=== PATIENT | female | born 1940 | race Caucasian/White ===

== ENCOUNTER 2020-12-18 15:40 | Emergency (ER) | payer MEDICARE, SELFPAY ==
[2020-12-18 15:44] VITALS: BP 165/90; PULSE 86; RESP 20; O2SAT 97; BMI 32.5
--- NOTE | 2020-12-18 15:51 | ECG_ITS ---
[facility] Test Date: 2020-12-18 Pat Name: Radha Silverman Department: Room: Gender: Female Axminster Rug Setter: : 1940 Requested By: Shila Garcia Order Number: [id number] Julian MD: Joel Flores M.D. Measurements Intervals [place] Rate: 90 P: 67 MO: 203 QRS: 26 QRSD: 82 T: 32 QT: 334 QTc: 409 Interpretive Statements SINUS RHYTHM Compared to ECG 08/18/2019 22:00:28 T-wave abnormality no longer present Electronically Signed On 12-19-2020 17:09:00 PRINCIPAL HARDWARE ARCHITECT by Joel Flores M.D. [email or web address] davis community hospitalCyvenio Biosystemscleveland clinic akron generalGati Infrastructure/store/OM/[id number]/[id number]
--- NOTE | 2020-12-18 16:01 | ED_ITS ---
HPI - SOB/Dyspnea General: Chief Complaint: Shortness of Breath/Dyspnea Stated Complaint: RESP DISTRESS Time Seen by Provider: 12/18/20 15:50 Source: patient and EMS Mode of arrival: EMS Limitations: physical limitation History of Present Illness: HPI Narrative: 80-year-old female brought in by EMS with shortness of breath. History of COPD. When EMS arrived, she had been symptomatic for about an hour, her O2 sats were in the 70s on room air. Increased to high 90s on 7 L nasal cannula. Denies recent fever, increased phlegm production, chest pain, nausea or vomiting. She is on home oxygen 3 to 4 L with activity, currently was not wearing her oxygen when her symptoms started MD elicited complaint: shortness of breath Pertinent past history: COPD Onset (ago): hour(s) Context: recent illness Timing: progressively worsening Associated symptoms: Deny chest pain, fever(s), hemoptysis, lightheadedness, nausea, syncope or vomiting Review of Systems General: Reports: ROS unobtainable due to medical condition Const: Reports: fatigue; Denies: fever(s) or chills Eyes: Denies: change in vision ENMT: Denies: odynophagia or nasal congestion Card: Reports: dyspnea on exertion; Denies: chest pain, irregular heart rhythm, edema, swelling of feet/ankles, lightheadedness or syncope Resp: Reports: dyspnea, productive cough and wheezing; Denies: stridor, pain on inspiration, change in phlegm color or hemoptysis GI: Denies: nausea, vomiting or melena : Denies: difficulty voiding or dysuria Skin/Breast: Denies: rash Physical Exam Const: EXAM LIMITATIONS: physical limitations (Shortness of breath) GENERAL APPEARANCE: in distress, disheveled, ill appearing and frail appearing ORIENTATION/CONSCIOUSNESS: Yes awake HENMT: COMMON NORMALS: normocephalic and atraumatic HEAD & SCALP: normocephalic and atraumatic FACE & SINUS: face symmetric Eye: COMMON NORMALS: EOMs intact bilaterally and conjunctivae normal ALIGNMENT: Yes alignment normal CONJUNCTIVA: Yes conjunctivae normal Neck/C-Spine: COMMON NORMALS: no lymphadenopathy; negative for no JVD Chest: COMMONS NORMALS: normal inspection of the chest Resp: EFFORT & INSPECTION: Yes respiratory distress, Yes pursed lip breathing, Yes labored, Yes uses accessory muscles and Yes prolonged expiratory phase AUSCULTATION: wheezes expiratory wheezes and diminished lung sounds Cardio: COMMON NORMALS: regular rate, S1 normal heart sound present and S2 normal heart sound present; negative for no JVD RATE: regular rate HEART SOUNDS: S1 normal heart sound present and S2 normal heart sound present GI: COMMON NORMALS: Normal to inspection, nondistended, normoactive bowel sounds present and Soft to palpation INSPECTION: Yes normal to inspection PALPATION: Yes Soft to palpation, Yes Firmness to palpation present (GI), No Tenderness to palpation present (GI), No Guarding due to palpation present (GI) and Yes Rigid due to palpation Extremity: COMMON NORMALS: normal to inspection, capillary refill normal, no clubbing, cyanosis or edema, no calf tenderness and no pedal edema Skin: COMMON NORMALS: no rashes or lesions noted, no wounds, no jaundice and no petechiae GENERAL SKIN EXAM: no rashes or lesions noted Course Vital Signs: Vital signs: Vital Signs Pulse Rate 72 12/18/20 20:43 Respiratory Rate 16 12/18/20 20:43 Blood Pressure 129/86 12/18/20 18:42 Pulse Oximetry 96 12/18/20 20:43 MDM - SOB/Dyspnea MDM Narrative: Medical decision making narrative: 80-year-old female with a history of COPD presenting with acute onset shortness of breath and wheezing an hour prior to calling EMS. When they arrived she was in the 70s on room air. No acute infiltrates on chest x-ray, baseline emphysema. She did have a delta troponin in the 40s, no EKG changes. No chest pain. This is most likely due to her period of hypoxia. She is already established with communications intern, and she is instructed to call tomorrow morning for an appointment as soon as possible. She tolerated oxygen weaning down to her baseline 2 to 3 L, O2 sats were in the high 90s Given steroids and bronchodilator. PaO2 69. Recommended close follow-up with her communications intern, call tomorrow morning for appointment. Also recommended that she wear her nasal cannula oxygen at all times, not just with activity. Strict instructions to return immediately to the ER if she develops worsening shortness of breath, chest pain, palpitations or any other concerning changes. Lab Data: Attestation: I reviewed the patient's lab results. Labs: Lab Results 12/18/20 12/18/20 12/18/20 Range/Units 16:05 16:05 16:05 WBC 5.3 (4.0-10.0) 10^3/ uL RBC 4.46 (4.1-5.3) 10^6/u L Hgb 12.4 (11.5-15.3) g/dL Hct 39.4 (37.0-47.0) % MCV 88.3 (81-99) fL MCH 27.8 L (28.0-34.0) pg MCHC 31.5 (30.0-36.0) g/dL RDW 12.9 (12.1-15.1) % Plt Count 322 (130-400) 10^3/c mm MPV 9.9 (7.4-10.4) fL Neut % (Auto) 62.7 % Lymph % (Auto) 25.5 % [place] % (Auto) 7.0 % Eos % (Auto) 4.0 % Baso % (Auto) 0.4 % Neut # (Auto) 3.29 (1.8-7.7) 10^3/u L Lymph # (Auto) 1.3 (0.8-4.8) 10^3/u L [place] # (Auto) 0.4 (0.2-0.9) 10^3/u L Eos # (Auto) 0.2 (0.0-0.8) 10^3/u L Baso # (Auto) 0.0 (0.0-0.1) 10^3/u L Nucleated RBC % (a uto) 0 % Nucleated RBCs # 0.0 /100WBC Specimen Type Sample Site ABG pH (7.35-7.45) ABG pCO2 (35-45) mmHg ABG pO2 (80.0-100.0) mmH g ABG HCO3 (22-26) mmol/L ABG O2 Saturation ABG Base Excess (-2.0-2.0) mmol/ L Efe Test A-a O2 Gradient (5-10) mmHg Hematocrit (37-47) % Hgb O2 Saturation (95-100) % Carboxyhemoglobin (0.4-20.1) %THgb Methemoglobin (0.4-1.5) % Total Hemoglobin (12-16) g/dL Ionized Calcium (1.1-1.4) mmol/L O2 Delivery Device Hydraulic Lift Operator ID Sodium 138 (136-145) mmol/L Potassium 4.7 (3.5-5.1) mmol/L Chloride 102 (98-107) mmol/L Carbon Dioxide 28 (22-29) mmol/L Anion Gap 12.7 (5-19) BUN 21 (8-23) mg/dL Creatinine 0.7 (0.5-0.9) mg/dL GFR Calculation Not Reportable Glucose 104 (65-115) mg/dL Calculated Osmolal ity 289 (285-295) mOsm/k g Calcium 8.7 (8.5-10.5) mg/dL Magnesium 1.9 (1.7-2.3) mg/dL Total Bilirubin 0.3 (0.15-1.2) mg/dL AST 19 (0-32) U/L ALT 16 (0-33) U/L Alkaline Phosphata se 85 (35-105) IU/L Troponin T Baselin e 34 H (0-10) ng/L Troponin T 120 Min atka (0-10) ng/L Delta Troponin T (0-10) ABS# C-Reactive Protein 2.4 (0.0-4.9) mg/L NT-Pro-B Natriuret Pep 90 (0-450) pg/mL Total Protein 6.8 (6.6-8.7) g/dL Albumin 4.1 (3.5-5.2) g/dL Globulin 2.7 (1.3-4.6) g/dL Urine Color (Yellow) Urine Appearance (CLEAR) Urine pH (5-7) Ur Specific Gravit y (1.005-1.030) Urine Protein (Negative) Urine Glucose (UA) (Normal) Urine Ketones (Negative) Urine Blood (Negative) Urine Nitrate (Negative) Urine Bilirubin (Negative) Urine Urobilinogen (Negative) mg/dL Ur Leukocyte Prema ase (Negative) Urine RBC (0-2) /hpf Urine WBC (0-5) /hpf Ur Squamous Epith Cells (0-5) /hpf Ur Transition Epit h Cell /hpf Amorphous Sediment Urine Bacteria (NONE) /hpf 12/18/20 12/18/20 12/18/20 Range/Units 16:11 17:04 18:05 WBC (4.0-10.0) 10^3/ uL RBC (4.1-5.3) 10^6/u L Hgb (11.5-15.3) g/dL Hct (37.0-47.0) % MCV (81-99) fL MCH (28.0-34.0) pg MCHC (30.0-36.0) g/dL RDW (12.1-15.1) % Plt Count (130-400) 10^3/c mm MPV (7.4-10.4) fL Neut % (Auto) % Lymph % (Auto) % [place] % (Auto) % Eos % (Auto) % Baso % (Auto) % Neut # (Auto) (1.8-7.7) 10^3/u L Lymph # (Auto) (0.8-4.8) 10^3/u L [place] # (Auto) (0.2-0.9) 10^3/u L Eos # (Auto) (0.0-0.8) 10^3/u L Baso # (Auto) (0.0-0.1) 10^3/u L Nucleated RBC % (a uto) % Nucleated RBCs # /100WBC Specimen Type Arterial Sample Site Brachial, left ABG pH 7.37 (7.35-7.45) ABG pCO2 50.7 H (35-45) mmHg ABG pO2 69.6 L (80.0-100.0) mmH g ABG HCO3 29.0 H (22-26) mmol/L ABG O2 Saturation 93.9 ABG Base Excess 2.7 H (-2.0-2.0) mmol/ L Efe Test Pos A-a O2 Gradient 2.3 L (5-10) mmHg Hematocrit 39.1 (37-47) % Hgb O2 Saturation 91.6 L (95-100) % Carboxyhemoglobin 1.8 (0.4-20.1) %THgb Methemoglobin 0.8 (0.4-1.5) % Total Hemoglobin 12.8 (12-16) g/dL Ionized Calcium 1.2 (1.1-1.4) mmol/L O2 Delivery Device Hag Hydraulic Lift Operator ID Cak Sodium 139.0 (136-145) mmol/L Potassium 4.5 (3.5-5.1) mmol/L Chloride (98-107) mmol/L Carbon Dioxide (22-29) mmol/L Anion Gap (5-19) BUN (8-23) mg/dL Creatinine (0.5-0.9) mg/dL GFR Calculation Glucose 112.0 (65-115) mg/dL Calculated Osmolal ity (285-295) mOsm/k g Calcium (8.5-10.5) mg/dL Magnesium (1.7-2.3) mg/dL Total Bilirubin (0.15-1.2) mg/dL AST (0-32) U/L ALT (0-33) U/L Alkaline Phosphata se (35-105) IU/L Troponin T Baselin e (0-10) ng/L Troponin T 120 Min atka 75.18 H (0-10) ng/L Delta Troponin T 41.18 H* (0-10) ABS# C-Reactive Protein (0.0-4.9) mg/L NT-Pro-B Natriuret Pep (0-450) pg/mL Total Protein (6.6-8.7) g/dL Albumin (3.5-5.2) g/dL Globulin (1.3-4.6) g/dL Urine Color Yellow (Yellow) Urine Appearance Clear (CLEAR) Urine pH 5 (5-7) Ur Specific Gravit y 1.020 (1.005-1.030) Urine Protein Trace (Negative) Urine Glucose (UA) Norm (Normal) Urine Ketones Negative (Negative) Urine Blood Neg (Negative) Urine Nitrate Negative (Negative) Urine Bilirubin Neg (Negative) Urine Urobilinogen Norm (Negative) mg/dL Ur Leukocyte Prema ase Negative (Negative) Urine RBC None (0-2) /hpf Urine WBC Rare (0-5) /hpf Ur Squamous Epith Cells 5-10 H (0-5) /hpf Ur Transition Epit h Cell Rare /hpf Amorphous Sediment Not Reportable Urine Bacteria 1+ H (NONE) /hpf Discharge Plan Discharge Patient Disposition: Home Clinical Impression: Acute exacerbation of chronic obstructive airways disease Condition: Stable Prescriptions: No Action celecoxib 200 mg Capsule 200 mg PO DAILY RF: 0 Aspir-81 81 mg Tablet,Delayed Release (Dr/Ec) 81 mg PO DAILY RF: 0 albuterol sulfate 90 mcg/actuation HFA aerosol inhaler 2 puff INHALATION Q4H PRN (Reason: Wheezing) RF: 0 lisinopril 2.5 mg tablet 2.5 mg PO DAILY RF: 0 metoprolol tartrate 25 mg tablet 12.5 mg PO BID RF: 0 Discharge Orders: Discharge ED (Routine); Ordered 12/18/20 Ordered By: Shila Garcia Referrals: Joel Flores M.D [Physician] - 1-3 days (ER followup) Quan Yang, [Primary Care Provider] - Discharge Diet: Advance as tolerated and Usual diet Discharge Activity: Resume usual activity, Increase activity as tolerated and Oxygen as instructed Patient Instructions: COPD Stoplight Activity Restrictions/Additional Instructions: You have been referred to the communications intern and should hear from them about scheduling a follow-up appointment in the next 3 to 5 days. Make sure to wear your oxygen continuously.Return immediately to the ER if you develop chest pain, continued difficulty breathing, fever, or any other worsening symptoms Coding Level of Care Code ED Facilities Maintenance Technician for Madelyn Fwzakia Exam Comprehensive
[2020-12-18 16:08] VITALS: PULSE 100; RESP 22; O2SAT 95
[2020-12-18] MEDS: ipratropium-albuterol 3 mL Neb INHALATION (16:08)
[2020-12-18 16:13] VITALS: PULSE 90
[2020-12-18 16:22] LABS: ABG PCO2 50.7 mmHg (35-45); ABG PH Result 7.37 (7.35-7.45); Alveolar-Arterial Oxygen Gradi 2.3 mmHg (5-10); Arterial Blood Gas Hematocrit 39.1 % (37-47); Base Excess ABG 2.7 mmol/L (-2.0-2.0); Blood Gas Allen Test Pos; Blood Gas Operator Identificat CAK; Blood Gas Sample Site Brachial, left; Blood Gas Sample Type Arterial; Carboxyhemoglobin 1.8 %THgb (0.4-20.1); HGB O2 Sat 91.6 % (95-100); Ionized Calcium Level - ABG 1.2 mmol/L (1.1-1.4); Methemoglobin 0.8 % (0.4-1.5); Oxygen Device HAG; Oxygen Saturation ABG 93.9; PO2 ABG 69.6 mmHg (80.0-100.0); Potassium Level - ABG 4.5 mmol/L (3.5-5.0); Total Hemoglobin 12.8 g/dL (12-16)
[2020-12-18 16:43] LABS: Basophils % 0.4 %; Eosinophils # 0.2 10^3/uL (0.0-0.8); Hematocrit 39.4 % (37.0-47.0); Hemoglobin 12.4 g/dL (11.5-15.3); Lymphocytes # 1.3 10^3/uL (0.8-4.8); Lymphocytes % 25.5 %; Mean Corpuscular HGB Conc 31.5 g/dL (30.0-36.0); Mean Corpuscular Hemoglobin 27.8 pg (28.0-34.0); Mean Corpuscular Volume 88.3 fL (81-99); Mean Platelet Volume 9.9 fL (7.4-10.4); Monocytes # 0.4 10^3/uL (0.2-0.9); Neutrophils # 3.29 10^3/uL (1.8-7.7); Neutrophils % 62.7 %; Nucleated Red Blood Cells % 0 %; Platelet Count 322 10^3/cmm (130-400); Red Blood Count 4.46 10^6/uL (4.1-5.3); Red Cell Distribution Width 12.9 % (12.1-15.1); White Blood Count 5.3 10^3/uL (4.0-10.0)
[2020-12-18 16:59] LABS: Troponin(5th) Baseline 34 ng/L (0-10)
--- NOTE | 2020-12-18 17:01 | XRR_ITS ---
PROCEDURE INFORMATION: Exam: XR Chest Exam date and time: 12/18/2020 5:02 PM Age: 80 years old Clinical indication: Shortness of breath; Additional info: Respiratory distress, hypoxia TECHNIQUE: Imaging protocol: XR of the chest Views: 1 view. COMPARISON: CR Chest 1 [place] [id number] 08/18/2019 4:23 PM FINDINGS: Lungs: Emphysema. No focal airspace consolidation. Pleural spaces: Unremarkable. No pleural effusion. No pneumothorax. Heart/Mediastinum: Unremarkable. No cardiomegaly. Bones/joints: Unremarkable. XR/XR chest 1V portable [id number] IMPRESSION: 1. No focal pneumonia apparent. 2. Significant background emphysema. 3. No significant change from prior on 08/18/2019.
[2020-12-18 17:06] LABS: Alanine Aminotransferase 16 U/L (0-33); Albumin Level 4.1 g/dL (3.5-5.2); Alkaline Phosphatase 85 IU/L (35-105); Anion Gap 12.7 (5-19); Aspartate Amino Transferase 19 U/L (0-32); Blood Urea Nitrogen 21 mg/dL (8-23); C Reactive Protein 2.4 mg/L (0.0-4.9); Calcium 8.7 mg/dL (8.5-10.5); Carbon Dioxide 28 mmol/L (22-29); Chloride 102 mmol/L (98-107); Globulin 2.7 g/dL (1.3-4.6); Glucose 104 mg/dL (65-115); Magnesium 1.9 mg/dL (1.7-2.3); NT Pro B Type Natriuretic Pept 90 pg/mL (0-450); Osmolality Calculated 289 mOsm/kg (285-295); Potassium 4.7 mmol/L (3.5-5.1); Sodium 138 mmol/L (136-145); Total Bilirubin 0.3 mg/dL (0.15-1.2); Total Protein 6.8 g/dL (6.6-8.7)
[2020-12-18 17:44] LABS: Protein Urine Trace (Negative); Urine Appearance Clear (CLEAR); Urine Color Yellow (Yellow); pH Urine 5 (5-7)
[2020-12-18 17:45] LABS: Add Urine Culture? No; Add Urine Microscopic? YES; Bacteria Urine 1+ /hpf; Bilirubin Urine Neg (Negative); Blood Urine Neg (Negative); Glucose Urine UA Norm (Normal); Ketones Urine Negative (Negative); Leukocyte Esterase Urine Negative (Negative); Nitrate Urine Negative (Negative); Transitional Epi Cells Urine RARE /hpf; Urobilinogen Urine Norm (Negative); WBC Urine RARE /hpf (0-5)
--- NOTE | 2020-12-18 17:51 | ECG_ITS ---
[facility] Test Date: 2020-12-18 Pat Name: Radha Silverman Department: Room: Gender: Female Technologist Development: : 1940 Requested By: Shila Garcia Order Number: [id number] Julian MD: Joel Flores M.D. Measurements Intervals [place] Rate: 89 P: 66 NM: 189 QRS: -2 QRSD: 93 T: 31 QT: 355 QTc: 433 Interpretive Statements SINUS RHYTHM Compared to ECG 12/18/2020 16:11:59 ST (T wave) deviation no longer present Electronically Signed On 12-20-2020 19:03:38 PASTER OPERATOR by Joel Flores M.D. [email or web address] surgical hospitalStarShooter/store/[id number]
[2020-12-18 18:41] LABS: Troponin 5 2HR 75.18 ng/L (0-10)
[2020-12-18 18:42] VITALS: BP 129/86; PULSE 69; RESP 18; O2SAT 98
[2020-12-18 18:45] LABS: Troponin 5 2HR Delta 41.18 ABS# (0-10)
[2020-12-18 20:43] VITALS: PULSE 72; RESP 16; O2SAT 96
== END 2020-12-18 20:44 | disposition home or self-care (01) ==
PROVIDERS: Emergency Provider Family Medicine; PCP Family Medicine
DX: J44.1 Chronic obstructive pulmonary disease with (acute) exacerbation (principal); Z79.82 Long term (current) use of aspirin
CPT/HCPCS: 36600; 71045; 80051; 80053; 81001; 82330; 82805; 83735; 83880; 84484; 85025; 86140; 93005; 94640; 96374; 99284; J2930

== ENCOUNTER 2022-04-19 18:11 | Inpatient (IN) | payer MEDICARE, SELFPAY ==
[2022-04-19] VITALS (8 sets, daily range): BP systolic 97–119; BP diastolic 51–79; PULSE 77–163; RESP 18–24; TEMP 36.6; O2SAT 94–98; BMI 33.3
--- NOTE | 2022-04-19 18:17 | XRR_ITS ---
PROCEDURE INFORMATION: Exam: XR Chest Exam date and time: 04/19/2022 6:31 PM Age: 81 years old Clinical indication: Chest wall pain; Additional info: Cp TECHNIQUE: Imaging protocol: Radiologic exam of the chest. Views: 1 view. COMPARISON: CR (CHEST, ) 12/18/2020 5:04 PM FINDINGS: Lungs: Hyperinflated lungs with biapical and bibasilar scarring. No consolidation. Pleural spaces: No pleural effusion. No pneumothorax. Heart/Mediastinum: No cardiomegaly. Bones/joints: Visualized osseous structures are intact. XR/XR chest 1V portable [id number] IMPRESSION: No acute findings.
--- NOTE | 2022-04-19 18:17 | ECG_ITS ---
[facility] Test Date: 2022-04-19 Pat Name: Radha Silverman Department: Room: Gender: Female Sales Performance Manager: : 1940 Requested By: Miles Hair Order Number: [id number] Julian MD: Joel Flores M.D. Measurements Intervals [place] Rate: 163 P: [place]: QRS: 19 QRSD: 102 T: 22 QT: 246 QTc: 405 Interpretive Statements ATRIAL FLUTTER WITH RAPID VENTRICULAR RESPONSE LOW QRS VOLTAGE IN PRECORDIAL LEADS [QRS DEFLECTION < 1.0 mV IN CHEST LEADS] NONSPECIFIC ST ELEVATION [0.05+ mV ST ELEVATION] Compared to ECG 12/18/2020 18:06:00 Low QRS voltage now present ST (T wave) deviation now present Sinus rhythm no longer present Electronically Signed On 04-20-2022 18:57:28 CDT by Joel Flores M.D. [email or web address] [email or web address] Pharmawil[facility].Inspirato/store/NU/[id number] f
--- NOTE | 2022-04-19 18:24 | ED_ITS ---
HPI - Abdominal Pain General: Chief Complaint: Back Pain/Injury Stated Complaint: L FLANK PAIN Time Seen by Provider: 04/19/22 18:12 Source: patient Mode of arrival: ambulatory Limitations: no limitations History of Present Illness: 81-year-old female who states she been having left flank pain and left sided posterior chest pain over the last day. States been very sharp in nature and worse with palpation. She denies any vomiting or diarrhea. She denies any shortness of breath. She denies any chest pain or palpitations but she is in atrial flutter with a heart rate of 160s here. She is Associated Symptoms: Denies chills, dysuria and fever(s) Review of Systems Const: Denies: fever(s), chills, body aches or change in appetite Eyes: Denies: blurry vision or eye discomfort ENMT: Denies: throat pain or dental pain Card: Denies: chest pain Resp: Denies: dyspnea GI: Reports: abdominal pain : Denies: dysuria Musc: Denies: neck pain or back pain Skin/Breast: Denies: rash Neuro: Denies: headache(s) Psych: Denies: depression Sam/Lymph: Denies: easy bruising All/Imm: Denies: urticaria PFSH ED PFSH: Medical History Hypertension Social History Substance/Drug Use: never Physical Exam Const: COMMON NORMALS: patient oriented x3 and healthy appearing HENMT: COMMON NORMALS: normocephalic and atraumatic HEAD & SCALP: normocephalic and atraumatic Eye: COMMON NORMALS: Equal, round and reactive pupils present and EOMs intact bilaterally PUPIL: Yes Equal, round and reactive pupils present Neck/C-Spine: COMMON NORMALS: full ROM and supple Chest: COMMONS NORMALS: normal inspection of the chest and normal palpation of entire chest wall Resp: COMMON NORMALS: normal respiratory effort, No retractions, No use of accessory muscles and clear to auscultation bilaterally AUSCULTATION: clear to auscultation bilaterally Cardio: COMMON NORMALS: regular rhythm and No murmurs present (Cardio) RATE: tachycardic RHYTHM: regular rhythm GI: COMMON NORMALS: Normal to inspection, nondistended, normoactive bowel sounds present, Soft to palpation, non-tender and no masses PALPATION: Yes Soft to palpation Extremity: COMMON NORMALS: normal to inspection and full ROM Neuro: COMMON NORMALS: patient oriented x3, moves all extremities and no focal motor deficits Psych: COMMON NORMALS: mental status grossly normal, Normal thought process present and cooperative THOUGHT PROCESS: Normal thought process present Skin: COMMON NORMALS: no rashes or lesions noted and no wounds GENERAL SKIN EXAM: no rashes or lesions noted Course Vital Signs: Vital signs: Vital Signs Pulse Rate 147 H 04/19/22 20:01 Respiratory Rate 18 04/19/22 20:01 Blood Pressure 111/79 04/19/22 20:01 Pulse Oximetry 97 04/19/22 20:01 MDM - Abdominal Pain Medical Decision Making Patient presents here with atrial flutter with rapid response she was given Cardizem and had to be started on a Cardizem drip her heart rate is now in the 90s does have some flank pain her CT abdomen pelvis is normal her D-dimer is normal for age-adjusted D-dimer at 1.78. Did speak to the hospitalist will admit at this time. Her pain is improved here. Lab Data : 04/19/22 18:50 04/19/22 18:50 Labs/Radiology: Radiology Impressions Chest X-Ray 04/19/22 18:17 IMPRESSION: No acute findings. Abdomen/Pelvis CT 04/19/22 20:18 IMPRESSION: No acute findings. No renal stones. Laboratory Results WBC 10.1 10^3/uL (4.0-10.0) H 04/19/22 18:50 RBC 4.08 10^6/uL (4.1-5.3) L 04/19/22 18:50 Hgb 11.5 g/dL (11.5-15.3) 04/19/22 18:50 Hct 34.9 % (37.0-47.0) L 04/19/22 18:50 MCV 85.5 fl (81-99) 04/19/22 18:50 MCH 28.2 pg (28.0-34.0) 04/19/22 18:50 MCHC 33.0 g/dL (30.0-36.0) 04/19/22 18:50 RDW 12.0 % (12.1-15.1) L 04/19/22 18:50 Plt Count 324 10^3/cmm (130-400) 04/19/22 18:50 MPV 9.6 fL (7.4-10.4) 04/19/22 18:50 Neut % (Auto) 77.3 % 04/19/22 18:50 Lymph % (Auto) 10.9 % 04/19/22 18:50 [place] % (Auto) 9.3 % 04/19/22 18:50 Eos % (Auto) 1.7 % 04/19/22 18:50 Baso % (Auto) 0.3 % 04/19/22 18:50 Neut # (Auto) 7.83 10^3/uL (1.8-7.7) H 04/19/22 18:50 Lymph # (Auto) 1.1 10^3/uL (0.8-4.8) 04/19/22 18:50 [place] # (Auto) 0.9 10^3/uL (0.2-0.9) 04/19/22 18:50 Eos # (Auto) 0.2 10^3/uL (0.0-0.8) 04/19/22 18:50 Baso # (Auto) 0.0 10^3/uL (0.0-0.1) 04/19/22 18:50 Nucleated RBC % (auto) 0 % 04/19/22 18:50 Nucleated RBCs # 0.0 /100WBC 04/19/22 18:50 PT 13.90 SECONDS (12.1-14.9) 04/19/22 18:50 INR 1.04 (0.8-1.2) 04/19/22 18:50 D-Dimer 0.78 ug/mIFEU (0-0.59) H 04/19/22 18:50 Sodium 135 mmol/L (136-145) L 04/19/22 18:50 Potassium 5.1 mmol/L (3.5-5.1) 04/19/22 18:50 Chloride 100 mmol/L (98-107) 04/19/22 18:50 Carbon Dioxide 24 mmol/L (22-29) 04/19/22 18:50 Anion Gap 16.1 (5-19) 04/19/22 18:50 BUN 22 mg/dL (8-23) 04/19/22 18:50 Creatinine 0.8 mg/dL (0.5-0.9) 04/19/22 18:50 GFR Calculation Not Reportable 04/19/22 18:50 Glucose 111 mg/dL (65-115) 04/19/22 18:50 Calculated Osmolality 284 mOsm/kg (285-295) L 04/19/22 18:50 Calcium 8.5 mg/dL (8.5-10.5) 04/19/22 18:50 Total Bilirubin 0.3 mg/dL (0.15-1.2) 04/19/22 18:50 AST 18 U/L (0-32) 04/19/22 18:50 ALT 13 U/L (0-33) 04/19/22 18:50 Alkaline Phosphatase 79 IU/L (35-105) 04/19/22 18:50 Troponin T Baseline 23 ng/L (0-10) H 04/19/22 18:50 NT-Pro-B Natriuret Pep 546 pg/mL (0-450) H 04/19/22 18:50 Total Protein 7.1 g/dL (6.6-8.7) 04/19/22 18:50 Albumin 3.7 g/dL (3.5-5.2) 04/19/22 18:50 Globulin 3.4 g/dL (1.3-4.6) 04/19/22 18:50 Lipase 63 U/L (13-60) H 04/19/22 18:50 EKG Data EKG 1: I personally reviewed and interpreted this EKG as follows: EKG interpretation date: 04/19/22 EKG interpretation time: 18:25 Interpretation: atrial flutter rvr hr [address] or t wave abnormalities qrs 102 qtc 336 EKG 2: I personally reviewed and interpreted this EKG as follows: EKG interpretation date: 04/19/22 EKG interpretation time: 20:45 Interpretation: atrial flutterhr [address] or t wave abnormalities qrs 68 qtc 419 Critical Care Time Critical Care Time: Critical Care Time: Yes Total Critical Care Time: 40 Attestation: The high probability of a clinically significant, sudden or life threatening deterioration of the patient's cv system(s) required my full and direct attention, intervention and personal management. The critical care time is as shown. This time is in addition to time spent performing any reported procedures but includes the following: [x] Data and vital sign review and interpretation [x] Patient assessment, examination and intervention [x] Documentation [x] Medication orders and management Discharge Plan Discharge Patient Disposition: Admitted As Inpatient Clinical Impression: Atrial flutter with rapid ventricular response, Acute left flank pain Coding Level of Care Code ED Heavy Equipment Sales Associate for Madelyn Fwd Exam Comprehensive
[2022-04-19] MEDS: dilTIAZem 5 mg/mL SDV 5 mL 10 MG IVP (18:49)
[2022-04-19] MEDS: ondansetron 2 mg/ML SDV 2 mL 4 MG IVP ×2 (18:52→21:07)
[2022-04-19] MEDS: morphine 4 mg/mL SDV 1 mL IVP ×2 (18:52→21:07)
[2022-04-19] MEDS: sodium chloride 0.9% 1,000 ML 999 ML IV (18:52)
[2022-04-19 19:12] LABS: Basophils % 0.3 %; Eosinophils # 0.2 10^3/uL (0.0-0.8); Eosinophils % 1.7 %; Hematocrit 34.9 % (37.0-47.0); Hemoglobin 11.5 g/dL (11.5-15.3); Lymphocytes # 1.1 10^3/uL (0.8-4.8); Lymphocytes % 10.9 %; Mean Corpuscular Hemoglobin 28.2 pg (28.0-34.0); Mean Corpuscular Volume 85.5 fl (81-99); Mean Platelet Volume 9.6 fL (7.4-10.4); Monocytes # 0.9 10^3/uL (0.2-0.9); Monocytes % 9.3 %; Neutrophils # 7.83 10^3/uL (1.8-7.7); Neutrophils % 77.3 %; Nucleated Red Blood Cells % 0 %; Platelet Count 324 10^3/cmm (130-400); Red Blood Count 4.08 10^6/uL (4.1-5.3); White Blood Count 10.1 10^3/uL (4.0-10.0)
[2022-04-19 19:38] LABS: Troponin(5th) Baseline 23 ng/L (0-10)
[2022-04-19 19:46] LABS: Alanine Aminotransferase 13 U/L (0-33); Albumin Level 3.7 g/dL (3.5-5.2); Alkaline Phosphatase 79 IU/L (35-105); Blood Urea Nitrogen 22 mg/dL (8-23); Calcium 8.5 mg/dL (8.5-10.5); Carbon Dioxide 24 mmol/L (22-29); Chloride 100 mmol/L (98-107); Globulin 3.4 g/dL (1.3-4.6); Glucose 111 mg/dL (65-115); Lipase 63 U/L (13-60); NT Pro B Type Natriuretic Pept 546 pg/mL (0-450); Osmolality Calculated 284 mOsm/kg (285-295); Sodium 135 mmol/L (136-145); Total Bilirubin 0.3 mg/dL (0.15-1.2); Total Protein 7.1 g/dL (6.6-8.7)
[2022-04-19] MEDS: lidocaine 2% viscous 15 ML, aluminum-mag hydrox-simethicon 30 ML, sucralfate oral liq 1 GM PO (19:46)
[2022-04-19 19:51] LABS: Anion Gap 16.1 (5-19); Aspartate Amino Transferase 18 U/L (0-32); Potassium 5.1 mmol/L (3.5-5.1)
[2022-04-19 20:14] LABS: INR 1.04 (0.8-1.2)
[2022-04-19 20:17] LABS: D Dimer 0.78 ug/mIFEU (0-0.59)
--- NOTE | 2022-04-19 20:17 | ECG_ITS ---
[facility] Test Date: 2022-04-19 Pat Name: Radha Silverman Department: Room: Gender: Female Medical Technician: : 1940 Requested By: Miles Hair Order Number: [id number] Julian MD: Joel Flores M.D. Measurements Intervals [place] Rate: 101 P: [place]: QRS: 45 QRSD: 68 T: 67 QT: 361 QTc: 469 Interpretive Statements ATRIAL FLUTTER WITH RAPID VENTRICULAR RESPONSE AND VARIABLE BLOCK LOW QRS VOLTAGE IN PRECORDIAL LEADS [QRS DEFLECTION < 1.0 mV IN CHEST LEADS] SEPTAL MYOCARDIAL INFARCTION , OF INDETERMINATE AGE [40+ ms Q WAVE IN V1/V2] Compared to ECG 04/19/2022 18:25:51 Myocardial infarct finding now present ST (T wave) deviation still present Electronically Signed On 04-20-2022 19:02:21 CDT by Joel Flores M.D. [email or web address].[email or web address]/OM/[id number]
--- NOTE | 2022-04-19 20:18 | CTR_ITS ---
PROCEDURE INFORMATION: Exam: CT Abdomen And Pelvis Without Contrast Exam date and time: 04/19/2022 8:32 PM Age: 81 years old Clinical indication: Pain; Other: Left flank; Additional info: Flank pain TECHNIQUE: Imaging protocol: Computed tomography of the abdomen and pelvis without contrast. Radiation optimization: All CT scans at this facility use at least one of these dose optimization techniques: automated exposure control; mA and/or kV adjustment per patient size (includes targeted exams where dose is matched to clinical indication); or iterative reconstruction. COMPARISON: CR (CHEST, ) 04/19/2022 6:31 PM RADIATION DOSE METRICS: Total DLP (mGy-cm): 1489.06 FINDINGS: Liver: Normal. No mass. Gallbladder and bile ducts: Cholecystectomy. No ductal dilation. Pancreas: Normal. No ductal dilation. Spleen: Normal. No splenomegaly. Adrenal glands: Normal. No mass. Kidneys and ureters: No renal stones. No hydronephrosis. Stomach and bowel: Colonic diverticulosis without findings of acute diverticulitis. No obstruction. No mucosal thickening. Appendix: No evidence of appendicitis. Intraperitoneal space: Unremarkable. No free air. No significant fluid collection. Vasculature: Unremarkable. No abdominal aortic aneurysm. Lymph nodes: Unremarkable. No enlarged lymph nodes. Urinary bladder: Unremarkable as visualized. Reproductive: Hysterectomy. Bones/joints: No acute fracture. Grade 1 retrolisthesis of L2 on L3 and L3 on L4. Advanced multilevel degenerative disc disease throughout the lumbar spine. Soft tissues: Unremarkable. CT/CT kidney stone [id number] IMPRESSION: No acute findings. No renal stones.
[2022-04-19 21:30] LABS: Troponin 5 2HR 19.05 ng/L (0-10)
[2022-04-19 21:32] LABS: Troponin 5 2HR Delta -3.95 ABS# (0-10)
[2022-04-19 21:59] LABS: Add Urine Microscopic? YES; Bilirubin Urine Neg (Negative); Blood Urine 2+ (Negative); Glucose Urine UA Norm (Normal); Ketones Urine Negative (Negative); Leukocyte Esterase Urine Negative (Negative); Nitrate Urine Negative (Negative); Protein Urine Neg (Negative); Specific Gravity, Urine 1.025 (1.005-1.030); Urine Appearance Clear (CLEAR); Urine Color Yellow (Yellow); Urobilinogen Urine Norm (Negative); pH Urine 5 (5-7)
[2022-04-19 22:00] LABS: Add Urine Culture? No; Bacteria Urine 2+ /hpf; Mucus Urine 2+ /hpf; RBC Urine 0-4 /hpf (0-2); Squamous Epithelial Cell Urine 25-40 /hpf (0-5)
[2022-04-20] VITALS (25 sets, daily range): BP systolic 75–149; BP diastolic 40–79; PULSE 67–118; RESP 14–27; TEMP 36.4–37.2; O2SAT 90–99
--- NOTE | 2022-04-20 00:17 | ECG_ITS ---
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 Measurements Intervals [place] Rate: 92 P: [place]: QRS: 29 QRSD: 78 T: 61 QT: 316 QTc: 392 Interpretive Statements ATRIAL FIBRILLATION LOW QRS VOLTAGE IN PRECORDIAL LEADS [QRS DEFLECTION < 1.0 mV IN CHEST LEADS] Compared to ECG 04/19/2022 20:45:11 Atrial flutter no longer present Myocardial infarct finding no longer present ST (T wave) deviation no longer present Electronically Signed On 04-20-2022 19:01:17 CDT by Joel Flores M.D. [id number]
[2022-04-20] MEDS: pneumococcal (23 valent) SDV 0.5 mL IM (00:28)
[2022-04-20 02:56] LABS: Troponin 5 6HR 21.92 ng/L (0-10)
[2022-04-20 02:57] LABS: Troponin 5 6HR Delta -1.08 ng/L (0-12)
--- NOTE | 2022-04-20 04:02 | PM.HP ---
Providers/Chief Complaint Admitting Physician: Candelaria Haas MD Primary Care Provider: Quan Yang DO Chief Complaint: L FLANK PAIN History of Present Illness Radha Silverman is a 81 year old female who with a past medical history of COPD on home O2 of 2.5 L/min presenting today with left-sided chest pain. Patient describes the pain as being located along the left chest wall, started about a week ago, worse with changing position and sides. This is nonradiating. Upon admission she was noted to be in A. fib with RVR for which she received Cardizem pushes and thereafter was started on Cardizem infusion. She denies a past history of atrial fibrillation. Denies any other past cardiac medical history. She states that on one of her previous hospital admissions it was attempted to be put on anticoagulation, however she is uncertain as to why this was recommended. She did have easy bruising and anticoagulation was eventually deferred. She denies any dyspnea. On review of prior records, she had an abnormal stress test in 2019 which showed areas of decreased tracer uptake in the inferior and apical lateral region suggestive of myocardial scarring versus effusion artifact. Conservative management was recommended at the time. She has not followed with cardiology since. She denies any fever chills URI type symptoms. CT of the abdomen was negative for any abnormalities. Chest x-ray shows hyperinflated lungs with by apical scarring without any consolidation. EKG shows A. fib with RVR. Baseline troponin is a 23, 2-hour troponin at 19 with a negative delta. Review of Systems General: Reports: 10 or more systems reviewed and unremarkable except in HPI and below Const: Denies: fever(s), chills or body aches Eyes: Denies: change in vision, blurry vision or photophobia ENMT: Reports: hoarseness; Denies: throat pain, enlarged tonsils, odynophagia or nasal congestion Card: Denies: chest pain, palpitations, irregular heart rhythm, edema, swelling of feet/ankles, lightheadedness, pre-syncope, dyspnea on exertion or orthopnea Resp: Denies: dyspnea, productive cough, non-productive cough, wheezing, stridor, pain on inspiration, change in phlegm color, hemoptysis or chest congestion GI: Denies: abdominal pain, nausea, vomiting, hematemesis, coffee ground emesis, dysphagia, heartburn, diarrhea, constipation, GI cramping, change in stool character, hematochezia or melena : Denies: flank pain, difficulty voiding, dysuria, urinary frequency, urinary urgency, urinary hesitancy or hematuria Musc: Denies: neck pain, back pain, extremity pain, joint swelling, joint warmth or deformity Neuro: Denies: headache(s), numbness in extremities, weakness in extremities, sensory changes, difficulty walking, frequent falls, dizziness, vertigo, behavioral changes, Slurred speech present or seizure-like activity Psych: Denies: anxiety, depression, suicidal ideation or homicidal ideation Endo: Denies: polyuria, polydipsia, tired all the time, cold intolerance or hot flashes Sam/Lymph: Denies: easy bruising or easy bleeding Medications/Allergies Home Medications Medication Instructions Recorded Confirmed Last Taken Type albuterol sulfate 90 mcg/actuation 2 puff INHALATION Q4H PRN 12/18/20 04/20/22 12/18/20 History aerosol inhaler aspirin 81 mg tablet,delayed 81 mg PO DAILY 12/18/20 04/20/22 12/18/20 History release celecoxib 200 mg capsule 200 mg PO DAILY 12/18/20 04/20/22 12/18/20 History lisinopril 2.5 mg tablet 2.5 mg PO DAILY 12/18/20 04/20/22 12/18/20 History metoprolol tartrate 25 mg tablet 12.5 mg PO BID 12/18/20 04/20/22 12/18/20 History Allergies Allergy/AdvReac Type Severity Reaction Status Date / Time No Known Allergies Allergy Verified 04/20/22 00:04 PFSH Acute PFSH: Medical History (Updated 04/20/22 @ 04:13 by Candelaria Haas MD) Hypertension Social History Substance/Drug Use: never Female Reproductive History: Date of last menstrual period: 10/22/79 Vitals/I&O/Wt Last Vital Signs Temp 97.5 F L 04/20/22 00:51 Pulse 73 04/20/22 00:51 Resp 21 H 04/20/22 00:51 BP 129/76 04/20/22 00:51 Pulse Ox 96 04/20/22 00:51 04/19/22 04/19/22 04/20/22 14:59 22:59 06:59 Intake Total 1029.083 / 1029.083 20.917 / 1050.000 Output Total 100 / 100 Balance 1029.083 / 1029.083 -79.083 / 950.000 Weight last 48 hrs Weight 85.411 kg Physical Exam Narrative: GEN: Awake, alert and oriented, chronically ill appearing lady in no acute stress CVS: S1S2 N RS: scattered wheezing on exam Abd: Soft, nt/nd , bs+ 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 Abdomen/Pelvis CT 04/19/22 20:18 IMPRESSION: No acute findings. No renal stones. Laboratory Results WBC 10.1 10^3/uL (4.0-10.0) H 04/19/22 18:50 RBC 4.08 10^6/uL (4.1-5.3) L 04/19/22 18:50 Hgb 11.5 g/dL (11.5-15.3) 04/19/22 18:50 Hct 34.9 % (37.0-47.0) L 04/19/22 18:50 MCV 85.5 fl (81-99) 04/19/22 18:50 MCH 28.2 pg (28.0-34.0) 04/19/22 18:50 MCHC 33.0 g/dL (30.0-36.0) 04/19/22 18:50 RDW 12.0 % (12.1-15.1) L 04/19/22 18:50 Plt Count 324 10^3/cmm (130-400) 04/19/22 18:50 MPV 9.6 fL (7.4-10.4) 04/19/22 18:50 Neut % (Auto) 77.3 % 04/19/22 18:50 Lymph % (Auto) 10.9 % 04/19/22 18:50 [place] % (Auto) 9.3 % 04/19/22 18:50 Eos % (Auto) 1.7 % 04/19/22 18:50 Baso % (Auto) 0.3 % 04/19/22 18:50 Neut # (Auto) 7.83 10^3/uL (1.8-7.7) H 04/19/22 18:50 Lymph # (Auto) 1.1 10^3/uL (0.8-4.8) 04/19/22 18:50 [place] # (Auto) 0.9 10^3/uL (0.2-0.9) 04/19/22 18:50 Eos # (Auto) 0.2 10^3/uL (0.0-0.8) 04/19/22 18:50 Baso # (Auto) 0.0 10^3/uL (0.0-0.1) 04/19/22 18:50 Nucleated RBC % (auto) 0 % 04/19/22 18:50 Nucleated RBCs # 0.0 /100WBC 04/19/22 18:50 PT 13.90 SECONDS (12.1-14.9) 04/19/22 18:50 INR 1.04 (0.8-1.2) 04/19/22 18:50 D-Dimer 0.78 ug/mIFEU (0-0.59) H 04/19/22 18:50 Sodium 135 mmol/L (136-145) L 04/19/22 18:50 Potassium 5.1 mmol/L (3.5-5.1) 04/19/22 18:50 Chloride 100 mmol/L (98-107) 04/19/22 18:50 Carbon Dioxide 24 mmol/L (22-29) 04/19/22 18:50 Anion Gap 16.1 (5-19) 04/19/22 18:50 BUN 22 mg/dL (8-23) 04/19/22 18:50 Creatinine 0.8 mg/dL (0.5-0.9) 04/19/22 18:50 GFR Calculation Not Reportable 04/19/22 18:50 Glucose 111 mg/dL (65-115) 04/19/22 18:50 Calculated Osmolality 284 mOsm/kg (285-295) L 04/19/22 18:50 Calcium 8.5 mg/dL (8.5-10.5) 04/19/22 18:50 Total Bilirubin 0.3 mg/dL (0.15-1.2) 04/19/22 18:50 AST 18 U/L (0-32) 04/19/22 18:50 ALT 13 U/L (0-33) 04/19/22 18:50 Alkaline Phosphatase 79 IU/L (35-105) 04/19/22 18:50 Troponin T Baseline 23 ng/L (0-10) H 04/19/22 18:50 Troponin T 120 Minute 19.05 ng/L (0-10) H 04/19/22 21:00 Delta Troponin T -3.95 ABS# (0-10) L 04/19/22 21:00 Troponin T Hi Sens 6Hr 21.92 ng/L (0-10) H 04/20/22 00:50 Troponin T Hi Sens 6Hr Delta -1.08 ng/L (0-12) L 04/20/22 00:50 NT-Pro-B Natriuret Pep 546 pg/mL (0-450) H 04/19/22 18:50 Total Protein 7.1 g/dL (6.6-8.7) 04/19/22 18:50 Albumin 3.7 g/dL (3.5-5.2) 04/19/22 18:50 Globulin 3.4 g/dL (1.3-4.6) 04/19/22 18:50 Lipase 63 U/L (13-60) H 04/19/22 18:50 Urine Color Yellow (Yellow) 04/19/22 21:18 Urine Appearance Clear (CLEAR) 04/19/22 21:18 Urine pH 5 (5-7) 04/19/22 21:18 Ur Specific [place] 1.025 (1.005-1.030) 04/19/22 21:18 Urine Protein Neg (Negative) 04/19/22 21:18 Urine Glucose (UA) Norm (Normal) 04/19/22 21:18 Urine Ketones Negative (Negative) 04/19/22 21:18 Urine Blood 2+ (Negative) H 04/19/22 21:18 Urine Nitrate Negative (Negative) 04/19/22 21:18 Urine Bilirubin Neg (Negative) 04/19/22 21:18 Urine Urobilinogen Norm mg/dL (Negative) 04/19/22 21:18 Ur Leukocyte Esterase Negative (Negative) 04/19/22 21:18 Urine RBC 0-4 /hpf (0-2) H 04/19/22 21:18 Urine WBC 5-10 /hpf (0-5) H 04/19/22 21:18 Ur Squamous Epith Cells 25-40 /hpf (0-5) H 04/19/22 21:18 Amorphous Sediment Not Reportable 04/19/22 21:18 Urine Bacteria 2+ /hpf (NONE) H 04/19/22 21:18 Urine Mucus 2+ /hpf 04/19/22 21:18 A&P Assessment and plan (1) Atrial flutter with rapid ventricular response: - New onset A flutter with RVR - currently on cardizem infusion, will overlap with po cardizem and attempt to titrate off drip. - [id number] score 6, anticoagulation recommended however patient hesitant at this time, reports bleeding. However I am unable to see a past record of anticoagulation. - Echocardiogram Status: Acute (2) Chronic respiratory failure with hypoxia: related to COPD Currently needing 02 more than baseline elevated D dimer and new onset A fib with pleuritic chest pain- will order CTA to evaluate for PE Status: Acute (3) COPD (chronic obstructive pulmonary disease): Not currently exacerbated Duoneb nebulization q6h bear Status: Acute (4) Chest pain: Atypical chest pain No acute St-t wave chanegs on EKG Trop negative delta at 2 hrs,less likely NSTEMI, will await 6 hr level Echocardiogram as above Pain appears to be more musculoskeletal vs pleuritic in nature given worsening with movement and deep breath Status: Acute Attestations Medical Necessity Statement*: Anticipate >2midnight admission for above defined care Coding Level of Care Code Acute [employer] 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
--- NOTE | 2022-04-20 04:18 | CT_ITS ---
WS: [id number] CT CHEST ANGIOGRAPHY WITH REFORMATS HISTORY: pleuritic chest pain, dyspnea, new A fib-evalute PE TECHNIQUE: Contiguous axial images are obtained through the chest during arterial injection of intrav enous contrast. Images are reconstructed to evaluate the pulmonary arteries. MIP imaging also reviewe d. All CT scans at [facility] use at least one of these dose optimization techniques: automat ed exposure control; mA and/or kV adjustment per patient size (includes targeted exams where dose is matched to clinical indication); or iterative reconstruction. CONTRAST: Omnipaque 350; 75 mL IV. DLP: 576.26 mGy.cm COMPARISON: 09/10/2008 Study is compromised by motion artifact. Very good opacification of the pulmonary arteries. No centra l pulmonary embolism. Nonobstructing filling defects in the RIGHT lower lobe involving the branching of several of the segmental lobes. These are probably not symptomatic due to their size and may be ch ronic. Similar defect in a segmental branch LEFT lower lobe. Normal-sized thoracic aorta. Mild athero sclerotic plaque. Heart size is normal. No filling defect in the atrial appendage. No pericardial or pleural effusion. Marked emphysema. LEFT lower lobe consolidation consistent with pneumonia is identified on this exami nation. Soft tissue nodule central LEFT upper lobe measures 7 x 10 mm. Not significantly changed sinc e 2007. Additional nodule in the periphery RIGHT lower lobe measures 10 mm and stable since 2007. 10 mm inferior RIGHT paratracheal lymph node. Increased lymph node burden at the LEFT hilum with the largest lymph node measuring 20 mm. Smaller lymph nodes on the RIGHT. No adrenal mass. Significant compromise of the abdominal structures. Marked tricuspid regurgitation i nto hepatic veins. Thoracolumbar scoliosis. CT/CT angio chest PE protcl [id number] IMPRESSION: 1. Subsegmental bilateral lower lobe nonobstructive filling defects consistent with pulmonary emboli. Age indeterminate. 2. LEFT lower lobe pneumonia. 3. Enlarged paratracheal and bilateral hilar lymph nodes. Largest lymph nodes at the LEFT hilum. These are reactive. Recommend follow-up chest CT in 3 months with IV contrast. 4. Severe chronic emphysema.
--- NOTE | 2022-04-20 04:22 | USCV_ITS ---
Radha Silverman Age: 81 Gender: F : 1940 Exam Date: 04/20/2022 10:49 Ordering Phys: Candelaria Haas MD Technologist: RAUL [place] [facility] [place]: New onset afib BP: 149 / 79 HR: 97 Rhythm: Sinus Technical Quality: Suboptimal MEASUREMENTS (Male / Female) Normal Values 2D ECHO LV Diastolic Diameter PLAX 3.3 cm 4.2 - 5.9 / 3.9 - 5.3 cm LV Systolic Diameter PLAX 2.2 cm IVS Diastolic Thickness 1.3 cm 0.6 - 1.0 / 0.6 - 0.9 cm IVS Systolic Thickness 1.7 cm LVPW Diastolic Thickness 1.1 cm 0.6 - 1.0 / 0.6 - 0.9 cm LVPW Systolic Thickness 1.2 cm LVOT Diameter 2.0 cm LV Ejection Fraction 2D Teich 63.5 % LV Ejection Fraction MOD 2C 73.1 % LV Ejection Fraction 2C AL 75.9 % LA Diameter 2.6 cm Aorta at Sinotubular Diameter 2.1 cm IVC Diameter 2.0 cm M-MODE Aortic Annulus Diameter 2.8 cm LA Ao Ratio MM 0.7 MV E Point Septal Separation 0.2 cm DOPPLER AV Peak Velocity 134.0 cm/s LVOT Peak Velocity 94.0 cm/s AV Area Cont Eq vti 2.3 cm squared AV Area Cont Eq pk 2.2 cm squared MV Area PHT 5.0 cm squared MV E' Velocity 100.0 cm/s TR Peak Velocity 227.0 cm/s TR Peak Gradient 20.6 mmHg Right Atrial Pressure 3.0 mmHg Pulmonary Artery Systolic Pressu 23.6 mmHg PV Peak Velocity 90.0 cm/s RV Acceleration Time 0.1 s RV Ejection Time 0.2 s RV AcT/ET 0.4 FINDINGS Left Ventricle Normal left ventricular size, systolic function and wall thickness, with no diagnostic regional wall motion abnormalities. Left ventricular ejection fraction is estimated at 60 %. Right Ventricle Normal right ventricular size and systolic function. Right Atrium Normal right atrial size. Left Atrium Normal left atrial size. Mitral Valve Structurally normal mitral valve. Aortic Valve Structurally normal trileaflet aortic valve. No aortic valve stenosis. Tricuspid Valve Tricuspid valve not well visualized. Pulmonic Valve Pulmonic valve not well visualized. No pulmonary valve stenosis. Trace pulmonary valve regurgitation. Pericardium No pericardial effusion. Aorta Normal size aortic root and proximal ascending aorta. IVC Normal IVC dimension with >50% respiratory change of the inferior vena cava. CONCLUSIONS 1. This is a technically difficult study. Patient refused Optison. 2. Normal left ventricular size, systolic function and wall thickness, with no diagnostic regional wall motion abnormalities. Left ventricular ejection fraction is estimated at 60 %. 3. When compared to previous study report dated 08/19/2019, there may not have been any significant change Shanelle Uribe MD (Electronically Signed) Final Date: 20 April 2022 12:55 S
[2022-04-20 05:09] LABS: Thyroid Stimulating Hormone 0.13 uIU/mL (0.27-4.20)
[2022-04-20] MEDS: dilTIAZem 30 mg Tablet PO ×4 (05:26→22:22)
[2022-04-20] MEDS: ketorolac 30 mg/mL INJ 15 MG IVP (05:26)
[2022-04-20] MEDS: FUROsemide 10 mg/mL SDV 2mL 20 MG IVP (05:26)
[2022-04-20] MEDS: enoxaparin 40 mg/0.4 mL Syringe SUBCUT (05:27)
[2022-04-20 08:04] LABS: Free T4 Free Thyroxine 1.35 ng/dL (0.82-1.77)
--- NOTE | 2022-04-20 08:22 | P.PN_ITS ---
Subjective Subjective: Patient was seen in medical room #2 76 Patient is stating she was not able to sleep because of IV pole noises last night Patient is stating that she noticed her left-sided chest discomfort has impro mary, it is not active at this point Currently heart rate fluctuated between 90-1 10, Cardizem drip running at 5 She is also getting p.o. Cardizem overlap I asked nurse to keep an eye on her blood pressure and titrate off Cardizem drip Patient is stating that because of ibuprofen she developed gastric ulcer that bled and she is not willing to take Eliquis or aspirin for her A. fib At home she takes 3 to 4 L of nasal cannula Patient is stating that she lives with her family I did try to call her daughter and sister, I was not able to even leave a voicemail, her daughter's phone number is not correct Vitals/I&O/Wt Last Vital Signs Temp 98.2 F 04/20/22 08:00 Pulse 97 04/20/22 08:00 Resp 19 H 04/20/22 08:00 BP 98/60 04/20/22 08:00 Pulse Ox 91 04/20/22 08:00 04/19/22 04/20/22 04/20/22 22:59 06:59 14:59 Intake Total 1029.083 / 1029.083 370.917 / 1400.000 Output Total 100 / 100 Balance 1029.083 / 1029.083 270.917 / 1300.000 Weight last 48 hrs Weight 85.457 kg Weight 85.411 kg Physical Exam Narrative: Very pleasant cooperative female She is stating that she wants to sleep Variable S1-S2 Does not look fluid overloaded Abdomen soft visceral obesity No signs of edema Drowsy but alert and oriented Able to tell me HPI Currently on 3 to 4 L nasal cannula which is she is keeping in her mouth Nonfocal neuro exam IV in her left arm Data : 04/19/22 18:50 04/19/22 18:50 A&P Assessment and plan (1) Chronic respiratory failure with hypoxia: Status: Acute (2) COPD (chronic obstructive pulmonary disease): Status: Acute (3) Atrial flutter with rapid ventricular response: Status: Acute (4) Chest pain: Status: Acute Plan New onset A. fib RVR Currently on Cardizem drip at 5 Overlap with p.o. Cardizem Check echo Potassium above 4 Magnesium 2.0 which was checked this morning EKG showing atrial flutter/A. 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 Previous echo showed moderate pulmonary hypertension linear scar and left lung EF 65% grade 1 diastolic dysfunction Stress test 2019 showed fixed perfusion deficit patient was managed conservatively Cardiac diet CTA chest to rule out PE is pending Currently she is on DVT prophylaxis, She is full code I tried to contact her family was not able to get in touch with them Attestations Medical Necessity Statement*: Continue medical management Time Spent in Patient Care: 30 Coding Level of Care Code Acute 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
[2022-04-20] MEDS: aspirin 81 mg EC Tablet PO (08:30)
[2022-04-20] MEDS: pantoprazole DR 40 mg Tablet PO (08:30)
[2022-04-20] MEDS: lidocaine 5% Patch 1 PATCH TOPICAL (08:31)
[2022-04-20] MEDS: iodixanol 320 mg/mL 100mL Btl IV (09:19)
[2022-04-20] MEDS: ipratropium-albuterol 3 mL Neb INHALATION ×3 (09:50→21:55)
--- NOTE | 2022-04-20 10:45 | PC.CHAP ---
Pastoral Care Encounter/Spiritual Assessment Type of Contact [] Declined chute loader visit [] Patient/Family/Request visit [] Outpatient visit [] Follow-up visit [] Physician referral [] Code/Alert [x] Routine visit [] Staff referral [] Actively dying [] Patient sleeping [] Family support [] [] Out of room [] Palliative care [] [x] Receiving care in room [] Pre-surgical visit [] Trauma [] Long length of stay [] ICU visit [x] Other: Isolation Relational/Emotional Strength [] Patient feels connected with others/family/visitors/staff [] Distress [] Loneliness/isolation [] Abandonment Spirituality of Patient [] Person of Melinda [] Attends Congregational of their Melinda [] Believes in Prayer [] Reads Bible or Jain materials [] There are Spiritual issues to be addressed Deputy County Clerk Interventions [] Prayer [] Active listening [] Non-anxious presence [] Spiritual/emotional support [] Crisis/trauma care [] Spiritual counseling [] Bereavement support [] Provided bereavement packet [] Provided Bible/devotional materials [] Provided toy/stuffed animal, coloring book to patient or family member [] Provided Communion [] Anointing/[place] [] Salvation [] Completed spiritual assessment [] Other: Impact on Illness or Injury [] Angry [] Fearful [] Anxious [] Often cries [] Exhaustion [] Unable to work [] Unable to attend church [] Unable to walk/stand [] Unable to read [] Unable to drive [] Unable to eat/drink [] Unable to sleep [] Unable to be with family [] Patient intubated [] Other: Summary Isolation Time spent with patient 5 mins
[2022-04-20] MEDS: morphine 4 mg/mL SDV 1 mL 2 MG IVP ×2 (14:09→19:10)
[2022-04-20] MEDS: acetaminophen 325 mg Tablet 650 MG PO ×2 (14:14→19:11)
[2022-04-21] VITALS (18 sets, daily range): BP systolic 87–132; BP diastolic 54–78; PULSE 66–160; RESP 17–27; TEMP 36.3–39.4; O2SAT 85–97
[2022-04-21] MEDS: metoprolol tartrate 1 mg/1 mL SDV 5 mL 2.5 MG IVP (01:36)
--- NOTE | 2022-04-21 01:42 | PC.NURSE ---
Addendum entered by Nicki Bennett RN 04/21/22 01:45: Medication administered as ordered and documented. Patient's heart is decreasing to mid90 low 100s currently. Will continue to monitor. Original Note: Patient's heart rate increased to the 160s with exertion to BSC. Patient also became slightly more SOB. Spoke with Dr Haas and received telephone order for Metoprolol 2.5mg IVP for increased HR. RBVO
[2022-04-21 02:08] LABS: Basophils % 0.3 %; Eosinophils # 0.1 10^3/uL (0.0-0.8); Eosinophils % 1.7 %; Hematocrit 29.4 % (37.0-47.0); Hemoglobin 9.8 g/dL (11.5-15.3); Lymphocytes # 0.8 10^3/uL (0.8-4.8); Lymphocytes % 10.7 %; Mean Corpuscular HGB Conc 33.3 g/dL (30.0-36.0); Mean Corpuscular Hemoglobin 28.6 pg (28.0-34.0); Mean Corpuscular Volume 85.7 fl (81-99); Mean Platelet Volume 9.2 fL (7.4-10.4); Monocytes # 0.7 10^3/uL (0.2-0.9); Neutrophils # 5.82 10^3/uL (1.8-7.7); Nucleated Red Blood Cells % 0 %; Platelet Count 231 10^3/cmm (130-400); Red Blood Count 3.43 10^6/uL (4.1-5.3); Red Cell Distribution Width 12.1 % (12.1-15.1); White Blood Count 7.5 10^3/uL (4.0-10.0)
[2022-04-21 02:28] LABS: Alanine Aminotransferase 49 U/L (0-33); Albumin Level 3.1 g/dL (3.5-5.2); Alkaline Phosphatase 91 IU/L (35-105); Anion Gap 13.6 (5-19); Aspartate Amino Transferase 44 U/L (0-32); Blood Urea Nitrogen 26 mg/dL (8-23); Calcium 7.3 mg/dL (8.5-10.5); Carbon Dioxide 24 mmol/L (22-29); Chloride 100 mmol/L (98-107); Globulin 3.5 g/dL (1.3-4.6); Glucose 123 mg/dL (65-115); Osmolality Calculated 282 mOsm/kg (285-295); Potassium 4.6 mmol/L (3.5-5.1); Sodium 133 mmol/L (136-145); Total Bilirubin 0.6 mg/dL (0.15-1.2); Total Protein 6.6 g/dL (6.6-8.7)
[2022-04-21] MEDS: enoxaparin 40 mg/0.4 mL Syringe SUBCUT (03:27)
[2022-04-21] MEDS: dilTIAZem 30 mg Tablet PO ×2 (03:27→10:41)
--- NOTE | 2022-04-21 04:54 | PC.NURSE ---
Patient's heart rate continues to increase to 150s with exertion. Patient currently has temp of 102.9 (oral). Patient c/o not feeling well at all this morning. Spoke with Dr Haas and received orders to place espinosa catheter, stat blood cultures and to begin Zosyn as ordered. RBVO. Espinosa catheter placed per protocol using aseptic technique. Patient tolerated well. Will continue to monitor.
[2022-04-21] MEDS: piperacillin-tazobactam 3.375 GM in sodium chloride 0.9% (plus) 50 ML IV ×3 (05:30→20:34)
[2022-04-21] MEDS: acetaminophen 325 mg Tablet 650 MG PO (05:35)
--- NOTE | 2022-04-21 05:41 | PC.NURSE ---
Addendum entered by Nicki Bennett RN 04/21/22 05:42: Dr Haas is aware. Original Note: Patient refusing to have cardiac stress test this morning. Patient reports not feeling well and does not think she will be able to do it.
[2022-04-21 06:03] LABS: Lactic Sepsis W/Reflex 0.9 mmol/L (0.5-2.2)
[2022-04-21] MEDS: metoprolol tartrate 25 mg Tablet PO ×2 (08:07→20:34)
[2022-04-21] MEDS: pantoprazole DR 40 mg Tablet PO (08:07)
[2022-04-21] MEDS: predniSONE 20 mg Tablet 40 MG PO (08:07)
[2022-04-21] MEDS: aspirin 81 mg EC Tablet PO (08:07)
[2022-04-21] MEDS: lidocaine 5% Patch 1 PATCH TOPICAL (08:07)
[2022-04-21] MEDS: vancomycin 1,000 MG in sodium chloride 0.9% 250 ML 250 MG IV (09:25)
--- NOTE | 2022-04-21 11:27 | P.PN_ITS ---
Subjective Subjective: This morning patient was seen at the bedside daughter was also present Patient is on 4 L nasal cannula, PE positive She is noncompliant after chest pain She is fatigued and lethargic complaining of back pain She has been diagnosed with left lower lobe pneumonia she has been started on antibiotics overnight I have added vancomycin this morning Her A. fib RVR heart rate was in the 140s with addition of metoprolol heart rate dropped down to 84 hold off on amiodarone drip Patient refused cardiac stress test this morning, I will let her have cardiac diet Vitals/I&O/Wt Last Vital Signs Temp 99.1 F 04/21/22 07:50 Pulse 160 H 04/21/22 08:22 Resp 18 04/21/22 08:22 BP 87/54 04/21/22 07:50 Pulse Ox 92 04/21/22 08:22 04/20/22 04/21/22 04/21/22 22:59 06:59 14:59 Intake Total 480 / 1242.75 0 / 1242.75 50 / 50 Output Total 400 / 650 400 / 1050 Balance 80 / 592.75 -400 / 192.75 50 / 50 Weight last 48 hrs Weight 83.915 kg Weight 85.457 kg Weight 85.411 kg Physical Exam Narrative: Patient is in left lateral position Currently on 4 L nasal cannula which worsened to OxiMask 10 L later today Bilateral breath sounds with mild rhonchi Abdomen is soft She has paraspinal tenderness Extremely fatigued and lethargic Noncompliant Awake and alert Nonfocal neuro exam Daughter is at the bedside Urinary Catheter Management: Ambrosio: Cath Placed During This Visit: yes Reason for Continuing Indwelling Catheter: Acute Urinary Retention or Obstruction Urinary Catheter Date of Insertion: 04/21/22 Urinary Catheter Time of Insertion: 03:25 Data : 04/21/22 01:50 04/21/22 01:50 Micro: Microbiology 04/21/22 05:29 Blood Culture - Preliminary Blood SPECIMEN COLLECTED 04/21/22 05:28 Blood Culture - Preliminary Blood SPECIMEN COLLECTED A&P Assessment and plan (1) Pneumonia: Status: Acute (2) Pulmonary embolism: Status: Acute (3) Chest pain: Status: Acute (4) Acute and chronic respiratory failure with hypoxia: Status: Acute (5) Atrial flutter with rapid ventricular response: Status: Acute (6) MAKAYLA (acute kidney injury): Status: Acute Plan Community-acquired pneumonia Left lower lobe pneumonia Started on broad-spectrum antibiotics last night She is not septic No leukocytosis Acute on chronic hypoxia Uses 3 to 4 L of oxygen at home Hypoxia has worsened currently on oxygen mask 10 L Bilateral PE with underlying pneumoniaand COPD I will put her on BiPAP to ease work of breathing Patient is refusing anticoagulating agent because of a history of GI bleed Chest pain related to tachyarrhythmia and PE: Patient refused stress test this morning A. fib RVR We will start amiodarone drip if heart rate stays above 110, currently heart rate responded well to p.o. regimen of metoprolol and Cardizem Monitor closely, she might need ICU in case of further worsening of her heart rate and hypoxia Transfer to ICU BiPAP today Broad-spectrum antibiotics Patient has adamantly refused anticoagulating agent She is also stating that she does not want cardioversion in case of failure to control her heart rate, this was discussed in front of her daughter She is full code Currently on DVT prophylactic regimen Attestations Medical Necessity Statement*: Transfer to ICU Time Spent in Patient Care: 40 Coding Level of Care Code Acute Carry In Worker for Chg Fwd Diagnoses Pneumonia J18.9 Pulmonary embolism I26.99 Chest pain R07.9 Acute and chronic respiratory failure with hypoxia J96.21 Atrial flutter with rapid ventricular response I48.92 MAKAYLA (acute kidney injury) N17.9
[2022-04-21] MEDS: lactated ringers 500 ML 999 ML IV (12:11)
[2022-04-21 12:52] LABS: ABG PCO2 42.4 mmHg (35-45); ABG PH Result 7.39 (7.35-7.45); Arterial Blood Gas Hematocrit 32.9 % (37-47); Base Excess ABG 0.2 mmol/L (-2.0-2.0); Blood Gas Allen Test Pos; Blood Gas Sample Type Arterial; HCO3 ABG 25.3 mmol/L (22-26); PO2 ABG 68.7 mmHg (80.0-100.0)
[2022-04-21 12:53] LABS: Blood Gas Operator Identificat ED; Blood Gas Sample Site Radial, left; Oxygen Device BIPAP
[2022-04-21] MEDS: ipratropium-albuterol 3 mL Neb INHALATION ×2 (15:45→21:13)
--- NOTE | 2022-04-21 18:06 | PC.NURSE ---
pt's o2 sat dropped to low 80's.dr callaway and rt notified.oxymask applied at 10 l/min..and then bipap at 40% o2 applied.o2 sat increased into mid 90's
[2022-04-21] MEDS: budesonide 0.5 mg/2 mL Neb INHALATION (21:13)
[2022-04-22] VITALS (19 sets, daily range): BP systolic 100–132; BP diastolic 54–69; PULSE 77–93; RESP 16–24; TEMP 36.2–37.2; O2SAT 90–98
--- NOTE | 2022-04-22 00:12 | PC.NURSE ---
Patient reports feeling some better. Requesting small snack which was provided.
[2022-04-22] MEDS: ipratropium-albuterol 3 mL Neb INHALATION ×4 (03:29→20:38)
[2022-04-22] MEDS: piperacillin-tazobactam 3.375 GM in sodium chloride 0.9% (plus) 50 ML IV ×3 (03:49→20:48)
[2022-04-22] MEDS: enoxaparin 40 mg/0.4 mL Syringe SUBCUT (03:50)
[2022-04-22 04:43] LABS: Basophils % 0.1 %; Eosinophils % 0.2 %; Hematocrit 28.7 % (37.0-47.0); Hemoglobin 9.4 g/dL (11.5-15.3); Mean Corpuscular HGB Conc 32.8 g/dL (30.0-36.0); Mean Corpuscular Hemoglobin 28.4 pg (28.0-34.0); Mean Corpuscular Volume 86.7 fl (81-99); Mean Platelet Volume 9.3 fL (7.4-10.4); Monocytes # 0.6 10^3/uL (0.2-0.9); Monocytes % 7.4 %; Neutrophils # 6.47 10^3/uL (1.8-7.7); Neutrophils % 79.9 %; Nucleated Red Blood Cells % 0 %; Platelet Count 263 10^3/cmm (130-400); Red Blood Count 3.31 10^6/uL (4.1-5.3); Red Cell Distribution Width 11.9 % (12.1-15.1); White Blood Count 8.1 10^3/uL (4.0-10.0)
[2022-04-22 05:01] LABS: Alanine Aminotransferase 33 U/L (0-33); Albumin Level 3.1 g/dL (3.5-5.2); Alkaline Phosphatase 74 IU/L (35-105); Anion Gap 11.3 (5-19); Aspartate Amino Transferase 21 U/L (0-32); Blood Urea Nitrogen 22 mg/dL (8-23); Calcium 8.3 mg/dL (8.5-10.5); Carbon Dioxide 26 mmol/L (22-29); Chloride 102 mmol/L (98-107); Globulin 3.1 g/dL (1.3-4.6); Glucose 122 mg/dL (65-115); Magnesium 2.2 mg/dL (1.7-2.3); Osmolality Calculated 285 mOsm/kg (285-295); Potassium 4.3 mmol/L (3.5-5.1); Sodium 135 mmol/L (136-145); Total Bilirubin 0.2 mg/dL (0.15-1.2); Total Protein 6.2 g/dL (6.6-8.7)
--- NOTE | 2022-04-22 05:13 | PC.NURSE ---
Patient converted to NSR from aflutter at ~0419. Strip placed in patient's chart.
[2022-04-22] MEDS: budesonide 0.5 mg/2 mL Neb INHALATION ×2 (08:13→20:38)
[2022-04-22] MEDS: lidocaine 5% Patch 1 PATCH TOPICAL (09:34)
[2022-04-22] MEDS: pantoprazole DR 40 mg Tablet PO (09:34)
[2022-04-22] MEDS: metoprolol tartrate 25 mg Tablet PO ×2 (09:34→20:48)
[2022-04-22] MEDS: predniSONE 20 mg Tablet 40 MG PO (09:35)
[2022-04-22] MEDS: vancomycin 1,000 MG in sodium chloride 0.9% 250 ML 250 MG IV (09:35)
[2022-04-22] MEDS: aspirin 81 mg EC Tablet PO (09:35)
--- NOTE | 2022-04-22 12:20 | PC.SOCIAL ---
Pg 2 IMM Explained to pt Pg 2 IMM. No questions voiced. Provided pt a copy. Initialed, dated, & timed a copy & placed in chart.
--- NOTE | 2022-04-22 13:42 | PM.PN ---
Subjective Subjective: Patient has improved significantly She did use BiPAP yesterday however this morning she is on 4 L nasal cannula which is her home requirement Heart rate is in 80s, she has converted to sinus rhythm with metoprolol, she never required amiodarone Blood pressure stable Breathing is stable She is agreeable for initiation of Eliquis, Vitals/I&O/Wt Last Vital Signs Temp 98.5 F 04/22/22 12:00 Pulse 80 04/22/22 12:32 Resp 18 04/22/22 12:32 BP 122/54 04/22/22 12:00 Pulse Ox 95 04/22/22 12:32 04/21/22 04/22/22 04/22/22 22:59 06:59 14:59 Intake Total 1520 / 1690 850 / 2540 240 / 240 Output Total 800 / 1500 Balance 1520 / 990 50 / 1040 240 / 240 Weight last 48 hrs Weight 84.776 kg Weight 83.915 kg Physical Exam Narrative: Patient is in left lateral position Much more stable as compared to yesterday No acute respiratory distress Currently on 4 L Mild crackles with rhonchi at the base of the lungs otherwise no acute respiratory distress Clinically does look slightly dehydrated Her mood and energy is better today as compared to yesterday Abdomen is soft No signs of edema Daughter is at the bedside Nonfocal neuro exam Urinary Catheter Management: Ambrosio: Cath Placed During This Visit: yes Reason for Continuing Indwelling Catheter: Acute Urinary Retention or Obstruction Urinary Catheter Date of Insertion: 04/21/22 Urinary Catheter Time of Insertion: 03:25 Data : 04/22/22 04:16 04/22/22 04:16 Micro: Microbiology 04/21/22 15:35 Bacterial Antigens - Final Urine Kidney 04/21/22 05:29 Blood Culture - Preliminary Blood NEGATIVE TO DATE 04/21/22 05:28 Blood Culture - Preliminary Blood NEGATIVE TO DATE 04/21/22 15:35 Legionella Urinary Antigen - Final Urine Catheterized A&P Assessment and plan (1) MAKAYLA (acute kidney injury): Status: Acute (2) Acute and chronic respiratory failure with hypoxia: Status: Acute (3) Pulmonary embolism: Status: Acute (4) Pneumonia: Status: Acute (5) Chest pain: Status: Acute (6) Chronic respiratory failure with hypoxia: Status: Acute (7) COPD (chronic obstructive pulmonary disease): Status: Acute (8) Atrial flutter with rapid ventricular response: Status: Acute (9) Hypertension: Status: Acute Plan New onset A. fib RVR Acute PE Patient converted to sinus rhythm last night, currently on metoprolol, willing to try Eliquis today we will start 5 mg twice daily Acute COPD exacerbation secondary to pneumonia and PE Continue antibiotics, Eliquis today Required BiPAP yesterday No acute respiratory distress today Currently she is using 4 L of oxygen which is her baseline requirement Fatigued and lethargic however improvement in energy, I encouraged her to get out of bed and walk around, will request PT evaluation Start Eliquis 10 mg twice daily She most likely will be discharged tomorrow Attestations Medical Necessity Statement*: Discharge tomorrow Time Spent in Patient Care: 20 Coding Level of Care Code Acute Yard General Car Supervisor for g Fwd Diagnoses MAKAYLA (acute kidney injury) N17.9 Acute and chronic respiratory failure with hypoxia J96.21 Pulmonary embolism I26.99 Pneumonia J18.9 Chest pain R07.9 Chronic respiratory failure with hypoxia J96.11 COPD (chronic obstructive pulmonary disease) J44.9 Atrial flutter with rapid ventricular response I48.92 Hypertension I10
--- NOTE | 2022-04-22 13:45 | CTR_ITS ---
PROCEDURE INFORMATION: Exam: CT Lumbar Spine Without Contrast Exam date and time: 04/22/2022 2:55 PM Age: 81 years old Clinical indication: Low back pain TECHNIQUE: Imaging protocol: Computed tomography of the lumbar spine without contrast. Radiation optimization: All CT scans at this facility use at least one of these dose optimization techniques: automated exposure control; mA and/or kV adjustment per patient size (includes targeted exams where dose is matched to clinical indication); or iterative reconstruction. COMPARISON: CT kidney stone [id number] 04/19/2022 8:32 PM RADIATION DOSE METRICS: Total DLP (mGy-cm): 0.5 FINDINGS: Bones/joints: Slight S shaped thoracolumbar spine scoliosis with lumbar curvature to the left. Osteopenia. Multilevel endplate osteophytes and facet arthropathy are noted. Multilevel moderate-severe disc space narrowing with vacuum degeneration at is noted at all levels. There is minimal anterior wedging deformity of L1 with endplate irregularity and sclerosis, likely related to mild compression deformity of indeterminate age and discogenic change//Farhat node. Clinical correlation should be obtained. Comparison prior study may also be helpful if available. Otherwise no acute spine fracture or subluxation. L1-L2: No significant disc protrusion. No severe spinal canal stenosis. No significant neural foraminal narrowing by osseous element however there is asymmetric left sided subarticular and far lateral disc bulge which may encroach on exiting nerve root. L2-L3: No significant disc protrusion. No severe spinal canal stenosis. No significant neural foraminal narrowing. L3-L4: No significant disc protrusion. No severe spinal canal stenosis. No significant neural foraminal narrowing by osseous element however there is asymmetric left sided subarticular and far lateral disc bulge and hypertrophic facet element which may encroach on exiting nerve root. L4-L5: No significant disc protrusion. No severe spinal canal stenosis. No significant neural foraminal narrowing. L5-S1: No significant disc protrusion. No severe spinal canal stenosis. Endplate osteophyte and hypertrophic facet elements resulting in left foraminal narrowing which may encroach on exiting nerve root. Vasculature: Motion artifacts limiting assessment of the partially visualized abdominal visualized vascular structure. Soft tissues: Unremarkable. Other findings: No obvious aortic aneurysm or hydronephrosis. CT/CT lumbar spine wo con* [id number] IMPRESSION: 1. Osteopenia with minimal anterior wedging deformity and superior endplate irregularity at L1, possibly chronic however please refer to discussion above. 2. Otherwise no acute spine fracture-subluxation. Multilevel disc disease and chronic endplate/facet disease with spondylosis as described above. 3. MR correlation may also be considered for the findings above.
[2022-04-22] MEDS: apixaban 5 mg Tablet 10 MG PO (20:47)
[2022-04-23] VITALS (10 sets, daily range): BP systolic 145–148; BP diastolic 80; PULSE 69–84; RESP 12–22; TEMP 36.5–36.8; O2SAT 93–96
[2022-04-23] MEDS: ipratropium-albuterol 3 mL Neb INHALATION ×2 (02:30→08:17)
[2022-04-23] MEDS: piperacillin-tazobactam 3.375 GM in sodium chloride 0.9% (plus) 50 ML IV (04:52)
[2022-04-23] MEDS: budesonide 0.5 mg/2 mL Neb INHALATION (08:17)
[2022-04-23] MEDS: predniSONE 20 mg Tablet 40 MG PO (08:32)
[2022-04-23] MEDS: apixaban 5 mg Tablet 10 MG PO (08:32)
[2022-04-23] MEDS: pantoprazole DR 40 mg Tablet PO (08:33)
[2022-04-23] MEDS: metoprolol tartrate 25 mg Tablet PO (08:33)
[2022-04-23] MEDS: aspirin 81 mg EC Tablet PO (08:33)
[2022-04-23] MEDS: lidocaine 5% Patch 1 PATCH TOPICAL (08:35)
[2022-04-23] MEDS: vancomycin 1,000 MG in sodium chloride 0.9% 250 ML 150 MG IV (08:38)
--- NOTE | 2022-04-23 12:51 | P.DS_ITS ---
Discharge Providers Date of Admission: 04/19/22 20:59 Date of Discharge: April 23, 2022 Attending Provider at Admission: Candelaria Haas MD Attending Provider at Discharge: Jose Antonio Tobar MD Primary Care Provider: Quan Yang DO Diagnoses at Discharge Discharge Diagnosis (1) MAKAYLA (acute kidney injury): Status: Acute (2) Acute and chronic respiratory failure with hypoxia: Status: Acute (3) Pulmonary embolism: Status: Acute (4) Pneumonia: Status: Acute (5) Chest pain: Status: Acute (6) Chronic respiratory failure with hypoxia: Status: Acute (7) COPD (chronic obstructive pulmonary disease): Status: Acute (8) Atrial flutter with rapid ventricular response: Status: Acute (9) Hypertension: Status: Acute Reason for Visit Reason for Visit: L FLANK PAIN Hospital Course Hospital Course 81-year female who carries history of occipital COPD, uses 2 to 3 L of oxygen at home, chronic back pain, presented with chief complaint of chest pain. She was diagnosed with new onset A. fib RVR which improved with use of Cardizem drip she was eventually transitioned to p.o. regimen, her blood pressure was staying soft on Cardizem hence he was switched to metoprolol her heart rate improved, she converted to sinus rhythm with metoprolol 25 mg twice daily, CTA chest was done which revealed pneumonia, bilateral nonocclusive PE, initially she was not willing to try Eliquis because of her previous history of GI bleed however eventually agreed to start using Eliquis with closer monitoring for any signs of GI bleed. She will be discharged on metoprolol, Eliquis and antibiotics for her pneumonia. PT recommended home health/exercise program. She is consistently experiencing back pain however no signs of cauda equina, CT lumbar spine did show degenerative changes including lumbar nerve radiculopathy, she does not want to see orthopedics for surgical intervention however agreeable to see Dr. Kearney outpatient in case she would require trigger point injections. Her daughter was kept updated on daily basis. Physical Exam Narrative: Pleasant cooperative female Saturating well on 3 L cannula Nonfocal neuro exam Paraspinal muscle tenderness Abdomen soft Looks euvolemic No active rhonchi or wheezing Daughter is at the bedside EOMI, PERRLA Urinary Catheter Management: Ambrosio: Cath Placed During This Visit: yes Reason for Continuing Indwelling Catheter: Acute Urinary Retention or Obstruction Urinary Catheter Date of Insertion: 04/21/22 Urinary Catheter Time of Insertion: 03:25 Discharge Data Studies Completed and Pending Completed Studies During Hospitalization Category Date Time Status CT abdomen renal stone [CT kidney stone [id number]] Urgent Cat Scan 04/19/22 20:[address] lumbar spine wo con* [id number] Routine Cat Scan 04/22/22 13:45 Completed CTA PE [CT angio chest PE protcl [id number]] Routine Cat Scan 04/20/22 04:18 Completed XR chest 1V portable [id number] Stat Exams 04/19/22 18:17 Completed CV. echo complete* [id number] Routine Ultrasound 04/20/22 04:22 Completed Pending at discharge Category Date Time Status Sestamibi Stress Test Request Routine Exams 04/20/22 08:33 Ordered Arterial Blood Gas W/O Coox AM LABS Lab 04/22/22 04:00 Ordered Blood Culture Stat Lab 04/21/22 05:29 Results Sputum Culture and Gram Stain Routine Lab 04/21/22 11:42 Uncollected Vancomycin Trough Timed Lab 04/24/22 08:00 Ordered Radiology Impressions Chest X-Ray 04/19/22 18:17 IMPRESSION: No acute findings. Abdomen/Pelvis CT 04/19/22 20:18 IMPRESSION: No acute findings. No renal stones. Chest CTA 04/20/22 04:18 IMPRESSION: 1. Subsegmental bilateral lower lobe nonobstructive filling defects consistent with pulmonary emboli. Age indeterminate. 2. LEFT lower lobe pneumonia. 3. Enlarged paratracheal and bilateral hilar lymph nodes. Largest lymph nodes at the LEFT hilum. These are reactive. Recommend follow-up chest CT in 3 months with IV contrast. 4. Severe chronic emphysema. Lumbar Spine CT 04/22/22 13:45 IMPRESSION: 1. Osteopenia with minimal anterior wedging deformity and superior endplate irregularity at L1, possibly chronic however please refer to discussion above. 2. Otherwise no acute spine fracture-subluxation. Multilevel disc disease and chronic endplate/facet disease with spondylosis as described above. 3. MR correlation may also be considered for the findings above. Laboratory Results WBC 8.1 10^3/uL (4.0-10.0) 04/22/22 04:16 RBC 3.31 10^6/uL (4.1-5.3) L 04/22/22 04:16 Hgb 9.4 g/dL (11.5-15.3) L 04/22/22 04:16 Hct 28.7 % (37.0-47.0) L 04/22/22 04:16 MCV 86.7 fl (81-99) 04/22/22 04:16 MCH 28.4 pg (28.0-34.0) 04/22/22 04:16 MCHC 32.8 g/dL (30.0-36.0) 04/22/22 04:16 RDW 11.9 % (12.1-15.1) L 04/22/22 04:16 Plt Count 263 10^3/cmm (130-400) 04/22/22 04:16 MPV 9.3 fL (7.4-10.4) 04/22/22 04:16 Neut % (Auto) 79.9 % 04/22/22 04:16 Lymph % (Auto) 12.0 % 04/22/22 04:16 Rowan % (Auto) 7.4 % 04/22/22 04:16 Eos % (Auto) 0.2 % 04/22/22 04:16 Baso % (Auto) 0.1 % 04/22/22 04:16 Neut # (Auto) 6.47 10^3/uL (1.8-7.7) 04/22/22 04:16 Lymph # (Auto) 1.0 10^3/uL (0.8-4.8) 04/22/22 04:16 Rowan # (Auto) 0.6 10^3/uL (0.2-0.9) 04/22/22 04:16 Eos # (Auto) 0.0 10^3/uL (0.0-0.8) 04/22/22 04:16 Baso # (Auto) 0.0 10^3/uL (0.0-0.1) 04/22/22 04:16 Nucleated RBC % (auto) 0 % 04/22/22 04:16 Nucleated RBCs # 0.0 /100WBC 04/22/22 04:16 PT 13.90 SECONDS (12.1-14.9) 04/19/22 18:50 INR 1.04 (0.8-1.2) 04/19/22 18:50 D-Dimer 0.78 ug/mIFEU (0-0.59) H 04/19/22 18:50 Specimen Type Arterial 04/21/22 12:42 Sample Site Radial, left 04/21/22 12:42 ABG pH 7.39 (7.35-7.45) 04/21/22 12:42 ABG pCO2 42.4 mmHg (35-45) 04/21/22 12:42 ABG pO2 68.7 mmHg (80.0-100.0) L 04/21/22 12:42 ABG HCO3 25.3 mmol/L (22-26) 04/21/22 12:42 ABG Base Excess 0.2 mmol/L (-2.0-2.0) 04/21/22 12:42 Efe Test Pos 04/21/22 12:42 Hematocrit 32.9 % (37-47) L 04/21/22 12:42 O2 Delivery Device Bipap 04/21/22 12:42 FiO2 40.0 % 04/21/22 12:42 Ticket Scheduler ID Ed 04/21/22 12:42 Sodium 135 mmol/L (136-145) L 04/22/22 04:16 Potassium 4.3 mmol/L (3.5-5.1) 04/22/22 04:16 Chloride 102 mmol/L (98-107) 04/22/22 04:16 Carbon Dioxide 26 mmol/L (22-29) 04/22/22 04:16 Anion Gap 11.3 (5-19) 04/22/22 04:16 BUN 22 mg/dL (8-23) 04/22/22 04:16 Creatinine 1.0 mg/dL (0.5-0.9) H 04/22/22 04:16 GFR Calculation Not Reportable 04/22/22 04:16 Glucose 122 mg/dL (65-115) H 04/22/22 04:16 Calculated Osmolality 285 mOsm/kg (285-295) 04/22/22 04:16 Lactic Acid 0.9 mmol/L (0.5-2.2) 04/21/22 05:29 Calcium 8.3 mg/dL (8.5-10.5) L 04/22/22 04:16 Magnesium 2.2 mg/dL (1.7-2.3) 04/22/22 04:16 Total Bilirubin 0.2 mg/dL (0.15-1.2) 04/22/22 04:16 AST 21 U/L (0-32) 04/22/22 04:16 ALT 33 U/L (0-33) 04/22/22 04:16 Alkaline Phosphatase 74 IU/L (35-105) 04/22/22 04:16 Troponin T Baseline 23 ng/L (0-10) H 04/19/22 18:50 Troponin T 120 Minute 19.05 ng/L (0-10) H 04/19/22 21:00 Delta Troponin T -3.95 ABS# (0-10) L 04/19/22 21:00 Troponin T Hi Sens 6Hr 21.92 ng/L (0-10) H 04/20/22 00:50 Troponin T Hi Sens 6Hr Delta -1.08 ng/L (0-12) L 04/20/22 00:50 NT-Pro-B Natriuret Pep 546 pg/mL (0-450) H 04/19/22 18:50 Total Protein 6.2 g/dL (6.6-8.7) L 04/22/22 04:16 Albumin 3.1 g/dL (3.5-5.2) L 04/22/22 04:16 Globulin 3.1 g/dL (1.3-4.6) 04/22/22 04:16 Lipase 63 U/L (13-60) H 04/19/22 18:50 TSH 0.13 uIU/mL (0.27-4.20) L 04/20/22 00:50 Free T4 1.35 ng/dL (0.82-1.77) 04/20/22 00:50 Urine Color Yellow (Yellow) 04/19/22 21:18 Urine Appearance Clear (CLEAR) 04/19/22 21:18 Urine pH 5 (5-7) 04/19/22 21:18 Ur Specific P[place] 1.025 (1.005-1.030) 04/19/22 21:18 Urine Protein Neg (Negative) 04/19/22 21:18 Urine Glucose (UA) Norm (Normal) 04/19/22 21:18 Urine Ketones Negative (Negative) 04/19/22 21:18 Urine Blood 2+ (Negative) H 04/19/22 21:18 Urine Nitrate Negative (Negative) 04/19/22 21:18 Urine Bilirubin Neg (Negative) 04/19/22 21:18 Urine Urobilinogen Norm mg/dL (Negative) 04/19/22 21:18 Ur Leukocyte Esterase Negative (Negative) 04/19/22 21:18 Urine RBC 0-4 /hpf (0-2) H 04/19/22 21:18 Urine WBC 5-10 /hpf (0-5) H 04/19/22 21:18 Ur Squamous Epith Cells 25-40 /hpf (0-5) H 04/19/22 21:18 Amorphous Sediment Not Reportable 04/19/22 21:18 Urine Bacteria 2+ /hpf (NONE) H 04/19/22 21:18 Urine Mucus 2+ /hpf 04/19/22 21:18 Vitals Last Vital Signs Temp 98.0 F 04/23/22 07:57 Pulse 77 04/23/22 11:22 Resp 22 H 04/23/22 11:22 BP 145/80 04/23/22 11:22 Pulse Ox 93 04/23/22 11:22 Discharge Plan Discharge Patient Disposition: Home Condition: Stable Prescriptions: New oxycodone 5 mg Tablet 5 mg PO Q4H PRN (Reason: Moderate Pain) Qty: 10 0RF metoprolol tartrate 25 mg Tablet 25 mg PO BID@0900,2100 Qty: 60 0RF Eliquis DVT-PE Treat 30D Start 5 mg (74 tabs) tablets,dose pack 5 mg PO BID Qty: 74 0RF Rx Instructions: 10mg bid for 7 days then 5mg bid albuterol sulfate 90 mcg/actuation HFA aerosol inhaler 1 inh inhalation Q6H PRN (Reason: shortness of breath or wheezing) Qty: 8.5 0RF Senna-S 8.6-50 mg tablet 1 tab-cap PO DAILY PRN (Reason: constipation) Qty: 10 0RF Continued albuterol sulfate 90 mcg/actuation HFA aerosol inhaler 2 puff INHALATION Q4H PRN (Reason: Wheezing) 0RF lisinopril 2.5 mg tablet 2.5 mg PO DAILY 0RF Discontinued celecoxib 200 mg Capsule 200 mg PO DAILY 0RF aspirin [Aspir-81] 81 mg Tablet,Delayed Release (Dr/Ec) 81 mg PO DAILY 0RF metoprolol tartrate 25 mg tablet 12.5 mg PO BID 0RF Discharge Orders: Discharge Order (Routine); Ordered 04/23/22 Ordered By: Jose Antonio Tobar Other Ambulatory Orders: Complete Blood Count w/Auto (Routine) Timeframe: 3 Days Location: Determined by Patient Ordered By: oJse Antonio Tobar Referrals: Chris Kearney DO [Physician] - 7-10 days (Please call Sunday to schedule follow up appointment.) Quan Yang DO [Primary Care Provider] - 1 week (Please call Sunday to schedule a follow up appointment) Discharge Diet: Cardiac Discharge Activity: Increase activity as tolerated Patient Instructions: COPD, Metoprolol (By mouth), Albuterol (By breathing), Oxycodone, Rapid Release (By mouth), Apixaban (By mouth), Senna (By mouth), Pulmonary Embolism (ED), Acute Kidney Injury (DC), Pneumonia (DC), COPD Stoplight, Opioid Safety, Pneumonia Stoplight Discharge Attestations Time Spent in Discharge Care*: less than 30 min Quality Metrics Clinical Quality Measures [ No reported AMI, CVA or VTE this stay] Coding Level of Care Code Acute Chg FW DC note Diagnoses MAKAYLA (acute kidney injury) N17.9 Acute and chronic respiratory failure with hypoxia J96.21 Pulmonary embolism I26.99 Pneumonia J18.9 Chest pain R07.9 Chronic respiratory failure with hypoxia J96.11 COPD (chronic obstructive pulmonary disease) J44.9 Atrial flutter with rapid ventricular response I48.92 Hypertension I10
== END 2022-04-23 14:30 | disposition home or self-care (01) | DRG 308 ==
LOC: ER 21:07 → MEDSURG 21:18
PROVIDERS: Admitting Provider Student in an Organized Health Care Education/Training Program; Emergency Provider Emergency Medicine; PCP Family Medicine; Visit Provider Internal Medicine
DX: I48.92 Unspecified atrial flutter (principal); J18.9 Pneumonia, unspecified organism; I26.99 Other pulmonary embolism without acute cor pulmonale; J96.21 Acute and chronic respiratory failure with hypoxia; J96.11 Chronic respiratory failure with hypoxia; J44.0 Chronic obstructive pulmonary disease with (acute) lower respiratory infection; N17.9 Acute kidney failure, unspecified; J44.1 Chronic obstructive pulmonary disease with (acute) exacerbation; G89.29 Other chronic pain; Z99.81 Dependence on supplemental oxygen; Z87.19 Personal history of other diseases of the digestive system; M54.16 Radiculopathy, lumbar region; I10 Essential (primary) hypertension; Z79.82 Long term (current) use of aspirin; M54.9 Dorsalgia, unspecified
CPT/HCPCS: 36415; 36600; 51702; 71045; 71275; 72131; 74176; 80053; 81001; 82803; 83605; 83690; 83735; 83880; 84439; 84443; 84484; 85025; 85378; 85610; 86403; 87040; 87449; 90471; 90732; 93005; 93306; 94640; 94660; 96365; 96366; 96372; 96375; 96376; 97161; 97530; 99285; J1650; J1885; J1940; J2270; J2405; J2543; J3370; J3490; J7030; J7050; J7512; J7626; Q9967

== ENCOUNTER 2024-01-10 08:37 | Inpatient (IN) | payer MEDICARE, SELFPAY ==
[2024-01-10] VITALS (82 sets, daily range): BP systolic 78–141; BP diastolic 45–76; PULSE 53–160; RESP 16–31; TEMP 36.8; O2SAT 72–100; BMI 28.0
--- NOTE | 2024-01-10 08:41 | ECG_ITS ---
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 Measurements Intervals [place] Rate: 168 P: 0 AK: 0 QRS: 43 QRSD: 78 T: 69 QT: 273 QTc: 456 Interpretive Statements SUPRAVENTRICULAR TACHYCARDIA LOW QRS VOLTAGE IN PRECORDIAL LEADS [QRS DEFLECTION < 1.0 mV IN CHEST LEADS] ST ELEVATION, CONSIDER INFERIOR INJURY [MARKED ST ELEVATION W/O NORMALLY INFLECTED T-WAVE IN II/aVF] ACUTE IN Compared to ECG 04/20/2022 02:02:53 ST (T wave) deviation now present Myocardial infarct finding now present Atrial fibrillation no longer present Electronically Signed On 01-10-2024 22:08:59 CDT by Luis Carlos Garcia M.D. [email or web address] f
[2024-01-10] MEDS: adenosine 3 mg/mL SDV 2mL 6 MG IVP (08:50)
--- NOTE | 2024-01-10 08:53 | XR_ITS ---
WS: [id number] Portable AP semiupright chest, 01/10/2024 Clinical Data: SOB Comparison: Portable chest, 04/19/2022 Findings: The left cardiac border shows linear strands which may represent atelectasis. There is opac ification in the left base which may be from scarring and/or atelectasis and is probably not changed. There is also opacification at the right lung base which again may represent atelectasis and/or scar ring. No definite pneumonia or effusions are seen. The heart is enlarged. No pneumothorax is seen. Th e pulmonary vascularity is not remarkable. The aortic arch is tortuous. Monitor leads are on the ches t wall. Impression: 1. Probable bibasilar scarring and/or fibrosis, less likely pneumonia. 2. Atherosclerosis and cardiomegaly.
[2024-01-10 08:58] LABS: Basophils % 0.1 %; Eosinophils # 0.1 10^3/uL (0.0-0.8); Hematocrit 37.3 % (36-47); Lymphocytes # 1.7 10^3/uL (0.8-4.8); Lymphocytes % 24.3 %; Mean Corpuscular HGB Conc 31.6 g/dL (30-55); Mean Corpuscular Hemoglobin 28.3 pg (27-33); Mean Corpuscular Volume 89.4 fl (85-98); Mean Platelet Volume 8.9 fL (7.4-10.4); Monocytes # 0.6 10^3/uL (0.2-0.9); Monocytes % 8.5 %; Neutrophils # 4.46 10^3/uL (1.8-7.7); Neutrophils % 65.7 %; Nucleated Red Blood Cells % 0 %; Platelet Count 253 10^3/cmm (157-399); Red Blood Count 4.17 10^6/uL (3.85-5.65); Red Cell Distribution Width 12.2 % (12.1-15.1)
[2024-01-10] MEDS: sodium chloride 0.9% 500 ML 999 ML IV (09:18)
[2024-01-10] MEDS: dilTIAZem 5 mg/mL SDV 5 mL 20 MG IVP (09:18)
[2024-01-10] MEDS: dilTIAZem 100 MG in sodium chloride 0.9% (add-van) 100 ML IV (09:19)
[2024-01-10 09:26] LABS: Alanine Aminotransferase 16 U/L (0-33); Albumin Level 3.6 g/dL (3.5-5.2); Alkaline Phosphatase 84 U/L (35-105); Anion Gap 13.3 (5-19); Aspartate Amino Transferase 19 U/L (0-32); Blood Urea Nitrogen 13 mg/dL (8-23); Calcium 7.9 mg/dL (8.5-10.5); Carbon Dioxide 26 mmol/L (22-29); Chloride 103 mmol/L (98-107); Globulin 3.2 g/dL (1.3-4.6); Glucose 102 mg/dL (65-115); NT Pro B Type Natriuretic Pept 647 pg/mL (0-450); Osmolality Calculated 286 mOsm/kg (285-295); Potassium 4.3 mmol/L (3.5-5.1); Sodium 138 mmol/L (136-145); Thyroid Stimulating Hormone 0.15 uIU/mL (0.27-4.20); Total Bilirubin 0.3 mg/dL (0.15-1.2); Total Protein 6.8 g/dL (6.6-8.7)
--- NOTE | 2024-01-10 09:33 | ED_ITS ---
HPI - Arrhythmia/Palpitations 2 General: Chief Complaint: Back Pain/Injury Stated Complaint: resp distress Time Seen by Provider: 01/10/24 08:59 Source: patient Mode of arrival: EMS History of Present Illness: 83-year-old presents emergency room with complaint of kidney pain EMS noted rapid heart rate in the field on arrival here she is hypotensive and mildly hypoxic complaining of shortness of breath. She denies chest discomfort states she has uncomfortable feeling in her chest denies recent fever sweats chills or productive cough. No orthopnea. On rhythm monitor she is tachycardic initially appears SVT see notes below. MD complaint: rapid heart beat Review of Systems 2 Const: Denies: fever(s) or chills Card: Denies: chest pain Resp: Denies: dyspnea GI: Denies: abdominal pain : Denies: dysuria, urinary frequency or urinary urgency Musc: Denies: neck pain or back pain Skin/Breast: Denies: rash PFSH ED 2 PFSH: Medical History (Updated 01/10/24 @ 17:01 by Joo Noriega DO) History of pulmonary embolism Acute and chronic respiratory failure with hypoxia Pulmonary embolism Pneumonia Chest pain Chronic respiratory failure with hypoxia COPD (chronic obstructive pulmonary disease) Acute left flank pain Atrial flutter with rapid ventricular response Hypertension Family History (Updated 01/10/24 @ 13:44 by Mustapha Ho MD) Other Cancer Social History (Updated 01/10/24 @ 13:44 by Mustapha Ho MD) Smoking and tobacco/nicotine status: current every day tobacco/nicotine user Alcohol intake: never Substance/Drug Use: never Physical Exam 2 Const: GENERAL APPEARANCE: cooperative ORIENTATION/CONSCIOUSNESS: Yes awake, Yes oriented to person, Yes oriented to place and Yes oriented to time HENMT: COMMON NORMALS: normocephalic, atraumatic and hearing grossly normal bilaterally HEAD & SCALP: normocephalic and atraumatic Resp: COMMON NORMALS: normal respiratory effort, No retractions, No use of accessory muscles and clear to auscultation bilaterally AUSCULTATION: clear to auscultation bilaterally Cardio: COMMON NORMALS: No murmurs present (Cardio) RATE: tachycardic R HYTHM: abnormal rhythm irregularly irregular GI: COMMON NORMALS: Soft to palpation and No hepatosplenomegaly present A USCULTATION: Yes normoactive bowel sounds PALPATION: Yes Soft to palpation, No Tenderness to palpation present (GI), No Guarding due to palpation present (GI) and Yes No hepatosplenomegaly present Extremity: COMMON NORMALS: normal to inspection, capillary refill normal, no clubbing, cyanosis or edema, no calf tenderness and no pedal edema Neuro: SENSORIUM/ORIENTATION: Yes oriented to person, Yes oriented to place and Yes oriented to time Skin: COMMON NORMALS: no rashes or lesions noted GENERAL SKIN EXAM: no rashes or lesions noted Course 2 Vital Signs: Vital signs: Vital Signs Pulse Rate 81 01/10/24 15:05 Respiratory Rate 16 01/10/24 15:05 Blood Pressure 121/56 01/10/24 14:45 Pulse Oximetry 93 01/10/24 15:05 Oxygen Delivery Me thod Nasal Cannula 01/10/24 15:05 Oxygen Flow Rate 4 01/10/24 15:05 MDM - Arrhythmia/Palpitations Medical Decision Making On auscultation patient has tachycardia it does not sound like atrial fibrillation. Rate is at 168 sustained however looking at the baseline EKG on the monitor strip in the twelve-lead EKG suspect there is underlying A-fib flutter. She was initially given 6 mg adenosine which did slow her rate briefly and did show underlying A-fib flutter. She is then given 20 mg IV push Cardizem and started on a Cardizem drip which began to control her rate well. We also noted however during this time she fluctuated with rates dropping to the 40s at times and then going back up to over 100. She continued in atrial fibrillation. Her symptoms of shortness of breath and chest discomfort had resolved once her rate was controlled. Medication list is verified she is on metoprolol but is not on any anticoagulants she denies any known history of atrial fibrillation in the past. Review of records show she did have a previous PE she was on anticoagulation for a while but is now off of it at that time she had brief episode of A-fib as well. Medical Records I reviewed the patient's medical records. Lab Data I reviewed the patient's lab results. 01/10/24 08:46 01/10/24 08:46 Radiology Impressions Chest CTA 01/10/24 10:03 IMPRESSION: 1. No acute findings. 2. Extensive chronic lung changes noted 3. Stable lung nodules Laboratory Results WBC 6.80 10^3/uL (3.29-11.43) 01/10/24 08:46 RBC 4.17 10^6/uL (3.85-5.65) 01/10/24 08:46 Hgb 11.80 g/dL (11.27-16.99) 01/10/24 08:46 Hct 37.3 % (36-47) 01/10/24 08:46 MCV 89.4 fl (85-98) 01/10/24 08:46 MCH 28.3 pg (27-33) 01/10/24 08:46 MCHC 31.6 g/dL (30-55) 01/10/24 08:46 RDW 12.2 % (12.1-15.1) 01/10/24 08:46 Plt Count 253 10^3/cmm (157-399) 01/10/24 08:46 MPV 8.9 fL (7.4-10.4) 01/10/24 08:46 Neut % (Auto) 65.7 % 01/10/24 08:46 Lymph % (Auto) 24.3 % 01/10/24 08:46 [place] % (Auto) 8.5 % 01/10/24 08:46 Eos % (Auto) 1.0 % 01/10/24 08:46 Baso % (Auto) 0.1 % 01/10/24 08:46 Neut # (Auto) 4.46 10^3/uL (1.8-7.7) 01/10/24 08:46 Lymph # (Auto) 1.7 10^3/uL (0.8-4.8) 01/10/24 08:46 [place] # (Auto) 0.6 10^3/uL (0.2-0.9) 01/10/24 08:46 Eos # (Auto) 0.1 10^3/uL (0.0-0.8) 01/10/24 08:46 Baso # (Auto) 0.0 10^3/uL (0.0-0.1) 01/10/24 08:46 Nucleated RBC % (auto) 0 % 01/10/24 08:46 Nucleated RBCs # 0.0 /100WBC 01/10/24 08:46 Sodium 138 mmol/L (136-145) 01/10/24 08:46 Potassium 4.3 mmol/L (3.5-5.1) 01/10/24 08:46 Chloride 103 mmol/L (98-107) 01/10/24 08:46 Carbon Dioxide 26 mmol/L (22-29) 01/10/24 08:46 Anion Gap 13.3 (5-19) 01/10/24 08:46 BUN 13 mg/dL (8-23) 01/10/24 08:46 Creatinine 0.8 mg/dL (0.5-0.9) 01/10/24 08:46 GFR Calculation Not Reportable 01/10/24 08:46 Glucose 102 mg/dL (65-115) 01/10/24 08:46 Calculated Osmolality 286 mOsm/kg (285-295) 01/10/24 08:46 Calcium 7.9 mg/dL (8.5-10.5) L 01/10/24 08:46 Total Bilirubin 0.3 mg/dL (0.15-1.2) 01/10/24 08:46 AST 19 U/L (0-32) 01/10/24 08:46 ALT 16 U/L (0-33) 01/10/24 08:46 Alkaline Phosphatase 84 U/L (35-105) 01/10/24 08:46 NT-Pro-B Natriuret Pep 647 pg/mL (0-450) H 01/10/24 08:46 Total Protein 6.8 g/dL (6.6-8.7) 01/10/24 08:46 Albumin 3.6 g/dL (3.5-5.2) 01/10/24 08:46 Globulin 3.2 g/dL (1.3-4.6) 01/10/24 08:46 TSH 0.15 uIU/mL (0.27-4.20) L 01/10/24 08:46 Urine Color Yellow (Yellow) 01/10/24 09:21 Urine Appearance Clear (CLEAR) 01/10/24 09:21 Urine pH 8 (5-7) H 01/10/24 09:21 Ur Specific [place] 1.010 (1.005-1.030) 01/10/24 09:21 Urine Protein Neg (Negative) 01/10/24 09:21 Urine Glucose (UA) Norm (Normal) 01/10/24 09:21 Urine Ketones 1+ (Negative) H 01/10/24 09:21 Urine Blood Neg (Negative) 01/10/24 09:21 Urine Nitrate Negative (Negative) 01/10/24 09:21 Urine Bilirubin Neg (Negative) 01/10/24 09:21 Urine Urobilinogen Norm mg/dL (Negative) 01/10/24 09:21 Ur Leukocyte Esterase Negative (Negative) 01/10/24 09:21 All radiology interpretation(s) finalized by discharge Discharge Plan Discharge Patient Disposition: Admitted As Inpatient Admit Provider: Mustapha Ho Clinical Impression: Atrial flutter with rapid ventricular response, History of pulmonary embolism, Anemia, COPD (chronic obstructive pulmonary disease) Condition: Stable Coding Level of Care Code ED [employer] Machine Tender for Madelyn Martinez
--- NOTE | 2024-01-10 10:03 | CTR_ITS ---
PROCEDURE INFORMATION: Exam: CTA Chest With Contrast Exam date and time: 01/10/2024 11:28 AM Age: 83 years old Clinical indication: Shortness of breath; Additional info: Dyspena, tachycardia TECHNIQUE: Imaging protocol: Computed tomographic angiography of the chest with contrast. Exam focused on the arteries. 3D rendering (Not supervised by radiologist): MIP and/or 3D reconstructed images were created by the technologist. Radiation optimization: All CT scans at this facility use at least one of these dose optimization techniques: automated exposure control; mA and/or kV adjustment per patient size (includes targeted exams where dose is matched to clinical indication); or iterative reconstruction. Contrast material: OMNI 350; Contrast volume: 100 ml; Contrast route: INTRAVENOUS (IV); COMPARISON: CT angio chest PE protcl [id number] 04/20/2022 9:02 AM RADIATION DOSE METRICS: Total DLP (mGy-cm): 458.96 FINDINGS: Pulmonary arteries: Normal. No pulmonary emboli. Aorta: Unremarkable. No aortic aneurysm. No aortic dissection. Lungs: Both lungs demonstrate diffuse centrilobular emphysematous changes along with chronic interstitial coarsening. There is a 1.5 cm area of nodularity in the right apical lung field. Linear scarring and atelectasis involve the right middle lobe and lingula. There is a stable 5 mm granuloma in the right lower lobe. I see no acute lung infiltrate. Pleural spaces: Unremarkable. No pneumothorax. No pleural effusion. Heart: Unremarkable. No cardiomegaly. No pericardial effusion. Lymph nodes: Unremarkable. No enlarged lymph nodes. Bones/joints: Unremarkable. No acute fracture. Soft tissues: Unremarkable. CT/CT angio chest PE protcl [id number] IMPRESSION: 1. No acute findings. 2. Extensive chronic lung changes noted 3. Stable lung nodules
[2024-01-10] MEDS: iohexol 350 mg/mL 500 mL Btl (per mL) IV (11:34)
[2024-01-10 12:09] LABS: Add Urine Microscopic? NO; Charge for UA Resulting for Rev
[2024-01-10 12:27] LABS: Urine Appearance Clear (CLEAR); Urine Color Yellow (Yellow); pH Urine 8 (5-7)
[2024-01-10 12:28] LABS: Bilirubin Urine Neg (Negative); Blood Urine Neg (Negative); Glucose Urine UA Norm (Normal); Ketones Urine 1+ (Negative); Leukocyte Esterase Urine Negative (Negative); Nitrate Urine Negative (Negative); Protein Urine Neg (Negative); Urobilinogen Urine Norm (Negative)
--- NOTE | 2024-01-10 13:37 | P.HP_ITS ---
Providers/Chief Complaint 2 Admitting Physician: Mustapha Ho MD Primary Care Provider: Quan Yang DO Chief Complaint: resp distress History of Present Illness Radha Silverman is a 83 year old female with underlying COPD typically on at least 3 L of oxygen who reports she started feeling bad earlier this morning/late last night. She believes her heart was fluttering, she was short of breath. She reports she coughs a little at times secondary to her COPD. She felt very tired and weak. She denies any chest discomfort. She reports no ill contacts. She had no vomiting, diarrhea, blood in stool. While in the emergency department she was found to be in atrial flutter. She has had similar presentation in the past when she also had a pulmonary embolism. Cardizem was initiated, I believe after she got some of the Adenocard for her heart rate around 160 on presentation. She is currently in sinus rhythm. Review of Systems 2 General: Reports: 10 or more systems reviewed and unremarkable except in HPI and below Card: Reports: palpitations; Denies: chest pain Resp: Reports: dyspnea and productive cough GI: Denies: abdominal pain, nausea, vomiting, hematochezia or melena Medications/Allergies Home Medications Medication Instructions Recorded Confirmed Last Taken Type albuterol sulfate 90 mcg/actuation 1 inh inhalation Q6H PRN shortness 04/23/22 01/10/24 Unknown Rx aerosol inhaler of breath or wheezing #8.5 grams sennosides 8.6 mg-docusate sodium 1 tab-cap PO DAILY PRN 04/23/22 01/10/24 Unknown Rx 50 mg tablet (Senna-S) constipation #10 tabs albuterol sulfate 90 mcg/actuation 2 puff inhalation Q4H PRN Wheezing 07/30/23 01/10/24 Unknown Rx aerosol inhaler #8.5 grams lisinopril 2.5 mg tablet 2.5 mg PO DAILY #30 tabs 08/24/23 01/10/24 01/09/24 Rx metoprolol tartrate 25 mg tablet 25 mg PO BID@0900,2100 #60 tabs 08/24/23 01/10/24 01/09/24 Rx aspirin 81 mg tablet,delayed 81 mg PO DAILY 01/10/24 01/10/24 01/09/24 History release levothyroxine 112 mcg tablet 112 mcg PO DAILY 01/10/24 01/10/24 01/09/24 History Allergies Allergy/AdvReac Type Severity Reaction Status Date / Time codeine Allergy Unknown Verified 01/10/24 09:09 PFSH Acute 2 PFSH: Medical History (Updated 01/10/24 @ 13:48 by Mustapha Ho MD) History of pulmonary embolism Acute and chronic respiratory failure with hypoxia Pulmonary embolism Pneumonia Chest pain Chronic respiratory failure with hypoxia COPD (chronic obstructive pulmonary disease) Acute left flank pain Atrial flutter with rapid ventricular response Hypertension Family History (Updated 01/10/24 @ 13:44 by Mustapha Ho MD) Other Cancer Social History (Updated 01/10/24 @ 13:44 by Mustapha Ho MD) Smoking and tobacco/nicotine status: current every day tobacco/nicotine user Alcohol intake: never Substance/Drug Use: never Vitals/I&O/Wt Last Vital Signs Pulse 76 01/10/24 12:55 Resp 22 H 01/10/24 12:55 BP 128/57 01/10/24 12:55 Pulse Ox 95 01/10/24 12:55 O2 Del Method Room Air 01/10/24 09:01 O2 Flow Rate 4 01/10/24 09:01 01/09/24 01/10/24 01/10/24 22:59 06:59 14:59 Intake Total 500.083 / 500.083 Balance 500.083 / 500.083 Physical Exam 2 Narrative: General exam is a white female, no distress. HEENT: Atraumatic normocephalic. Oropharynx clear. Neck is supple no lymphadenopathy thyromegaly Cardiovascular currently regular, occasional premature beat, no murmur Lungs a few faint expiratory wheezes. Diminished breath sounds bilaterally Abdomen is soft nontender with positive bowel sounds. exams deferred Extremities no sinus clubbing edema, cap refill brisk Skin no rash Neuro no obvious focal deficits Urinary Catheter Management: Ambrosio: Cath Placed During This Visit: yes Urinary Catheter Date of Insertion: 01/10/24 Urinary Catheter Time of Insertion: 09:25 Data 01/10/24 08:46 01/10/24 08:46 Other Labs: LFTs are normal Calcium 7.9, albumin 3.6 BNP 647 Troponin not checked TSH 0.15 Urinalysis negative Chest x-ray per my read COPD, bibasilar scarring CTA no pulmonary embolism, chronic emphysematous changes EKG demonstrates heart rate of approximately 160, regular, without identifiable P waves probable atrial flutter. Nonspecific ST-T wave changes. Previous echocardiogram, 2021 demonstrated preserved EF at 60% A&P Assessment and plan (1) Atrial flutter with rapid ventricular response: Patient presents with atrial flutter with rapid ventricular rate She has had a previous presentation such as this when she had a pulmonary embolism. She reports she only took anticoagulation about a week following her last hospital stay 2 years ago. Otherwise she just takes aspirin daily She refuses any long-term anticoagulation other than aspirin Continue aspirin Metoprolol 25 mg p.o. now and then increase her home dose to 50 mg twice daily Discontinue lisinopril to prevent hypotension CBC, CMP, magnesium level in the morning (2) COPD (chronic obstructive pulmonary disease): No evidence of acute exacerbation DuoNeb every 6 hours, budesonide twice daily (3) History of pulmonary embolism: Patient with past history of pulmonary embolism but no evidence of PE on CTA currently Plan Abnormal TSH. Reduce levothyroxine Other medical problems as outlined medical history Allow natural Lovenox for DVT prophylaxis, SCDs Attestations 2 Medical Necessity Statement*: Will require less than 2 midnight stay for evaluation and treatment of atrial flutter with rapid ventricular response, now converted Diagnoses Atrial flutter with rapid ventricular response I48.92 COPD (chronic obstructive pulmonary disease) J44.9 History of pulmonary embolism Z86.711 Time Spent (min) 44
--- NOTE | 2024-01-10 14:12 | ECG_ITS ---
[facility] Test Date: 2024-01-10 Pat Name: Radha Silverman Department: Room: 111 Gender: Female Pit Supervisor: : 1940 Requested By: Mustapha Lovett Order Number: [id number] Julian MD: Luis Carlos Garcia M.D. Measurements Intervals [place] Rate: 93 P: 0 [place]: 0 QRS: 52 QRSD: 81 T: 34 QT: 367 QTc: 457 Interpretive Statements ATRIAL FIBRILLATION LOW QRS VOLTAGE IN PRECORDIAL LEADS [QRS DEFLECTION < 1.0 mV IN CHEST LEADS] ABNORMAL RHYTHM ECG Compared to ECG 01/10/2024 08:41:49 Supraventricular tachycardia no longer present ST (T wave) deviation no longer present Myocardial infarct finding no longer present Electronically Signed On 01-10-2024 22:16:16 CDT by Luis Carlos Garcia M.D. [id number]
--- NOTE | 2024-01-10 14:58 | USCV_ITS ---
Radha Silverman Age: 83 Gender: F : 1940 Exam Date: 01/10/2024 19:02 Ordering Phys: Mustapha Ho MD Technologist: Exam Location: [facility] [place] Indication: altered mental status, hypoxia. Patient is disoriented, confused in ICU-3. BP: 94 / 59 HR: 75 Rhythm: Sinus Technical Quality: Adequate MEASUREMENTS (Male / Female) Normal Values 2D ECHO LV Diastolic Diameter PLAX 3.7 cm 4.2 - 5.9 / 3.9 - 5.3 cm IVS Diastolic Thickness 1.6 cm 0.6 - 1.0 / 0.6 - 0.9 cm IVS Systolic Thickness 2.1 cm LVPW Diastolic Thickness 1.3 cm 0.6 - 1.0 / 0.6 - 0.9 cm LVPW Systolic Thickness 1.9 cm LVOT Diameter 2.3 cm LV Ejection Fraction 2D Teich 66.4 % LV Ejection Fraction MOD 2C 57.1 % LV Ejection Fraction 2C AL 55.8 % LA Diameter 3.0 cm Aorta at Sinotubular Diameter 3.0 cm IVC Diameter 1.5 cm M-MODE LA Ao Ratio MM 1.3 AV Cusp Separation MM 1.8 cm DOPPLER AV Peak Velocity 106.0 cm/s LVOT Peak Velocity 70.0 cm/s AV Area Cont Eq vti 2.8 cm squared AV Area Cont Eq pk 2.7 cm squared MV Peak Velocity 92.0 cm/s MV Area PHT 4.3 cm squared Mitral E to A Ratio 1.1 PV Peak Velocity 84.0 cm/s FINDINGS Left Ventricle Normal left ventricular size and systolic function, EF 56%.no regional wall motion abnormalities. Mild left ventricular hypertrophy. Right Ventricle The right ventricle is normal in size and function. Right Atrium The right atrium is normal in size. Left Atrium The left atrium is normal in size. Mitral Valve No gross abnormalities noted Aortic Valve Trace to mild aortic valve regurgitation. Thickened aortic valve. Tricuspid Valve No gross abnormalities noted Pulmonic Valve Mild pulmonary valve regurgitation. Pericardium Normal pericardium without effusion. Aorta Normal ascending aorta dimension. IVC The inferior vena cava appears normal. CONCLUSIONS Normal left ventricular size and systolic function, EF 56%.no regional wall motion abnormalities. Mild left ventricular hypertrophy. Trace to mild aortic valve regurgitation. Thickened aortic valve. Mild pulmonary valve regurgitation. There is no pericardial effusion. No similar previous studies are available for comparison Dr Luis Carlos Garcia MD FACC (Electronically Signed) Final Date: 10 January 2024 20:54 S
--- NOTE | 2024-01-10 14:59 | PC.NURSE ---
received in to room 111-2 via stretcher from er at 1420.pt is alert and awake and oriented x 4.denies pain at present.initially on admission,pt was in nsr...then noted to be in atrial flutter at controlled rate...then nsr.oriented to room environment.instructed to notify staff for any sob,chest pain,generalized pain,or for any concerns at all.pt verb understanding of instructions
[2024-01-10] MEDS: ipratropium-albuterol 3 mL Neb INHALATION ×2 (15:00→20:43)
[2024-01-10] MEDS: enoxaparin 40 mg/0.4 mL Syringe SUBCUT (15:06)
[2024-01-10] MEDS: metoprolol tartrate 25 mg Tablet PO (15:06)
--- NOTE | 2024-01-10 16:35 | PC.NURSE ---
dr pacheco notified of pt status....in and out of atrial flutter and sr...with several pauses..1 as long as 5 sec.bp stable.he ordered pt to be transferred to icu.
--- NOTE | 2024-01-10 16:48 | ECG_ITS ---
[facility] Test Date: 2024-01-10 Pat Name: Radha Silverman Department: Room: ICU03 Gender: Female Hogshead Stripper: : 1940 Requested By: Mustapha Lovett Order Number: [id number] Julian MD: Luis Carlos Garcia M.D. Measurements Intervals [place] Rate: 46 P: 0 [place]: 0 QRS: 54 QRSD: 82 T: 59 QT: 419 QTc: 368 Interpretive Statements SUPRAVENTRICULAR BRADYCARDIA-junctional rhythm with retrograde P LOW QRS VOLTAGE IN PRECORDIAL LEADS [QRS DEFLECTION < 1.0 mV IN CHEST LEADS] ABNORMAL RHYTHM ECG Compared to ECG 01/10/2024 14:12:53 Atrial fibrillation no longer present Electronically Signed On 01-10-2024 22:13:37 CDT by Luis Carlos Garcia M.D. [id number]
--- NOTE | 2024-01-10 16:49 | PC.NURSE ---
patient having pauses an when converting to normal sinus from a Flutter recived call from dr pacheco to stop cardizem drip and metoprolol PO and obtain trop series transfer to ICU
[2024-01-10] MEDS: sodium chloride 0.9% 1,000 ML 75 ML IV (16:57)
[2024-01-10] MEDS: atropine 0.1 mg/mL Syr 10 mL 0.5 MG IVP (16:58)
[2024-01-10 17:03] LABS: Magnesium 1.9 mg/dL (1.7-2.3)
--- NOTE | 2024-01-10 17:17 | PC.NURSE ---
transferred to icu 3 via bed at this time.report given to laura caruso
--- NOTE | 2024-01-10 17:23 | PC.NURSE ---
arrived from CSU, AO c/o dizzines and sob with movement
--- NOTE | 2024-01-10 17:45 | PC.NURSE ---
HR sustains 50 to 60 dipping down to 40s. Dr. Bryan gave t.o per MAR
[2024-01-10] MEDS: sodium chloride 0.9% 250 ML 999 ML IV ×2 (17:49→18:14)
[2024-01-10 17:55] LABS: Troponin(5th) Baseline 16 ng/L (0-10)
--- NOTE | 2024-01-10 18:06 | PM.CCNAC ---
Critical Care Event Note Covering for my colleague. Patient was found to have episodes of bradycardia with significant 5 to 8-second pause on telemetry. Patient was admitted earlier in the day today for A-fib with RVR. She was started on Cardizem drip. She was running at Cardizem drip at 2.5 which was stopped around 30 minutes ago. She was given her home dose of metoprolol around 3:30 PM. She started having pauses around 4:15 PM. On examination patient is laying comfortably in bed, slightly sick appearing, complaining of difficulty with dizziness. Denies any chest pressure, nausea, vomiting, difficulty in breathing. Systolic blood pressure of 102/60 mmHg Heart rate running in high 30s to low 40s with occasional pause, sinus rhythm with episodes of variable block on telemetry. On review she had an echocardiogram in 2021 which showed EF of 60% without regional wall motion abnormality. Plan: Moved to ICU. Cardiology consulted. IV fluid normal saline at 50 cc/h after 250 cc fluid bolus. Atropine 0.5 mg one-time. Will repeat if patient remains bradycardic. If needed will start dopamine. Avoiding now as concerned that patient will end up back in A-fib with RVR. Currently most likely transient bradycardia while the effect of Cardizem weans off. Electrolytes stable. Will add magnesium to the labs from before. TSH 0.15. In the past also TSH has been low. Check free T4. Patient already on home dose of levothyroxine. CODE STATUS: Discussed in detail with the patient. She is agreeable with chest compressions, ACS protocol medications or transvenous pacemaker but does not want intubation. CODE STATUS changed to limited resuscitation. Care plan discussed in detail with RN at bedside both in CSU in ICU. The high probability of a clinically significant, sudden or life threatening deterioration of the patient's [cardiac] system(s) required my full and direct attention, intervention and personal management. The critical care time is as shown. This time is in addition to time spent performing any reported procedures but includes the following: [x] Data and vital sign review and interpretation [x] Patient assessment, examination and intervention [x] Documentation [x] Medication orders and management Critical Care Time Code activated: No Critical Care Time (min): 45 Coding Level of Care Code Critical Care Time Spent (min) 45
--- NOTE | 2024-01-10 18:49 | PC.NURSE ---
Dr. Garcia came to bedside, advised to keep atropine and pads at bedside. no n.o. at this time HR and bp WNL
--- NOTE | 2024-01-10 19:03 | P.CONIM_ITS ---
Providers/Reason For Consult 2 Consulting Physician/Specialty*: SP Garcia MD/cardiology Reason for Consult*: Patient with the bradycardia/atrial flutter with rapid ventricular rate Attending Physician: Mustapha Ho MD Primary Care Provider: Quan Yang DO History of Present Illness History of Present Illness Radha Silverman is a 83 year old female, is admitted to hospital with complaints of progressive shortness of breath, weakness and some palpitation. Patient was found to be in atrial flutter/fibrillation with rapid ventricular rate. She was initially treated with IV adenosine, Cardizem. This afternoon, she was given a dose of metoprolol 25 mg p.o. This evening, she had episodes of bradycardia and pauses of up to 4 seconds. Cardiology consult is requested for further cardiac evaluation recommendations. This patient has a history of COPD and is on home oxygen. She also is known to have atrial flutter/fibrillation, pulmonary embolism and a history of atypical chest pain. She had a Myocardial perfusion imaging in 2018 when she was admitted to hospital with complaints of chest pain. She had a Myocardial perfusion imaging at that time which revealed a small area of fixed defect in the inferior and apical lateral region with an elevated transient ischemic dilatation ratio. Since the patient's symptoms are very atypical with no recurrence, it was opted to continue the medical treatment. According the patient, she has not had any significant chest pains since then. She was admitted to the hospital in 2021 with features of COPD exacerbation, pneumonia and some atypical chest pain. She had a CTA which revealed pulmonary embolism. She was treated with Eliquis for a year? According the patient, she been having upper respiratory infection like symptoms for couple of weeks prior to the hospital admission. She also was having increasing shortness of breath. She felt extremely weak in her legs yesterday. She also was having generalized weakness and some shortness of breath. For these reasons, she came to the emergency room. Today she started having some process of 3 to 4 seconds on the monitor while being in the cardiac stepdown unit. She was given half milligram of atropine IV. Subsequently she was transferred to the ICU. In the ICU, her heart rate is currently in the 70s. Has no fever or chills. No cough. Review of Systems 2 Narrative: CONSTITUTIONAL: No fever or chills. EYES: No blurring of vision or other visual disturbances lately. ENT: No hoarseness of voice, auditory disturbances or sore throat. CARDIOVASCULAR: As mentioned above. RESPIRATORY: Recurrent COPD exacerbation as mentioned above GASTROINTESTINAL: No hematemesis or melena. GENITOURINARY: No dysuria or hematuria. INTEGUMENTARY: No skin rashes or history of skin cancer. NEURO: No transient ischemic attacks or amaurosis. Patient has a questionable history of CVA. PSYCHIATRIC: No history of psychosis or major depression. HEMATOLOGIC: No bleeding disorders or significant anemia. ENDOCRINE: History of diet-controlled diabetes MUSCULOSKELETAL: No recent joint pain or swelling. ALLERGY/IMMUNOLOGY: As mentioned above. Medications/Allergies Home Medications Medication Instructions Recorded Confirmed Last Taken Type albuterol sulfate 90 mcg/actuation 1 inh inhalation Q6H PRN shortness 04/23/22 01/10/24 Unknown Rx aerosol inhaler of breath or wheezing #8.5 grams sennosides 8.6 mg-docusate sodium 1 tab-cap PO DAILY PRN 04/23/22 01/10/24 Unknown Rx 50 mg tablet (Senna-S) constipation #10 tabs albuterol sulfate 90 mcg/actuation 2 puff inhalation Q4H PRN Wheezing 07/30/23 01/10/24 Unknown Rx aerosol inhaler #8.5 grams lisinopril 2.5 mg tablet 2.5 mg PO DAILY #30 tabs 08/24/23 01/10/24 01/09/24 Rx metoprolol tartrate 25 mg tablet 25 mg PO BID@0900,2100 #60 tabs 08/24/23 01/10/24 01/09/24 Rx aspirin 81 mg tablet,delayed 81 mg PO DAILY 01/10/24 01/10/24 01/09/24 History release levothyroxine 112 mcg tablet 112 mcg PO DAILY 01/10/24 01/10/24 01/09/24 History Allergies Allergy/AdvReac Type Severity Reaction Status Date / Time codeine Allergy Unknown Verified 01/10/24 09:09 Current Medications Generic Name Dose Route Start Last Admin Trade Name Freq PRN Reason Stop Dose Admin Enoxaparin Sodium 40 mg 01/10/24 14:36 01/10/24 15:06 Enoxaparin 40 Mg/0.4 Ml Syringe SUBCUT 40 mg Q24H PAMELA Administration Sodium Chloride 1,000 mls @ 75 mls/hr 01/10/24 17:00 01/10/24 16:57 Sodium Chloride 0.9% IV 75 mls/hr .[id number] PAMELA Administration PFSH Acute 2 PFSH: Medical History History of pulmonary embolism Acute and chronic respiratory failure with hypoxia Pulmonary embolism Pneumonia Chest pain Chronic respiratory failure with hypoxia COPD (chronic obstructive pulmonary disease) Acute left flank pain Atrial flutter with rapid ventricular response Hypertension Family History Other Cancer Social History Smoking and tobacco/nicotine status: current every day tobacco/nicotine user Alcohol intake: never Substance/Drug Use: never Vitals/I&O/Wt Last Vital Signs Pulse 58 L 01/10/24 17:30 Resp 21 H 01/10/24 17:30 BP 94/59 01/10/24 17:30 Pulse Ox 94 01/10/24 17:30 O2 Del Method Nasal Cannula 01/10/24 15:05 O2 Flow Rate 4 01/10/24 15:05 01/10/24 01/10/24 01/10/24 06:59 14:59 22:59 Intake Total 500.083 / 500.083 516.667 / 1016.750 Balance 500.083 / 500.083 516.667 / 1016.750 Weight last 48 hrs Weight 173 lb 6 oz Physical Exam 2 Narrative: GENERAL: The patient is alert and oriented times three. Not in any acute distress. HEENT: No significant pallor, icterus or lymphadenopathy.Oral cavity: There are no mucous membrane lesions. NECK: Trachea appears to be central. No masses noted. No JVD or thyromegaly appreciated. RESPIRATORY: Chest is symmetrical. No intercostals muscle retraction or any accessory muscle activation. There is no chest wall tenderness. Breath sounds are heard bilaterally. Scattered coarse crackles bilaterally more so on the right side. BREASTS: Deferred. HEART: The heart sounds are normal. No S3 or S4. Short systolic murmur in the lower sternal border. No diastolic murmurs. No pericardial rub ABDOMEN: No vessel pulsations or distention. No tenderness. No organomegaly appreciated. Bowel sounds are normally heard. : Deferred. RECTAL: Deferred. LYMPHATIC: No lymphadenopathy noted in the neck. EXTREMITIES: No edema or cyanosis. No clubbing. MUSCULOSKELETAL: No acute joint deformities or swelling SKIN: There are no significant rashes or ecchymosis NEUROPSYCHIATRIC: The patient is alert and oriented x3. Appears to be in a good mood. No tremors or rigidity noted. Urinary Catheter Management: Ambrosio: Cath Placed During This Visit: yes Reason for Continuing Indwelling Catheter: Accurate Measurement of Urinary Output in Critically Ill Patients Urinary Catheter Date of Insertion: 01/10/24 Urinary Catheter Time of Insertion: 09:25 Data 01/11/24 04:15 01/11/24 04:15 Other Labs: Laboratory Last Values WBC 6.80 10^3/uL (3.29-11.43) 01/10/24 08:46 RBC 4.17 10^6/uL (3.85-5.65) 01/10/24 08:46 Hgb 11.80 g/dL (11.27-16.99) 01/10/24 08:46 Hct 37.3 % (36-47) 01/10/24 08:46 MCV 89.4 fl (85-98) 01/10/24 08:46 MCH 28.3 pg (27-33) 01/10/24 08:46 MCHC 31.6 g/dL (30-55) 01/10/24 08:46 RDW 12.2 % (12.1-15.1) 01/10/24 08:46 Plt Count 253 10^3/cmm (157-399) 01/10/24 08:46 MPV 8.9 fL (7.4-10.4) 01/10/24 08:46 Neut % (Auto) 65.7 % 01/10/24 08:46 Lymph % (Auto) 24.3 % 01/10/24 08:46 Barren % (Auto) 8.5 % 01/10/24 08:46 Eos % (Auto) 1.0 % 01/10/24 08:46 Baso % (Auto) 0.1 % 01/10/24 08:46 Neut # (Auto) 4.46 10^3/uL (1.8-7.7) 01/10/24 08:46 Lymph # (Auto) 1.7 10^3/uL (0.8-4.8) 01/10/24 08:46 Barren # (Auto) 0.6 10^3/uL (0.2-0.9) 01/10/24 08:46 Eos # (Auto) 0.1 10^3/uL (0.0-0.8) 01/10/24 08:46 Baso # (Auto) 0.0 10^3/uL (0.0-0.1) 01/10/24 08:46 Nucleated RBC % (auto) 0 % 01/10/24 08:46 Nucleated RBCs # 0.0 /100WBC 01/10/24 08:46 Sodium 138 mmol/L (136-145) 01/10/24 08:46 Potassium 4.3 mmol/L (3.5-5.1) 01/10/24 08:46 Chloride 103 mmol/L (98-107) 01/10/24 08:46 Carbon Dioxide 26 mmol/L (22-29) 01/10/24 08:46 Anion Gap 13.3 (5-19) 01/10/24 08:46 BUN 13 mg/dL (8-23) 01/10/24 08:46 Creatinine 0.8 mg/dL (0.5-0.9) 01/10/24 08:46 GFR Calculation Not Reportable 01/10/24 08:46 Glucose 102 mg/dL (65-115) 01/10/24 08:46 Calculated Osmolality 286 mOsm/kg (285-295) 01/10/24 08:46 Calcium 7.9 mg/dL (8.5-10.5) L 01/10/24 08:46 Magnesium 1.9 mg/dL (1.7-2.3) 01/10/24 08:46 Total Bilirubin 0.3 mg/dL (0.15-1.2) 01/10/24 08:46 AST 19 U/L (0-32) 01/10/24 08:46 ALT 16 U/L (0-33) 01/10/24 08:46 Alkaline Phosphatase 84 U/L (35-105) 01/10/24 08:46 Troponin T Baseline 16 ng/L (0-10) H 01/10/24 17:19 NT-Pro-B Natriuret Pep 647 pg/mL (0-450) H 01/10/24 08:46 Total Protein 6.8 g/dL (6.6-8.7) 01/10/24 08:46 Albumin 3.6 g/dL (3.5-5.2) 01/10/24 08:46 Globulin 3.2 g/dL (1.3-4.6) 01/10/24 08:46 TSH 0.15 uIU/mL (0.27-4.20) L 01/10/24 08:46 Urine Color Yellow (Yellow) 01/10/24 09:21 Urine Appearance Clear (CLEAR) 01/10/24 09:21 Urine pH 8 (5-7) H 01/10/24 09:21 Ur Specific [place] 1.010 (1.005-1.030) 01/10/24 09:21 Urine Protein Neg (Negative) 01/10/24 09:21 Urine Glucose (UA) Norm (Normal) 01/10/24 09:21 Urine Ketones 1+ (Negative) H 01/10/24 09:21 Urine Blood Neg (Negative) 01/10/24 09:21 Urine Nitrate Negative (Negative) 01/10/24 09:21 Urine Bilirubin Neg (Negative) 01/10/24 09:21 Urine Urobilinogen Norm mg/dL (Negative) 01/10/24 09:21 Ur Leukocyte Esterase Negative (Negative) 01/10/24 09:21 Other data: Myocardial perfusion imaging on 08/19/2019 1. Myocardial perfusion imaging revealing small areas of present decreased tracer uptake in the inferior and apical lateral regions, suggestive of myocardial scarring versus effusion artifact. Elevated transient ischemic dilatation ratio, may suggest endocardial ischemia. However the positive predictive value this finding is limited. Clinical correlation is recommended #2. Normal LV ejection fraction of 85%. #3. LV wall motion analysis revealing no gross wall motion abnormalities. #4. Normal LV volume. No similar previous studies available for comparison A&P Assessment and plan (1) Bradycardia: This patient may have underlying sinus cassie disease. Currently he is in the normal sinus rhythm with a heart rate of 72 bpm. May continue on the current management for the time being. Continue holding the metoprolol/Cardizem (2) Atrial flutter with rapid ventricular response: Patient has a history of intermittent atrial flutter/fibrillation. I will hold off on any AV cassie blocking agents or antiarrhythmic at this time. (3) History of pulmonary embolism: Patient apparently finished the course of oral anticoagulation. (4) Dyslipidemia: May continue on the current medications. (5) Pneumonia: Patient is undergoing treatment. She is on antibiotics. Seems to be responding. Qualifiers: Laterality: right Lung location: middle lobe of lung Pneumonia type: d ue to unspecified organism Qualified Code(s): J18.9 - Pneumonia, unspecified organism (6) Hypertension: Since the blood pressure is in the normal range, patient may not require any medication changes at this time. Advised to continue on the current measures. Qualifiers: Hypertension type: primary hypertension Qualified Code(s): I10 - Essential (primary) hypertension Plan Based on the results of the above tests and the patient's clinical progress, further recommendations will be made. In the event of the patient developing any unusual chest pain, palpitations, SOB or any other new symptoms, advised to contact our office. I may see the patient back in the office in 6 months Coding Level of Care Code 45119 Diagnoses Bradycardia R00.1 Atrial flutter with rapid ventricular response I48.92 History of pulmonary embolism Z86.711 Dyslipidemia E78.5 Pneumonia of right middle lobe due to infectious organism J18.9 Laterality: right Lung location: middle lobe of lung Pneumonia type: due to unspecified organism Primary hypertension I10 Hypertension type: primary hypertension
[2024-01-10] MEDS: ondansetron 2 mg/ML SDV 2 mL 4 MG IVP (19:30)
[2024-01-10 19:43] LABS: Troponin 5 2HR 21.34 ng/L (0-10); Troponin 5 2HR Delta 5.34 ABS# (0-10)
[2024-01-10 20:31] LABS: Free T4 Free Thyroxine 1.58 ng/dL (0.82-1.77)
[2024-01-10] MEDS: budesonide 0.5 mg/2 mL Neb INHALATION (20:43)
[2024-01-10 23:30] LABS: Troponin 5 6HR 14.28 ng/L (0-10)
[2024-01-10 23:32] LABS: Troponin 5 6HR Delta -1.72 ng/L (0-12)
[2024-01-11] VITALS (100 sets, daily range): BP systolic 96–158; BP diastolic 52–112; PULSE 61–163; RESP 16–31; TEMP 36.5–37.5; O2SAT 83–99
[2024-01-11] MEDS: ipratropium-albuterol 3 mL Neb INHALATION ×4 (02:49→19:43)
[2024-01-11 04:36] LABS: Basophils % 0.2 %; Eosinophils % 0.6 %; Hematocrit 32.3 % (36-47); Lymphocytes # 1.6 10^3/uL (0.8-4.8); Lymphocytes % 31.4 %; Mean Corpuscular Hemoglobin 28.5 pg (27-33); Monocytes # 0.5 10^3/uL (0.2-0.9); Monocytes % 9.8 %; Neutrophils # 3.01 10^3/uL (1.8-7.7); Neutrophils % 57.6 %; Nucleated Red Blood Cells % 0 %; Platelet Count 217 10^3/cmm (157-399); Red Blood Count 3.51 10^6/uL (3.85-5.65); Red Cell Distribution Width 12.3 % (12.1-15.1); White Blood Count 5.22 10^3/uL (3.29-11.43)
[2024-01-11 04:53] LABS: Alanine Aminotransferase 12 U/L (0-33); Albumin Level 3.1 g/dL (3.5-5.2); Alkaline Phosphatase 68 U/L (35-105); Aspartate Amino Transferase 13 U/L (0-32); Blood Urea Nitrogen 16 mg/dL (8-23); Calcium 7.6 mg/dL (8.5-10.5); Carbon Dioxide 24 mmol/L (22-29); Chloride 105 mmol/L (98-107); Creatinine Clr Calc Pharmacy 58.3662; Glucose 95 mg/dL (65-115); Osmolality Calculated 285 mOsm/kg (285-295); Sodium 137 mmol/L (136-145); Total Bilirubin 0.3 mg/dL (0.15-1.2); Total Protein 6.1 g/dL (6.6-8.7)
[2024-01-11] MEDS: sodium chloride 0.9% 1,000 ML 75 ML IV (05:00)
[2024-01-11] MEDS: levothyroxine 100 mcg Tablet PO (05:43)
[2024-01-11] MEDS: acetaminophen 325 mg Tablet 650 MG PO (05:43)
[2024-01-11] MEDS: budesonide 0.5 mg/2 mL Neb INHALATION ×2 (08:22→19:43)
--- NOTE | 2024-01-11 09:16 | P.PN_ITS ---
Subjective 2 Subjective: Radha feels short of breath this morning but thinks it may be near her baseline. She is on 6 L of oxygen, which is above her usual baseline. She typically uses 3-1/2 L. Events of yesterday were noted. While on 2.5 mg of Cardizem, her home metoprolol dose was initiated at 25 mg and she had significant pauses, alternating in and out of a flutter and sinus rhythm. She was given a small dose of atropine and moved to the ICU. Of course, Cardizem was discontinued. Cardiology was consulted. Throughout the night she continued to have some bradycardia and pauses, and heart rate is steady around 60-70 while I am seeing her, sinus rhythm. Medications: Reviewed: Yes Vitals/I&O/Wt Last Vital Signs Temp 99.5 F 01/11/24 04:00 Pulse 66 01/11/24 08:40 Resp 20 H 01/11/24 08:22 BP 158/62 01/11/24 06:00 Pulse Ox 96 01/11/24 08:22 O2 Del Method Nasal Cannula 01/11/24 08:22 O2 Flow Rate 6 01/11/24 08:22 01/10/24 01/11/24 01/11/24 22:59 06:59 14:59 Intake Total 822.917 / 1323.000 597.5 / 1920.500 Output Total 700 / 700 250 / 950 Balance 122.917 / 623.000 347.5 / 970.500 Weight last 48 hrs Weight 79.968 kg Weight 78.642 kg Physical Exam 2 Narrative: General exam on 6 L of oxygen with mild respiratory distress. HEENT: Atraumatic normocephalic. Oropharynx clear. Neck is supple no lymphadenopathy thyromegaly Cardiovascular currently regular, occasional premature beat, no murmur Lungs a few faint expiratory wheezes. Diminished breath sounds bilaterally Abdomen is soft nontender with positive bowel sounds. Extremities no sinus clubbing edema, cap refill brisk Urinary Catheter Management: Ambrosio: Cath Placed During This Visit: yes Reason for Continuing Indwelling Catheter: Accurate Measurement of Urinary Output in Critically Ill Patients Urinary Catheter Date of Insertion: 01/10/24 Urinary Catheter Time of Insertion: 09:25 Data 01/11/24 04:15 01/11/24 04:15 A&P Assessment and plan (1) Atrial flutter with rapid ventricular response: Patient presents with atrial flutter with rapid ventricular rate She has had a previous presentation such as this when she had a pulmonary embolism. She reports she only took anticoagulation about a week following her last hospital stay 2 years ago. Otherwise she just takes aspirin daily She refuses any long-term anticoagulation other than aspirin Continue aspirin With addition of metoprolol, trying to convert off Cardizem IV she became significantly bradycardic with pauses when alternating between a flutter and A- fib. All rate limiting medication has been stopped. Heart rate is currently in the 60s, sinus rhythm and regular. However, she came in with a heart rate of 160 and a flutter and had been compliant with her metoprolol. CTA was performed which demonstrated no evidence of pulmonary embolism Troponin was elevated, but consistent with a type II elevation. Lisinopril currently discontinued Magnesium level was checked and normal TSH low and thyroid hormone adjusted. CBC, CMP, magnesium level in the morning Await further cardiology recommendations Echocardiogram demonstrated normal EF, no wall motion abnormalities, mild LVH, mild aortic and pulmonary regurgitation Secondary to increased oxygen need, will discontinue IV fluids and give 1 dose of Lasix 20 mg IV. (2) COPD (chronic obstructive pulmonary disease): Some current wheezing. With low-grade temperature, increased oxygen need will treat for acute COPD exacerbation Prednisone 40 mg a day Continue budesonide Continue DuoNeb every 6 hours Add doxycycline 100 mg twice daily (3) History of pulmonary embolism: Patient with past history of pulmonary embolism but no evidence of PE on CTA currently Lovenox for DVT prophylaxis Plan Abnormal TSH. Reduced levothyroxine Other medical problems as outlined medical history Limited code, not okay with intubation/mechanical ventilation Lovenox for DVT prophylaxis, SCDs Attestations 2 Medical Necessity Statement*: Needs continued hospitalization for close monitoring of heart rhythm, further definitive plans regarding tachycardia/bradycardia and treatment of COPD exacerbation. Diagnoses Atrial flutter with rapid ventricular response I48.92 COPD (chronic obstructive pulmonary disease) J44.9 History of pulmonary embolism Z86.711 Time Spent (min) 24
[2024-01-11] MEDS: aspirin 81 mg EC Tablet PO (09:50)
[2024-01-11] MEDS: FUROsemide 10 mg/mL SDV 4mL 20 MG IVP (09:51)
[2024-01-11] MEDS: pantoprazole DR 40 mg Tablet PO (09:51)
[2024-01-11] MEDS: predniSONE 20 mg Tablet 40 MG PO (09:51)
--- NOTE | 2024-01-11 12:06 | PM.PN ---
Subjective Subjective: Patient is feeling better. Heart rate has improved. But she seems to have intermittent tacky bradycardia arrhythmia. No chest pain or shortness of breath. Had echocardiogram yesterday. LV ejection fraction 56%. Medications: Medication Review Details: Current Medications Acetaminophen (Acetaminophen 325 Mg Tablet) 650 mg PO Q6H PRN PRN Reason: Mild/Mod Pain Or Temp >/= 101 Last Admin: 01/11/24 05:43 Dose: 650 mg Albuterol/Ipratropium (Ipratropium-Albuterol 3 Ml Neb) 3 ml INHALATION Q6H.RESP PAMELA Last Admin: 01/11/24 08:22 Dose: 3 ml Aspirin (Aspirin 81 Mg Ec Tablet) 81 mg PO DAILY PAMELA Last Admin: 01/11/24 09:50 Dose: 81 mg Atropine Sulfate (Atropine 0.1 Mg/Ml Syr 10 Ml) 0.5 mg IVP ONCE PRN PRN Reason: Bradycardia 40s or lower Budesonide (Budesonide 0.5 Mg/2 Ml Neb) 0.5 mg INHALATION BID.RESPIRATORY PAMELA Last Admin: 01/11/24 08:22 Dose: 0.5 mg Doxycycline Monohydrate (Doxycycline 100 Mg Tablet) 100 mg PO BID [facility]; Protocol Enoxaparin Sodium (Enoxaparin 40 Mg/0.4 Ml Syringe) 40 mg SUBCUT Q24H [facility] Last Admin: 01/10/24 15:06 Dose: 40 mg Levothyroxine Sodium (Levothyroxine 100 Mcg Tablet) 100 mcg PO QAM [facility] Last Admin: 01/11/24 05:43 Dose: 100 mcg Ondansetron HCl (Ondansetron 2 Mg/Ml Sdv 2 Ml) 4 mg IVP Q6H PRN PRN Reason: vomiting, or N/V if npo Last Admin: 01/10/24 19:30 Dose: 4 mg Pantoprazole Sodium (Pantoprazole Dr 40 Mg Tablet) 40 mg PO DAILY [facility] Last Admin: 01/11/24 09:51 Dose: 40 mg Prednisone (Prednisone 20 Mg Tablet) 40 mg PO DAILY [facility] Last Admin: 01/11/24 09:51 Dose: 40 mg Vitals/I&O/Wt Last Vital Signs Temp 99.5 F 01/11/24 04:00 Pulse 93 01/11/24 10:00 Resp 25 H 01/11/24 10:00 BP 131/90 01/11/24 10:00 Pulse Ox 95 01/11/24 09:45 O2 Del Method Nasal Cannula 01/11/24 08:22 O2 Flow Rate 6 01/11/24 08:22 01/10/24 01/11/24 01/11/24 22:59 06:59 14:59 Intake Total 822.917 / 1323.000 597.5 / 1920.500 150 / 150 Output Total 700 / 700 250 / 950 Balance 122.917 / 623.000 347.5 / 970.500 150 / 150 Weight last 48 hrs Weight 176 lb 4.8 oz Weight 173 lb 6 oz Physical Exam Narrative: GENERAL: The patient is alert and oriented times three. Not in any acute distress. HEENT: No significant pallor, icterus or lymphadenopathy.Oral cavity: There are no mucous membrane lesions. NECK: Trachea appears to be central. No masses noted. No JVD or thyromegaly appreciated. RESPIRATORY: Chest is symmetrical. No intercostals muscle retraction or any accessory muscle activation. There is no chest wall tenderness. Breath sounds are heard bilaterally. Scattered coarse crackles bilaterally more so on the right side. BREASTS: Deferred. HEART: The heart sounds are normal. No S3 or S4. Short systolic murmur in the lower sternal border. No diastolic murmurs. No pericardial rub ABDOMEN: No vessel pulsations or distention. No tenderness. No organomegaly appreciated. Bowel sounds are normally heard. : Deferred. RECTAL: Deferred. LYMPHATIC: No lymphadenopathy noted in the neck. EXTREMITIES: No edema or cyanosis. No clubbing. MUSCULOSKELETAL: No acute joint deformities or swelling SKIN: There are no significant rashes or ecchymosis NEUROPSYCHIATRIC: The patient is alert and oriented x3. Appears to be in a good mood. No tremors or rigidity noted. Urinary Catheter Management: Ambrosio: Cath Placed During This Visit: yes Reason for Continuing Indwelling Catheter: Accurate Measurement of Urinary Output in Critically Ill Patients Urinary Catheter Date of Insertion: 01/10/24 Urinary Catheter Time of Insertion: 09:25 Data 01/11/24 04:15 01/11/24 04:15 Other Labs: Laboratory Last Values WBC 5.22 10^3/uL (3.29-11.43) 01/11/24 04:15 RBC 3.51 10^6/uL (3.85-5.65) L 01/11/24 04:15 Hgb 10.00 g/dL (11.27-16.99) L 01/11/24 04:15 Hct 32.3 % (36-47) L 01/11/24 04:15 MCV 92.0 fl (85-98) 01/11/24 04:15 MCH 28.5 pg (27-33) 01/11/24 04:15 MCHC 31.0 g/dL (30-55) 01/11/24 04:15 RDW 12.3 % (12.1-15.1) 01/11/24 04:15 Plt Count 217 10^3/cmm (157-399) 01/11/24 04:15 MPV 9.0 fL (7.4-10.4) 01/11/24 04:15 Neut % (Auto) 57.6 % 01/11/24 04:15 Lymph % (Auto) 31.4 % 01/11/24 04:15 [place] % (Auto) 9.8 % 01/11/24 04:15 Eos % (Auto) 0.6 % 01/11/24 04:15 Baso % (Auto) 0.2 % 01/11/24 04:15 Neut # (Auto) 3.01 10^3/uL (1.8-7.7) 01/11/24 04:15 Lymph # (Auto) 1.6 10^3/uL (0.8-4.8) 01/11/24 04:15 [place] # (Auto) 0.5 10^3/uL (0.2-0.9) 01/11/24 04:15 Eos # (Auto) 0.0 10^3/uL (0.0-0.8) 01/11/24 04:15 Baso # (Auto) 0.0 10^3/uL (0.0-0.1) 01/11/24 04:15 Nucleated RBC % (auto) 0 % 01/11/24 04:15 Nucleated RBCs # 0.0 /100WBC 01/11/24 04:15 Sodium 137 mmol/L (136-145) 01/11/24 04:15 Potassium 4.0 mmol/L (3.5-5.1) 01/11/24 04:15 Chloride 105 mmol/L (98-107) 01/11/24 04:15 Carbon Dioxide 24 mmol/L (22-29) 01/11/24 04:15 Anion Gap 12.0 (5-19) 01/11/24 04:15 BUN 16 mg/dL (8-23) 01/11/24 04:15 Creatinine 0.8 mg/dL (0.5-0.9) 01/11/24 04:15 GFR Calculation Not Reportable 01/11/24 04:15 Glucose 95 mg/dL (65-115) 01/11/24 04:15 Calculated Osmolality 285 mOsm/kg (285-295) 01/11/24 04:15 Calcium 7.6 mg/dL (8.5-10.5) L 01/11/24 04:15 Magnesium 2.0 mg/dL (1.7-2.3) 01/11/24 04:15 Total Bilirubin 0.3 mg/dL (0.15-1.2) 01/11/24 04:15 AST 13 U/L (0-32) 01/11/24 04:15 ALT 12 U/L (0-33) 01/11/24 04:15 Alkaline Phosphatase 68 U/L (35-105) 01/11/24 04:15 Troponin T Baseline 16 ng/L (0-10) H 01/10/24 17:19 Troponin T 120 Minute 21.34 ng/L (0-10) H 01/10/24 19:09 Delta Troponin T 5.34 ABS# (0-10) 01/10/24 19:09 Troponin T Hi Sens 6Hr 14.28 ng/L (0-10) H 01/10/24 23:08 Troponin T Hi Sens 6Hr Delta -1.72 ng/L (0-12) L 01/10/24 23:08 NT-Pro-B Natriuret Pep 647 pg/mL (0-450) H 01/10/24 08:46 Total Protein 6.1 g/dL (6.6-8.7) L 01/11/24 04:15 Albumin 3.1 g/dL (3.5-5.2) L 01/11/24 04:15 Globulin 3.0 g/dL (1.3-4.6) 01/11/24 04:15 TSH 0.15 uIU/mL (0.27-4.20) L 01/10/24 08:46 Free T4 1.58 ng/dL (0.82-1.77) 01/10/24 08:46 Urine Color Yellow (Yellow) 01/10/24 09:21 Urine Appearance Clear (CLEAR) 01/10/24 09:21 Urine pH 8 (5-7) H 01/10/24 09:21 Ur Specific [place] 1.010 (1.005-1.030) 01/10/24 09:21 Urine Protein Neg (Negative) 01/10/24 09:21 Urine Glucose (UA) Norm (Normal) 01/10/24 09:21 Urine Ketones 1+ (Negative) H 01/10/24 09:21 Urine Blood Neg (Negative) 01/10/24 09:21 Urine Nitrate Negative (Negative) 01/10/24 09:21 Urine Bilirubin Neg (Negative) 01/10/24 09:21 Urine Urobilinogen Norm mg/dL (Negative) 01/10/24 09:21 Ur Leukocyte Esterase Negative (Negative) 01/10/24 09:21 A&P Assessment and plan (1) Bradycardia: Patient seems to be in intermittent atrial fibrillation with rapid ventricular rate and bradycardia. (2) Atrial flutter with rapid ventricular response: Patient has a history of intermittent atrial flutter/fibrillation. I will hold off on any AV cassie blocking agents or antiarrhythmic at this time. If the heart rate stays up, I may try a small dose of metoprolol. (3) History of pulmonary embolism: Has not had any recurrence of pulmonary embolism by CTA. (4) Dyslipidemia: May continue on the current medications. (5) Hypertension: Since the blood pressure is in the normal range, patient may not require any medication changes at this time. Advised to continue on the current measures. Qualifiers: Hypertension type: primary hypertension Qualified Code(s): I10 - Essential (primary) hypertension Plan If she continues to have the bradycardic episodes intermittently, may consider permanent pacer implantation. If she remains stable, may be transferred to the medical floor Discussed with Dr. Ho Attjermoyations Medical Necessity Statement*: Deferred to the primary Coding Level of Care Code Acute Code for [employer] Diagnoses Bradycardia R00.1 Atrial flutter with rapid ventricular response I48.92 History of pulmonary embolism Z86.711 Dyslipidemia E78.5 Primary hypertension I10 Hypertension type: primary hypertension
--- NOTE | 2024-01-11 12:37 | PC.NURSE ---
Pt up to BSC. Pt able to bear weight well. Slight weakness noted. soft smal BM. Pt back to bed.
--- NOTE | 2024-01-11 15:01 | ECG_ITS ---
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 Measurements Intervals [place] Rate: 161 P: 261 FL: 97 QRS: 62 QRSD: 91 T: 40 QT: 301 QTc: 494 Interpretive Statements ATRIAL FLUTTER WITH RAPID VENTRICULAR RATE LOW QRS VOLTAGE IN PRECORDIAL LEADS [QRS DEFLECTION < 1.0 mV IN CHEST LEADS] PATTERN CONSISTENT WITH PULMONARY DISEASE MINIMAL ST DEPRESSION [0.025+ mV ST DEPRESSION] CRITICAL TEST RESULT Compared to ECG 01/10/2024 17:22:26 ST (T wave) deviation now present Junctional rhythm no longer present Electronically Signed On 01-12-2024 15:55:28 CDT by Joel Flores M.D. [id number]
[2024-01-11] MEDS: esmolol drip 2,500 MG/250 ML PREMIX 12 MG IV (15:25)
--- NOTE | 2024-01-11 16:28 | PC.NURSE ---
HR 160s, vagal not effective. Dr. Ho gave order for Esmolol drip, as drip was being started HR settled to 70s, Dr. Ho gave order to hold drip. Dr. Flores came to bedside gave order for Amio drip to stay at 0.5
[2024-01-11] MEDS: enoxaparin 40 mg/0.4 mL Syringe SUBCUT (16:37)
[2024-01-11] MEDS: doxycycline 100 mg Tablet PO (17:55)
[2024-01-12] VITALS (91 sets, daily range): BP systolic 117–148; BP diastolic 56–107; PULSE 58–153; RESP 6–30; TEMP 36.4–36.9; O2SAT 83–99
[2024-01-12] MEDS: ipratropium-albuterol 3 mL Neb INHALATION ×3 (01:33→14:05)
[2024-01-12 05:17] LABS: Hematocrit 29.9 % (36-47); Lymphocytes # 0.9 10^3/uL (0.8-4.8); Lymphocytes % 14.5 %; Mean Corpuscular HGB Conc 31.4 g/dL (30-55); Mean Corpuscular Hemoglobin 28.3 pg (27-33); Mean Corpuscular Volume 90.1 fl (85-98); Mean Platelet Volume 9.2 fL (7.4-10.4); Monocytes # 0.5 10^3/uL (0.2-0.9); Monocytes % 8.1 %; Neutrophils # 4.65 10^3/uL (1.8-7.7); Neutrophils % 76.9 %; Nucleated Red Blood Cells % 0 %; Platelet Count 215 10^3/cmm (157-399); Red Blood Count 3.32 10^6/uL (3.85-5.65); Red Cell Distribution Width 11.9 % (12.1-15.1); White Blood Count 6.05 10^3/uL (3.29-11.43)
[2024-01-12 05:30] LABS: Anion Gap 11.1 (5-19); Blood Urea Nitrogen 18 mg/dL (8-23); Calcium 7.7 mg/dL (8.5-10.5); Carbon Dioxide 27 mmol/L (22-29); Chloride 105 mmol/L (98-107); Creatinine Clr Calc Pharmacy 60.5805; Glucose 125 mg/dL (65-115); Magnesium 1.9 mg/dL (1.7-2.3); Osmolality Calculated 291 mOsm/kg (285-295); Potassium 4.1 mmol/L (3.5-5.1); Sodium 139 mmol/L (136-145)
[2024-01-12] MEDS: levothyroxine 100 mcg Tablet PO (06:27)
--- NOTE | 2024-01-12 07:51 | P.PN_ITS ---
Subjective 2 Subjective: Patient is doing well. No chest pain. Was started on amiodarone yesterday. Last night briefly went in Afib with RVR. Now in NSR Vitals/I&O/Wt Last Vital Signs Temp 97.5 F L 01/12/24 00:53 Pulse 94 01/12/24 06:15 Resp 20 H 01/12/24 06:15 BP 136/87 01/12/24 06:15 Pulse Ox 91 01/12/24 06:15 O2 Del Method High Flow Nasal Cannula 01/12/24 01:33 O2 Flow Rate 5 01/12/24 01:33 01/11/24 01/12/24 01/12/24 22:59 06:59 14:59 Intake Total 1400 / 1800 200 / 2000 Output Total 350 / 1725 575 / 2300 Balance 1050 / 75 -375 / -300 Weight last 48 hrs Weight 187 lb 6.287 oz Weight 176 lb 4.8 oz Weight 173 lb 6 oz Physical Exam 2 Narrative: GENERAL: Patient is alert, awake and oriented x3. [] NECK: No jugular vein distension. [] HEENT: No cyanosis. No icterus. No pallor. [] HEART: Regular S1 and S2. No murmur, rub or gallop. [] LUNGS: Diminished air entry CENTRAL NERVOUS SYSTEM: Grossly nonfocal. [] EXTREMITIES: Lower extremities with 1+ edema bilaterally. Urinary Catheter Management: Ambrosio: Cath Placed During This Visit: yes Reason for Continuing Indwelling Catheter: Accurate Measurement of Urinary Output in Critically Ill Patients Urinary Catheter Date of Insertion: 01/10/24 Urinary Catheter Time of Insertion: 09:25 Data 01/13/24 05:12 01/13/24 05:12 A&P Assessment and plan (1) Bradycardia: (2) Atrial flutter with rapid ventricular response: (3) History of pulmonary embolism: (4) Dyslipidemia: (5) Hypertension: Qualifiers: Hypertension type: primary hypertension Qualified Code(s): I10 - Essential (primary) hypertension Plan Patient is staying in normal sinus rhythm. She is intermittently going into afib with RVR. Her presentation is consistent with sick sinus syndrome. We will tentatively plan for pacemaker placement on Sunday/sunday Continue amiodarone for now Thank you for involving us with care of this patient. We will continue to follow. Please call with questions. Attestations 2 Medical Necessity Statement*: Care expected to cross 2 midnights. Coding Level of Care Code Acute Code for g Fwd Diagnoses Bradycardia R00.1 Atrial flutter with rapid ventricular response I48.92 History of pulmonary embolism Z86.711 Dyslipidemia E78.5 Primary hypertension I10 Hypertension type: primary hypertension
[2024-01-12] MEDS: budesonide 0.5 mg/2 mL Neb INHALATION ×2 (07:58→20:14)
[2024-01-12] MEDS: doxycycline 100 mg Tablet PO ×2 (08:45→18:24)
[2024-01-12] MEDS: pantoprazole DR 40 mg Tablet PO (08:45)
[2024-01-12] MEDS: aspirin 81 mg EC Tablet PO (08:45)
[2024-01-12] MEDS: predniSONE 20 mg Tablet 40 MG PO (08:45)
[2024-01-12] MEDS: calcium gluconate 0.9% NaCL 1 GM/50 ML PREMIX IV (12:58)
[2024-01-12] MEDS: FUROsemide 10 mg/mL SDV 2mL 20 MG IVP (12:59)
[2024-01-12 14:33] LABS: Iron 27 ug/dL (37-145); Total Iron Binding Capacity 297 mcg/dl; Unsaturated Iron Binding 270 ug/dL (112-347)
[2024-01-12 14:50] LABS: Vitamin B12 160 pg/mL (232-1245)
[2024-01-12] MEDS: enoxaparin 40 mg/0.4 mL Syringe SUBCUT (15:58)
--- NOTE | 2024-01-12 16:49 | P.PN_ITS ---
Subjective 2 Subjective: Overnight patient has remained on amiodarone on 0.5. She has been going back and forth between normal sinus rhythm and atrial fibrillation. Has been having mild rapid ventricular response with heart rate running more than 100s. Patient herself denies any nausea vomiting, dizziness, difficulty in breathing. On examination laying comfortably in bed. Vitals/I&O/Wt Last Vital Signs Temp 98.4 F 01/12/24 08:15 Pulse 102 H 01/12/24 16:30 Resp 22 H 01/12/24 16:30 BP 143/99 01/12/24 16:30 Pulse Ox 93 01/12/24 16:30 O2 Del Method Nasal Cannula 01/12/24 14:09 O2 Flow Rate 4 01/12/24 14:09 01/12/24 01/12/24 01/12/24 06:59 14:59 22:59 Intake Total 200 / 2000 529 / 529 200 / 729 Output Total 575 / 2300 1300 / 1300 1030 / 2330 Balance -375 / -300 -771 / -771 -830 / -1601 Weight last 48 hrs Weight 85 kg Weight 79.968 kg Physical Exam 2 Narrative: General exam on 4 L of oxygen with mild respiratory distress. HEENT: Atraumatic normocephalic. Oropharynx clear. Neck is supple no lymphadenopathy thyromegaly Cardiovascular currently regular, occasional premature beat, no murmur Lungs a few faint expiratory wheezes. Diminished breath sounds bilaterally Abdomen is soft nontender with positive bowel sounds. Extremities no sinus clubbing edema, cap refill brisk Urinary Catheter Management: Ambrosio: Cath Placed During This Visit: yes Reason for Continuing Indwelling Catheter: Accurate Measurement of Urinary Output in Critically Ill Patients Urinary Catheter Date of Insertion: 01/10/24 Urinary Catheter Time of Insertion: 09:25 Data 01/12/24 04:32 01/12/24 04:32 Micro: Microbiology 01/12/24 13:50 Blood Culture - Preliminary Blood SPECIMEN COLLECTED 01/12/24 13:46 Blood Culture - Preliminary Blood SPECIMEN COLLECTED A&P Assessment and plan (1) Atrial flutter with rapid ventricular response: Presented with RVR. After being started on Cardizem drip and restarting home dose of metoprolol patient developed bradycardia with sinus pauses. Both Cardizem and metoprolol has been withheld since then. Patient alternating between sinus bradycardia and A-fib with RVR. Appreciate cardiology recommendations. High concerns for tachybradycardia syndrome. Plan for pacemaker implantation. Continue with amiodarone drip of 0.5. Will plan to transition to oral within next 24 hours. Continue with oral doxycycline. No concerns for infection for now. Check blood culture. Patient not on anticoagulation as she has refused in the past. Continue with Lovenox for DVT prophylaxis. Echocardiogram showed normal EF without regional wall motion abnormality with mild LVH, mild AI and [place]. Monitor electrolytes. Keep potassium around 4, magnesium around 2. Calcium slightly low. Replete 1 g IV calcium gluconate. (2) Bradycardia: (3) Sinus pause: (4) Hypoxic respiratory failure: Most likely in the setting of COPD exacerbation with mild congestive heart failure. Treatment of COPD as #3. Strict input charting, daily weights. Fluid restriction up to 1500 cc. IV Lasix 20 mg one-time. Aggressive pulmonary toilet. Incentive spirometry. Out of bed to chair. Physical therapy. (5) COPD (chronic obstructive pulmonary disease): Oxygen supplementation keeping saturation over 90%. Prednisone 40 mg a day Continue budesonide Switch to ipratropium, Xopenex every 6 hours. Add doxycycline 100 mg twice daily (6) History of pulmonary embolism: Patient with past history of pulmonary embolism but no evidence of PE on CTA currently Lovenox for DVT prophylaxis Plan Abnormal TSH. Reduced levothyroxine Other medical problems as outlined medical history CODE STATUS: Limited code, not okay with intubation/mechanical ventilation Lovenox for DVT prophylaxis, SCDs Transfer to CSU. Attestations 2 Medical Necessity Statement*: Requires further hospitalization for management of A-fib with RVR alternating with significant bradycardia with sinus pauses as patient is evaluated for pacemaker implantation secondary to possible tachybradycardia syndrome, hypoxia Diagnoses Atrial flutter with rapid ventricular response I48.92 Bradycardia R00.1 Sinus pause I45.5 Hypoxic respiratory failure J96.91 COPD (chronic obstructive pulmonary disease) J44.9 History of pulmonary embolism Z86.711
[2024-01-12] MEDS: iron sucrose 200 MG in sodium chloride 0.9% (100 ml) 100 ML 220 MG IV (18:19)
[2024-01-12] MEDS: cyanocobalamin 1,000 mcg/mL SDV 1000 MCG IM (18:20)
[2024-01-12] MEDS: ipratropium 0.5 mg/2.5 mL Neb INHALATION (20:14)
[2024-01-12] MEDS: levalbuterol 0.63 mg/3 mL Neb 0.630000000000000004 MG INHALATION (20:14)
[2024-01-13] VITALS (12 sets, daily range): BP systolic 135–163; BP diastolic 62–102; PULSE 57–121; RESP 19–26; TEMP 36.3–36.8; O2SAT 89–96
[2024-01-13] MEDS: acetaminophen 500 mg Tablet PO ×2 (00:01→22:07)
[2024-01-13] MEDS: diphenhydrAMINE 25 mg Capsule PO ×2 (00:01→22:07)
[2024-01-13 05:28] LABS: Hematocrit 33.1 % (36-47); Lymphocytes # 1.1 10^3/uL (0.8-4.8); Lymphocytes % 18.3 %; Mean Corpuscular HGB Conc 31.1 g/dL (30-55); Mean Corpuscular Hemoglobin 28.2 pg (27-33); Mean Corpuscular Volume 90.7 fl (85-98); Monocytes # 0.6 10^3/uL (0.2-0.9); Monocytes % 9.1 %; Neutrophils # 4.33 10^3/uL (1.8-7.7); Neutrophils % 71.9 %; Nucleated Red Blood Cells % 0 %; Platelet Count 259 10^3/cmm (157-399); Red Blood Count 3.65 10^6/uL (3.85-5.65); Red Cell Distribution Width 12.1 % (12.1-15.1); White Blood Count 6.02 10^3/uL (3.29-11.43)
[2024-01-13 05:49] LABS: Alanine Aminotransferase 11 U/L (0-33); Albumin Level 3.2 g/dL (3.5-5.2); Alkaline Phosphatase 62 U/L (35-105); Anion Gap 11.1 (5-19); Aspartate Amino Transferase 14 U/L (0-32); Blood Urea Nitrogen 15 mg/dL (8-23); Calcium 7.9 mg/dL (8.5-10.5); Carbon Dioxide 30 mmol/L (22-29); Chloride 102 mmol/L (98-107); Creatinine Clr Calc Pharmacy 44.4564; Globulin 2.8 g/dL (1.3-4.6); Glucose 100 mg/dL (65-115); Osmolality Calculated 289 mOsm/kg (285-295); Potassium 4.1 mmol/L (3.5-5.1); Sodium 139 mmol/L (136-145); Total Bilirubin 0.2 mg/dL (0.15-1.2)
[2024-01-13 05:56] LABS: Estmated Average Glucose 108; Hemoglobin A1C 5.4 % (4.0-6.0)
[2024-01-13 05:58] LABS: Chol HDL Ratio 2.19 mg/dL (0.0-4.40); Cholesterol 125 mg/dL (0-200); HDL Cholesterol 57 mg/dL (60-100); LDL Cholesterol Calculated 50 mg/dL (50-129); Magnesium 1.9 mg/dL (1.7-2.3); Triglycerides 91 mg/dL (0-150); VLDL Cholestrol Calculation 18 mg/dL (0-30)
[2024-01-13 06:10] LABS: Folate Level 5.1 ng/mL (4.8-37.3)
[2024-01-13] MEDS: levothyroxine 100 mcg Tablet PO (07:15)
[2024-01-13] MEDS: aspirin 81 mg EC Tablet PO (08:24)
[2024-01-13] MEDS: predniSONE 20 mg Tablet 40 MG PO (08:24)
[2024-01-13] MEDS: pantoprazole DR 40 mg Tablet PO (08:24)
[2024-01-13] MEDS: doxycycline 100 mg Tablet PO ×2 (08:24→17:32)
[2024-01-13] MEDS: cyanocobalamin 1,000 mcg/mL SDV 1000 MCG IM (08:24)
--- NOTE | 2024-01-13 08:50 | PM.PN ---
Subjective Subjective: Patient is doing better. However intermittently going into afib with RVR. Vitals/I&O/Wt Last Vital Signs Temp 97.6 F 01/13/24 07:31 Pulse 63 01/13/24 07:31 Resp 19 H 01/13/24 07:31 BP 156/71 01/13/24 07:31 Pulse Ox 94 01/13/24 07:31 O2 Del Method Nasal Cannula 01/13/24 07:31 O2 Flow Rate 3.5 01/12/24 20:19 01/12/24 01/13/24 01/13/24 22:59 06:59 14:59 Intake Total 310 / 839 700 / 1539 Output Total 1030 / 2330 600 / 2930 Balance -720 / -1491 100 / -1391 Weight last 48 hrs Weight 120 lb 8 oz Weight 187 lb 6.287 oz Physical Exam Narrative: GENERAL: Patient is alert, awake and oriented x3. [] NECK: No jugular vein distension. [] HEENT: No cyanosis. No icterus. No pallor. [] HEART: Regular S1 and S2. No murmur, rub or gallop. [] LUNGS: Diminished air entry CENTRAL NERVOUS SYSTEM: Grossly nonfocal. [] EXTREMITIES: Lower extremities with 1+ edema bilaterally. Urinary Catheter Management: Ambrosio: Cath Placed During This Visit: yes Reason for Continuing Indwelling Catheter: Accurate Measurement of Urinary Output in Critically Ill Patients Urinary Catheter Date of Insertion: 01/10/24 Urinary Catheter Time of Insertion: 09:25 Data 01/13/24 05:12 01/13/24 05:12 Micro: Microbiology 01/12/24 13:50 Blood Culture - Preliminary Blood SPECIMEN COLLECTED 01/12/24 13:46 Blood Culture - Preliminary Blood SPECIMEN COLLECTED A&P Assessment and plan (1) Bradycardia: (2) Atrial flutter with rapid ventricular response: (3) History of pulmonary embolism: (4) Dyslipidemia: (5) Hypertension: Qualifiers: Hypertension type: primary hypertension Qualified Code(s): I10 - Essential (primary) hypertension Plan Patient has sick sinus syndorme. 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 NPO past midnight. Thank you for involving us with care of this patient. We will continue to follow. Please call with questions. Attestations Medical Necessity Statement*: Care expected to cross 2 midnights Coding Level of Care Code Acute Code for Chg Fwd Diagnoses Bradycardia R00.1 Atrial flutter with rapid ventricular response I48.92 History of pulmonary embolism Z86.711 Dyslipidemia E78.5 Primary hypertension I10 Hypertension type: primary hypertension
[2024-01-13] MEDS: levalbuterol 0.63 mg/3 mL Neb 0.630000000000000004 MG INHALATION ×2 (09:11→14:57)
[2024-01-13] MEDS: budesonide 0.5 mg/2 mL Neb INHALATION (09:11)
[2024-01-13] MEDS: ipratropium 0.5 mg/2.5 mL Neb INHALATION ×2 (09:11→14:57)
[2024-01-13] MEDS: FUROsemide 10 mg/mL SDV 2mL 20 MG IVP (11:00)
--- NOTE | 2024-01-13 13:41 | PM.PN ---
Subjective Subjective: Acute events overnight. Seen with family at bedside. Patient sitting at the edge of the bed. Currently on 3 L of oxygen supplementation. Denies any nausea, vomiting, headache. Has remained hemodynamically stable and afebrile. Currently on alarm security or surveillance monitor she is in normal sinus rhythm not in tachycardia. Continued on amiodarone drip Vitals/I&O/Wt Last Vital Signs Temp 97.5 F L 01/13/24 11:00 Pulse 93 01/13/24 11:00 Resp 22 H 01/13/24 11:00 BP 146/81 01/13/24 11:00 Pulse Ox 95 01/13/24 11:00 O2 Del Method Nasal Cannula 01/13/24 11:00 O2 Flow Rate 4 01/13/24 11:00 01/12/24 01/13/24 01/13/24 22:59 06:59 14:59 Intake Total 310 / 839 700 / 1539 120 / 120 Output Total 1030 / 2330 600 / 2930 1300 / 1300 Balance -720 / -1491 100 / -1391 -1180 / -1180 Weight last 48 hrs Weight 54.658 kg Weight 85 kg Physical Exam Narrative: General exam on 4 L of oxygen with mild respiratory distress. HEENT: Atraumatic normocephalic. Oropharynx clear. Neck is supple no lymphadenopathy thyromegaly Cardiovascular currently regular, occasional premature beat, no murmur Lungs a few faint expiratory wheezes. Diminished breath sounds bilaterally Abdomen is soft nontender with positive bowel sounds. Extremities no sinus clubbing edema, cap refill brisk Urinary Catheter Management: Ambrosio: Cath Placed During This Visit: yes Reason for Continuing Indwelling Catheter: Accurate Measurement of Urinary Output in Critically Ill Patients Urinary Catheter Date of Insertion: 01/10/24 Urinary Catheter Time of Insertion: 09:25 Data 01/13/24 05:12 01/13/24 05:12 Micro: Microbiology 01/12/24 13:50 Blood Culture - Preliminary Blood SPECIMEN COLLECTED 01/12/24 13:46 Blood Culture - Preliminary Blood SPECIMEN COLLECTED A&P Assessment and plan (1) Atrial flutter with rapid ventricular response: Presented with RVR. After being started on Cardizem drip and restarting home dose of metoprolol patient developed bradycardia with sinus pauses. Both Cardizem and metoprolol has been withheld since then. Patient alternating between sinus bradycardia and A-fib with RVR. Appreciate cardiology recommendations. High concerns for tachybradycardia syndrome. Plan for pacemaker implantation. Continue with amiodarone drip of 0.5. Will plan to transition to oral within next 24 hours. Continue with oral doxycycline. No concerns for infection for now. Check blood culture. Patient not on anticoagulation as she has refused in the past. Continue with Lovenox for DVT prophylaxis. Echocardiogram showed normal EF without regional wall motion abnormality with mild LVH, mild AI and [place]. Monitor electrolytes. Keep potassium around 4, magnesium around 2. Calcium slightly low. Replete 1 g IV calcium gluconate. (2) Bradycardia: (3) Sinus pause: (4) Hypoxic respiratory failure: Most likely in the setting of COPD exacerbation with mild congestive heart failure. Treatment of COPD as #3. Strict input charting, daily weights. Fluid restriction up to 1500 cc. IV Lasix 20 mg one-time. Aggressive pulmonary toilet. Incentive spirometry. Out of bed to chair. Physical therapy. (5) COPD (chronic obstructive pulmonary disease): Oxygen supplementation keeping saturation over 90%. Prednisone 40 mg a day Continue budesonide Switch to ipratropium, Xopenex every 6 hours. Add doxycycline 100 mg twice daily (6) History of pulmonary embolism: Patient with past history of pulmonary embolism but no evidence of PE on CTA currently Lovenox for DVT prophylaxis Plan Abnormal TSH. Reduced levothyroxine Other medical problems as outlined medical history CODE STATUS: Limited code, not okay with intubation/mechanical ventilation Lovenox for DVT prophylaxis, SCDs Plan for today: Continue with amiodarone drip. Heart rate well-controlled. Wean oxygen supplementation keeping saturation over 88%. Continue with nebulization treatment on oral steroids. Possible pacemaker implantation in AM. Plan to keep n.p.o. after midnight. Repeat 20 minutes of IV Lasix today. Monitor electrolytes with target potassium around 4, magnesium around 2. Found to have iron deficiency anemia. Continue with IV iron treatment. Attestations Medical Necessity Statement*: Requires further hospitalization for management of tachybradycardia syndrome as patient would require pacemaker implantation, hypoxia in setting of COPD exacerbation with mild CHF Diagnoses Atrial flutter with rapid ventricular response I48.92 Bradycardia R00.1 Sinus pause I45.5 Hypoxic respiratory failure J96.91 COPD (chronic obstructive pulmonary disease) J44.9 History of pulmonary embolism Z86.711
[2024-01-13] MEDS: enoxaparin 40 mg/0.4 mL Syringe SUBCUT (15:26)
[2024-01-13] MEDS: iron sucrose 200 MG in sodium chloride 0.9% (100 ml) 100 ML 220 MG IV (17:32)
[2024-01-14] VITALS (15 sets, daily range): BP systolic 134–159; BP diastolic 79–91; PULSE 69–128; RESP 16–25; TEMP 36.6–36.7; O2SAT 90–96
[2024-01-14 05:09] LABS: Basophils % 0.1 %; Eosinophils % 0.1 %; Hematocrit 33.5 % (36-47); Lymphocytes # 1.3 10^3/uL (0.8-4.8); Lymphocytes % 18.9 %; Mean Corpuscular HGB Conc 31.6 g/dL (30-55); Mean Corpuscular Hemoglobin 28.2 pg (27-33); Mean Corpuscular Volume 89.1 fl (85-98); Monocytes # 0.7 10^3/uL (0.2-0.9); Monocytes % 10.5 %; Neutrophils # 4.61 10^3/uL (1.8-7.7); Neutrophils % 69.2 %; Nucleated Red Blood Cells % 0 %; Platelet Count 301 10^3/cmm (157-399); Red Blood Count 3.76 10^6/uL (3.85-5.65); Red Cell Distribution Width 12.1 % (12.1-15.1); White Blood Count 6.67 10^3/uL (3.29-11.43)
[2024-01-14] MEDS: levothyroxine 100 mcg Tablet PO (05:09)
--- NOTE | 2024-01-14 05:12 | PC.NURSE ---
pt on continuous amiodarone drip during the night. when the pump notified nurse of complete infusion at around 0500 it was noticed that the previous bag had not been scanned by previous nurse. pt continues to have a fib/flutter and pauses. physican aware of rhythms. new bag scanned at 0500 at 0.5mg/mins per protocol.
[2024-01-14 05:31] LABS: Alanine Aminotransferase 13 U/L (0-33); Albumin Level 3.4 g/dL (3.5-5.2); Alkaline Phosphatase 73 U/L (35-105); Anion Gap 11.4 (5-19); Aspartate Amino Transferase 21 U/L (0-32); Blood Urea Nitrogen 22 mg/dL (8-23); Calcium 8.2 mg/dL (8.5-10.5); Carbon Dioxide 30 mmol/L (22-29); Chloride 104 mmol/L (98-107); Creatinine Clr Calc Pharmacy 44.4564; Globulin 2.8 g/dL (1.3-4.6); Glucose 107 mg/dL (65-115); Osmolality Calculated 296 mOsm/kg (285-295); Potassium 4.4 mmol/L (3.5-5.1); Sodium 141 mmol/L (136-145); Total Bilirubin 0.2 mg/dL (0.15-1.2); Total Protein 6.2 g/dL (6.6-8.7)
[2024-01-14] MEDS: levalbuterol 0.63 mg/3 mL Neb 0.630000000000000004 MG INHALATION ×2 (07:31→20:03)
[2024-01-14] MEDS: budesonide 0.5 mg/2 mL Neb INHALATION ×2 (07:31→20:03)
[2024-01-14] MEDS: ipratropium 0.5 mg/2.5 mL Neb INHALATION ×2 (07:31→20:03)
--- NOTE | 2024-01-14 08:22 | P.PN_ITS ---
Subjective 2 Subjective: This patient was found to have episodes of prolonged pauses on the telemetry. She is still on amiodarone. No syncopal episode. She still has significant shortness of breath with activities. Seems to be improving. Medications: Medication Review Details: Current Medications Acetaminophen (Acetaminophen 325 Mg Tablet) 650 mg PO Q6H PRN PRN Reason: Mild/Mod Pain Or Temp >/= 101 Last Admin: 01/11/24 05:43 Dose: 650 mg Aspirin (Aspirin 81 Mg Ec Tablet) 81 mg PO DAILY PAMELA Last Admin: 01/13/24 08:24 Dose: 81 mg Atropine Sulfate (Atropine 0.1 Mg/Ml Syr 10 Ml) 0.5 mg IVP ONCE PRN PRN Reason: Bradycardia 40s or lower Budesonide (Budesonide 0.5 Mg/2 Ml Neb) 0.5 mg INHALATION BID.RESPIRATORY PAMELA Last Admin: 01/14/24 07:31 Dose: 0.5 mg Cyanocobalamin (Cyanocobalamin 1,000 Mcg/Ml Sdv) 1,000 mcg IM DAILY PAMELA Last Admin: 01/13/24 08:24 Dose: 1,000 mcg Doxycycline Monohydrate (Doxycycline 100 Mg Tablet) 100 mg PO BID PAMELA; Protocol Last Admin: 01/13/24 17:32 Dose: 100 mg Enoxaparin Sodium (Enoxaparin 40 Mg/0.4 Ml Syringe) 40 mg SUBCUT Q24H PAMELA Last Admin: 01/13/24 15:26 Dose: 40 mg Amiodarone HCl/Dextrose (Nexterone) 360 mg in 200 mls @ 0 mls/hr IV .Q0M PAMELA; Protocol Last Admin: 01/14/24 05:09 Dose: 0.5 mg/min, 16.67 mls/hr Iron Sucrose 200 mg/ Sodium (Chloride) 110 mls @ 220 mls/hr IV Q24H PAMELA Stop: 01/16/24 17:44 Last Infusion: 01/13/24 18:10 Dose: Infused Ipratropium [place] (Ipratropium 0.5 Mg/2.5 Ml Neb) 0.5 mg INHALATION BID.RESPIRATORY PAMELA Last Admin: 01/14/24 07:31 Dose: 0.5 mg Levalbuterol HCl (Levalbuterol 0.63 Mg/3 Ml Neb) 0.63 mg INHALATION BID.RESPIRATORY PAMELA Last Admin: 01/14/24 07:31 Dose: 0.63 mg Levothyroxine Sodium (Levothyroxine 100 Mcg Tablet) 100 mcg PO QAM [facility] Last Admin: 01/14/24 05:09 Dose: 100 mcg Ondansetron HCl (Ondansetron 2 Mg/Ml Sdv 2 Ml) 4 mg IVP Q6H PRN PRN Reason: vomiting, or N/V if npo Last Admin: 01/10/24 19:30 Dose: 4 mg Pantoprazole Sodium (Pantoprazole Dr 40 Mg Tablet) 40 mg PO DAILY [facility] Last Admin: 01/13/24 08:24 Dose: 40 mg Prednisone (Prednisone 20 Mg Tablet) 40 mg PO DAILY [facility] Last Admin: 01/13/24 08:24 Dose: 40 mg Vitals/I&O/Wt Last Vital Signs Temp 97.8 F 01/14/24 03:00 Pulse 87 01/14/24 07:52 Resp 16 01/14/24 07:33 BP 155/88 01/14/24 03:00 Pulse Ox 94 01/14/24 07:33 O2 Del Method Nasal Cannula 01/14/24 07:33 O2 Flow Rate 4 01/14/24 07:33 01/13/24 01/14/24 01/14/24 22:59 06:59 14:59 Intake Total 550 / 670 Output Total 1450 / 2750 650 / 3400 Balance -900 / -2080 -650 / -2730 Weight last 48 hrs Weight 115 lb Weight 120 lb 8 oz Physical Exam 2 Narrative: GENERAL: The patient is alert and oriented times three. Not in any acute distress. HEENT: No significant pallor, icterus or lymphadenopathy.Oral cavity: There are no mucous membrane lesions. NECK: Trachea appears to be central. No masses noted. No JVD or thyromegaly appreciated. RESPIRATORY: Chest is symmetrical. No intercostals muscle retraction or any accessory muscle activation. There is no chest wall tenderness. Breath sounds are heard bilaterally. Scattered expiratory wheezing and occasional coarse crackles BREASTS: Deferred. HEART: The heart sounds are normal. No S3 or S4. No significant murmurs. No pericardial rub ABDOMEN: No vessel pulsations or distention. No tenderness. No organomegaly appreciated. Bowel sounds are normally heard. : Deferred. RECTAL: Deferred. LYMPHATIC: No lymphadenopathy noted in the neck. EXTREMITIES: No edema or cyanosis. No clubbing. MUSCULOSKELETAL: No acute joint deformities or swelling SKIN: There are no significant rashes or ecchymosis NEUROPSYCHIATRIC: The patient is alert and oriented x3. Appears to be in a good mood. No tremors or rigidity noted. Urinary Catheter Management: Ambrosio: Cath Placed During This Visit: yes Reason for Continuing Indwelling Catheter: Accurate Measurement of Urinary Output in Critically Ill Patients Urinary Catheter Date of Insertion: 01/10/24 Urinary Catheter Time of Insertion: 09:25 Data 01/14/24 04:37 01/14/24 04:37 Other Labs: Laboratory Last Values WBC 6.67 10^3/uL (3.29-11.43) 01/14/24 04:37 RBC 3.76 10^6/uL (3.85-5.65) L 01/14/24 04:37 Hgb 10.60 g/dL (11.27-16.99) L 01/14/24 04:37 Hct 33.5 % (36-47) L 01/14/24 04:37 MCV 89.1 fl (85-98) 01/14/24 04:37 MCH 28.2 pg (27-33) 01/14/24 04:37 MCHC 31.6 g/dL (30-55) 01/14/24 04:37 RDW 12.1 % (12.1-15.1) 01/14/24 04:37 Plt Count 301 10^3/cmm (157-399) 01/14/24 04:37 MPV 9.0 fL (7.4-10.4) 01/14/24 04:37 Neut % (Auto) 69.2 % 01/14/24 04:37 Lymph % (Auto) 18.9 % 01/14/24 04:37 [place] % (Auto) 10.5 % 01/14/24 04:37 Eos % (Auto) 0.1 % 01/14/24 04:37 Baso % (Auto) 0.1 % 01/14/24 04:37 Neut # (Auto) 4.61 10^3/uL (1.8-7.7) 01/14/24 04:37 Lymph # (Auto) 1.3 10^3/uL (0.8-4.8) 01/14/24 04:37 [place] # (Auto) 0.7 10^3/uL (0.2-0.9) 01/14/24 04:37 Eos # (Auto) 0.0 10^3/uL (0.0-0.8) 01/14/24 04:37 Baso # (Auto) 0.0 10^3/uL (0.0-0.1) 01/14/24 04:37 Nucleated RBC % (auto) 0 % 01/14/24 04:37 Nucleated RBCs # 0.0 /100WBC 01/14/24 04:37 Sodium 141 mmol/L (136-145) 01/14/24 04:37 Potassium 4.4 mmol/L (3.5-5.1) 01/14/24 04:37 Chloride 104 mmol/L (98-107) 01/14/24 04:37 Carbon Dioxide 30 mmol/L (22-29) H 01/14/24 04:37 Anion Gap 11.4 (5-19) 01/14/24 04:37 BUN 22 mg/dL (8-23) 01/14/24 04:37 Creatinine 0.9 mg/dL (0.5-0.9) 01/14/24 04:37 GFR Calculation Not Reportable 01/14/24 04:37 Glucose 107 mg/dL (65-115) 01/14/24 04:37 Estimat Average Glucose 108 01/13/24 05:12 Hemoglobin A1c 5.4 % (4.0-6.0) 01/13/24 05:12 Calculated Osmolality 296 mOsm/kg (285-295) H 01/14/24 04:37 Calcium 8.2 mg/dL (8.5-10.5) L 01/14/24 04:37 Magnesium 2.0 mg/dL (1.7-2.3) 01/14/24 04:37 Iron 27 ug/dL (37-145) L 01/12/24 13:46 TIBC 297 mcg/dl 01/12/24 13:46 % Saturation 9.0 % (20-50) L 01/12/24 13:46 Unsat Iron Binding 270 ug/dL (112-347) 01/12/24 13:46 Total Bilirubin 0.2 mg/dL (0.15-1.2) 01/14/24 04:37 AST 21 U/L (0-32) 01/14/24 04:37 ALT 13 U/L (0-33) 01/14/24 04:37 Alkaline Phosphatase 73 U/L (35-105) 01/14/24 04:37 Troponin T Baseline 16 ng/L (0-10) H 01/10/24 17:19 Troponin T 120 Minute 21.34 ng/L (0-10) H 01/10/24 19:09 Delta Troponin T 5.34 ABS# (0-10) 01/10/24 19:09 Troponin T Hi Sens 6Hr 14.28 ng/L (0-10) H 01/10/24 23:08 Troponin T Hi Sens 6Hr Delta -1.72 ng/L (0-12) L 01/10/24 23:08 NT-Pro-B Natriuret Pep 647 pg/mL (0-450) H 01/10/24 08:46 Total Protein 6.2 g/dL (6.6-8.7) L 01/14/24 04:37 Albumin 3.4 g/dL (3.5-5.2) L 01/14/24 04:37 Globulin 2.8 g/dL (1.3-4.6) 01/14/24 04:37 Triglycerides 91 mg/dL (0-150) 01/13/24 05:12 Cholesterol 125 mg/dL (0-200) 01/13/24 05:12 LDL Cholesterol, Calc 50 mg/dL (50-129) 01/13/24 05:12 Total VLDL Cholesterol 18 mg/dL (0-30) 01/13/24 05:12 HDL Cholesterol 57 mg/dL (60-100) L 01/13/24 05:12 Cholesterol/HDL Ratio 2.19 mg/dL (0.0-4.40) 01/13/24 05:12 Vitamin B12 160 pg/mL (232-1245) L 01/12/24 13:46 Folate 5.1 ng/mL (4.8-37.3) 01/13/24 05:12 TSH 0.15 uIU/mL (0.27-4.20) L 01/10/24 08:46 Free T4 1.58 ng/dL (0.82-1.77) 01/10/24 08:46 Urine Color Yellow (Yellow) 01/10/24 09:21 Urine Appearance Clear (CLEAR) 01/10/24 09:21 Urine pH 8 (5-7) H 01/10/24 09:21 Ur Specific [place] 1.010 (1.005-1.030) 01/10/24 09:21 Urine Protein Neg (Negative) 01/10/24 09:21 Urine Glucose (UA) Norm (Normal) 01/10/24 09:21 Urine Ketones 1+ (Negative) H 01/10/24 09:21 Urine Blood Neg (Negative) 01/10/24 09:21 Urine Nitrate Negative (Negative) 01/10/24 09:21 Urine Bilirubin Neg (Negative) 01/10/24 09:21 Urine Urobilinogen Norm mg/dL (Negative) 01/10/24 09:21 Ur Leukocyte Esterase Negative (Negative) 01/10/24 09:21 Micro: Microbiology 01/12/24 13:50 Blood Culture - Preliminary Blood NEGATIVE TO DATE 01/12/24 13:46 Blood Culture - Preliminary Blood NEGATIVE TO DATE A&P Assessment and plan (1) Bradycardia: In view of the ongoing remittent pauses, tacky bradycardia arrhythmia, for further management of her condition, she requires a permanent pacemaker insertion. This was discussed the patient. The risk of bleeding, hematoma, vascular injury, myocardial perforation, pericardial tamponade pneumothorax, infection, renal failure and other concomitant complications were explained in detail. Patient understood this well and consented to proceed (2) Atrial flutter with rapid ventricular response: Patient is on IV amiodarone. This may be continued. (3) History of pulmonary embolism: Has not had any recurrence of pulmonary embolism by CTA. (4) Dyslipidemia: May continue on the current medications. (5) Hypertension: Since the blood pressure is in the normal range, patient may not require any medication changes at this time. Advised to continue on the current measures. Qualifiers: Hypertension type: primary hypertension Qualified Code(s): I10 - Essential (primary) hypertension Plan Because of the patient's severe COPD, it may be appropriate to do the pacemaker insertion in the OR. I will request Dr. Long to perform this procedure. If this is not possible then we might do this in the Physician Liaison tomorrow Attestations 2 Medical Necessity Statement*: Patient requires continued hospital stay for close monitoring and further management Coding Level of Care Code 66039 Diagnoses Bradycardia R00.1 Atrial flutter with rapid ventricular response I48.92 History of pulmonary embolism Z86.711 Dyslipidemia E78.5 Primary hypertension I10 Hypertension type: primary hypertension
[2024-01-14] MEDS: pantoprazole DR 40 mg Tablet PO (10:07)
[2024-01-14] MEDS: aspirin 81 mg EC Tablet PO (10:07)
[2024-01-14] MEDS: predniSONE 20 mg Tablet 40 MG PO (10:07)
[2024-01-14] MEDS: doxycycline 100 mg Tablet PO ×2 (10:07→19:12)
--- NOTE | 2024-01-14 13:47 | PC.SOCIAL ---
Pg 2 IMM Explained to pt Pg 2 IMM. No questions voiced. Provided pt a copy. Initialed, dated, & timed a copy & placed in chart.
[2024-01-14] MEDS: enoxaparin 40 mg/0.4 mL Syringe SUBCUT (16:03)
[2024-01-14] MEDS: cyanocobalamin 1,000 mcg Tablet 1000 MCG PO (16:03)
[2024-01-14] MEDS: iron sucrose 200 MG in sodium chloride 0.9% (100 ml) 100 ML 220 MG IV (19:12)
--- NOTE | 2024-01-14 19:16 | PC.NURSE ---
1000AM-physican's rounding Asked hospitalist and rehabilitator about pt's continuous IV amio drip if needs to keep running.received verbal orders read back to continue it. HR- aflutter /afib- 120s to 130s HR w/ 3.8 sec pauses.
--- NOTE | 2024-01-14 19:26 | XRR_ITS ---
PROCEDURE INFORMATION: Exam: XR Chest Exam date and time: 01/14/2024 7:07 PM Age: 83 years old Clinical indication: Screening exam; Other screening; Additional info: Prepacemaker, as upright as possible TECHNIQUE: Imaging protocol: Radiologic exam of the chest. Views: 1 view. COMPARISON: CT angio chest PE prot [id number] 01/10/2024 11:28 AM FINDINGS: Lungs: Curvilinear biapical scarring. Hyperinflated lungs. No consolidation. Pleural spaces: Unremarkable. No pleural effusion. No pneumothorax. Heart/Mediastinum: Cardiomegaly. Bones/joints: Unremarkable. XR/XR chest 1V portable [id number] IMPRESSION: Sequela of COPD. Cardiomegaly.
--- NOTE | 2024-01-14 20:26 | P.PN_ITS ---
Subjective 2 Subjective: She reports she is doing okay. Denies chest pain or pressure. Intermittently gets lightheaded. Occasionally pauses over 3 seconds on telemetry. She has discussed regarding pacemaker implantation with cardiology. Vitals/I&O/Wt Last Vital Signs Temp 98.1 F 01/14/24 18:00 Pulse 128 H 01/14/24 20:04 Resp 24 H 01/14/24 20:04 BP 134/87 01/14/24 18:00 Pulse Ox 94 01/14/24 20:04 O2 Del Method Nasal Cannula 01/14/24 20:04 O2 Flow Rate 4 01/14/24 20:04 01/14/24 01/14/24 01/14/24 06:59 14:59 22:59 Intake Total 400 / 400 626 / 1026 Output Total 650 / 3400 800 / 800 Balance -650 / -2730 400 / 400 -174 / 226 Weight last 48 hrs Weight 52.163 kg Weight 54.658 kg Physical Exam 2 Const: COMMON NORMALS: patient oriented x3 and alert GENERAL APPEARANCE: c ooperative ORIENTATION/CONSCIOUSNESS: Yes awake HENMT: COMMON NORMALS: oropharynx normal Neck/C-Spine: COMMON NORMALS: no JVD Resp: COMMON NORMALS: normal respiratory effort and clear to auscultation bilaterally AUSCULTATION: clear to auscultation bilaterally Cardio: COMMON NORMALS: no JVD, regular rhythm, S1 normal heart sound present, S2 normal heart sound present and No murmurs present (Cardio) RHYTHM: regular rhythm HEART SOUNDS: S1 normal heart sound present and S2 normal heart sound present GI: COMMON NORMALS: Normal to inspection, nondistended, normoactive bowel sounds present, Soft to palpation and non-tender PALPATION: Yes Soft to palpation Extremity: COMMON NORMALS: no joint enlargement and no pedal edema Neuro: COMMON NORMALS: patient oriented x3 and moves all extremities S ENSORIUM/ORIENTATION: Yes alert Skin: COMMON NORMALS: no rashes or lesions noted GENERAL SKIN EXAM: no rashes or lesions noted Urinary Catheter Management: Ambrosio: Cath Placed During This Visit: yes Reason for Continuing Indwelling Catheter: Other Urinary Catheter Date of Insertion: 01/10/24 Urinary Catheter Time of Insertion: 09:25 Data 01/14/24 04:37 01/14/24 04:37 A&P Assessment and plan (1) Bradycardia: Intermittent pauses of over 3 seconds on telemetry. Symptomatic with lightheadedness. She has been discussed with cardiology regarding pacemaker implantation. Arrangements underway. Discussed with cardiology. Plans for tomorrow pacemaker implantation with anesthesia support. Monitor on telemetry. Pacer pads are in place. So far has been tolerating amiodarone. Cardiology requested IV fluid infusion, monitor for risk of fluid overload. (2) Atrial flutter with rapid ventricular response: Continues on amiodarone drip. Continues on amiodarone drip. Reviewed vitals, CBC, CMP, potassium, magnesium. Reviewed cardiology note, discussed with cardiology. Discussed with human services case manager. Follow-up chemistry, magnesium. After being started on Cardizem drip and restarting home dose of metoprolol patient developed bradycardia with sinus pauses. Both Cardizem and metoprolol has been withheld since then. Patient alternating between sinus bradycardia and A-fib with RVR. Appreciate cardiology recommendations. High concerns for tachybradycardia syndrome. Plan for pacemaker implantation. Continue with amiodarone drip of 0.5. Continue with oral doxycycline. No concerns for infection for now. Check blood culture. Patient not on anticoagulation as she has refused in the past. Continue with Lovenox for DVT prophylaxis. Echocardiogram showed normal EF without regional wall motion abnormality with mild LVH, mild AI and NV. Monitor electrolytes. Keep potassium around 4, magnesium around 2. Calcium slightly low. Replete 1 g IV calcium gluconate. (3) Sinus pause: As above (4) Hypoxic respiratory failure: Most likely in the setting of COPD exacerbation with mild congestive heart failure. Treatment of COPD Reassess volume status. Holding off additional diuretic for now. Strict input charting, daily weights. Fluid restriction up to 1500 cc. Aggressive pulmonary toilet. Incentive spirometry. Out of bed to chair. Physical therapy. (5) COPD (chronic obstructive pulmonary disease): With improvement. Wheezing has resolved. Decrease prednisone dose. Oxygen supplementation keeping saturation over 90%. Prednisone 40 mg a day Continue budesonide Switch to ipratropium, Xopenex every 6 hours. Add doxycycline 100 mg twice daily (6) History of pulmonary embolism: Patient with past history of pulmonary embolism but no evidence of PE on CTA currently Lovenox for DVT prophylaxis Plan Abnormal TSH. Levothyroxine at reduced dose Other medical problems as outlined medical history B12 deficiency: Switch B12 to p.o. CODE STATUS: Limited code, not okay with intubation/mechanical ventilation Lovenox for DVT prophylaxis, SCDs Attestations 2 Medical Necessity Statement*: Continue admission for assessment management of bradycardia/sinus pauses requiring pacemaker, A-fib with RVR, COPD with exacerbation. Diagnoses Bradycardia R00.1 Atrial flutter with rapid ventricular response I48.92 Sinus pause I45.5 Hypoxic respiratory failure J96.91 COPD (chronic obstructive pulmonary disease) J44.9 History of pulmonary embolism Z86.711
[2024-01-14] MEDS: zolpidem 5 mg Tablet PO (22:06)
[2024-01-15] VITALS (12 sets, daily range): BP systolic 118–164; BP diastolic 70–105; PULSE 55–103; RESP 17–25; TEMP 36.5–36.8; O2SAT 96–99
[2024-01-15 03:51] LABS: Basophils % 0.3 %; Eosinophils % 0.1 %; Hematocrit 33.6 % (36-47); Lymphocytes # 1.4 10^3/uL (0.8-4.8); Lymphocytes % 20.3 %; Mean Corpuscular HGB Conc 31.8 g/dL (30-55); Mean Corpuscular Volume 91.1 fl (85-98); Mean Platelet Volume 8.8 fL (7.4-10.4); Monocytes # 0.6 10^3/uL (0.2-0.9); Monocytes % 9.1 %; Neutrophils # 4.73 10^3/uL (1.8-7.7); Nucleated Red Blood Cells % 0 %; Platelet Count 293 10^3/cmm (157-399); Red Blood Count 3.69 10^6/uL (3.85-5.65); Red Cell Distribution Width 12.1 % (12.1-15.1); White Blood Count 6.95 10^3/uL (3.29-11.43)
[2024-01-15 04:12] LABS: Bacillus cereus group Not Detected (NOT DETECT); Bacillus subtillis group Not Detected (NOT DETECT); Corynebacterium Not Detected (NOT DETECT); Cutibacterium acnes (P.acnes) Not Detected (NOT DETECT); Enterococcus Not Detected (NOT DETECT); Enterococcus faecalis Not Detected (NOT DETECT); Enterococcus faecium Not Detected (NOT DETECT); Lactobacillus species Not Detected (NOT DETECT); Listeria Not Detected (NOT DETECT); Listeria monocytogenes Not Detected (NOT DETECT); Micrococcus Not Detected (NOT DETECT); Pan Candida Not Detected (NOT DETECT); Pan Gram-Negative Not Detected (NOT DETECT); Staphylococcus epidermidis Detected (NOT DETECT); Staphylococcus lugdunensis Detected (NOT DETECT); Staphylococcus species Detected (NOT DETECT); Streptococcus agalactiae Not Detected (NOT DETECT); Streptococcus anginosus group Not Detected (NOT DETECT); Streptococcus pneumoniae Not Detected (NOT DETECT); Streptococcus pyogenes Not Detected (NOT DETECT); Streptococcus species Not Detected (NOT DETECT); mecA Not Detected (NOT DETECT); mecC Not Detected (NOT DETECT)
[2024-01-15 04:13] LABS: INR 0.97 (0.8-1.2)
[2024-01-15 04:14] LABS: Partial Thromboplastin Time 33.7 SECONDS (23.9-36.7)
[2024-01-15 04:20] LABS: Alanine Aminotransferase 18 U/L (0-33); Albumin Level 3.3 g/dL (3.5-5.2); Alkaline Phosphatase 67 U/L (35-105); Anion Gap 12.3 (5-19); Aspartate Amino Transferase 21 U/L (0-32); Blood Urea Nitrogen 25 mg/dL (8-23); Carbon Dioxide 30 mmol/L (22-29); Chloride 101 mmol/L (98-107); Creatinine Clr Calc Pharmacy 49.1446; Globulin 2.8 g/dL (1.3-4.6); Glucose 104 mg/dL (65-115); Osmolality Calculated 293 mOsm/kg (285-295); Potassium 4.3 mmol/L (3.5-5.1); Sodium 139 mmol/L (136-145); Total Bilirubin 0.2 mg/dL (0.15-1.2); Total Protein 6.1 g/dL (6.6-8.7)
--- NOTE | 2024-01-15 06:05 | PC.NURSE ---
Overnight nursing were called by lab with positive blood cultures. Nurse called to make aware as patient is scheduled for pacemaker insertion today. said to keep patient NPO for now and he will discuss with this morning. Nurse messaged to make him aware as well.
[2024-01-15] MEDS: levothyroxine 100 mcg Tablet PO (06:24)
[2024-01-15] MEDS: budesonide 0.5 mg/2 mL Neb INHALATION ×2 (08:37→20:15)
[2024-01-15] MEDS: ipratropium 0.5 mg/2.5 mL Neb INHALATION ×2 (08:37→20:15)
[2024-01-15] MEDS: levalbuterol 0.63 mg/3 mL Neb 0.630000000000000004 MG INHALATION ×2 (08:37→20:15)
[2024-01-15] MEDS: aspirin 81 mg EC Tablet PO (10:41)
[2024-01-15] MEDS: pantoprazole DR 40 mg Tablet PO (10:41)
[2024-01-15] MEDS: predniSONE 20 mg Tablet PO (10:41)
[2024-01-15] MEDS: doxycycline 100 mg Tablet PO ×2 (10:41→18:03)
[2024-01-15] MEDS: cyanocobalamin 1,000 mcg Tablet 1000 MCG PO (10:42)
[2024-01-15] MEDS: acetaminophen 325 mg Tablet 650 MG PO (10:43)
[2024-01-15] MEDS: enoxaparin 40 mg/0.4 mL Syringe SUBCUT (14:38)
--- NOTE | 2024-01-15 18:06 | PM.PN ---
Subjective Subjective: Patient's blood culture grew gram-positive cocci. It is not clear whether this is a contaminant or not. Repeat blood culture was drawn today. Patient is doing okay. She is still on an amiodarone drip. No chest pain. Has a baseline shortness of breath with activities. No syncopal episodes Medications: Medication Review Details: Current Medications Acetaminophen (Acetaminophen 325 Mg Tablet) 650 mg PO Q6H PRN PRN Reason: Mild/Mod Pain Or Temp >/= 101 Last Admin: 01/15/24 10:43 Dose: 650 mg Aspirin (Aspirin 81 Mg Ec Tablet) 81 mg PO DAILY PAMELA Last Admin: 01/15/24 10:41 Dose: 81 mg Atropine Sulfate (Atropine 0.1 Mg/Ml Syr 10 Ml) 0.5 mg IVP ONCE PRN PRN Reason: Bradycardia 40s or lower Budesonide (Budesonide 0.5 Mg/2 Ml Neb) 0.5 mg INHALATION BID.[facility] Last Admin: 01/15/24 08:37 Dose: 0.5 mg Cyanocobalamin (Cyanocobalamin 1,000 Mcg Tablet) 1,000 mcg PO DAILY PAMELA Last Admin: 01/15/24 10:42 Dose: 1,000 mcg Doxycycline Monohydrate (Doxycycline 100 Mg Tablet) 100 mg PO BID [facility]; Protocol Last Admin: 01/15/24 10:41 Dose: 100 mg Enoxaparin Sodium (Enoxaparin 40 Mg/0.4 Ml Syringe) 40 mg SUBCUT Q24H [facility] Last Admin: 01/15/24 14:38 Dose: 40 mg Amiodarone HCl/Dextrose (Nexterone) 360 mg in 200 mls @ 0 mls/hr IV .Q0M [facility]; Protocol Last Admin: 01/15/24 07:24 Dose: 0.5 mg/min, 16.67 mls/hr Iron Sucrose 200 mg/ Sodium (Chloride) 110 mls @ 220 mls/hr IV Q24H PAMELA Stop: 01/16/24 17:44 Last Infusion: 01/14/24 21:41 Dose: Infused Sodium Chloride (Sodium Chloride 0.9%) 1,000 mls @ 75 mls/hr IV .[id number] [facility] Last Admin: 01/14/24 20:26 Dose: Not Given Ipratropium [place] (Ipratropium 0.5 Mg/2.5 Ml Neb) 0.5 mg INHALATION BID.RESPIRATORY PAMELA Last Admin: 01/15/24 08:37 Dose: 0.5 mg Levalbuterol HCl (Levalbuterol 0.63 Mg/3 Ml Neb) 0.63 mg INHALATION BID.RESPIRATORY PAMELA Last Admin: 01/15/24 08:37 Dose: 0.63 mg Levothyroxine Sodium (Levothyroxine 100 Mcg Tablet) 100 mcg PO QAM PAMELA Last Admin: 01/15/24 06:24 Dose: 100 mcg Ondansetron HCl (Ondansetron 2 Mg/Ml Sdv 2 Ml) 4 mg IVP Q6H PRN PRN Reason: vomiting, or N/V if npo Last Admin: 01/10/24 19:30 Dose: 4 mg Pantoprazole Sodium (Pantoprazole Dr 40 Mg Tablet) 40 mg PO DAILY [facility] Last Admin: 01/15/24 10:41 Dose: 40 mg Prednisone (Prednisone 20 Mg Tablet) 20 mg PO DAILY [facility] Last Admin: 01/15/24 10:41 Dose: 20 mg Vitals/I&O/Wt Last Vital Signs Temp 98.2 F 01/15/24 09:41 Pulse 103 H 01/15/24 12:13 Resp 17 01/15/24 12:13 BP 118/92 01/15/24 12:13 Pulse Ox 96 01/15/24 12:13 O2 Del Method Nasal Cannula 01/15/24 08:39 O2 Flow Rate 4 01/15/24 08:39 01/15/24 01/15/24 01/15/24 06:59 14:59 22:59 Intake Total 0 / 1270 200 / 200 Output Total 380 / 1180 Balance -380 / 90 200 / 200 Weight last 48 hrs Weight 130 lb 14.4 oz Weight 115 lb Physical Exam Narrative: GENERAL: The patient is alert and oriented times three. Not in any acute distress. HEENT: No significant pallor, icterus or lymphadenopathy.Oral cavity: There are no mucous membrane lesions. NECK: Trachea appears to be central. No masses noted. No JVD or thyromegaly appreciated. RESPIRATORY: Chest is symmetrical. No intercostals muscle retraction or any accessory muscle activation. There is no chest wall tenderness. Breath sounds are heard bilaterally. Scattered expiratory wheezing and occasional coarse crackles BREASTS: Deferred. HEART: The heart sounds are normal. No S3 or S4. No significant murmurs. No pericardial rub ABDOMEN: No vessel pulsations or distention. No tenderness. No organomegaly appreciated. Bowel sounds are normally heard. : Deferred. RECTAL: Deferred. LYMPHATIC: No lymphadenopathy noted in the neck. EXTREMITIES: No edema or cyanosis. No clubbing. MUSCULOSKELETAL: No acute joint deformities or swelling SKIN: There are no significant rashes or ecchymosis NEUROPSYCHIATRIC: The patient is alert and oriented x3. Appears to be in a good mood. No tremors or rigidity noted. Urinary Catheter Management: Ambrosio: Cath Placed During This Visit: yes Reason for Continuing Indwelling Catheter: Accurate Measurement of Urinary Output in Critically Ill Patients Urinary Catheter Date of Insertion: 01/10/24 Urinary Catheter Time of Insertion: 09:25 Data 01/15/24 03:40 01/15/24 03:40 Other Labs: Laboratory Last Values WBC 6.95 10^3/uL (3.29-11.43) 01/15/24 03:40 RBC 3.69 10^6/uL (3.85-5.65) L 01/15/24 03:40 Hgb 10.70 g/dL (11.27-16.99) L 01/15/24 03:40 Hct 33.6 % (36-47) L 01/15/24 03:40 MCV 91.1 fl (85-98) 01/15/24 03:40 MCH 29.0 pg (27-33) 01/15/24 03:40 MCHC 31.8 g/dL (30-55) 01/15/24 03:40 RDW 12.1 % (12.1-15.1) 01/15/24 03:40 Plt Count 293 10^3/cmm (157-399) 01/15/24 03:40 MPV 8.8 fL (7.4-10.4) 01/15/24 03:40 Neut % (Auto) 68.0 % 01/15/24 03:40 Lymph % (Auto) 20.3 % 01/15/24 03:40 [place] % (Auto) 9.1 % 01/15/24 03:40 Eos % (Auto) 0.1 % 01/15/24 03:40 Baso % (Auto) 0.3 % 01/15/24 03:40 Neut # (Auto) 4.73 10^3/uL (1.8-7.7) 01/15/24 03:40 Lymph # (Auto) 1.4 10^3/uL (0.8-4.8) 01/15/24 03:40 [place] # (Auto) 0.6 10^3/uL (0.2-0.9) 01/15/24 03:40 Eos # (Auto) 0.0 10^3/uL (0.0-0.8) 01/15/24 03:40 Baso # (Auto) 0.0 10^3/uL (0.0-0.1) 01/15/24 03:40 Nucleated RBC % (auto) 0 % 01/15/24 03:40 Nucleated RBCs # 0.0 /100WBC 01/15/24 03:40 PT 13.20 SECONDS (12.1-14.9) 01/15/24 03:40 INR 0.97 (0.8-1.2) 01/15/24 03:40 APTT 33.7 SECONDS (23.9-36.7) 01/15/24 03:40 Sodium 139 mmol/L (136-145) 01/15/24 03:40 Potassium 4.3 mmol/L (3.5-5.1) 01/15/24 03:40 Chloride 101 mmol/L (98-107) 01/15/24 03:40 Carbon Dioxide 30 mmol/L (22-29) H 01/15/24 03:40 Anion Gap 12.3 (5-19) 01/15/24 03:40 BUN 25 mg/dL (8-23) H 01/15/24 03:40 Creatinine 0.8 mg/dL (0.5-0.9) 01/15/24 03:40 GFR Calculation Not Reportable 01/15/24 03:40 Glucose 104 mg/dL (65-115) 01/15/24 03:40 Estimat Average Glucose 108 01/13/24 05:12 Hemoglobin A1c 5.4 % (4.0-6.0) 01/13/24 05:12 Calculated Osmolality 293 mOsm/kg (285-295) 01/15/24 03:40 Calcium 8.0 mg/dL (8.5-10.5) L 01/15/24 03:40 Magnesium 2.0 mg/dL (1.7-2.3) 01/15/24 03:40 Iron 27 ug/dL (37-145) L 01/12/24 13:46 TIBC 297 mcg/dl 01/12/24 13:46 % Saturation 9.0 % (20-50) L 01/12/24 13:46 Unsat Iron Binding 270 ug/dL (112-347) 01/12/24 13:46 Total Bilirubin 0.2 mg/dL (0.15-1.2) 01/15/24 03:40 AST 21 U/L (0-32) 01/15/24 03:40 ALT 18 U/L (0-33) 01/15/24 03:40 Alkaline Phosphatase 67 U/L (35-105) 01/15/24 03:40 Troponin T Baseline 16 ng/L (0-10) H 01/10/24 17:19 Troponin T 120 Minute 21.34 ng/L (0-10) H 01/10/24 19:09 Delta Troponin T 5.34 ABS# (0-10) 01/10/24 19:09 Troponin T Hi Sens 6Hr 14.28 ng/L (0-10) H 01/10/24 23:08 Troponin T Hi Sens 6Hr Delta -1.72 ng/L (0-12) L 01/10/24 23:08 NT-Pro-B Natriuret Pep 647 pg/mL (0-450) H 01/10/24 08:46 Total Protein 6.1 g/dL (6.6-8.7) L 01/15/24 03:40 Albumin 3.3 g/dL (3.5-5.2) L 01/15/24 03:40 Globulin 2.8 g/dL (1.3-4.6) 01/15/24 03:40 Triglycerides 91 mg/dL (0-150) 01/13/24 05:12 Cholesterol 125 mg/dL (0-200) 01/13/24 05:12 LDL Cholesterol, Calc 50 mg/dL (50-129) 01/13/24 05:12 Total VLDL Cholesterol 18 mg/dL (0-30) 01/13/24 05:12 HDL Cholesterol 57 mg/dL (60-100) L 01/13/24 05:12 Cholesterol/HDL Ratio 2.19 mg/dL (0.0-4.40) 01/13/24 05:12 Vitamin B12 160 pg/mL (232-1245) L 01/12/24 13:46 Folate 5.1 ng/mL (4.8-37.3) 01/13/24 05:12 TSH 0.15 uIU/mL (0.27-4.20) L 01/10/24 08:46 Free T4 1.58 ng/dL (0.82-1.77) 01/10/24 08:46 Urine Color Yellow (Yellow) 01/10/24 09:21 Urine Appearance Clear (CLEAR) 01/10/24 09:21 Urine pH 8 (5-7) H 01/10/24 09:21 Ur Specific [place] 1.010 (1.005-1.030) 01/10/24 09:21 Urine Protein Neg (Negative) 01/10/24 09:21 Urine Glucose (UA) Norm (Normal) 01/10/24 09:21 Urine Ketones 1+ (Negative) H 01/10/24 09:21 Urine Blood Neg (Negative) 01/10/24 09:21 Urine Nitrate Negative (Negative) 01/10/24 09:21 Urine Bilirubin Neg (Negative) 01/10/24 09:21 Urine Urobilinogen Norm mg/dL (Negative) 01/10/24 09:21 Ur Leukocyte Esterase Negative (Negative) 01/10/24 09:21 Micro: Microbiology 01/12/24 13:46 Blood Culture - Preliminary Blood Staphylococcus epidermidis Staphylococcus lugdunensis 01/15/24 09:43 Blood Culture - Preliminary Blood SPECIMEN COLLECTED 01/15/24 09:40 Blood Culture - Preliminary Blood SPECIMEN COLLECTED A&P Assessment and plan (1) Bradycardia: Because of the abnormal blood culture, it was thought to be appropriate to hold off on the pacemaker insertion at this point. May need to wait for the repeat blood culture. (2) Atrial flutter with rapid ventricular response: Patient is on IV amiodarone. Once the IV infusion is finished, the amiodarone may be switched to p.o. I also may start her on IV heparin (3) History of pulmonary embolism: Has not had any recurrence of pulmonary embolism by CTA. May continue on the current measures. (4) Dyslipidemia: The current medications may be continued. (5) Hypertension: Currently normotensive. Qualifiers: Hypertension type: primary hypertension Qualified Code(s): I10 - Essential (primary) hypertension Plan In view of the positive blood culture, we will wait for the repeat culture report before proceeding with the pacemaker. This was discussed in detail and is understood well Attestations Medical Necessity Statement*: Patient requires continued hospital stay for close monitoring and further management Coding Level of Care Code Acute Code for [facility] Diagnoses Bradycardia R00.1 Atrial flutter with rapid ventricular response I48.92 History of pulmonary embolism Z86.711 Dyslipidemia E78.5 Primary hypertension I10 Hypertension type: primary hypertension
--- NOTE | 2024-01-15 19:24 | P.PN_ITS ---
Subjective 2 Subjective: Gets intermittently lightheaded with palpitations with bradycardia. No chest pain. Now getting more orthopnea, and set up with several pillows. Vitals/I&O/Wt Last Vital Signs Temp 98.2 F 01/15/24 09:41 Pulse 101 H 01/15/24 18:52 Resp 23 H 01/15/24 18:52 BP 158/105 01/15/24 18:52 Pulse Ox 97 01/15/24 18:52 O2 Del Method High Flow Nasal Cannula 01/15/24 18:52 O2 Flow Rate 4 01/15/24 18:52 01/15/24 01/15/24 01/15/24 06:59 14:59 22:59 Intake Total 0 / 1270 200 / 200 218 / 418 Output Total 380 / 1180 650 / 650 Balance -380 / 90 200 / 200 -432 / -232 Weight last 48 hrs Weight 59.375 kg Weight 52.163 kg Physical Exam 2 Const: COMMON NORMALS: patient oriented x3 and alert GENERAL APPEARANCE: c ooperative ORIENTATION/CONSCIOUSNESS: Yes awake HENMT: COMMON NORMALS: oropharynx normal Neck/C-Spine: COMMON NORMALS: no JVD Resp: AUSCULTATION: diminished lung sounds Cardio: COMMON NORMALS: no JVD, S1 normal heart sound present, S2 normal heart sound present and No murmurs present (Cardio) RHYTHM: abnormal rhythm irregularly irregular HEART SOUNDS: S1 normal heart sound present and S2 normal heart sound present GI: COMMON NORMALS: Normal to inspection, nondistended, normoactive bowel sounds present, Soft to palpation and non-tender PALPATION: Yes Soft to palpation Extremity: COMMON NORMALS: no joint enlargement and no pedal edema Neuro: COMMON NORMALS: patient oriented x3 and moves all extremities S ENSORIUM/ORIENTATION: Yes alert Skin: COMMON NORMALS: no rashes or lesions noted GENERAL SKIN EXAM: no rashes or lesions noted Urinary Catheter Management: Ambrosio: Cath Placed During This Visit: yes Reason for Continuing Indwelling Catheter: Accurate Measurement of Urinary Output in Critically Ill Patients Urinary Catheter Date of Insertion: 01/10/24 Urinary Catheter Time of Insertion: 09:25 Data 01/15/24 03:40 01/15/24 03:40 Micro: Microbiology 01/12/24 13:46 Blood Culture - Preliminary Blood Staphylococcus epidermidis Staphylococcus lugdunensis 01/15/24 09:43 Blood Culture - Preliminary Blood SPECIMEN COLLECTED 01/15/24 09:40 Blood Culture - Preliminary Blood SPECIMEN COLLECTED A&P Assessment and plan (1) Bradycardia: Received notification at this morning of positive blood culture with gram- positive cocci. Discussed with forensic artist. Discussed with microbiology lab. Following up on it appears there are 2 organisms, both staph, staph epi and 2 incidences, likely contamination, however, cannot guarantee. Did request for repeat blood culture. Follow-up blood cultures for any additional growth. Pacemaker placement has been delayed for now due to possibility of positive blood culture/bacteremia. Reviewed vitals, CBC, INR, CMP, magnesium. Reviewed cardiology note. Discussed with field nurse case manager. Starting to get more dyspnea, orthopnea, stop IV fluid. Will give 20 mg IV Lasix. Intermittent pauses of over 3 seconds on telemetry. Symptomatic with lightheadedness. She has been discussed with cardiology regarding pacemaker implantation. Arrangements underway. Discussed with cardiology. Plans for tomorrow pacemaker implantation with anesthesia support. Monitor on telemetry. Pacer pads are in place. So far has been tolerating amiodarone. Cardiology requested IV fluid infusion, monitor for risk of fluid overload. (2) Atrial flutter with rapid ventricular response: Switch from IV amiodarone to p.o. Amio. Continue to monitor on telemetry. Continues on amiodarone drip. Continues on amiodarone drip. Reviewed vitals, CBC, CMP, potassium, magnesium. Reviewed cardiology note, discussed with cardiology. Discussed with field nurse case manager. Follow-up chemistry, magnesium. After being started on Cardizem drip and restarting home dose of metoprolol patient developed bradycardia with sinus pauses. Both Cardizem and metoprolol has been withheld since then. Patient alternating between sinus bradycardia and A-fib with RVR. Appreciate cardiology recommendations. High concerns for tachybradycardia syndrome. Plan for pacemaker implantation. Continue with amiodarone drip of 0.5. Continue with oral doxycycline. No concerns for infection for now. Check blood culture. Patient not on anticoagulation as she has refused in the past. Continue with Lovenox for DVT prophylaxis. Echocardiogram showed normal EF without regional wall motion abnormality with mild LVH, mild AI and [place]. Monitor electrolytes. Keep potassium around 4, magnesium around 2. Calcium slightly low. Replete 1 g IV calcium gluconate. (3) Sinus pause: As above (4) Hypoxic respiratory failure: Additionally decompensation of diastolic CHF currently with worsening orthopnea, stop IV fluid, give 20 mg IV Lasix. At risk of electrolyte O'Wil[place], renal dysfunction, recheck chemistry. Reviewed chemistry, magnesium. Monitor MONICA. Most likely in the setting of COPD exacerbation with mild congestive heart failure. Treatment of COPD Reassess volume status. Holding off additional diuretic for now. Strict input charting, daily weights. Fluid restriction up to 1500 cc. Aggressive pulmonary toilet. Incentive spirometry. Out of bed to chair. Physical therapy. (5) COPD (chronic obstructive pulmonary disease): With improvement. Wheezing has resolved. Decrease prednisone dose. Oxygen supplementation keeping saturation over 90%. Prednisone 40 mg a day Continue budesonide Switch to ipratropium, Xopenex every 6 hours. Add doxycycline 100 mg twice daily (6) History of pulmonary embolism: Patient with past history of pulmonary embolism but no evidence of PE on CTA currently Lovenox for DVT prophylaxis Plan Abnormal TSH. Levothyroxine at reduced dose Other medical problems as outlined medical history B12 deficiency: B12 p.o. Iron deficiency anemia: Continue iron supplementation. CODE STATUS: Limited code, not okay with intubation/mechanical ventilation Lovenox for DVT prophylaxis, SCDs Attestations 2 Medical Necessity Statement*: Continue admission for assessment management of possible bacteremia, positive blood culture, with requirement for pacemaker implantation, optimization of control of A-fib with RVR, decompensated CHF. Diagnoses Bradycardia R00.1 Atrial flutter with rapid ventricular response I48.92 Sinus pause I45.5 Hypoxic respiratory failure J96.91 COPD (chronic obstructive pulmonary disease) J44.9 History of pulmonary embolism Z86.711
[2024-01-15] MEDS: iron sucrose 200 MG in sodium chloride 0.9% (100 ml) 100 ML 220 MG IV (21:37)
[2024-01-15] MEDS: amiodarone 200 mg Tablet PO (21:37)
[2024-01-15] MEDS: FUROsemide 10 mg/mL SDV 2mL 20 MG IVP (21:37)
[2024-01-16] VITALS (10 sets, daily range): BP systolic 132–164; BP diastolic 67–93; PULSE 56–87; RESP 16–22; TEMP 36.6–36.8; O2SAT 91–100; BMI 19.8
[2024-01-16] MEDS: acetaminophen 325 mg Tablet 650 MG PO ×2 (01:04→06:34)
[2024-01-16 04:02] LABS: Basophils % 0.1 %; Eosinophils % 0.4 %; Hematocrit 36.9 % (36-47); Lymphocytes # 1.6 10^3/uL (0.8-4.8); Lymphocytes % 21.6 %; Mean Corpuscular Hemoglobin 28.6 pg (27-33); Mean Corpuscular Volume 89.3 fl (85-98); Mean Platelet Volume 8.8 fL (7.4-10.4); Monocytes # 0.7 10^3/uL (0.2-0.9); Monocytes % 8.8 %; Neutrophils # 5.04 10^3/uL (1.8-7.7); Neutrophils % 67.5 %; Nucleated Red Blood Cells % 0 %; Platelet Count 328 10^3/cmm (157-399); Red Blood Count 4.13 10^6/uL (3.85-5.65); Red Cell Distribution Width 12.1 % (12.1-15.1); White Blood Count 7.47 10^3/uL (3.29-11.43)
[2024-01-16 04:25] LABS: Alanine Aminotransferase 26 U/L (0-33); Albumin Level 3.5 g/dL (3.5-5.2); Alkaline Phosphatase 69 U/L (35-105); Anion Gap 12.1 (5-19); Aspartate Amino Transferase 26 U/L (0-32); Blood Urea Nitrogen 24 mg/dL (8-23); Calcium 8.1 mg/dL (8.5-10.5); Carbon Dioxide 31 mmol/L (22-29); Chloride 100 mmol/L (98-107); Creatinine Clr Calc Pharmacy 45.9167; Globulin 2.9 g/dL (1.3-4.6); Glucose 102 mg/dL (65-115); Osmolality Calculated 292 mOsm/kg (285-295); Potassium 4.1 mmol/L (3.5-5.1); Sodium 139 mmol/L (136-145); Total Bilirubin 0.2 mg/dL (0.15-1.2); Total Protein 6.4 g/dL (6.6-8.7)
[2024-01-16] MEDS: levothyroxine 100 mcg Tablet PO (06:35)
[2024-01-16] MEDS: ipratropium 0.5 mg/2.5 mL Neb INHALATION (07:14)
[2024-01-16] MEDS: budesonide 0.5 mg/2 mL Neb INHALATION (07:14)
[2024-01-16] MEDS: levalbuterol 0.63 mg/3 mL Neb 0.630000000000000004 MG INHALATION (07:15)
[2024-01-16] MEDS: predniSONE 20 mg Tablet PO (08:20)
[2024-01-16] MEDS: doxycycline 100 mg Tablet PO ×2 (08:20→18:02)
[2024-01-16] MEDS: pantoprazole DR 40 mg Tablet PO (08:20)
[2024-01-16] MEDS: cyanocobalamin 1,000 mcg Tablet 1000 MCG PO (08:20)
[2024-01-16] MEDS: aspirin 81 mg EC Tablet PO (08:21)
[2024-01-16] MEDS: amiodarone 200 mg Tablet PO ×2 (08:21→18:02)
--- NOTE | 2024-01-16 09:28 | PC.SOCIAL ---
IMM Update Pg. 2 of IMM updated and reviewed with patient. Copy provided. Copy in chart updated.
[2024-01-16] MEDS: enoxaparin 40 mg/0.4 mL Syringe SUBCUT (12:58)
--- NOTE | 2024-01-16 13:18 | P.PN_ITS ---
Subjective 2 Subjective: Patient is feeling tired. Has a baseline shortness of breath. Telemetry still shows atrial fibrillation/flutter with a mostly controlled rate. Intermittent pauses. Medications: Medication Review Details: Current Medications Acetaminophen (Acetaminophen 325 Mg Tablet) 650 mg PO Q6H PRN PRN Reason: Mild/Mod Pain Or Temp >/= 101 Last Admin: 01/16/24 06:34 Dose: 650 mg Amiodarone HCl (Amiodarone 200 Mg Tablet) 200 mg PO BID PAMELA Last Admin: 01/16/24 08:21 Dose: 200 mg Aspirin (Aspirin 81 Mg Ec Tablet) 81 mg PO DAILY PAMELA Last Admin: 01/16/24 08:21 Dose: 81 mg Atropine Sulfate (Atropine 0.1 Mg/Ml Syr 10 Ml) 0.5 mg IVP ONCE PRN PRN Reason: Bradycardia 40s or lower Budesonide (Budesonide 0.5 Mg/2 Ml Neb) 0.5 mg INHALATION BID.RESPIRATORY PAMELA Last Admin: 01/16/24 07:14 Dose: 0.5 mg Cyanocobalamin (Cyanocobalamin 1,000 Mcg Tablet) 1,000 mcg PO DAILY PAMELA Last Admin: 01/16/24 08:20 Dose: 1,000 mcg Doxycycline Monohydrate (Doxycycline 100 Mg Tablet) 100 mg PO BID [facility]; Protocol Last Admin: 01/16/24 08:20 Dose: 100 mg Enoxaparin Sodium (Enoxaparin 40 Mg/0.4 Ml Syringe) 40 mg SUBCUT Q24H PAMELA Last Admin: 01/16/24 12:58 Dose: 40 mg Iron Sucrose 200 mg/ Sodium (Chloride) 110 mls @ 220 mls/hr IV Q24H PAMELA Stop: 01/16/24 20:29 Last Infusion: 01/15/24 23:43 Dose: Infused Ipratropium [place] (Ipratropium 0.5 Mg/2.5 Ml Neb) 0.5 mg INHALATION BID.RESPIRATORY PAMELA Last Admin: 01/16/24 07:14 Dose: 0.5 mg Levalbuterol HCl (Levalbuterol 0.63 Mg/3 Ml Neb) 0.63 mg INHALATION BID.RESPIRATORY PAMELA Last Admin: 01/16/24 07:15 Dose: 0.63 mg Levothyroxine Sodium (Levothyroxine 100 Mcg Tablet) 100 mcg PO QAM PAMELA Last Admin: 01/16/24 06:35 Dose: 100 mcg Ondansetron HCl (Ondansetron 2 Mg/Ml Sdv 2 Ml) 4 mg IVP Q6H PRN PRN Reason: vomiting, or N/V if npo Last Admin: 01/10/24 19:30 Dose: 4 mg Pantoprazole Sodium (Pantoprazole Dr 40 Mg Tablet) 40 mg PO DAILY [facility] Last Admin: 01/16/24 08:20 Dose: 40 mg Prednisone (Prednisone 20 Mg Tablet) 20 mg PO DAILY [facility] Last Admin: 01/16/24 08:20 Dose: 20 mg Vitals/I&O/Wt Last Vital Signs Temp 98.2 F 01/16/24 05:43 Pulse 74 01/16/24 11:23 Resp 17 01/16/24 07:15 BP 141/93 01/16/24 11:23 Pulse Ox 99 01/16/24 11:23 O2 Del Method Nasal Cannula 01/16/24 07:15 O2 Flow Rate 4 01/16/24 07:15 01/15/24 01/16/24 01/16/24 22:59 06:59 14:59 Intake Total 218 / 418 310 / 728 120 / 120 Output Total 1000 / 1000 1550 / 2550 Balance -782 / -582 -1240 / -1822 120 / 120 Weight last 48 hrs Weight 122 lb 11.2 oz Weight 130 lb 14.4 oz Physical Exam 2 Narrative: GENERAL: The patient is alert and oriented times three. Not in any acute distress. HEENT: No significant pallor, icterus or lymphadenopathy.Oral cavity: There are no mucous membrane lesions. NECK: Trachea appears to be central. No masses noted. No JVD or thyromegaly appreciated. RESPIRATORY: Chest is symmetrical. No intercostals muscle retraction or any accessory muscle activation. There is no chest wall tenderness. Breath sounds are heard bilaterally. Scattered expiratory wheezing and occasional coarse crackles BREASTS: Deferred. HEART: The heart sounds are normal. No S3 or S4. No significant murmurs. No pericardial rub ABDOMEN: No vessel pulsations or distention. No tenderness. No organomegaly appreciated. Bowel sounds are normally heard. : Deferred. RECTAL: Deferred. LYMPHATIC: No lymphadenopathy noted in the neck. EXTREMITIES: No edema or cyanosis. No clubbing. MUSCULOSKELETAL: No acute joint deformities or swelling SKIN: There are no significant rashes or ecchymosis NEUROPSYCHIATRIC: The patient is alert and oriented x3. Appears to be in a good mood. No tremors or rigidity noted. Urinary Catheter Management: Ambrosio: Cath Placed During This Visit: yes Reason for Continuing Indwelling Catheter: Other Urinary Catheter Date of Insertion: 01/10/24 Urinary Catheter Time of Insertion: 09:25 Data 01/16/24 03:36 01/16/24 03:36 Other Labs: Laboratory Last Values WBC 7.47 10^3/uL (3.29-11.43) 01/16/24 03:36 RBC 4.13 10^6/uL (3.85-5.65) 01/16/24 03:36 Hgb 11.80 g/dL (11.27-16.99) 01/16/24 03:36 Hct 36.9 % (36-47) 01/16/24 03:36 MCV 89.3 fl (85-98) 01/16/24 03:36 MCH 28.6 pg (27-33) 01/16/24 03:36 MCHC 32.0 g/dL (30-55) 01/16/24 03:36 RDW 12.1 % (12.1-15.1) 01/16/24 03:36 Plt Count 328 10^3/cmm (157-399) 01/16/24 03:36 MPV 8.8 fL (7.4-10.4) 01/16/24 03:36 Neut % (Auto) 67.5 % 01/16/24 03:36 Lymph % (Auto) 21.6 % 01/16/24 03:36 [place] % (Auto) 8.8 % 01/16/24 03:36 Eos % (Auto) 0.4 % 01/16/24 03:36 Baso % (Auto) 0.1 % 01/16/24 03:36 Neut # (Auto) 5.04 10^3/uL (1.8-7.7) 01/16/24 03:36 Lymph # (Auto) 1.6 10^3/uL (0.8-4.8) 01/16/24 03:36 [place] # (Auto) 0.7 10^3/uL (0.2-0.9) 01/16/24 03:36 Eos # (Auto) 0.0 10^3/uL (0.0-0.8) 01/16/24 03:36 Baso # (Auto) 0.0 10^3/uL (0.0-0.1) 01/16/24 03:36 Nucleated RBC % (auto) 0 % 01/16/24 03:36 Nucleated RBCs # 0.0 /100WBC 01/16/24 03:36 PT 13.20 SECONDS (12.1-14.9) 01/15/24 03:40 INR 0.97 (0.8-1.2) 01/15/24 03:40 APTT 33.7 SECONDS (23.9-36.7) 01/15/24 03:40 Sodium 139 mmol/L (136-145) 01/16/24 03:36 Potassium 4.1 mmol/L (3.5-5.1) 01/16/24 03:36 Chloride 100 mmol/L (98-107) 01/16/24 03:36 Carbon Dioxide 31 mmol/L (22-29) H 01/16/24 03:36 Anion Gap 12.1 (5-19) 01/16/24 03:36 BUN 24 mg/dL (8-23) H 01/16/24 03:36 Creatinine 0.9 mg/dL (0.5-0.9) 01/16/24 03:36 GFR Calculation Not Reportable 01/16/24 03:36 Glucose 102 mg/dL (65-115) 01/16/24 03:36 Estimat Average Glucose 108 01/13/24 05:12 Hemoglobin A1c 5.4 % (4.0-6.0) 01/13/24 05:12 Calculated Osmolality 292 mOsm/kg (285-295) 01/16/24 03:36 Calcium 8.1 mg/dL (8.5-10.5) L 01/16/24 03:36 Magnesium 2.0 mg/dL (1.7-2.3) 01/15/24 03:40 Iron 27 ug/dL (37-145) L 01/12/24 13:46 TIBC 297 mcg/dl 01/12/24 13:46 % Saturation 9.0 % (20-50) L 01/12/24 13:46 Unsat Iron Binding 270 ug/dL (112-347) 01/12/24 13:46 Total Bilirubin 0.2 mg/dL (0.15-1.2) 01/16/24 03:36 AST 26 U/L (0-32) 01/16/24 03:36 ALT 26 U/L (0-33) 01/16/24 03:36 Alkaline Phosphatase 69 U/L (35-105) 01/16/24 03:36 Troponin T Baseline 16 ng/L (0-10) H 01/10/24 17:19 Troponin T 120 Minute 21.34 ng/L (0-10) H 01/10/24 19:09 Delta Troponin T 5.34 ABS# (0-10) 01/10/24 19:09 Troponin T Hi Sens 6Hr 14.28 ng/L (0-10) H 01/10/24 23:08 Troponin T Hi Sens 6Hr Delta -1.72 ng/L (0-12) L 01/10/24 23:08 NT-Pro-B Natriuret Pep 647 pg/mL (0-450) H 01/10/24 08:46 Total Protein 6.4 g/dL (6.6-8.7) L 01/16/24 03:36 Albumin 3.5 g/dL (3.5-5.2) 01/16/24 03:36 Globulin 2.9 g/dL (1.3-4.6) 01/16/24 03:36 Triglycerides 91 mg/dL (0-150) 01/13/24 05:12 Cholesterol 125 mg/dL (0-200) 01/13/24 05:12 LDL Cholesterol, Calc 50 mg/dL (50-129) 01/13/24 05:12 Total VLDL Cholesterol 18 mg/dL (0-30) 01/13/24 05:12 HDL Cholesterol 57 mg/dL (60-100) L 01/13/24 05:12 Cholesterol/HDL Ratio 2.19 mg/dL (0.0-4.40) 01/13/24 05:12 Vitamin B12 160 pg/mL (232-1245) L 01/12/24 13:46 Folate 5.1 ng/mL (4.8-37.3) 01/13/24 05:12 TSH 0.15 uIU/mL (0.27-4.20) L 01/10/24 08:46 Free T4 1.58 ng/dL (0.82-1.77) 01/10/24 08:46 Urine Color Yellow (Yellow) 01/10/24 09:21 Urine Appearance Clear (CLEAR) 01/10/24 09:21 Urine pH 8 (5-7) H 01/10/24 09:21 Ur Specific [place] 1.010 (1.005-1.030) 01/10/24 09:21 Urine Protein Neg (Negative) 01/10/24 09:21 Urine Glucose (UA) Norm (Normal) 01/10/24 09:21 Urine Ketones 1+ (Negative) H 01/10/24 09:21 Urine Blood Neg (Negative) 01/10/24 09:21 Urine Nitrate Negative (Negative) 01/10/24 09:21 Urine Bilirubin Neg (Negative) 01/10/24 09:21 Urine Urobilinogen Norm mg/dL (Negative) 01/10/24 09:21 Ur Leukocyte Esterase Negative (Negative) 01/10/24 09:21 Micro: Microbiology 01/15/24 09:43 Blood Culture - Preliminary Blood NEGATIVE TO DATE 01/15/24 09:40 Blood Culture - Preliminary Blood NEGATIVE TO DATE 01/12/24 13:46 Blood Culture - Preliminary Blood Staphylococcus epidermidis Staphylococcus lugdunensis A&P Assessment and plan (1) Bradycardia: Hoping to get the preliminary blood culture report by tomorrow. If the culture is negative, we may go ahead with the permanent pacer implantation. (2) Atrial flutter with rapid ventricular response: May continue on the current medications (3) History of pulmonary embolism: Has not had any recurrence of pulmonary embolism by CTA. May continue on the current measures. (4) Dyslipidemia: The current medications may be continued. (5) Hypertension: Currently normotensive. Qualifiers: Hypertension type: primary hypertension Qualified Code(s): I10 - Essential (primary) hypertension Plan Will keep n.p.o. after midnight. Awaiting blood culture report from tomorrow. Possible pacemaker implantation, ithe blood culture is negativef Attestations 2 Medical Necessity Statement*: Patient requires continued hospital stay for close monitoring and further management Coding Level of Care Code 69502 Diagnoses Bradycardia R00.1 Atrial flutter with rapid ventricular response I48.92 History of pulmonary embolism Z86.711 Dyslipidemia E78.5 Primary hypertension I10 Hypertension type: primary hypertension
[2024-01-16] MEDS: iron sucrose 200 MG in sodium chloride 0.9% (100 ml) 100 ML 220 MG IV (19:38)
--- NOTE | 2024-01-16 21:50 | PM.PN ---
Subjective Subjective: She has been feeling bloated/gassy. Some abdominal discomfort. No vomiting. No chest pain or pressure. No shortness of breath. Vitals/I&O/Wt Last Vital Signs Temp 97.9 F 01/16/24 20:00 Pulse 71 01/16/24 20:00 Resp 16 01/16/24 20:00 BP 164/72 01/16/24 20:00 Pulse Ox 91 01/16/24 20:00 O2 Del Method Nasal Cannula 01/16/24 20:00 O2 Flow Rate 4 01/16/24 07:15 01/16/24 01/16/24 01/16/24 06:59 14:59 22:59 Intake Total 310 / 728 120 / 120 230 / 350 Output Total 1550 / 2550 Balance -1240 / -1822 120 / 120 230 / 350 Weight last 48 hrs Weight 55.656 kg Weight 59.375 kg Physical Exam Const: COMMON NORMALS: patient oriented x3 and alert GENERAL APPEARANCE: cooperative ORIENTATION/CONSCIOUSNESS: Yes awake HENMT: COMMON NORMALS: oropharynx normal Neck/C-Spine: COMMON NORMALS: no JVD Resp: COMMON NORMALS: normal respiratory effort and clear to auscultation bilaterally AUSCULTATION: clear to auscultation bilaterally and diminished lung sounds Cardio: COMMON NORMALS: no JVD, regular rhythm, S1 normal heart sound present, S2 normal heart sound present and No murmurs present (Cardio) RHYTHM: regular rhythm and abnormal rhythm irregularly irregular HEART SOUNDS: S1 normal heart sound present and S2 normal heart sound present GI: COMMON NORMALS: Normal to inspection, nondistended, normoactive bowel sounds present, Soft to palpation and non-tender INSPECTION: Yes abdominal distension PALPATION: Yes Soft to palpation Extremity: COMMON NORMALS: no joint enlargement and no pedal edema Neuro: COMMON NORMALS: patient oriented x3 and moves all extremities SENSORIUM/ORIENTATION: Yes alert Skin: COMMON NORMALS: no rashes or lesions noted GENERAL SKIN EXAM: no rashes or lesions noted Urinary Catheter Management: Ambrosio: Cath Placed During This Visit: yes Reason for Continuing Indwelling Catheter: Other Urinary Catheter Date of Insertion: 01/10/24 Urinary Catheter Time of Insertion: 09:25 Data 01/16/24 03:36 01/16/24 03:36 Micro: Microbiology 01/15/24 09:43 Blood Culture - Preliminary Blood NEGATIVE TO DATE 01/15/24 09:40 Blood Culture - Preliminary Blood NEGATIVE TO DATE A&P Assessment and plan (1) Bradycardia: Reviewed blood culture from 01/11 and repeat blood cultures 01/14, Vitals, CBC, CMP. So far without growth. Discussed with woodworking shop laborer. Just with her, follow-up blood culture to assess that there is no additional organism identified, no growth. Reassess again tomorrow, if no additional growth consideration of arrangement for the pacemaker. Discussed with manager book. Received notification at this morning of positive blood culture with gram-positive cocci. Discussed with woodworking shop laborer. Discussed with microbiology lab. Following up on it appears there are 2 organisms, both staph, staph epi and 2 incidences, likely contamination, however, cannot guarantee. Did request for repeat blood culture. Follow-up blood cultures for any additional growth. Pacemaker placement has been delayed for now due to possibility of positive blood culture/bacteremia. Reviewed vitals, CBC, INR, CMP, magnesium. Reviewed cardiology note. Discussed with patient case coordinator. Intermittent pauses of over 3 seconds on telemetry. Symptomatic with lightheadedness. She has been discussed with cardiology regarding pacemaker implantation. Arrangements underway. Discussed with cardiology. Plans for tomorrow pacemaker implantation with anesthesia support. Monitor on telemetry. Pacer pads are in place. So far has been tolerating amiodarone. Cardiology requested IV fluid infusion, monitor for risk of fluid overload. (2) Atrial flutter with rapid ventricular response: p.o. Amio. Continue to monitor on telemetry.Reviewed CMP. Continues on amiodarone drip. Continues on amiodarone drip. Reviewed vitals, CBC, CMP, potassium, magnesium. Reviewed cardiology note, discussed with cardiology. Discussed with patient case coordinator. Follow-up chemistry, magnesium. After being started on Cardizem drip and restarting home dose of metoprolol patient developed bradycardia with sinus pauses. Both Cardizem and metoprolol has been withheld since then. Patient alternating between sinus bradycardia and A-fib with RVR. Appreciate cardiology recommendations. High concerns for tachybradycardia syndrome. Plan for pacemaker implantation. Continue with amiodarone drip of 0.5. Continue with oral doxycycline. No concerns for infection for now. Check blood culture. Patient not on anticoagulation as she has refused in the past. Continue with Lovenox for DVT prophylaxis. Echocardiogram showed normal EF without regional wall motion abnormality with mild LVH, mild AI and CT. Monitor electrolytes. Keep potassium around 4, magnesium around 2. Calcium slightly low. Replete 1 g IV calcium gluconate. (3) Sinus pause: As above (4) Hypoxic respiratory failure: Reviewed volume status. Negative balance. Held off additional diuretic today. She is off IV fluid. Reassess volume status, kidney function. Consider additional Lasix. Additionally decompensation of diastolic CHF currently with worsening orthopnea, stop IV fluid, give 20 mg IV Lasix. At risk of electrolyte O'Wilmer, renal dysfunction, recheck chemistry. Reviewed chemistry, magnesium. Monitor MONICA. Most likely in the setting of COPD exacerbation with mild congestive heart failure. Treatment of COPD Reassess volume status. Holding off additional diuretic for now. Strict input charting, daily weights. Fluid restriction up to 1500 cc. Aggressive pulmonary toilet. Incentive spirometry. Out of bed to chair. Physical therapy. (5) COPD (chronic obstructive pulmonary disease): With improvement. Wheezing has resolved. Decrease prednisone dose. Oxygen supplementation keeping saturation over 90%. Prednisone 40 mg a day Continue budesonide Switch to ipratropium, Xopenex every 6 hours. Add doxycycline 100 mg twice daily (6) History of pulmonary embolism: Patient with past history of pulmonary embolism but no evidence of PE on CTA currently Lovenox for DVT prophylaxis Plan Bloating: Some abdominal discomfort, gas, no signs of obstruction. Passing some flatus. No vomiting. Discussed with her consideration of Gas-X, but she declines at the current time.Reviewed CBC, vitals, afebrile. No leukocytosis. Abnormal TSH. Levothyroxine at reduced dose Other medical problems as outlined medical history B12 deficiency: B12 p.o. Iron deficiency anemia: Continue iron supplementation. CODE STATUS: Limited code, not okay with intubation/mechanical ventilation Lovenox for DVT prophylaxis, SCDs Attestations Medical Necessity Statement*: Continue admission for assessment management of possible bacteremia, positive blood culture, with requirement for pacemaker implantation. Diagnoses Bradycardia R00.1 Atrial flutter with rapid ventricular response I48.92 Sinus pause I45.5 Hypoxic respiratory failure J96.91 COPD (chronic obstructive pulmonary disease) J44.9 History of pulmonary embolism Z86.711
[2024-01-16] MEDS: zolpidem 5 mg Tablet PO (21:53)
[2024-01-17] VITALS (10 sets, daily range): BP systolic 121–193; BP diastolic 70–86; PULSE 68–102; RESP 16–28; TEMP 36.3–37; O2SAT 94–99
--- NOTE | 2024-01-17 01:15 | PC.NURSE ---
patient asked for something to help her sleep, Dr Tobar was notified. Order for ambien 5mg once was given per dr soto.
--- NOTE | 2024-01-17 01:16 | PC.NURSE ---
Patient BP was 193/85 per monitor, manual BP was 155/80. Will continue to monitor.
[2024-01-17 04:13] LABS: Basophils % 0.2 %; Eosinophils # 0.1 10^3/uL (0.0-0.8); Eosinophils % 0.9 %; Hematocrit 35.8 % (36-47); Lymphocytes # 1.9 10^3/uL (0.8-4.8); Mean Corpuscular Hemoglobin 28.2 pg (27-33); Mean Corpuscular Volume 90.9 fl (85-98); Mean Platelet Volume 8.8 fL (7.4-10.4); Monocytes # 0.8 10^3/uL (0.2-0.9); Monocytes % 9.3 %; Neutrophils % 64.9 %; Nucleated Red Blood Cells % 0 %; Platelet Count 326 10^3/cmm (157-399); Red Blood Count 3.94 10^6/uL (3.85-5.65); Red Cell Distribution Width 12.1 % (12.1-15.1); White Blood Count 8.17 10^3/uL (3.29-11.43)
[2024-01-17 04:34] LABS: Anion Gap 8.4 (5-19); Blood Urea Nitrogen 27 mg/dL (8-23); Calcium 8.7 mg/dL (8.5-10.5); Carbon Dioxide 34 mmol/L (22-29); Chloride 101 mmol/L (98-107); Creatinine Clr Calc Pharmacy 40.2888; Glucose 90 mg/dL (65-115); Osmolality Calculated 293 mOsm/kg (285-295); Potassium 4.4 mmol/L (3.5-5.1); Sodium 139 mmol/L (136-145)
[2024-01-17] MEDS: levothyroxine 100 mcg Tablet PO (05:28)
[2024-01-17] MEDS: ipratropium 0.5 mg/2.5 mL Neb INHALATION ×2 (07:23→21:46)
[2024-01-17] MEDS: levalbuterol 0.63 mg/3 mL Neb 0.630000000000000004 MG INHALATION ×2 (07:23→21:46)
[2024-01-17] MEDS: budesonide 0.5 mg/2 mL Neb INHALATION ×2 (07:23→21:46)
[2024-01-17] MEDS: cyanocobalamin 1,000 mcg Tablet 1000 MCG PO (08:41)
[2024-01-17] MEDS: doxycycline 100 mg Tablet PO ×2 (08:41→17:44)
[2024-01-17] MEDS: aspirin 81 mg EC Tablet PO (08:41)
[2024-01-17] MEDS: amiodarone 200 mg Tablet PO ×2 (08:41→17:44)
[2024-01-17] MEDS: pantoprazole DR 40 mg Tablet PO (08:41)
[2024-01-17] MEDS: predniSONE 20 mg Tablet PO (08:41)
[2024-01-17] MEDS: enoxaparin 40 mg/0.4 mL Syringe SUBCUT (15:47)
--- NOTE | 2024-01-17 17:03 | PM.PN ---
Subjective Subjective: Patient has been having episodes of3 to 3.5 sec pauses on the telemetry. Still in atrial flutter/fibrillation. The final blood culture report is pending. Medications: Medication Review Details: Current Medications Acetaminophen (Acetaminophen 325 Mg Tablet) 650 mg PO Q6H PRN PRN Reason: Mild/Mod Pain Or Temp >/= 101 Last Admin: 01/16/24 06:34 Dose: 650 mg Amiodarone HCl (Amiodarone 200 Mg Tablet) 200 mg PO BID PAMELA Last Admin: 01/17/24 08:41 Dose: 200 mg Aspirin (Aspirin 81 Mg Ec Tablet) 81 mg PO DAILY PAMELA Last Admin: 01/17/24 08:41 Dose: 81 mg Atropine Sulfate (Atropine 0.1 Mg/Ml Syr 10 Ml) 0.5 mg IVP ONCE PRN PRN Reason: Bradycardia 40s or lower Budesonide (Budesonide 0.5 Mg/2 Ml Neb) 0.5 mg INHALATION BID.RESPIRATORY PAMELA Last Admin: 01/17/24 07:23 Dose: 0.5 mg Cyanocobalamin (Cyanocobalamin 1,000 Mcg Tablet) 1,000 mcg PO DAILY PAMELA Last Admin: 01/17/24 08:41 Dose: 1,000 mcg Doxycycline Monohydrate (Doxycycline 100 Mg Tablet) 100 mg PO BID [facility]; Protocol Last Admin: 01/17/24 08:41 Dose: 100 mg Enoxaparin Sodium (Enoxaparin 40 Mg/0.4 Ml Syringe) 40 mg SUBCUT Q24H PAMELA Last Admin: 01/17/24 15:47 Dose: 40 mg Ipratropium [place] (Ipratropium 0.5 Mg/2.5 Ml Neb) 0.5 mg INHALATION BID.RESPIRATORY PAMELA Last Admin: 01/17/24 07:23 Dose: 0.5 mg Levalbuterol HCl (Levalbuterol 0.63 Mg/3 Ml Neb) 0.63 mg INHALATION BID.RESPIRATORY PAMELA Last Admin: 01/17/24 07:23 Dose: 0.63 mg Levothyroxine Sodium (Levothyroxine 100 Mcg Tablet) 100 mcg PO QAM PAMELA Last Admin: 01/17/24 05:28 Dose: 100 mcg Ondansetron HCl (Ondansetron 2 Mg/Ml Sdv 2 Ml) 4 mg IVP Q6H PRN PRN Reason: vomiting, or N/V if npo Last Admin: 01/10/24 19:30 Dose: 4 mg Pantoprazole Sodium (Pantoprazole Dr 40 Mg Tablet) 40 mg PO DAILY [facility] Last Admin: 01/17/24 08:41 Dose: 40 mg Prednisone (Prednisone 20 Mg Tablet) 20 mg PO DAILY [facility] Last Admin: 01/17/24 08:41 Dose: 20 mg Vitals/I&O/Wt Last Vital Signs Temp 97.4 F L 01/17/24 11:56 Pulse 79 01/17/24 11:56 Resp 16 01/17/24 11:56 BP 121/74 01/17/24 11:56 Pulse Ox 98 01/17/24 11:56 O2 Del Method Nasal Cannula 01/17/24 07:26 O2 Flow Rate 3 01/17/24 07:26 01/17/24 01/17/24 01/17/24 06:59 14:59 22:59 Intake Total 0 / 350 120 / 120 Output Total 600 / 1550 1550 / 1550 Balance -600 / -1200 -1430 / -1430 Weight last 48 hrs Weight 178 lb 3.2 oz Weight 122 lb 11.2 oz Physical Exam Narrative: GENERAL: The patient is alert and oriented times three. Not in any acute distress. HEENT: No significant pallor, icterus or lymphadenopathy.Oral cavity: There are no mucous membrane lesions. NECK: Trachea appears to be central. No masses noted. No JVD or thyromegaly appreciated. RESPIRATORY: Chest is symmetrical. No intercostals muscle retraction or any accessory muscle activation. There is no chest wall tenderness. Breath sounds are heard bilaterally. Scattered expiratory wheezing and occasional coarse crackles BREASTS: Deferred. HEART: The heart sounds are normal. No S3 or S4. No significant murmurs. No pericardial rub ABDOMEN: No vessel pulsations or distention. No tenderness. No organomegaly appreciated. Bowel sounds are normally heard. : Deferred. RECTAL: Deferred. LYMPHATIC: No lymphadenopathy noted in the neck. EXTREMITIES: No edema or cyanosis. No clubbing. MUSCULOSKELETAL: No acute joint deformities or swelling SKIN: There are no significant rashes or ecchymosis NEUROPSYCHIATRIC: The patient is alert and oriented x3. Appears to be in a good mood. No tremors or rigidity noted. Urinary Catheter Management: Ambrosio: Cath Placed During This Visit: yes Reason for Continuing Indwelling Catheter: Accurate Measurement of Urinary Output in Critically Ill Patients Urinary Catheter Date of Insertion: 01/10/24 Urinary Catheter Time of Insertion: 09:25 Data 01/17/24 03:42 01/17/24 03:42 Other Labs: Laboratory Last Values WBC 8.17 10^3/uL (3.29-11.43) 01/17/24 03:42 RBC 3.94 10^6/uL (3.85-5.65) 01/17/24 03:42 Hgb 11.10 g/dL (11.27-16.99) L 01/17/24 03:42 Hct 35.8 % (36-47) L 01/17/24 03:42 MCV 90.9 fl (85-98) 01/17/24 03:42 MCH 28.2 pg (27-33) 01/17/24 03:42 MCHC 31.0 g/dL (30-55) 01/17/24 03:42 RDW 12.1 % (12.1-15.1) 01/17/24 03:42 Plt Count 326 10^3/cmm (157-399) 01/17/24 03:42 MPV 8.8 fL (7.4-10.4) 01/17/24 03:42 Neut % (Auto) 64.9 % 01/17/24 03:42 Lymph % (Auto) 23.0 % 01/17/24 03:42 [place] % (Auto) 9.3 % 01/17/24 03:42 Eos % (Auto) 0.9 % 01/17/24 03:42 Baso % (Auto) 0.2 % 01/17/24 03:42 Neut # (Auto) 5.30 10^3/uL (1.8-7.7) 01/17/24 03:42 Lymph # (Auto) 1.9 10^3/uL (0.8-4.8) 01/17/24 03:42 [place] # (Auto) 0.8 10^3/uL (0.2-0.9) 01/17/24 03:42 Eos # (Auto) 0.1 10^3/uL (0.0-0.8) 01/17/24 03:42 Baso # (Auto) 0.0 10^3/uL (0.0-0.1) 01/17/24 03:42 Nucleated RBC % (auto) 0 % 01/17/24 03:42 Nucleated RBCs # 0.0 /100WBC 01/17/24 03:42 PT 13.20 SECONDS (12.1-14.9) 01/15/24 03:40 INR 0.97 (0.8-1.2) 01/15/24 03:40 APTT 33.7 SECONDS (23.9-36.7) 01/15/24 03:40 Sodium 139 mmol/L (136-145) 01/17/24 03:42 Potassium 4.4 mmol/L (3.5-5.1) 01/17/24 03:42 Chloride 101 mmol/L (98-107) 01/17/24 03:42 Carbon Dioxide 34 mmol/L (22-29) H 01/17/24 03:42 Anion Gap 8.4 (5-19) 01/17/24 03:42 BUN 27 mg/dL (8-23) H 01/17/24 03:42 Creatinine 1.0 mg/dL (0.5-0.9) H 01/17/24 03:42 GFR Calculation Not Reportable 01/17/24 03:42 Glucose 90 mg/dL (65-115) 01/17/24 03:42 Estimat Average Glucose 108 01/13/24 05:12 Hemoglobin A1c 5.4 % (4.0-6.0) 01/13/24 05:12 Calculated Osmolality 293 mOsm/kg (285-295) 01/17/24 03:42 Calcium 8.7 mg/dL (8.5-10.5) 01/17/24 03:42 Magnesium 2.0 mg/dL (1.7-2.3) 01/15/24 03:40 Iron 27 ug/dL (37-145) L 01/12/24 13:46 TIBC 297 mcg/dl 01/12/24 13:46 % Saturation 9.0 % (20-50) L 01/12/24 13:46 Unsat Iron Binding 270 ug/dL (112-347) 01/12/24 13:46 Total Bilirubin 0.2 mg/dL (0.15-1.2) 01/16/24 03:36 AST 26 U/L (0-32) 01/16/24 03:36 ALT 26 U/L (0-33) 01/16/24 03:36 Alkaline Phosphatase 69 U/L (35-105) 01/16/24 03:36 Troponin T Baseline 16 ng/L (0-10) H 01/10/24 17:19 Troponin T 120 Minute 21.34 ng/L (0-10) H 01/10/24 19:09 Delta Troponin T 5.34 ABS# (0-10) 01/10/24 19:09 Troponin T Hi Sens 6Hr 14.28 ng/L (0-10) H 01/10/24 23:08 Troponin T Hi Sens 6Hr Delta -1.72 ng/L (0-12) L 01/10/24 23:08 NT-Pro-B Natriuret Pep 647 pg/mL (0-450) H 01/10/24 08:46 Total Protein 6.4 g/dL (6.6-8.7) L 01/16/24 03:36 Albumin 3.5 g/dL (3.5-5.2) 01/16/24 03:36 Globulin 2.9 g/dL (1.3-4.6) 01/16/24 03:36 Triglycerides 91 mg/dL (0-150) 01/13/24 05:12 Cholesterol 125 mg/dL (0-200) 01/13/24 05:12 LDL Cholesterol, Calc 50 mg/dL (50-129) 01/13/24 05:12 Total VLDL Cholesterol 18 mg/dL (0-30) 01/13/24 05:12 HDL Cholesterol 57 mg/dL (60-100) L 01/13/24 05:12 Cholesterol/HDL Ratio 2.19 mg/dL (0.0-4.40) 01/13/24 05:12 Vitamin B12 160 pg/mL (232-1245) L 01/12/24 13:46 Folate 5.1 ng/mL (4.8-37.3) 01/13/24 05:12 TSH 0.15 uIU/mL (0.27-4.20) L 01/10/24 08:46 Free T4 1.58 ng/dL (0.82-1.77) 01/10/24 08:46 Urine Color Yellow (Yellow) 01/10/24 09:21 Urine Appearance Clear (CLEAR) 01/10/24 09:21 Urine pH 8 (5-7) H 01/10/24 09:21 Ur Specific [place] 1.010 (1.005-1.030) 01/10/24 09:21 Urine Protein Neg (Negative) 01/10/24 09:21 Urine Glucose (UA) Norm (Normal) 01/10/24 09:21 Urine Ketones 1+ (Negative) H 01/10/24 09:21 Urine Blood Neg (Negative) 01/10/24 09:21 Urine Nitrate Negative (Negative) 01/10/24 09:21 Urine Bilirubin Neg (Negative) 01/10/24 09:21 Urine Urobilinogen Norm mg/dL (Negative) 01/10/24 09:21 Ur Leukocyte Esterase Negative (Negative) 01/10/24 09:21 Micro: Microbiology 01/12/24 13:50 Blood Culture - Final Blood NO GROWTH AFTER 5 DAYS A&P Assessment and plan (1) Bradycardia: Hemodynamically stable. (2) Positive blood culture: Gram-positive cocci-2 species of staph grew in one of the blood culture bottles, cannot say whether it is contaminant or not. (3) Atrial flutter with rapid ventricular response: Patient refused anticoagulation. She is on subcu Lovenox, for DVT prophylaxis (4) Hypoxic respiratory failure: The oxygenation seems to be appropriate. May continue on the current treatment. Qualifiers: Chronicity: chronic Qualified Code(s): J96.11 - Chronic respiratory failure with hypoxia (5) COPD (chronic obstructive pulmonary disease): Patient has intermittent COPD exacerbation. Seems to be responding to the bronchodilators. Qualifiers: COPD type: unspecified COPD Qualified Code(s): J44.9 - Chronic obstructive pulmonary disease, unspecified (6) History of pulmonary embolism: Has not had any recurrence of pulmonary embolism by CTA. May continue on the current measures. (7) Dyslipidemia: The current medications may be continued. (8) Hypertension: Currently normotensive. Qualifiers: Hypertension type: primary hypertension Qualified Code(s): I10 - Essential (primary) hypertension Plan Possible pacemaker implantation next Sunday Attestations Medical Necessity Statement*: Deferred to the primary Coding Level of Care Code Acute Code for [facility] Diagnoses Bradycardia R00.1 Positive blood culture R78.81 Atrial flutter with rapid ventricular response I48.92 Chronic respiratory failure with hypoxia J96.11 Chronicity: chronic Chronic obstructive pulmonary disease, unspecified COPD type J44.9 COPD type: unspecified COPD History of pulmonary embolism Z86.711 Dyslipidemia E78.5 Primary hypertension I10 Hypertension type: primary hypertension
--- NOTE | 2024-01-17 23:40 | PM.PN ---
Subjective Subjective: She reports she is doing okay. Denies chest pain or pressure. No worsening in breathing. Vitals/I&O/Wt Last Vital Signs Temp 98.6 F 01/17/24 20:00 Pulse 99 01/17/24 22:00 Resp 18 01/17/24 21:45 BP 135/86 01/17/24 20:00 Pulse Ox 97 01/17/24 21:45 O2 Del Method Nasal Cannula 01/17/24 21:45 O2 Flow Rate 3 01/17/24 21:45 01/17/24 01/17/24 01/18/24 14:59 22:59 06:59 Intake Total 120 / 120 920 / 1040 Output Total 1550 / 1550 1000 / 2550 Balance -1430 / -1430 -80 / -1510 Weight last 48 hrs Weight 80.83 kg Weight 55.656 kg Physical Exam Const: OTHER: Sleeping, wakes up easily. HENMT: COMMON NORMALS: oropharynx normal Neck/C-Spine: COMMON NORMALS: no JVD Resp: COMMON NORMALS: normal respiratory effort and clear to auscultation bilaterally AUSCULTATION: clear to auscultation bilaterally and diminished lung sounds Cardio: COMMON NORMALS: no JVD, regular rhythm, S1 normal heart sound present, S2 normal heart sound present and No murmurs present (Cardio) RHYTHM: regular rhythm and abnormal rhythm irregularly irregular HEART SOUNDS: S1 normal heart sound present and S2 normal heart sound present GI: COMMON NORMALS: Normal to inspection, nondistended, normoactive bowel sounds present, Soft to palpation and non-tender INSPECTION: Yes abdominal distension PALPATION: Yes Soft to palpation Extremity: COMMON NORMALS: no joint enlargement and no pedal edema Neuro: COMMON NORMALS: moves all extremities Skin: COMMON NORMALS: no rashes or lesions noted GENERAL SKIN EXAM: no rashes or lesions noted Urinary Catheter Management: Ambrosio: Cath Placed During This Visit: yes Reason for Continuing Indwelling Catheter: Accurate Measurement of Urinary Output in Critically Ill Patients Urinary Catheter Date of Insertion: 01/10/24 Urinary Catheter Time of Insertion: 09:25 Data 01/17/24 03:42 01/17/24 03:42 Micro: Microbiology 01/12/24 13:50 Blood Culture - Final Blood NO GROWTH AFTER 5 DAYS A&P Assessment and plan (1) Bradycardia: Reviewed vitals, CBC, BMP, discussed with outreach representative, discussed with microbiology, original culture reviewed from 01/11, noted Staph epidermidis and staph lugdunensis, epidermidis likely contaminant, staph lugdunensis possible contaminant but no guarantee as per discussion with micro. Reviewed blood culture from 01/14 is negative. Will repeat additional culture. Pacemaker deferred for now as there is no guarantee that 1 of these organisms was not due to true bacteremia though this does seem less likely. Discussed with gearcase assembler. Received notification at this morning of positive blood culture with gram-positive cocci. Discussed with outreach representative. Discussed with microbiology lab. Following up on it appears there are 2 organisms, both staph, staph epi and 2 incidences, likely contamination, however, cannot guarantee. Did request for repeat blood culture. Follow-up blood cultures for any additional growth. Pacemaker placement has been delayed for now due to possibility of positive blood culture/bacteremia. Reviewed vitals, CBC, INR, CMP, magnesium. Reviewed cardiology note. Discussed with gearcase assembler. Intermittent pauses of over 3 seconds on telemetry. Symptomatic with lightheadedness. She has been discussed with cardiology regarding pacemaker implantation. Arrangements underway. Discussed with cardiology. Plans for tomorrow pacemaker implantation with anesthesia support. Monitor on telemetry. Pacer pads are in place. So far has been tolerating amiodarone. Cardiology requested IV fluid infusion, monitor for risk of fluid overload. (2) Atrial flutter with rapid ventricular response: p.o. Amio. Continue to monitor on telemetry.Reviewed CMP. Continues on amiodarone drip. Continues on amiodarone drip. Reviewed vitals, CBC, CMP, potassium, magnesium. Reviewed cardiology note, discussed with cardiology. Discussed with gearcase assembler. Follow-up chemistry, magnesium. After being started on Cardizem drip and restarting home dose of metoprolol patient developed bradycardia with sinus pauses. Both Cardizem and metoprolol has been withheld since then. Patient alternating between sinus bradycardia and A-fib with RVR. Appreciate cardiology recommendations. High concerns for tachybradycardia syndrome. Plan for pacemaker implantation. Continue with amiodarone drip of 0.5. Continue with oral doxycycline. No concerns for infection for now. Check blood culture. Patient not on anticoagulation as she has refused in the past. Continue with Lovenox for DVT prophylaxis. Echocardiogram showed normal EF without regional wall motion abnormality with mild LVH, mild AI and SC. Monitor electrolytes. Keep potassium around 4, magnesium around 2. Calcium slightly low. Replete 1 g IV calcium gluconate. (3) Sinus pause: As above (4) Hypoxic respiratory failure: Cut down prednisone to 10 mg. Reassess respiratory status. Reviewed volume status. Negative balance. Held off additional diuretic today. She is off IV fluid. Reassess volume status, kidney function. Consider additional Lasix. Additionally decompensation of diastolic CHF currently with worsening orthopnea, stop IV fluid, give 20 mg IV Lasix. At risk of electrolyte O'Wilmer, renal dysfunction, recheck chemistry. Reviewed chemistry, magnesium. Monitor MONICA. Most likely in the setting of COPD exacerbation with mild congestive heart failure. Treatment of COPD Reassess volume status. Holding off additional diuretic for now. Strict input charting, daily weights. Fluid restriction up to 1500 cc. Aggressive pulmonary toilet. Incentive spirometry. Out of bed to chair. Physical therapy. Qualifiers: Chronicity: chronic Qualified Code(s): J96.11 - Chronic respiratory failure with hypoxia (5) COPD (chronic obstructive pulmonary disease): With improvement. Wheezing has resolved. Decrease prednisone dose. Oxygen supplementation keeping saturation over 90%. Prednisone 40 mg a day Continue budesonide Switch to ipratropium, Xopenex every 6 hours. Add doxycycline 100 mg twice daily Qualifiers: COPD type: unspecified COPD Qualified Code(s): J44.9 - Chronic obstructive pulmonary disease, unspecified (6) History of pulmonary embolism: Patient with past history of pulmonary embolism but no evidence of PE on CTA currently Lovenox for DVT prophylaxis Plan Bloating: Some abdominal discomfortOn 01/15, gas, no signs of obstruction. Passing some flatus. No vomiting. Discussed with her consideration of Gas-X, but she declines at the current time.Reviewed CBC, vitals, afebrile. No leukocytosis. Abnormal TSH. Levothyroxine at reduced dose Other medical problems as outlined medical history B12 deficiency: B12 p.o. Iron deficiency anemia: Continue iron supplementation. CODE STATUS: Limited code, not okay with intubation/mechanical ventilation Lovenox for DVT prophylaxis, SCDs Attestations Medical Necessity Statement*: Continue admission for assessment management of positive blood culture with staph organisms, need for pacemaker. De-escalation of treatment for COPD exacerbation. and High MDM includes amount and/or complexity of data reviewed/ordered [ resulted lab(s)/test(s), ordered lab(s)/test(s) and other healthcare professional discussion] as documented Diagnoses Bradycardia R00.1 Atrial flutter with rapid ventricular response I48.92 Sinus pause I45.5 Chronic respiratory failure with hypoxia J96.11 Chronicity: chronic Chronic obstructive pulmonary disease, unspecified COPD type J44.9 COPD type: unspecified COPD History of pulmonary embolism Z86.711
[2024-01-18] VITALS (8 sets, daily range): BP systolic 115–153; BP diastolic 53–71; PULSE 52–68; RESP 14–18; TEMP 36.3–36.5; O2SAT 88–100
[2024-01-18] MEDS: acetaminophen 325 mg Tablet 650 MG PO (03:29)
[2024-01-18 04:09] LABS: Basophils % 0.2 %; Eosinophils # 0.1 10^3/uL (0.0-0.8); Eosinophils % 0.5 %; Hematocrit 37.2 % (36-47); Lymphocytes % 21.4 %; Mean Corpuscular HGB Conc 30.9 g/dL (30-55); Mean Corpuscular Hemoglobin 28.6 pg (27-33); Mean Corpuscular Volume 92.5 fl (85-98); Mean Platelet Volume 8.9 fL (7.4-10.4); Monocytes # 0.7 10^3/uL (0.2-0.9); Monocytes % 7.9 %; Neutrophils # 6.36 10^3/uL (1.8-7.7); Neutrophils % 68.1 %; Nucleated Red Blood Cells % 0 %; Platelet Count 352 10^3/cmm (157-399); Red Blood Count 4.02 10^6/uL (3.85-5.65); Red Cell Distribution Width 12.2 % (12.1-15.1); White Blood Count 9.35 10^3/uL (3.29-11.43)
[2024-01-18 04:32] LABS: Blood Urea Nitrogen 27 mg/dL (8-23); Calcium 8.4 mg/dL (8.5-10.5); Carbon Dioxide 30 mmol/L (22-29); Chloride 100 mmol/L (98-107); Creatinine Clr Calc Pharmacy 59.1282; Glucose 94 mg/dL (65-115); Osmolality Calculated 291 mOsm/kg (285-295); Sodium 138 mmol/L (136-145)
[2024-01-18 04:33] LABS: Anion Gap 12.4 (5-19); Potassium 4.4 mmol/L (3.5-5.1)
[2024-01-18] MEDS: levothyroxine 100 mcg Tablet PO (06:00)
[2024-01-18] MEDS: budesonide 0.5 mg/2 mL Neb INHALATION (07:40)
[2024-01-18] MEDS: levalbuterol 0.63 mg/3 mL Neb 0.630000000000000004 MG INHALATION (07:40)
[2024-01-18] MEDS: ipratropium 0.5 mg/2.5 mL Neb INHALATION (07:41)
[2024-01-18] MEDS: amiodarone 200 mg Tablet PO (08:31)
[2024-01-18] MEDS: doxycycline 100 mg Tablet PO (08:32)
[2024-01-18] MEDS: predniSONE 20 mg Tablet 10 MG PO (08:32)
[2024-01-18] MEDS: pantoprazole DR 40 mg Tablet PO (08:32)
[2024-01-18] MEDS: aspirin 81 mg EC Tablet PO (08:32)
[2024-01-18] MEDS: cyanocobalamin 1,000 mcg Tablet 1000 MCG PO (08:32)
--- NOTE | 2024-01-18 10:12 | P.DS_ITS ---
Discharge Providers Date of Admission: 01/10/24 10:13 Date of Discharge: January 18, 2024 Attending Provider at Admission: Mustapha Ho MD Attending Provider at Discharge: James Stokes Primary Care Provider: Quan Yang DO Diagnoses at Discharge Discharge Diagnosis (1) Bradycardia: Status: Acute (2) Atrial flutter with rapid ventricular response: Status: Acute (3) Sinus pause: Status: Acute (4) Hypoxic respiratory failure: Status: Acute Qualifiers: Chronicity: chronic Qualified Code(s): J96.11 - Chronic respiratory failure with hypoxia (5) COPD (chronic obstructive pulmonary disease): Status: Acute Qualifiers: COPD type: unspecified COPD Qualified Code(s): J44.9 - Chronic obstructive pulmonary disease, unspecified (6) History of pulmonary embolism: Status: Acute Reason for Visit Reason for Visit: resp distress Hospital Course Hospital Course Pleasant 83-year-old lady admitted initially with A-fib with RVR, however, while on low-dose Cardizem and metoprolol ended up having sinus pauses up to 8 to 10 seconds. With concern for tachybradycardia syndrome with atrial fibrillation. Was started on amiodarone instead, heart rate came under better control. On presentation also found to be in COPD exacerbation, was treated with steroid, doxycycline, breathing treatments. Continues on oxygen support, gradually weaning down, wheezing and air entry improved. At home usually on 3 and half liters of oxygen. She was being assessed for placement of pacemaker, her, initial blood culture from 01/11 came back positive for gram-positive cocci, 2 organisms, eventually identified as Staphylococcus epidermidis and Staphylococcus lugdunensis, high growth, certainly possibility of contamination, but follow-up cultures were obtained to confirm no regrowth, including on 01/14 and repeat again 01/17. As she has been awaiting cultures she has tolerated amiodarone well, although sometimes becomes bradycardic down to the 50s. On presentation also with decompensated congestive heart failure, possibly secondary to symptomatic bradycardia and pauses, responded well to diuresis with compensation. Has been less symptomatic with improvement in bradycardia, without additional prolonged pauses or asystole, resolved episodes of lightheadedness. Further options were discussed by cardiology with consideration of continued hospitalization versus discharge home and she would l tianna to discharge and follow-up for pacemaker placement after reassessment of the pending repeat cultures. She will continue on doxycycline for now, complete brief prednisone taper. Please reassess respiratory function, atrial fibrillation control for which she will continue on amiodarone, she had previously declined anticoagulation. Please reassess for any amiodarone associated potential adverse effects, once able to consider switch to a different medication. Please follow-up blood culture. He is in the meantime set up as per cardiology with 2-week Holter monitor and is asked to follow-up on Sunday after Cardiology clinic with Dr. Garcia to make arrangements for pacemaker placement. Physical Exam Urinary Catheter Management: Ambrosio: Cath Placed During This Visit: yes Reason for Continuing Indwelling Catheter: Accurate Measurement of Urinary Output in Critically Ill Patients Urinary Catheter Date of Insertion: 01/10/24 Urinary Catheter Time of Insertion: 09:25 Discharge Data Studies Completed and Pending Completed Studies During Hospitalization Category Date Time Status CT angio chest PE protcl [id number] Stat Cat Scan 01/10/24 10:03 Completed CXRP [XR chest 1V portable [id number]] Routine Exams 01/14/24 19:26 Completed XR chest 1V portable [id number] Stat Exams 01/10/24 08:53 Completed CV. echo complete* [id number] Routine Ultrasound 01/10/24 14:58 Completed Pending at discharge Category Date Time Status Basic Metabolic Panel AM LABS Lab 01/19/24 04:00 Ordered Blood Culture Stat Lab 01/12/24 13:50 Results Blood Culture Stat Lab 01/15/24 09:43 Results Blood Culture Stat Lab 01/17/24 23:51 Results Complete Blood Count w/Auto AM LABS Lab 01/19/24 04:00 Ordered Radiology Impressions Chest CTA 01/10/24 10:03 IMPRESSION: 1. No acute findings. 2. Extensive chronic lung changes noted 3. Stable lung nodules Chest X-Ray 01/14/24 19:26 IMPRESSION: Sequela of COPD. Cardiomegaly. Laboratory Results WBC 9.35 10^3/uL (3.29-11.43) 01/18/24 03:18 RBC 4.02 10^6/uL (3.85-5.65) 01/18/24 03:18 Hgb 11.50 g/dL (11.27-16.99) 01/18/24 03:18 Hct 37.2 % (36-47) 01/18/24 03:18 MCV 92.5 fl (85-98) 01/18/24 03:18 MCH 28.6 pg (27-33) 01/18/24 03:18 MCHC 30.9 g/dL (30-55) 01/18/24 03:18 RDW 12.2 % (12.1-15.1) 01/18/24 03:18 Plt Count 352 10^3/cmm (157-399) 01/18/24 03:18 MPV 8.9 fL (7.4-10.4) 01/18/24 03:18 Neut % (Auto) 68.1 % 01/18/24 03:18 Lymph % (Auto) 21.4 % 01/18/24 03:18 [place] % (Auto) 7.9 % 01/18/24 03:18 Eos % (Auto) 0.5 % 01/18/24 03:18 Baso % (Auto) 0.2 % 01/18/24 03:18 Neut # (Auto) 6.36 10^3/uL (1.8-7.7) 01/18/24 03:18 Lymph # (Auto) 2.0 10^3/uL (0.8-4.8) 01/18/24 03:18 [place] # (Auto) 0.7 10^3/uL (0.2-0.9) 01/18/24 03:18 Eos # (Auto) 0.1 10^3/uL (0.0-0.8) 01/18/24 03:18 Baso # (Auto) 0.0 10^3/uL (0.0-0.1) 01/18/24 03:18 Nucleated RBC % (auto) 0 % 01/18/24 03:18 Nucleated RBCs # 0.0 /100WBC 01/18/24 03:18 PT 13.20 SECONDS (12.1-14.9) 01/15/24 03:40 INR 0.97 (0.8-1.2) 01/15/24 03:40 APTT 33.7 SECONDS (23.9-36.7) 01/15/24 03:40 Sodium 138 mmol/L (136-145) 01/18/24 03:18 Potassium 4.4 mmol/L (3.5-5.1) 01/18/24 03:18 Chloride 100 mmol/L (98-107) 01/18/24 03:18 Carbon Dioxide 30 mmol/L (22-29) H 01/18/24 03:18 Anion Gap 12.4 (5-19) 01/18/24 03:18 BUN 27 mg/dL (8-23) H 01/18/24 03:18 Creatinine 0.8 mg/dL (0.5-0.9) 01/18/24 03:18 GFR Calculation Not Reportable 01/18/24 03:18 Glucose 94 mg/dL (65-115) 01/18/24 03:18 Estimat Average Glucose 108 01/13/24 05:12 Hemoglobin A1c 5.4 % (4.0-6.0) 01/13/24 05:12 Calculated Osmolality 291 mOsm/kg (285-295) 01/18/24 03:18 Calcium 8.4 mg/dL (8.5-10.5) L 01/18/24 03:18 Magnesium 2.0 mg/dL (1.7-2.3) 01/15/24 03:40 Iron 27 ug/dL (37-145) L 01/12/24 13:46 TIBC 297 mcg/dl 01/12/24 13:46 % Saturation 9.0 % (20-50) L 01/12/24 13:46 Unsat Iron Binding 270 ug/dL (112-347) 01/12/24 13:46 Total Bilirubin 0.2 mg/dL (0.15-1.2) 01/16/24 03:36 AST 26 U/L (0-32) 01/16/24 03:36 ALT 26 U/L (0-33) 01/16/24 03:36 Alkaline Phosphatase 69 U/L (35-105) 01/16/24 03:36 Troponin T Baseline 16 ng/L (0-10) H 01/10/24 17:19 Troponin T 120 Minute 21.34 ng/L (0-10) H 01/10/24 19:09 Delta Troponin T 5.34 ABS# (0-10) 01/10/24 19:09 Troponin T Hi Sens 6Hr 14.28 ng/L (0-10) H 01/10/24 23:08 Troponin T Hi Sens 6Hr Delta -1.72 ng/L (0-12) L 01/10/24 23:08 NT-Pro-B Natriuret Pep 647 pg/mL (0-450) H 01/10/24 08:46 Total Protein 6.4 g/dL (6.6-8.7) L 01/16/24 03:36 Albumin 3.5 g/dL (3.5-5.2) 01/16/24 03:36 Globulin 2.9 g/dL (1.3-4.6) 01/16/24 03:36 Triglycerides 91 mg/dL (0-150) 01/13/24 05:12 Cholesterol 125 mg/dL (0-200) 01/13/24 05:12 LDL Cholesterol, Calc 50 mg/dL (50-129) 01/13/24 05:12 Total VLDL Cholesterol 18 mg/dL (0-30) 01/13/24 05:12 HDL Cholesterol 57 mg/dL (60-100) L 01/13/24 05:12 Cholesterol/HDL Ratio 2.19 mg/dL (0.0-4.40) 01/13/24 05:12 Vitamin B12 160 pg/mL (232-1245) L 01/12/24 13:46 Folate 5.1 ng/mL (4.8-37.3) 01/13/24 05:12 TSH 0.15 uIU/mL (0.27-4.20) L 01/10/24 08:46 Free T4 1.58 ng/dL (0.82-1.77) 01/10/24 08:46 Urine Color Yellow (Yellow) 01/10/24 09:21 Urine Appearance Clear (CLEAR) 01/10/24 09:21 Urine pH 8 (5-7) H 01/10/24 09:21 Ur Specific [place] 1.010 (1.005-1.030) 01/10/24 09:21 Urine Protein Neg (Negative) 01/10/24 09:21 Urine Glucose (UA) Norm (Normal) 01/10/24 09:21 Urine Ketones 1+ (Negative) H 01/10/24 09:21 Urine Blood Neg (Negative) 01/10/24 09:21 Urine Nitrate Negative (Negative) 01/10/24 09:21 Urine Bilirubin Neg (Negative) 01/10/24 09:21 Urine Urobilinogen Norm mg/dL (Negative) 01/10/24 09:21 Ur Leukocyte Esterase Negative (Negative) 01/10/24 09:21 Vitals Last Vital Signs Temp 97.3 F L 01/18/24 08:00 Pulse 61 01/18/24 08:03 Resp 18 01/18/24 07:53 BP 115/53 01/18/24 08:00 Pulse Ox 100 01/18/24 08:00 O2 Del Method Nasal Cannula 01/18/24 08:00 O2 Flow Rate 3 01/18/24 07:53 Discharge Plan Discharge Patient Disposition: Home Health Service Condition: Stable Prescriptions: New doxycycline monohydrate 100 mg Tablet 100 mg PO BID 7 Days Qty: 14 0RF prednisone 10 mg tablet 10 mg PO DAILY Qty: 2 0RF amiodarone 200 mg tablet 200 mg PO DAILY Qty: 90 0RF Continued albuterol sulfate 90 mcg/actuation HFA aerosol inhaler 2 puff INHALATION Q4H PRN (Reason: Wheezing) Qty: 8.5 11RF albuterol sulfate 90 mcg/actuation HFA aerosol inhaler 1 inh inhalation Q6H PRN (Reason: shortness of breath or wheezing) Qty: 8.5 0RF sennosides-docusate sodium [Senna-S] 8.6-50 mg tablet 1 tab-cap PO DAILY PRN (Reason: constipation) Qty: 10 0RF aspirin 81 mg Tablet,Delayed Release (Dr/Ec) 81 mg PO DAILY Discontinued lisinopril 2.5 mg tablet 2.5 mg PO DAILY Qty: 30 0RF metoprolol tartrate 25 mg tablet 25 mg PO BID@0900,2100 Qty: 60 0RF levothyroxine 112 mcg tablet 112 mcg PO DAILY Discharge Orders: Discharge Order (Routine); Ordered 01/18/24 Ordered By: James Stokes Other Ambulatory Orders: DME: [employer] (Order) Location: None Selected Ordered By: James Stokes ECG holter monitor 14 Days (Routine) Timeframe: 1 Day Facility: [facility] - Location: Radiology Ordered By: James Stokes Referrals: [facility] [Outside] [facility] [place] [Outside] Candida Botello FNP [Nurse Practitioner] - 02/04/24 3:30 pm (Your appointment for the Holter Monitor is on 01-22-24 @ 11:30 a.m. at [facility]. Please arrive a few minutes early for paperwork. Thank you.) Quan Yang DO [Primary Care Provider] - 01/31/24 12:40 pm Discharge Diet: Cardiac Discharge Activity: Limit activity as instructed Patient Instructions: Doxycycline (By mouth) (Acticlate, Adoxa, Avidoxy, Monodox, Doryx), Prednisone (By mouth) (predniSONE Intensol, Prednicot, Deltasone, Neida), Amiodarone (By mouth) (Cordarone, Pacerone), Bradycardia (GEN), Holter Monitor (GEN) Activity Restrictions/Additional Instructions: Follow-up with your primary doctor for reassessment of bradycardia pending placement of pacemaker, awaiting return of repeat blood cultures with 2 organisms growing on original blood culture from 01/11, staph epidermidis and staph lugdunensis. These are considered probably contaminants, but this cannot be guaranteed to an lower chance of true bacteremia has not been excluded so far. Pending repeat blood cultures from 01/14 and today. Please have your primary doctor follow-up the original and repeat blood cultures. Complete antibiotic course with doxycycline. Complete brief steroid taper for COPD. Continue amiodarone for atrial flutter, stop metoprolol and lisinopril at current time. Follow-up with your primary doctor to monitor for any amiodarone associated abnormalities that may affect her eyes, lungs, thyroid, liver. Discussed with your primary doctor and phlebotomy support tech whether at some point amiodarone can be switched to a different medication to help reduce chance of adverse effects. Monitor your heart rates 3 times daily, write down values. You are referred to be set up for a Holter heart monitor in the meantime. Avoid overexertion, sit down or lie down, call for help in case you are feeling lightheaded or faint. Seek medical attention in case of any worsening or new concerning symptoms. Consider obtaining medic alert button to help you call for help without delay if needed. Discharge Attestations Time Spent in Discharge Care*: greater than 30 min Quality Metrics Clinical Quality Measures [ No reported AMI, CVA or VTE this stay] Coding Level of Care Code 53265 Total time (in minutes) for Discharge: 45 Diagnoses Bradycardia R00.1 Atrial flutter with rapid ventricular response I48.92 Sinus pause I45.5 Chronic respiratory failure with hypoxia J96.11 Chronicity: chronic Chronic obstructive pulmonary disease, unspecified COPD type J44.9 COPD type: unspecified COPD History of pulmonary embolism Z86.711
--- NOTE | 2024-01-18 10:14 | PC.SOCIAL ---
IMM Updated Updated pt on IMM. No questions voiced. Provided pt a copy. Initialed, dated, & timed copy in chart.
--- NOTE | 2024-01-18 10:59 | P.PN_ITS ---
Subjective 2 Subjective: The patient is feeling okay with no chest pain or shortness of breath. No symptomatic bradycardia. Medications: Medication Review Details: PT 13.20 SECONDS (12 .1-14.9) 01/15/24 03:40 APTT 33.7 SECONDS (23. 9-36.7) 01/15/24 Curren t Medications Carlos taminophen (Acetam inophen 325 Mg Tab let) 650 mg PO Q6 H PRN PRN Re ason: Mild/Mod Nolvia n Or Temp >/= 101 Last Admin: 03:29 Dose: 65 0 mg Amioda coretta HCl (Amiodaro ne 200 Mg Tablet) 200 mg PO BID [facility] Last Admin: 01/18/24 08:31 Do se: 200 mg Aspirin (Aspirin 81 Mg Ec Tablet) 81 mg PO DAILY [facility] Last Admin: 01/18/24 08:32 Do se: 81 mg Atropine Sulfate ( Atropine 0.1 Mg/Ml Syr 10 Ml) 0.5 m g IVP ONCE PRN PRN Reason: Bradyc ardia 40s or lower Budesonide (Cook sonide 0.5 Mg/2 Ml Neb) 0.5 mg INHA LATION BID.RESPIRA TORY [facility] Las t Admin: 01/18/24 07:40 Dose: 0.5 m g Cyanocoba shirlene (Cyanocobala min 1,000 Mcg Tabl et) 1,000 mcg PO DAILY [facility] La st Admin: 01/18/24 08:32 Dose: 1,00 0 mcg Doxyc ycline Monohydrate (Doxycycline 100 Mg Tablet) 100 mg PO BID [facility]; Dameon col Last Adm in: 01/18/24 08:32 Dose: 100 mg Enoxaparin Sodium (Enoxaparin 40 Mg /0.4 Ml Syringe) 40 mg SUBCUT Q24H [facility] Last Adm in: 01/17/24 15:47 Dose: 40 mg Ipratropium Bromi de (Ipratropium 0. 5 Mg/2.5 Ml Neb) 0.5 mg INHALATION BID.RESPIRATORY SC H Last Admin : 01/18/24 07:41 D ose: 0.5 mg Levalbuterol HCl (Levalbuterol 0.63 Mg/3 Ml Neb) 0.6 3 mg INHALATION BI D.RESPIRATORY [facility] Last Admin: 07:40 Dose: 0. 63 mg Levot hyroxine Sodium (L evothyroxine 100 M cg Tablet) 100 mc g PO QAM [facility] Last Admin: 06:00 Dose: 10 0 mcg Ondan setron HCl (Ondans etron 2 Mg/Ml Sdv 2 Ml) 4 mg IVP Q6 H PRN PRN Re ason: vomiting, or N/V if npo Last Admin: 19:30 Dose: 4 mg Pantopra zole Sodium (Panto prazole Dr 40 Mg T ablet) 40 mg PO D AILY PAMELA Las t Admin: 01/18/24 08:32 Dose: 40 mg Prednisone (Prednisone 20 Mg Tablet) 10 mg PO DAILY PAMELA L ast Admin: 4 08:32 Dose: 10 mg 03:40 Vitals/I&O/Wt Last Vital Signs Temp 97.3 F L 01/18/24 08:00 Pulse 61 01/18/24 08:03 Resp 18 01/18/24 07:53 BP 115/53 01/18/24 08:00 Pulse Ox 100 01/18/24 08:00 O2 Del Method Nasal Cannula 01/18/24 08:00 O2 Flow Rate 3 01/18/24 07:53 01/17/24 01/18/24 01/18/24 22:59 06:59 14:59 Intake Total 920 / 1040 350 / 1390 0 / 0 Output Total 1000 / 2550 550 / 3100 Balance -80 / -1510 -200 / -1710 0 / 0 Weight last 48 hrs Weight 178 lb 9.6 oz Weight 178 lb 3.2 oz Physical Exam 2 Narrative: GENERAL: The patient is alert and oriented times three. Not in any acute distress. HEENT: No significant pallor, icterus or lymphadenopathy.Oral cavity: There are no mucous membrane lesions. NECK: Trachea appears to be central. No masses noted. No JVD or thyromegaly appreciated. RESPIRATORY: Chest is symmetrical. No intercostals muscle retraction or any accessory muscle activation. There is no chest wall tenderness. Breath sounds are heard bilaterally. Scattered expiratory wheezing and occasional coarse crackles BREASTS: Deferred. HEART: The heart sounds are normal. No S3 or S4. No significant murmurs. No pericardial rub ABDOMEN: No vessel pulsations or distention. No tenderness. No organomegaly appreciated. Bowel sounds are normally heard. : Deferred. RECTAL: Deferred. LYMPHATIC: No lymphadenopathy noted in the neck. EXTREMITIES: No edema or cyanosis. No clubbing. MUSCULOSKELETAL: No acute joint deformities or swelling SKIN: There are no significant rashes or ecchymosis NEUROPSYCHIATRIC: The patient is alert and oriented x3. Appears to be in a good mood. No tremors or rigidity noted. Urinary Catheter Management: Ambrosio: Cath Placed During This Visit: yes Reason for Continuing Indwelling Catheter: Accurate Measurement of Urinary Output in Critically Ill Patients Urinary Catheter Date of Insertion: 01/10/24 Urinary Catheter Time of Insertion: 09:25 Data 01/18/24 03:18 01/18/24 03:18 Other Labs: Laboratory Last Values WBC 9.35 10^3/uL (3.29-11.43) 01/18/24 03:18 RBC 4.02 10^6/uL (3.85-5.65) 01/18/24 03:18 Hgb 11.50 g/dL (11.27-16.99) 01/18/24 03:18 Hct 37.2 % (36-47) 01/18/24 03:18 MCV 92.5 fl (85-98) 01/18/24 03:18 MCH 28.6 pg (27-33) 01/18/24 03:18 MCHC 30.9 g/dL (30-55) 01/18/24 03:18 RDW 12.2 % (12.1-15.1) 01/18/24 03:18 Plt Count 352 10^3/cmm (157-399) 01/18/24 03:18 MPV 8.9 fL (7.4-10.4) 01/18/24 03:18 Neut % (Auto) 68.1 % 01/18/24 03:18 Lymph % (Auto) 21.4 % 01/18/24 03:18 [place] % (Auto) 7.9 % 01/18/24 03:18 Eos % (Auto) 0.5 % 01/18/24 03:18 Baso % (Auto) 0.2 % 01/18/24 03:18 Neut # (Auto) 6.36 10^3/uL (1.8-7.7) 01/18/24 03:18 Lymph # (Auto) 2.0 10^3/uL (0.8-4.8) 01/18/24 03:18 [place] # (Auto) 0.7 10^3/uL (0.2-0.9) 01/18/24 03:18 Eos # (Auto) 0.1 10^3/uL (0.0-0.8) 01/18/24 03:18 Baso # (Auto) 0.0 10^3/uL (0.0-0.1) 01/18/24 03:18 Nucleated RBC % (auto) 0 % 01/18/24 03:18 Nucleated RBCs # 0.0 /100WBC 01/18/24 03:18 PT 13.20 SECONDS (12.1-14.9) 01/15/24 03:40 INR 0.97 (0.8-1.2) 01/15/24 03:40 APTT 33.7 SECONDS (23.9-36.7) 01/15/24 03:40 Sodium 138 mmol/L (136-145) 01/18/24 03:18 Potassium 4.4 mmol/L (3.5-5.1) 01/18/24 03:18 Chloride 100 mmol/L (98-107) 01/18/24 03:18 Carbon Dioxide 30 mmol/L (22-29) H 01/18/24 03:18 Anion Gap 12.4 (5-19) 01/18/24 03:18 BUN 27 mg/dL (8-23) H 01/18/24 03:18 Creatinine 0.8 mg/dL (0.5-0.9) 01/18/24 03:18 GFR Calculation Not Reportable 01/18/24 03:18 Glucose 94 mg/dL (65-115) 01/18/24 03:18 Estimat Average Glucose 108 01/13/24 05:12 Hemoglobin A1c 5.4 % (4.0-6.0) 01/13/24 05:12 Calculated Osmolality 291 mOsm/kg (285-295) 01/18/24 03:18 Calcium 8.4 mg/dL (8.5-10.5) L 01/18/24 03:18 Magnesium 2.0 mg/dL (1.7-2.3) 01/15/24 03:40 Iron 27 ug/dL (37-145) L 01/12/24 13:46 TIBC 297 mcg/dl 01/12/24 13:46 % Saturation 9.0 % (20-50) L 01/12/24 13:46 Unsat Iron Binding 270 ug/dL (112-347) 01/12/24 13:46 Total Bilirubin 0.2 mg/dL (0.15-1.2) 01/16/24 03:36 AST 26 U/L (0-32) 01/16/24 03:36 ALT 26 U/L (0-33) 01/16/24 03:36 Alkaline Phosphatase 69 U/L (35-105) 01/16/24 03:36 Troponin T Baseline 16 ng/L (0-10) H 01/10/24 17:19 Troponin T 120 Minute 21.34 ng/L (0-10) H 01/10/24 19:09 Delta Troponin T 5.34 ABS# (0-10) 01/10/24 19:09 Troponin T Hi Sens 6Hr 14.28 ng/L (0-10) H 01/10/24 23:08 Troponin T Hi Sens 6Hr Delta -1.72 ng/L (0-12) L 01/10/24 23:08 NT-Pro-B Natriuret Pep 647 pg/mL (0-450) H 01/10/24 08:46 Total Protein 6.4 g/dL (6.6-8.7) L 01/16/24 03:36 Albumin 3.5 g/dL (3.5-5.2) 01/16/24 03:36 Globulin 2.9 g/dL (1.3-4.6) 01/16/24 03:36 Triglycerides 91 mg/dL (0-150) 01/13/24 05:12 Cholesterol 125 mg/dL (0-200) 01/13/24 05:12 LDL Cholesterol, Calc 50 mg/dL (50-129) 01/13/24 05:12 Total VLDL Cholesterol 18 mg/dL (0-30) 01/13/24 05:12 HDL Cholesterol 57 mg/dL (60-100) L 01/13/24 05:12 Cholesterol/HDL Ratio 2.19 mg/dL (0.0-4.40) 01/13/24 05:12 Vitamin B12 160 pg/mL (232-1245) L 01/12/24 13:46 Folate 5.1 ng/mL (4.8-37.3) 01/13/24 05:12 TSH 0.15 uIU/mL (0.27-4.20) L 01/10/24 08:46 Free T4 1.58 ng/dL (0.82-1.77) 01/10/24 08:46 Urine Color Yellow (Yellow) 01/10/24 09:21 Urine Appearance Clear (CLEAR) 01/10/24 09:21 Urine pH 8 (5-7) H 01/10/24 09:21 Ur Specific [place] 1.010 (1.005-1.030) 01/10/24 09:21 Urine Protein Neg (Negative) 01/10/24 09:21 Urine Glucose (UA) Norm (Normal) 01/10/24 09:21 Urine Ketones 1+ (Negative) H 01/10/24 09:21 Urine Blood Neg (Negative) 01/10/24 09:21 Urine Nitrate Negative (Negative) 01/10/24 09:21 Urine Bilirubin Neg (Negative) 01/10/24 09:21 Urine Urobilinogen Norm mg/dL (Negative) 01/10/24 09:21 Ur Leukocyte Esterase Negative (Negative) 01/10/24 09:21 Micro: Microbiology 01/12/24 13:46 Blood Culture - Preliminary Blood Staphylococcus epidermidis Staphylococcus lugdunensis 01/18/24 03:18 Blood Culture - Preliminary Blood SPECIMEN COLLECTED 01/18/24 03:18 Blood Culture - Preliminary Blood SPECIMEN COLLECTED 01/12/24 13:50 Blood Culture - Final Blood NO GROWTH AFTER 5 DAYS A&P Assessment and plan (1) Bradycardia: Hemodynamically stable. Has not had any recurrence of symptomatic bradycardia (2) Positive blood culture: Gram-positive cocci-2 species of staph grew in one of the blood culture bottles, cannot say whether it is contaminant or not. Just thought to be appropriate to finish the antibiotic course and wait for couple of weeks before proceeding with the pacemaker since there is no urgency at this point. Just discussed with the patient and Dr. Stokes. All are in agreement with this plan (3) Atrial flutter with rapid ventricular response: She appears to be converted to sinus rhythm at this time. Continue with the current treatment. Patient apparently refused oral anticoagulation. The dose of the amiodarone may be cut back to 200 mg p.o. daily (4) Hypoxic respiratory failure: The oxygenation seems to be appropriate. May continue on the current treatment. Qualifiers: Chronicity: chronic Qualified Code(s): J96.11 - Chronic respiratory failure with hypoxia (5) COPD (chronic obstructive pulmonary disease): Patient has intermittent COPD exacerbation. Seems to be responding to the bronchodilators. Qualifiers: COPD type: unspecified COPD Qualified Code(s): J44.9 - Chronic obstructive pulmonary disease, unspecified (6) History of pulmonary embolism: Has not had any recurrence of pulmonary embolism by CTA. May continue on the current measures. (7) Dyslipidemia: The current medications may be continued. (8) Hypertension: Currently normotensive. Qualifiers: Hypertension type: primary hypertension Qualified Code(s): I10 - Essential (primary) hypertension Plan Patient may be discharged home on an event monitor. She will be seen in the office in a week The time of the pacemaker implant will be decided at that point. Attestations 2 Medical Necessity Statement*: Deferred to the primary Coding Level of Care Code 12470 Diagnoses Bradycardia R00.1 Positive blood culture R78.81 Atrial flutter with rapid ventricular response I48.92 Chronic respiratory failure with hypoxia J96.11 Chronicity: chronic Chronic obstructive pulmonary disease, unspecified COPD type J44.9 COPD type: unspecified COPD History of pulmonary embolism Z86.711 Dyslipidemia E78.5 Primary hypertension I10 Hypertension type: primary hypertension
--- NOTE | 2024-01-18 13:58 | PC.NURSE ---
HCS will fit the holter monitor not until SundayJanuary 21. pt and lorin informed on this. educated pt to monitor her spo2 and HR with her pulse oximeter at home. pt verbalizes understanding.
--- NOTE | 2024-01-18 15:44 | PC.NURSE ---
discharge to home with family instructed pt regarding follow-up appointments. went over pt's home meds extensively with dgtr at bedside. discharge papers provided to pt.
== END 2024-01-18 15:24 | disposition home health service (06) | DRG 308 ==
LOC: ER 09:36 → CSU 14:10 → ICU 01-12 07:53 → CSU 01-12 18:53
PROVIDERS: Internal Medicine Cardiovascular Disease; Student in an Organized Health Care Education/Training Program; Admitting Provider Internal Medicine; Emergency Provider Family Medicine; PCP Family Medicine; Visit Provider Internal Medicine
DX: I48.92 Unspecified atrial flutter (principal); J18.9 Pneumonia, unspecified organism; J96.91 Respiratory failure, unspecified with hypoxia; J44.1 Chronic obstructive pulmonary disease with (acute) exacerbation; J44.0 Chronic obstructive pulmonary disease with (acute) lower respiratory infection; I45.5 Other specified heart block; R00.1 Bradycardia, unspecified; Z86.711 Personal history of pulmonary embolism; I11.0 Hypertensive heart disease with heart failure; I50.9 Heart failure, unspecified; Z72.0 Tobacco use; E78.5 Hyperlipidemia, unspecified; D50.9 Iron deficiency anemia, unspecified; E53.8 Deficiency of other specified B group vitamins; R14.0 Abdominal distension (gaseous); Z99.81 Dependence on supplemental oxygen; B95.7 Other staphylococcus as the cause of diseases classified elsewhere
CPT/HCPCS: 36415; 51702; 71045; 71275; 80048; 80053; 80061; 81003; 82607; 82746; 83036; 83540; 83550; 83735; 83880; 84439; 84443; 84484; 85025; 85610; 85730; 87040; 87077; 87150; 87186; 87205; 93005; 93306; 94640; 94760; 96372; 96376; 97110; 97161; 97530; J0153; J0283; J0461; J0610; J1650; J1756; J1940; J2405; J3420; J3490; J7030; J7040; J7050; J7512; J7614; J7626; J7644; Q9967

== ENCOUNTER → 2024-02-28 13:29 | Outpatient (BNVA) | payer MEDICARE, SELFPAY | PROVIDERS: PCP Family Medicine; Visit Provider Nurse Practitioner Family | DX: I48.91 Unspecified atrial fibrillation (principal); Z09 Encounter for follow-up examination after completed treatment for conditions other than malignant neoplasm; I48.92 Unspecified atrial flutter; R94.31 Abnormal electrocardiogram [ECG] [EKG]; F17.200 Nicotine dependence, unspecified, uncomplicated | CPT/HCPCS: 93005; 99214 ==

== ENCOUNTER 2024-03-03 17:16 | Outpatient (CLI) | payer MEDICARE, SELFPAY ==
[2024-03-03 18:07] LABS: Alanine Aminotransferase 16 U/L (0-33); Albumin Level 4.1 g/dL (3.5-5.2); Alkaline Phosphatase 91 U/L (35-105); Blood Urea Nitrogen 20 mg/dL (8-23); Calcium 8.2 mg/dL (8.5-10.5); Carbon Dioxide 32 mmol/L (22-29); Chloride 96 mmol/L (98-107); Globulin 2.9 g/dL (1.3-4.6); Glucose 100 mg/dL (65-115); Osmolality Calculated 287 mOsm/kg (285-295); Sodium 137 mmol/L (136-145); Total Bilirubin 0.2 mg/dL (0.15-1.2)
[2024-03-03 19:38] LABS: Anion Gap 14.5 (5-19); Potassium 5.5 mmol/L (3.5-5.1)
[2024-03-03 19:39] LABS: Aspartate Amino Transferase 22 U/L (0-32)
== END 2024-03-03 17:17 | disposition home or self-care (01) ==
LOC: LAB 17:18
PROVIDERS: PCP Family Medicine; Visit Provider Nurse Practitioner
DX: I10 Essential (primary) hypertension (principal)
CPT/HCPCS: 80053

== ENCOUNTER 2024-03-13 17:36 | Outpatient (CLI) | payer MEDICARE, SELFPAY ==
[2024-03-13 18:49] LABS: Thyroid Stimulating Hormone 12.71 uIU/mL (0.27-4.20)
== END 2024-03-13 17:37 | disposition home or self-care (01) ==
PROVIDERS: PCP Family Medicine; Visit Provider Nurse Practitioner
DX: E03.9 Hypothyroidism, unspecified (principal)
CPT/HCPCS: 84443

== ENCOUNTER 2024-09-20 02:55 | Inpatient (IN) | payer MEDICARE, SELFPAY ==
[2024-09-20] VITALS (21 sets, daily range): BP systolic 100–138; BP diastolic 45–98; PULSE 57–124; RESP 12–24; TEMP 36.7–36.9; O2SAT 90–100; BMI 30.7
--- NOTE | 2024-09-20 03:07 | XRR_ITS ---
PROCEDURE INFORMATION: Exam: XR Left Hip Exam date and time: 09/20/2024 3:10 AM Age: 83 years old Clinical indication: Injury or trauma; Blunt trauma (contusions or hematomas); Patient HX: C/O worsening left hip pain after a fall at home at 2100 hours yesterday. TECHNIQUE: Imaging protocol: Radiologic exam of the left hip. Views: 2 or 3 views hip with pelvis when performed. COMPARISON: CT kidney stone [id number] 04/19/2022 8:32 PM FINDINGS: Bones/joints: Unremarkable. No acute fracture. Soft tissues: Unremarkable. XR/XR hip LT 2-3V wo/w pel* [id number] IMPRESSION: No acute findings.
--- NOTE | 2024-09-20 03:09 | ECG_ITS ---
[facility] Date: 2024-09-20 Pat Name: Radha Silverman Department: Room: Gender: Female Leadership Program Intern: : 1940 Requested By: Eliot Negrete Order Number: [id number] Julian MD: Joel Flores M.D. Measurements Intervals [place] Rate: 125 P: 0 [place]: 0 QRS: 35 QRSD: 88 T: 69 QT: 300 QTc: 434 Interpretive Statements ATRIAL FLUTTER WITH RAPID VENTRICULAR RESPONSE INDETERMINATE AXIS LOW QRS VOLTAGE IN PRECORDIAL LEADS [QRS DEFLECTION < 1.0 mV IN CHEST LEADS] MODERATE ST DEPRESSION [0.05+ mV ST DEPRESSION] Compared to ECG 02/28/2024 13:40:52 Indeterminate axis now present ST (T wave) deviation still present Electronically Signed On 09-20-2024 10:23:32 DRAW PRESS OPERATOR by Joel Flores M.D. [id number]
--- NOTE | 2024-09-20 03:10 | XRR_ITS ---
PROCEDURE INFORMATION: Exam: XR Chest Exam date and time: 09/20/2024 3:17 AM Age: 83 years old Clinical indication: Shortness of breath; Patient HX: Patient SOB with afib on monitor. Sustained a fall at home at 2100 hours yesterday. History of copd. ; Additional info: Fall. SOB. TECHNIQUE: Imaging protocol: Radiologic exam of the chest. Views: 1 view. COMPARISON: CR XR chest 1V portable [id number] 01/14/2024 7:07 PM FINDINGS: Lungs: Prominent interstitial markings. Bilateral upper and left lower lobe linear infiltrates may represent scarring. No consolidation. Pleural spaces: Unremarkable. No pleural effusion. No pneumothorax. Heart/Mediastinum: Unremarkable. No cardiomegaly. Bones/joints: Chronic right-sided rib fractures. XR/XR chest 1V portable [id number] IMPRESSION: No acute findings.
--- NOTE | 2024-09-20 03:13 | XRR_ITS ---
PROCEDURE INFORMATION: Exam: XR Left Knee Exam date and time: 09/20/2024 3:18 AM Age: 83 years old Clinical indication: Injury or trauma; Blunt trauma; Patient HX: C/O worsening left knee pain after a fall at home at 2100 hours yesterday TECHNIQUE: Imaging protocol: Radiologic exam of the left knee. Views: 3 views. COMPARISON: No relevant prior studies available. FINDINGS: Bones/joints: No acute fracture or dislocation. Soft tissues: Normal. XR/XR knee LT 3V* [id number] IMPRESSION: No acute fracture or dislocation.
--- NOTE | 2024-09-20 04:07 | CTR_ITS ---
PROCEDURE INFORMATION: Exam: CT Pelvis Without Contrast, Skeleton Exam date and time: 09/20/2024 4:17 AM Age: 83 years old Clinical indication: Injury or trauma; Blunt trauma (contusions or hematomas); Patient HX: C/O worsening left hip pain since a fall at home at 2100 hours yesterday. ; Additional info: Fall L hip pain TECHNIQUE: Imaging protocol: Computed tomography of the pelvis without contrast. Exam focused on the skeleton. Radiation optimization: All CT scans at this facility use at least one of these dose optimization techniques: automated exposure control; mA and/or kV adjustment per patient size (includes targeted exams where dose is matched to clinical indication); or iterative reconstruction. COMPARISON: CT kidney stone [id number] 04/19/2022 8:32 PM RADIATION DOSE METRICS: Total DLP (mGy-cm): 604.96 FINDINGS: Reproductive: Hysterectomy. Bones/joints: No acute fracture. Mild spondylosis. Mild degenerative changes of the bilateral hips. Soft tissues: Unremarkable. CT/CT bony pelvis [id number] IMPRESSION: No acute findings.
--- NOTE | 2024-09-20 06:30 | PC.NURSE ---
I tried to get patient up to sit on bedside commode to void and the patient was unable to even sit up in the bed due to intolerable pain.
--- NOTE | 2024-09-20 06:50 | W.ED.FALL ---
HPI - Fall General: Chief Complaint: Fall Stated Complaint: Fall Time Seen by Provider: 09/20/24 03:52 History of Present Illness: 83-year-old female who fell at home, injuring her left hip and knee. She states she has significant pain when trying to bear weight now, and cannot bear weight. She noticed that she did not pass out, but simply on standing, her legs gave out. She has a history of atrial fibrillation, and her heartbeat has been rapid since EMS arrival. She does complain of some shortness of breath and generalized weakness. She denies any fever. She denies chest discomfort. She did not hit her head. Related Data Home Medications Medication Instructions Recorded Confirmed aspirin 81 mg tablet,delayed 81 mg PO DAILY 01/10/24 09/20/24 release furosemide 20 mg tablet (Lasix) 20 mg PO DAILY 02/28/24 09/20/24 levothyroxine 112 mcg tablet See Rx Instructions .Route .COMPLEX 09/20/24 09/20/24 Previous Rx's Medication Instructions Recorded albuterol sulfate 90 mcg/actuation 1 inh inhalation Q6H PRN shortness 04/23/22 aerosol inhaler of breath or wheezing #8.5 grams amiodarone 200 mg tablet 200 mg PO DAILY #90 tabs 01/18/24 Allergies Allergy/AdvReac Type Severity Reaction Status Date / Time codeine Allergy Unknown Verified 02/28/24 12:57 [facility] ED PFSH: Medical History History of pulmonary embolism Acute and chronic respiratory failure with hypoxia Pulmonary embolism Pneumonia Chest pain Chronic respiratory failure with hypoxia COPD (chronic obstructive pulmonary disease) Acute left flank pain Atrial flutter with rapid ventricular response Hypertension Family History Other Cancer Social History Smoking and tobacco/nicotine status: current every day tobacco/nicotine user Alcohol intake: never Substance/Drug Use: never Physical Exam Const: GENERAL APPEARANCE: cooperative, ill appearing (mildly) and frail appearing HENMT: COMMON NORMALS: normocephalic, atraumatic and Normal external nose present HEAD & SCALP: normocephalic and atraumatic FACE & SINUS: normal facial exam and face symmetric NOSE: Normal external nose present Eye: COMMON NORMALS: Equal, round and reactive pupils present and EOMs intact bilaterally PUPIL: Yes Equal, round and reactive pupils present Neck/C-Spine: GENERAL: Yes trachea midline Chest: CHEST: Yes Symmetrical chest wall rise Resp: COMMON NORMALS: No retractions, No use of accessory muscles and clear to auscultation bilaterally EFFORT & INSPECTION: Yes tachypneic AUSCULTATION: clear to auscultation bilaterally Cardio: RATE: tachycardic RHYTHM: abnormal rhythm irregularly irregular GI: COMMON NORMALS: Normal to inspection, nondistended, normoactive bowel sounds present Back/Pelvis: LUMBAR SPINE/LOWER BACK: Yes normal to inspection PELVIS: Yes no pain with anterior-posterior compression and Yes no pain with lateral compression Extremity: NARRATIVE EXTREMITY EXAM: Examination of the left lower extremity reveals a small knee joint effusion. There is no deformity. There is some tenderness on palpation of the anterior proximal thigh and hip. No lateral tenderness. There is significant pain on log roll testing. The leg is not shortened or externally rotated. Pulses are intact and normal period sensation is normal. Neuro: CIARA COMA SCALE: document GCS findings [place] coma scale eye opening: Spontaneous Ciara coma scale verbal response: Orientated Ciara coma scale motor response: Obey commands Ciara coma scale total score: 15 SENSORY EXAM: Yes extremities (intact) Psych: COMMON NORMALS: speech normal SPEECH: Yes normal speech Skin: COMMON NORMALS: no rashes or lesions noted GENERAL SKIN EXAM: no rashes or lesions noted Course Vital Signs: Vital signs: Vital Signs Temperature 98.3 F 09/20/24 12:00 Pulse Rate 105 H 09/20/24 15:08 Respiratory Rate 16 09/20/24 14:27 Blood Pressure 109/73 09/20/24 12:00 Pulse Oximetry 96 09/20/24 14:31 Oxygen Delivery Me thod Nasal Cannula 09/20/24 14:31 Oxygen Flow Rate 3 09/20/24 14:31 MDM - Fall Medical Decision Making X-rays do not reveal acute fracture. Pelvis CT is performed, and does not reveal any fracture. However, the patient has excruciating pain when trying to move the lower extremity, and cannot bear weight. She also has continued heart rates in the 120s and 130s with atrial fibrillation. She does have atrial fibrillation chronically. She is given her morning amiodarone dose. She started on diltiazem at 5 mg, as her rate is not controlled at this point. Troponins are pending. She will require admission. Lab Data 09/20/24 07:04 09/20/24 07:04 Radiology Impressions Hip/Pelvis X-Ray 09/20/24 03:07 IMPRESSION: No acute findings. Chest X-Ray 09/20/24 03:10 IMPRESSION: No acute findings. Knee X-Ray 09/20/24 03:13 IMPRESSION: No acute fracture or dislocation. Pelvis CT 09/20/24 04:07 IMPRESSION: No acute findings. Laboratory Results WBC 6.17 10^3/uL (3.29-11.43) 09/20/24 07:04 RBC 4.22 10^6/uL (3.85-5.65) 09/20/24 07:04 Hgb 12.00 g/dL (11.27-16.99) 09/20/24 07:04 Hct 39.6 % (36-47) 09/20/24 07:04 MCV 93.8 fl (85-98) 09/20/24 07:04 MCH 28.4 pg (27-33) 09/20/24 07:04 MCHC 30.3 g/dL (30-55) 09/20/24 07:04 RDW 12.0 % (12.1-15.1) L 09/20/24 07:04 Plt Count 231 10^3/cmm (157-399) 09/20/24 07:04 MPV 8.6 fL (7.4-10.4) 09/20/24 07:04 Neut % (Auto) 68.9 % 09/20/24 07:04 Lymph % (Auto) 18.8 % 09/20/24 07:04 [place] % (Auto) 7.8 % 09/20/24 07:04 Eos % (Auto) 3.7 % 09/20/24 07:04 Baso % (Auto) 0.3 % 09/20/24 07:04 Neut # (Auto) 4.25 10^3/uL (1.8-7.7) 09/20/24 07:04 Lymph # (Auto) 1.2 10^3/uL (0.8-4.8) 09/20/24 07:04 [place] # (Auto) 0.5 10^3/uL (0.2-0.9) 09/20/24 07:04 Eos # (Auto) 0.2 10^3/uL (0.0-0.8) 09/20/24 07:04 Baso # (Auto) 0.0 10^3/uL (0.0-0.1) 09/20/24 07:04 Nucleated RBC % (auto) 0 % 09/20/24 07:04 Nucleated RBCs # 0.0 /100WBC 09/20/24 07:04 PT 13.20 SECONDS (12.1-14.9) 09/20/24 07:04 INR 0.97 (0.8-1.2) 09/20/24 07:04 APTT 25.7 SECONDS (23.9-36.7) 09/20/24 07:04 Sodium 136 mmol/L (136-145) 09/20/24 07:04 Potassium 4.5 mmol/L (3.5-5.1) 09/20/24 07:04 Chloride 98 mmol/L (98-107) 09/20/24 07:04 Carbon Dioxide 31 mmol/L (22-29) H 09/20/24 07:04 Anion Gap 11.5 (5-19) 09/20/24 07:04 BUN 19 mg/dL (8-23) 09/20/24 07:04 Creatinine 1.0 mg/dL (0.5-0.9) H 09/20/24 07:04 GFR Calculation Not Reportable 09/20/24 07:04 Glucose 106 mg/dL (65-115) 09/20/24 07:04 Calculated Osmolality 285 mOsm/kg (285-295) 09/20/24 07:04 Lactic Acid 1.2 mmol/L (0.5-2.2) 09/20/24 07:04 Calcium 8.2 mg/dL (8.5-10.5) L 09/20/24 07:04 Total Bilirubin 0.3 mg/dL (0.15-1.2) 09/20/24 07:04 AST 33 U/L (0-32) H 09/20/24 07:04 ALT 36 U/L (0-33) H 09/20/24 07:04 Alkaline Phosphatase 82 U/L (35-105) 09/20/24 07:04 Creatine Kinase 98 U/L (26-192) 09/20/24 07:04 Troponin T Baseline 12 ng/L (0-10) H 09/20/24 07:04 C-Reactive Protein 5.9 mg/L (0.0-4.9) H 09/20/24 07:04 Total Protein 6.6 g/dL (6.6-8.7) 09/20/24 07:04 Albumin 3.7 g/dL (3.5-5.2) 09/20/24 07:04 Globulin 2.9 g/dL (1.3-4.6) 09/20/24 07:04 All radiology interpretation(s) finalized by discharge Discharge Plan Discharge Patient Disposition: Admitted As Inpatient Admit Provider: Neal Bryan Clinical Impression: Atrial flutter with rapid ventricular response, Fall, Contusion of hip, left Condition: Fair Coding Level of Care Code ED Supervisor [facility]
[2024-09-20 07:11] LABS: Basophils % 0.3 %; Eosinophils # 0.2 10^3/uL (0.0-0.8); Eosinophils % 3.7 %; Hematocrit 39.6 % (36-47); Lymphocytes # 1.2 10^3/uL (0.8-4.8); Lymphocytes % 18.8 %; Mean Corpuscular HGB Conc 30.3 g/dL (30-55); Mean Corpuscular Hemoglobin 28.4 pg (27-33); Mean Corpuscular Volume 93.8 fl (85-98); Mean Platelet Volume 8.6 fL (7.4-10.4); Monocytes # 0.5 10^3/uL (0.2-0.9); Monocytes % 7.8 %; Neutrophils # 4.25 10^3/uL (1.8-7.7); Neutrophils % 68.9 %; Nucleated Red Blood Cells % 0 %; Platelet Count 231 10^3/cmm (157-399); Red Blood Count 4.22 10^6/uL (3.85-5.65); White Blood Count 6.17 10^3/uL (3.29-11.43)
[2024-09-20 07:30] LABS: INR 0.97 (0.8-1.2)
[2024-09-20 07:31] LABS: Partial Thromboplastin Time 25.7 SECONDS (23.9-36.7)
[2024-09-20 07:37] LABS: Lactic Sepsis W/Reflex 1.2 mmol/L (0.5-2.2)
[2024-09-20 07:38] LABS: Alanine Aminotransferase 36 U/L (0-33); Albumin Level 3.7 g/dL (3.5-5.2); Alkaline Phosphatase 82 U/L (35-105); Anion Gap 11.5 (5-19); Aspartate Amino Transferase 33 U/L (0-32); Blood Urea Nitrogen 19 mg/dL (8-23); C Reactive Protein 5.9 mg/L (0.0-4.9); Calcium 8.2 mg/dL (8.5-10.5); Carbon Dioxide 31 mmol/L (22-29); Chloride 98 mmol/L (98-107); Creatine Phosphokinase 98 U/L (26-192); Globulin 2.9 g/dL (1.3-4.6); Glucose 106 mg/dL (65-115); Osmolality Calculated 285 mOsm/kg (285-295); Potassium 4.5 mmol/L (3.5-5.1); Sodium 136 mmol/L (136-145); Total Bilirubin 0.3 mg/dL (0.15-1.2); Total Protein 6.6 g/dL (6.6-8.7)
--- NOTE | 2024-09-20 07:44 | ECG_ITS ---
[facility] Date: 2024-09[facility]20 Pat Name: Radha Silverman Department: Room: Gender: Female Manager Relationship: : 1940 Requested By: Eliot Negrete Order Number: [id number] Julian MD: Joel Flores M.D. Measurements Intervals [place] Rate: 120 P: 0 [place]: 0 QRS: 85 QRSD: 87 T: 71 QT: 312 QTc: 442 Interpretive Statements ATRIAL FLUTTER WITH RAPID VENTRICULAR RESPONSE LOW QRS VOLTAGE IN PRECORDIAL LEADS [QRS DEFLECTION < 1.0 mV IN CHEST LEADS] MODERATE ST DEPRESSION [0.05+ mV ST DEPRESSION] Compared to ECG 09/20/2024 03:10:50 Indeterminate axis no longer present ST (T wave) deviation still present Electronically Signed On 09-20-2024 10:22:58 [facility] by Joel Flores M.D. [id number]
[2024-09-20 07:51] LABS: Troponin(5th) Baseline 12 ng/L (0-10)
[2024-09-20] MEDS: dilTIAZem 100 MG in sodium chloride 0.9% (add-van) 100 ML IV (07:52)
[2024-09-20] MEDS: amiodarone 200 mg Tablet PO ×2 (07:52→12:28)
--- NOTE | 2024-09-20 09:34 | ECG_ITS ---
[employer] Test Date: 2024-09-20 Pat Name: Radha Silverman Department: Room: Gender: Female Alternative Dispute Resolution Mediator: : 1940 Requested By: Eliot Negrete Order Number: [id number] Julian MD: Joel Flores M.D. Measurements Intervals [place] Rate: 121 P: 0 [place]: 0 QRS: 61 QRSD: 93 T: 86 QT: 161 QTc: 229 Interpretive Statements ATRIAL FLUTTER WITH RAPID VENTRICULAR RESPONSE LOW QRS VOLTAGE IN PRECORDIAL LEADS [QRS DEFLECTION < 1.0 mV IN CHEST LEADS] NONSPECIFIC ST & T-WAVE ABNORMALITY Compared to ECG 09/20/2024 07:44:03 T-wave abnormality now present ST (T wave) deviation no longer present Electronically Signed On 09-21-2024 19:07:36 ANALYTICS LEADER by Joel Flores M.D. [id number]
[2024-09-20 09:39] LABS: Troponin 5 2HR 13.53 ng/L (0-10); Troponin 5 2HR Delta 1.53 ABS# (0-10)
[2024-09-20] MEDS: acetaminophen 500 mg Tablet 1000 MG PO (09:42)
[2024-09-20 10:34] LABS: Bilirubin Urine Negative (Negative); Blood Urine Negative (Negative); Glucose Urine UA Negative (Normal); Ketones Urine Negative (Negative); Leukocyte Esterase Urine Trace (Negative); Nitrate Urine Negative (Negative); Protein Urine 1+ (Negative); Specific Gravity, Urine 1.023 (1.005-1.030); Urine Appearance Cloudy (CLEAR); Urine Color Yellow (Yellow); pH Urine 8.5 (5-7)
[2024-09-20 10:39] LABS: Add Urine Microscopic? YES; Bacteria Urine 2+ /hpf; WBC Urine 0-5 /hpf (0-5)
[2024-09-20 10:43] LABS: Add Urine Culture? Yes
--- OUTSIDE RECORDS SUMMARY | 2024-09-20 11:01 | XMS_ITS ---
Author Name Unknown Organization Unknown ALLERGIES AND ADVERSE REACTIONS No information ASSESSMENT No information CHIEF COMPLAINT No information Problems Date Problem Icd10 Snomedcode 08/30/2023 00:00:00 Chronic obstructive pulmonary disease, unspecified COPD type J44.9 [id number] 08/30/2023 00:00:00 Primary hypertension I10 [id number] 08/30/2023 00:00:00 Hypothyroidism, unspecified type E 03.9 [id number] 08/30/2023 00:00:00 Muscle wasting and a trophy, not elsewhere classified, right lower leg M62.561 [id number] 08/30/2023 00:00:00 Muscle wasting and a trophy, not elsewhere classified, left lower leg M62.562 [id number] 08/30/2023 00:00:00 Oxygen dependent Z99.81 9310 [id number] 09/26/2023 00:00:00 Chronic respiratory failure with h ypoxia J96.11 [id number] 01/31/2024 00:00:00 Other chronic pain G89.29 82 010547 01/31/2024 00:00:00 Difficulty in walking R26.2 01/31/2024 00:00:00 Pain in thoracic spine M54.6 [id number] 01/31/2024 00:00:00 Atrial flutter with rapid ventricular response I48.92 [id number] 01/31/2024 00:00:00 Sinus pause I45.5 66177556 01/31/2024 00:00:00 On potassium wasting diuretic ther apy Z79.899 [id number] 01/31/2024 00:00:00 History of falling Z91.81 01/31/2024 00:00:00 BMI 30.0-30.9,adult Z68.30 1 [id number] OBJECTIVE DATA No information PHYSICAL EXAMINATION No information TREATMENT PLAN No information RESULTS No information REVIEW OF SYSTEMS No information SUBJECTIVE DATA No information VITAL SIGNS No information MEDICATIONS No information
--- OUTSIDE RECORDS SUMMARY | 2024-09-20 11:01 | XMS_ITS ---
Author Name Unknown Organization [facility] Allergies, Adverse Reactions and Alerts Date Isallergic Allergen Reaction 05/01/2024 1 Codeine chest pressure ASSESSMENT No information CHIEF COMPLAINT No information MEDICATIONS No information OBJECTIVE DATA No information PHYSICAL EXAMINATION No information TREATMENT PLAN No information PROBLEMS No information RESULTS No information REVIEW OF SYSTEMS No information SUBJECTIVE DATA No information VITAL SIGNS No information
--- OUTSIDE RECORDS SUMMARY | 2024-09-20 11:02 | XMS_ITS ---
Author Name Unknown Organization [facility] Address [address] [place] [id number] Care Team Providers Care Code Clerk Name Role Phone Alycia Garcia [phone] REASON FOR VISIT Refills SOCIAL HISTORY Sex Assigned At : Social History Observation Description Sex Assigned At Female Encounters Encounter Location Date Provider Diagnosis [address] [address] 06/24/2024 Alycia Garcia PLAN OF TREATMENT No Information Progress Notes * Jeremy SILVERMANOB:1940 (83 yo F)Acc No.[id number]:06/24/2024 Patient:??Radha SILVERMAN :1940?Age:83 Y?Sex:Fe male Address:[address] [place] [id number] * true * Date:??
--- OUTSIDE RECORDS SUMMARY | 2024-09-20 11:02 | XMS_ITS ---
Author Name Unknown Organization [facility] Address [address] [place] [phone] Care Team Providers Care Arts Manager Name Role Phone Alycia Garcia Unavailable [phone] REASON FOR VISIT Refills MEDICATIONS Medication SIG (Take, Route, Frequency, Duration) Notes Start Date End Date Status Albuterol Sulfate HFA 108 (90 Base) MCG/ACT 2 puff as needed Inhalation every 4 hrs 09/24/2023 Active SOCIAL HISTORY Sex Assigned At : Social History Observation Description Sex Assigned At Female Encounters Encounter Location Date Provider Diagnosis [facility] [address] [address] 07/28/2024 Alycia Chronic obstructive pulmonary disease, unspecified COPD type J44.9 ASSESSMENTS Encounter Date Diagnosis Assessment Notes Treatment Notes Treatment Clinical Notes Section Notes 07/28/2024 Chronic obstructive pulmonary disease, unspecified COPD type (ICD-10 - J44.9) PLAN OF TREATMENT Medication Medication Name Sig Start Date Stop Date Notes Albuterol Sulfate HFA 108 (9 0 Base) MCG/ACT 2 puff as needed Inhalation every 4 hrs 09/24/2023 Progress Notes * Jeremy SILVERMANOB:1940 (83 yo F)Acc No.[id number]:07/28/2024 Patient:??Radha SILVERMAN :1940?Age:83 Y?Sex:Fe male Address:[address] [place] [phone] * Refills?? Refill Albuterol Sulfate HFA Aerosol Solution, 108 (90 Base) MCG/ACT, Inhalation, 1, 2 puff as needed, every 4 hrs, Refills=1 * true * Date:??
--- OUTSIDE RECORDS SUMMARY | 2024-09-20 11:02 | XMS_ITS ---
Author Name Unknown Organization [facility] Address [address] [place] [phone] Care Team Providers Care Customer Service Correspondence Clerk Name Role Phone Alycia Garcia [phone] REASON FOR VISIT Other SOCIAL HISTORY Sex Assigned At : Social History Observation Description Sex Assigned At Female Encounters Encounter Location Date Provider Diagnosis [address] [address] 07/23/2024 Alycia Garcia PLAN OF TREATMENT No Information Progress Notes * Jeremy SILVERMANOB:1940 (83 yo F)Acc No.[id number]:07/23/2024 Patient:??Radha SILVERMAN :1940?Age:83 Y?Sex:Fe male Address:[address] [place] [phone] * true * Date:??
--- OUTSIDE RECORDS SUMMARY | 2024-09-20 11:02 | XMS_ITS | Patient Health Record ---
Author Name Unknown Organization [email or web address] Address [address] [address] Care Team Providers Care Termite Treater Helper Name Role Phone Alycia Garcia Unavailable [phone] ALLERGIES Allergen (clinical drug ingredient) Drug/Non Drug Allergy documented on EMR Reaction Allergy Type Onset Date Status codeine Codeine chest pressure Drug Allergy Ac tive RESULTS Component Value Reference Range Notes COMPREHENSIVE METABOLIC PANE L ([id number]) Reviewed date:09/26/2023 09:07:57 PM Interpretation:Normal Performing Lab:[place], [facility]-[id number] Devan [facility], [id number] Ashley Soler MD Notes/Report: 0 0 0 GLUCOSE 98 65-99 mg/dL Fasting reference interval UREA NITROGEN (BUN) 17 7-25 mg/dL CREATININE 0.82 0.60-0.95 mg/dL EGFR 72 > OR = 60 mL/min/1.73m2 BUN/CREATININE RATIO SEE NOTE: 6-22 (calc) Not Reported: BUN and Creatinine are within reference range. SODIUM 137 135-146 mmol/L POTASSIUM 4.7 3.5-5.3 mmol/L CHLORIDE 100 98-110 mmol/L CARBON DIOXIDE 29 20-32 mmol/L CALCIUM 9.0 8.6-10.4 mg/dL PROTEIN, TOTAL 6.5 6.1-8.1 g/dL ALBUMIN 4.0 3.6-5.1 g/dL GLOBULIN 2.5 1.9-3.7 g/dL (calc) ALBUMIN/GLOBULIN RATIO 1.6 1.0-2.5 (calc) BILIRUBIN, TOTAL 0.3 0.2-1.2 mg/dL ALKALINE PHOSPHATASE 70 37-153 U/L AST 19 10-35 U/L ALT 11 6-29 U/L CBC (INCLUDES DIFF/PLT) (639 9) Reviewed date:09/26/2023 09:08:17 PM Interpretation:Normal Performing Lab:[facility]-[id number] Devan [facility], [id number] Ashley Soler MD Notes/Report: 0 0 0 WHITE BLOOD CELL COUNT 5.5 3.8-10.8 Thousand/ uL RED BLOOD CELL COUNT 4.18 3.80-5.10 Million/uL HEMOGLOBIN 12.1 11.7-15.5 g/dL HEMATOCRIT 37.6 35.0-45.0 % MCV 90.0 80.0-100.0 fL MCH 28.9 27.0-33.0 pg MCHC 32.2 32.0-36.0 g/dL RDW 12.5 11.0-15.0 % PLATELET COUNT 310 140-400 Thousand/uL MPV 10.3 7.5-12.5 fL ABSOLUTE NEUTROPHILS 3784 1607-0356 cells/uL ABSOLUTE LYMPHOCYTES 5102 599-7930 cells/uL ABSOLUTE MONOCYTES 380 200-950 cells/uL ABSOLUTE EOSINOPHILS 132 15-500 cells/uL ABSOLUTE BASOPHILS 22 0-200 cells/uL NEUTROPHILS 68.8 LYMPHOCYTES 21.5 MONOCYTES 6.9 EOSINOPHILS 2.4 BASOPHILS 0.4 TSH W/REFLEX TO FT4 ([id number]) Reviewed date:09/26/2023 09:08:03 PM Interpretation:Low Performing Lab:[facility]-[id number] Dev[facility], [id number] Ashley Soler MD Notes/Report: 0 0 0 0 0 0 TSH W/REFLEX TO FT4 0.07 0.40-4.50 mIU/L T4, FREE 1.5 0.8-1.8 ng/dL COMPREHENSIVE METABOLIC PANE L ([id number]) Reviewed date:02/14/2024 01:35:39 PM Interpretation: Performing Lab:[facility]-[id number] [facility], [id number] Ashley Soler MD Notes/Report: 0 0 GLUCOSE 98 65-99 mg/dL Fasting reference interval UREA NITROGEN (BUN) 16 7-25 mg/dL CREATININE 1.18 0.60-0.95 mg/dL EGFR 46 > OR = 60 mL/min/1.73m2 BUN/CREATININE RATIO 14 6-22 (calc) SODIUM 138 135-146 mmol/L POTASSIUM 4.4 3.5-5.3 mmol/L CHLORIDE 97 98-110 mmol/L CARBON DIOXIDE 34 20-32 mmol/L CALCIUM 8.5 8.6-10.4 mg/dL PROTEIN, TOTAL 6.5 6.1-8.1 g/dL ALBUMIN 3.9 3.6-5.1 g/dL GLOBULIN 2.6 1.9-3.7 g/dL (calc) ALBUMIN/GLOBULIN RATIO 1.5 1.0-2.5 (calc) BILIRUBIN, TOTAL 0.3 0.2-1.2 mg/dL ALKALINE PHOSPHATASE 75 37-153 U/L AST 17 10-35 U/L ALT 15 6-29 U/L TSH W/REFLEX TO FT4 ([id number]) Reviewed date:02/14/2024 01:35:39 PM Interpretation: Performing Lab:[place], [facility]-[id number] Devan [facility], [id number] MadelineLyly Soler MD Notes/Report: 0 0 0 0 TSH W/REFLEX TO FT4 25.48 0.40-4.50 mIU/L T4, FREE 0.7 0.8-1.8 ng/dL REASON FOR REFERRAL Reason hospital follow up. was seen by dr stewart in the hospital this month Diagnosis 1 Atrial flutter with rapid ventricular response (I48.92) Diagnosis 2 Sinus pause (I45.5) [facility] Referring Provider First Name Alycia Referring Provider Last Name Ref[facility]erred Provider [facility] General Notes Alycia Garcia 01/20 11:02:29 AM >send notes from [facility] trav as well, Caitie Soler 02/06/2024 05:00:22 PM >Received fax from [facility] Heart [facility] Lung verifying appt 02/25/24 at 1 pm. Referral Priority Routine Referral Appointment Date 02/25/2024 MEDICATIONS Medication SIG (Take, Route, Frequency, Duration) Notes Start Date End Date Status Oxygen-Helium 3.5L [place] Unk nown Albuterol Sulfate (2.5 MG/3ML) 0.083% 3 ml as needed Inhalation every 6 hrs for 30 days 09/26/2023 Unknown Furosemide 20 MG 1 tablet Orally Once a day for 90 days Active Aspirin 81 81 MG 1 tablet Orally Once a day Unknown Wheelchair - as directed 01/31/2024 Unkn own Amiodarone HCl 200 MG 1 tablet Orally On ce a day for 90 days Active Commode Bedside - as directed 01/31/2024 Unknown Senna S 8.6-50 MG 1 tablet as needed Orally Twice a day [facility] 01/26/2024 Unknown oxyCODONE HCl 5 MG 1 tablet as needed Orally every 6 hrs Unknown Levothyroxine Sodium 75 MCG 1 tablet in the morning on an empty stomach Orally Once a day for 90 days 02/14/2024 Active Albuterol Sulfate HFA 108 (90 Base) MCG/ACT INHALE TWO PUFFS EVERY 4 HOURS NEEDED for 17 Active SOCIAL HISTORY Sex Assigned At : Social History Observation Description Sex Assigned At Female Section Notes: adopted children live with h er (yound adults) adopted children live with h er (yound adults) PROBLEMS Problem Type ICD Code Onset Dates Problem Status W/U Status Risk SNOMED Code Notes Problem Other chronic pain (G89.29) Active confirmed 10111132 Problem Chronic respiratory failure with hypoxia (J96.11) Active confirmed 571146769 Problem Pain in thoracic spine (M54.6) Active confirmed 974477315268149 Problem Muscle wasting and atrophy, not elsewhere classified, right lower leg (M62.561) Active confirmed 207626466179312 Problem Muscle wasting and atrophy, not elsewhere classified, left lower leg (M62.562) Active confirmed 375908535943098 Problem History of falling (Z91.81) Active confirmed History of fall (229639311) Problem Primary hypertension (I10) Active confirmed 28201415 Problem Chronic obstructive pulmonary disease, unspecified COPD type (J44.9) Active confirmed 81647771 Problem Hypothyroidism, unspecified type (E03.9) Active confirmed 07260774 Problem Oxygen dependent (Z99.81) Active confirmed 772120804643 Problem BMI 30.0-30.9,adult (Z68.30) Active confirmed 170062451 Problem On potassium wasting diuretic therapy (Z79.899) Active confirmed 924898215 Problem Difficulty in walking (R26.2) Active confirmed Walking disa bility (762646110) Problem Atrial flutter with rapid ventricular response (I48.92) Active confirmed 7296009 Problem Sinus pause (I45.5) Active confirmed 38866073 VITAL SIGNS Heart Rate 63 /min 01/31/2024 Temperature 98.6 degrees Fahrenheit 01/31/2024 Height-cm 160.02 cm 01/31/2024 Oximetry 96 % 01/31/2024 Blood pressure diastolic 64 mm Hg 01/31/2024 Weight-kg 77.56 kg 01/31/2024 Height 63 in 01/31/2024 Blood pressure systolic 128 mm Hg 01/31/2024 Weight 171.0 lbs 01/31/2024 BMI 30.29 kg/m2 01/31/2024 Encounters Encounter Location Date Provider Diagnosis [address] [phone] 10/11/2023 [facility] [address] [place] [phone] 03/25/2024 [facility] [address] [place] [phone] 09/24/2023 Alycia Garcia Primary hypertension I10 ; COPD, severe J44.9 ; Hypothyroidism, unspecified type E03.9 ; Oxygen dependent Z99.81 ; Atrial flutter, unspecified type I48.92 and Chronic respiratory failure with hypoxia J96.11 [facility] [address] [place] [address] 01/31/2024 Alycia Garcia Hypothyroidism, unspecified type E03.9 ; Atrial flutter with rapid ventricular response I48.92 ; On potassium wasting diuretic therapy Z79.899 ; Chronic obstructive pulmonary disease, unspecified COPD type J44.9 ; Oxygen dependent Z99.81 ; Difficulty in walking R26.2 ; Pain in thoracic spine M54.6 ; Other chronic pain G89.29 ; Chronic constipation K59.09 ; Chronic respiratory failure with hypoxia J96.11 ; History of falling Z91.81 and BMI 30.0-30.9,adult Z68.30 [facility] [address] [place] [phone] 09/24/2023 [facility], [facility] [address] [place] [phone] 09/26/2023 [facility], [facility] [address] [place] [phone] 09/27/2023 [facility], [facility] [address] [place] [phone] 10/08/2023 [facility], [facility] [address] [place] [address] 10/09/2023 [facility], [facility] [address] [place] [phone] 11/02/2023 [facility], [facility] [address] [place] [phone] 12/01/2023 [facility], [facility] [address] [place] [address] 12/20/2023 [facility], [facility] [address] [place] [phone] 01/17/2024 [facility], [facility] [address] [place] [phone] 01/30/2024 [facility], [facility] [address] [place] [phone] 01/31/2024 [facility], [facility] [address] [place] [phone] 02/08/2024 Alycia [place] Hypothyroidism, unspecified type E03.9 [facility], [facility] [address] [place] [phone] 02/14/2024 Alycia [place] Hypothyroidism, unspecified type E03.9 and On potassium wasting diuretic therapy Z79.899 [facility], [facility] [address] [place] [address] 02/25/2024 [facility], [facility] [address] [place] [phone] 03/20/2024 [facility] [address] [place] [phone] 03/22/2024 [facility] [address] [place] [address] 05/01/[address] [address] 06/18/2024 [facility] [address] [place] [phone] 06/18/[address] [address] 06/19/[address] [address] 06/24/[address] [address] 07/23/2024 [facility] [address] [place] [phone] 07/28/2024 [facility] Chronic obstructive pulmonary disease, unspecified COPD type J44.9 ASSESSMENTS Encounter Date Diagnosis Assessment Notes Treatment Notes Treatment Clinical Notes Section Notes 09/24/2023 COPD, severe (ICD-10 - J44.9) cont oxygen and ventolin will add breztri...see if that helps. she is using about 2 ventolin inhalers per month. will also add some albuterol for the nebulizer 09/24/2023 Primary hypertension (ICD-10 - I10) good control cont meds 01/31/2024 Hypothyroidism, unspecified type (ICD-10 - E03.9) 01/31/2024 Atrial flutter with rapid ventricular response (ICD-10 - I48.92) She is wearing holter monitor. will refer to cardiology..spf d or wp, per her choice. amiodarone 02/08/2024 Hypothyroidism, unspecified type (ICD-10 - E03.9) 02/14/2024 Hypothyroidism, unspecified type (ICD-10 - E03.9) 07/28/2024 Chronic obstructive pulmonary disease, unspecified COPD type (ICD-10 - J44.9) 01/31/2024 On potassium wasting diuretic therapy (ICD-10 - Z79.899) 02/14/2024 On potassium wasting diuretic therapy (ICD-10 - Z79.899) 09/24/2023 Hypothyroidism, unspecified type (ICD-10 - E03.9) will check labs today 09/24/2023 Oxygen dependent (ICD-10 - Z99.81) 01/31/2024 Chronic obstructive pulmonary disease, unspecified COPD type (ICD-10 - J44.9) 01/31/2024 Oxygen dependent (ICD-10 - Z99.81) 3.5-4L PNC 09/24/2023 Atrial flutter, unspecified type (ICD-10 - I48.92) cont metoprolol 09/24/2023 Chronic respiratory failure with hypoxia (ICD-10 - J96.11) continue home oxygen 3.5L will add breztri inhaler 01/31/2024 Difficulty in walking (ICD-10 - R26.2) 01/31/2024 Pain in thoracic spine (ICD-10 - M54.6) 01/31/2024 Other chronic pain (ICD-10 - G89.29) 01/31/2024 Chronic constipation (ICD-10 - K59.09) 01/31/2024 Chronic respiratory failure with hypoxia (ICD-10 - J96.11) oxygen 3.5-4L 01/31/2024 History of falling (ICD-10 - Z91.81) rx for bedside commode 01/31/2024 BMI 30.0-30.9,adult (ICD-10 - Z68.30) f/u pending labs 09/24/2023 Other arrangements made at [employer] [facility] for pt to begin monthly pick. grandsons can help her since they live with her and help her 01/31/2024 Other continue HH we discussed Hospice consult. She will consider. PLAN OF TREATMENT Future Test Test Name Order Date TSH W/REFLEX TO FT4 ([id number]) 03/13/2024 Insurance Providers Payer Name Payer Address Payer Phone Subscriber Number Group Number Insured Name Patient Relationship to Insured Coverage Start Date Coverage End Date [place] [employer]-[place] 5 [id number] [facility] [address] [place], [place] [phone] [id number] Radha Silverman Self - patient is the insured MEDICAL (GENERAL) HISTORY Medical History History ICD Code copd htn hypothyroidism DEXA left eye blindness irreg heart beat Surgical History Surgery Date(Month/Year) partial thyroidectomy cholecystecomy hernia repair hysterectomy. ovaries remain Hospitalization History Reason Date(Month/Year) [facility]. HTN and SOB 09/2022
--- NOTE | 2024-09-20 11:44 | PC.NURSE ---
pt Cardizem paused d/t heart rate decreasing to 57 on cardiac cath lab manager. repeat EKG obtained, Dr. Noriega aware. Zeinabzem gtt paused during transport, sent with JUSTA Mariee to [facility]. pt sent on cardiac mon
[2024-09-20 12:04] LABS: Magnesium 1.8 mg/dL (1.7-2.3)
--- NOTE | 2024-09-20 12:11 | PC.NURSE ---
Patient received from ED via stretcher. Observed patient's skin to be intact however very flaky and dry. Patient c/o severe pain to back and legs. Informed Dr Acevedo and received telephone order for Torodal 10mg IVP once now.
[2024-09-20] MEDS: FUROsemide 20 mg Tablet PO (12:27)
[2024-09-20] MEDS: levothyroxine 112 mcg Tablet PO (12:27)
[2024-09-20] MEDS: ketorolac 30 mg/mL INJ 10 MG IVP (12:28)
[2024-09-20] MEDS: heparin 5,000 unit/mL INJ 1 mL 5000 UNIT SUBCUT ×2 (12:28→22:27)
[2024-09-20] MEDS: famotidine 20 mg/2 mL INJ IVP ×2 (12:28→22:26)
[2024-09-20] MEDS: calcium gluconate 0.9% NaCL 1 GM/50 ML PREMIX IV (12:28)
--- NOTE | 2024-09-20 13:34 | ECG_ITS ---
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 Measurements Intervals [place] Rate: 96 P: 0 ME: 0 QRS: 53 QRSD: 86 T: 73 QT: 276 QTc: 349 Interpretive Statements ATRIAL FLUTTER LOW QRS VOLTAGE IN PRECORDIAL LEADS [QRS DEFLECTION < 1.0 mV IN CHEST LEADS] MODERATE ST DEPRESSION [0.05+ mV ST DEPRESSION] Compared to ECG 09/20/2024 10:41:42 ST (T wave) deviation now present T-wave abnormality no longer present Electronically Signed On 09-21-2024 19:07:26 DIGITAL FORENSIC ANALYST by Joel Flores M.D. [email or web address]
[2024-09-20 13:41] LABS: Troponin 5 6HR 14.54 ng/L (0-10); Troponin 5 6HR Delta 2.54 ng/L (0-12)
--- NOTE | 2024-09-20 14:16 | P.HP_ITS ---
Providers/Chief Complaint 2 Admitting Physician: Neal Bryan MD Chief Complaint: Fall History of Present Illness Radha Silverman is a 83 year old female with past medical history of atrial fibrillation, not on rate control medications calcium channel mynor or beta- mynor due to prolonged sinus pauses, COPD on supplemental oxygen at home, history of PE treated with Eliquis for a year, currently not on Eliquis, presented s/p fall at home. As per the patient she went to the bathroom was coming back to her bed she turned, her left leg gave away and she fell on the left side. She started complaining of left hip and leg numbness and pain and was unable to walk and bear weight. Hence came to ER for further evaluation. In ER she was found to be in A-fib with RVR in 120s and 130s. She was started on Cardizem drip at 5 mg/h and was also given her morning dose of amiodarone. She denied any complaint of chest pain, palpitations, dizziness, loss of consciousness, did not hit her head, fever, cough, urinary or bowel complaints. She has been all well until this morning. Review of Systems 2 General: Reports: 10 or more systems reviewed and unremarkable except in HPI and below Medications/Allergies Home Medications Medication Instructions Recorded Confirmed Last Taken Type albuterol sulfate 90 mcg/actuation 1 inh inhalation Q6H PRN shortness 04/23/22 09/20/24 Unknown Rx aerosol inhaler of breath or wheezing #8.5 grams aspirin 81 mg tablet,delayed 81 mg PO DAILY 01/10/24 09/20/24 09/19/24 11:00 History release amiodarone 200 mg tablet 200 mg PO DAILY #90 tabs 01/18/24 09/20/24 09/19/24 11:00 Rx furosemide 20 mg tablet (Lasix) 20 mg PO DAILY 02/28/24 09/20/24 09/19/24 History levothyroxine 112 mcg tablet See Rx Instructions .Route .COMPLEX 09/20/24 09/20/24 09/19/24 History Allergies Allergy/AdvReac Type Severity Reaction Status Date / Time codeine Allergy Unknown Verified 02/28/24 12:57 PFSH Acute 2 PFSH: Medical History History of pulmonary embolism Acute and chronic respiratory failure with hypoxia Pulmonary embolism Pneumonia Chest pain Chronic respiratory failure with hypoxia COPD (chronic obstructive pulmonary disease) Acute left flank pain Atrial flutter with rapid ventricular response Hypertension Family History Other Cancer Social History Smoking and tobacco/nicotine status: current every day tobacco/nicotine user Alcohol intake: never Substance/Drug Use: never Vitals/I&O/Wt Last Vital Signs Temp 98.3 F 09/20/24 12:00 Pulse 120 H 09/20/24 12:00 Resp 24 H 09/20/24 12:00 BP 109/73 09/20/24 12:00 Pulse Ox 92 09/20/24 12:00 O2 Del Method Nasal Cannula 09/20/24 12:41 O2 Flow Rate 2 09/20/24 12:00 09/19/24 09/20/24 09/20/24 22:59 06:59 14:59 Intake Total 0 / 0 68.167 / 68.167 Balance 0 / 0 68.167 / 68.167 Weight last 48 hrs Weight 86.183 kg Physical Exam 2 Narrative: She is alert awake oriented x 3, on supplemental oxygen via nasal cannula, not in acute distress Chest clear to auscultation bilaterally Cardiovascular normal heart sounds, irregular and tachycardic Abdomen soft nontender nondistended normal bowel sounds Extremities minimal pedal edema noted bilateral lower extremity Data 09/20/24 07:04 09/20/24 07:04 A&P Assessment and plan (1) Contusion of hip, left: (2) Fall: (3) Atrial flutter with rapid ventricular response: (4) Hypertension: Qualifiers: Hypertension type: primary hypertension Qualified Code(s): I10 - Essential (primary) hypertension (5) Dyslipidemia: (6) COPD (chronic obstructive pulmonary disease): Qualifiers: COPD type: unspecified COPD Qualified Code(s): J44.9 - Chronic obstructive pulmonary disease, unspecified (7) History of pulmonary embolism: (8) Sinus pause: (9) Hypoxic respiratory failure: Qualifiers: Chronicity: chronic Qualified Code(s): J96.11 - Chronic respiratory failure with hypoxia (10) Atrial flutter with rapid ventricular response: Plan Radha Silverman is a 83 year old female with past medical history of atrial fibrillation/atrial flutter, not on rate control medications calcium channel mynor or beta-mynor due to prolonged sinus pauses, COPD, acute hypoxic and hypercarbic respiratory failure on supplemental oxygen at home, history of PE treated with Eliquis for a year, currently not on Eliquis, presented s/p fall at home with complaint of left leg pain and numbness and unable to walk and bear weight. Was found to be in A-fib with RVR in 120s to 130s in ER. #Fall-likely mechanical X-ray left hip, knee and pelvis done which did not show any acute findings Will do pain control #A-fib/a flutter with RVR- Started on Cardizem drip in ER Continue cardiac monitoring Will continue ASSISTANT HEALTH EDUCATOR amiodarone and aspirin Chest x-ray showed no acute findings Continue ASSISTANT HEALTH EDUCATOR Lasix #COPD-stable Continue supplemental oxygen to keep saturation more than 90% #Hypothyroidism-continue ASSISTANT HEALTH EDUCATOR levothyroxine DVT prophylaxis with subcutaneous heparin GI prophylaxis with IV Pepcid 20 mg twice daily CODE STATUS discussed with the patient, she is full code Attestations 2 Medical Necessity Statement*: She needs continued hospitalization not crossing 2 midnights for cardiac monitoring of A-fib with RVR and PT eval for left lower extremity pain and weightbearing Time Spent in Patient Care: 40-minute Coding Level of Care Code Acute Code for Chg Fwd Diagnoses Contusion of hip, left S70.02XA Fall W19.XXXA Atrial flutter with rapid ventricular response I48.92 Primary hypertension I10 Hypertension type: primary hypertension Dyslipidemia E78.5 Chronic obstructive pulmonary disease, unspecified COPD type J44.9 COPD type: unspecified COPD History of pulmonary embolism Z86.711 Sinus pause I45.5 Chronic respiratory failure with hypoxia J96.11 Chronicity: chronic Time Spent (min) 40
[2024-09-20] MEDS: ipratropium-albuterol 3 mL Neb INHALATION ×2 (14:26→20:58)
[2024-09-20] MEDS: ondansetron 2 mg/ML SDV 2 mL 4 MG IVP (15:02)
[2024-09-20] MEDS: acetaminophen 325 mg Tablet 650 MG PO (17:25)
[2024-09-20] MEDS: magnesium oxide 400 mg tablet PO (17:25)
[2024-09-21] VITALS (59 sets, daily range): BP systolic 104–146; BP diastolic 66–100; PULSE 82–120; RESP 15–36; TEMP 36.5–36.7; O2SAT 84–99
[2024-09-21] MEDS: acetaminophen 325 mg Tablet 650 MG PO (03:55)
[2024-09-21 05:34] LABS: Basophils % 0.6 %; Eosinophils # 0.3 10^3/uL (0.0-0.8); Eosinophils % 5.9 %; Hematocrit 36.9 % (36-47); Lymphocytes # 1.2 10^3/uL (0.8-4.8); Lymphocytes % 24.9 %; Mean Corpuscular HGB Conc 30.4 g/dL (30-55); Mean Corpuscular Hemoglobin 29.3 pg (27-33); Mean Corpuscular Volume 96.6 fl (85-98); Mean Platelet Volume 9.1 fL (7.4-10.4); Monocytes # 0.4 10^3/uL (0.2-0.9); Neutrophils # 2.83 10^3/uL (1.8-7.7); Neutrophils % 59.4 %; Nucleated Red Blood Cells % 0 %; Platelet Count 198 10^3/cmm (157-399); Red Blood Count 3.82 10^6/uL (3.85-5.65); White Blood Count 4.77 10^3/uL (3.29-11.43)
[2024-09-21 05:58] LABS: Anion Gap 7.9 (5-19); Blood Urea Nitrogen 24 mg/dL (8-23); Calcium 8.6 mg/dL (8.5-10.5); Carbon Dioxide 33 mmol/L (22-29); Chloride 99 mmol/L (98-107); Creatinine Clr Calc Pharmacy 37.5531; Glucose 111 mg/dL (65-115); Magnesium 2.1 mg/dL (1.7-2.3); Osmolality Calculated 285 mOsm/kg (285-295); Potassium 4.9 mmol/L (3.5-5.1); Sodium 135 mmol/L (136-145)
[2024-09-21 06:08] LABS: NT Pro B Type Natriuretic Pept 977 pg/mL (0-450)
[2024-09-21] MEDS: levothyroxine 112 mcg Tablet PO (06:15)
[2024-09-21] MEDS: ipratropium-albuterol 3 mL Neb INHALATION ×3 (07:50→21:18)
[2024-09-21] MEDS: nitrofurantoin SR (BID) 100 mg Capsule PO ×2 (08:57→18:08)
[2024-09-21] MEDS: FUROsemide 20 mg Tablet PO (08:57)
[2024-09-21] MEDS: amiodarone 200 mg Tablet PO (08:57)
[2024-09-21] MEDS: aspirin 81 mg EC Tablet PO (08:57)
[2024-09-21] MEDS: nystatin powder 15 gm Btl 1 APPLIC TOPICAL ×2 (09:00→18:08)
[2024-09-21] MEDS: ibuprofen 200 mg Tablet 400 MG PO (11:16)
[2024-09-21] MEDS: fentaNYL 25 mcg Patch 1 PATCH TRANSDERMA (11:17)
[2024-09-21] MEDS: heparin 5,000 unit/mL INJ 1 mL 5000 UNIT SUBCUT ×2 (11:18→23:11)
[2024-09-21] MEDS: famotidine 20 mg/2 mL INJ IVP ×2 (11:18→23:11)
[2024-09-21 14:09] LABS: Bilirubin Urine Negative (Negative); Blood Urine Negative (Negative); Glucose Urine UA Negative (Normal); Ketones Urine Negative (Negative); Leukocyte Esterase Urine Negative (Negative); Nitrate Urine Negative (Negative); Protein Urine Negative (Negative); Urine Appearance Clear (CLEAR); Urine Color Yellow (Yellow); Urobilinogen Urine 0.2 mg/dL (Negative)
[2024-09-21 14:14] LABS: Add Urine Microscopic? YES; Bacteria Urine None Seen /hpf; RBC Urine 0-2 /hpf (0-2); WBC Urine 0-5 /hpf (0-5)
[2024-09-21 14:25] LABS: Hyaline Casts Urine 15-25 /lpf; UA Slide Review UA Slide Review Perf
--- NOTE | 2024-09-21 16:12 | P.PN_ITS ---
Subjective 2 Subjective: Seen her at bedside this morning. She has dyspnea at rest at baseline. She is on 4 L nasal cannula. Denies any complaint of chest pain or palpitations, dizziness at this time. States she is not able to ambulate due to severe left leg pain and numbness. Requesting for Ambrosio catheter due to inability to go to the bathroom for urination. Medications: Reviewed: Yes Vitals/I&O/Wt Last Vital Signs Temp 98.1 F 09/21/24 12:00 Pulse 110 H 09/21/24 13:06 Resp 16 09/21/24 12:58 BP 125/100 09/21/24 12:00 Pulse Ox 98 09/21/24 12:58 O2 Del Method Nasal Cannula 09/21/24 12:58 O2 Flow Rate 4 09/21/24 12:58 09/21/24 09/21/24 09/21/24 06:59 14:59 22:59 Intake Total 600 / 600 Output Total 900 / 900 Balance -300 / -300 Weight last 48 hrs Weight 86.273 kg Weight 86.273 kg Weight 86.183 kg Physical Exam 2 Narrative: She is alert awake oriented x 3, on supplemental oxygen via nasal cannula, not in acute distress Chest clear to auscultation bilaterally Cardiovascular normal heart sounds, irregular and tachycardic Abdomen soft nontender nondistended normal bowel sounds Extremities minimal pedal edema noted bilateral lower extremity Urinary Catheter Management: Ambrosio: Cath Placed During This Visit: yes Urinary Catheter Date of Insertion: 09/21/24 Urinary Catheter Time of Insertion: 13:00 Data 09/21/24 04:25 09/21/24 04:25 Micro: Microbiology 09/20/24 10:26 Urine Culture - Preliminary Urine,Clean Catch A&P Assessment and plan (1) Contusion of hip, left: (2) Fall: (3) Atrial flutter with rapid ventricular response: (4) Hypertension: Qualifiers: Hypertension type: primary hypertension Qualified Code(s): I10 - Essential (primary) hypertension (5) Dyslipidemia: (6) COPD (chronic obstructive pulmonary disease): Qualifiers: COPD type: unspecified COPD Qualified Code(s): J44.9 - Chronic obstructive pulmonary disease, unspecified (7) History of pulmonary embolism: (8) Sinus pause: (9) Hypoxic respiratory failure: Qualifiers: Chronicity: chronic Qualified Code(s): J96.11 - Chronic respiratory failure with hypoxia (10) Atrial flutter with rapid ventricular response: Jagjit Radha Silverman is a 83 year old female with past medical history of atrial fibrillation/atrial flutter, not on rate control medications calcium channel mynor or beta-mynor due to prolonged sinus pauses, COPD, acute hypoxic and hypercarbic respiratory failure on supplemental oxygen at home, history of PE treated with Eliquis for a year, currently not on Eliquis, presented s/p fall at home with complaint of left leg pain and numbness and unable to walk and bear weight. Was found to be in A-fib with RVR in 120s to 130s in ER. #Fall-likely mechanical X-ray left hip, knee and pelvis done which did not show any acute findings Will do pain control #A-fib/a flutter with RVR- Started on Cardizem drip in ER Continue cardiac monitoring Will continue AIRPORT OPERATIONS CREW MEMBER amiodarone and aspirin Chest x-ray showed no acute findings Continue AIRPORT OPERATIONS CREW MEMBER Lasix #COPD-stable Continue supplemental oxygen to keep saturation more than 90% #Hypothyroidism-continue AIRPORT OPERATIONS CREW MEMBER levothyroxine DVT prophylaxis with subcutaneous heparin GI prophylaxis with IV Pepcid 20 mg twice daily CODE STATUS discussed with the patient, she is full code 09/21/24 She is doing well otherwise. Has A-fib with rate controlled has been off Cardizem drip since yesterday afternoon. Still unable to ambulate due to severe left lower extremity pain and numbness. Follow-up PT recommendations for safe discharge planning. UA consistent with questionable UTI, started on p.o. Macrobid 100 mg twice daily Attestations 2 Medical Necessity Statement*: She needs continued hospitalization not crossing 2 midnights for cardiac monitoring of A-fib with RVR and PT eval for left lower extremity pain and weightbearing Time Spent in Patient Care: 20-minute Coding Level of Care Code Acute Code for Chg Fwd Diagnoses Contusion of hip, left S70.02XA Fall W19.XXXA Atrial flutter with rapid ventricular response I48.92 Primary hypertension I10 Hypertension type: primary hypertension Dyslipidemia E78.5 Chronic obstructive pulmonary disease, unspecified COPD type J44.9 COPD type: unspecified COPD History of pulmonary embolism Z86.711 Sinus pause I45.5 Chronic respiratory failure with hypoxia J96.11 Chronicity: chronic Time Spent (min) 20
[2024-09-22] VITALS (62 sets, daily range): BP systolic 95–130; BP diastolic 63–85; PULSE 77–127; RESP 14–34; TEMP 36.6–36.7; O2SAT 81–100; BMI 30.7
[2024-09-22 03:09] LABS: Anion Gap 10.7 (5-19); Blood Urea Nitrogen 22 mg/dL (8-23); Calcium 8.3 mg/dL (8.5-10.5); Carbon Dioxide 35 mmol/L (22-29); Chloride 97 mmol/L (98-107); Creatinine Clr Calc Pharmacy 40.6826; Glucose 131 mg/dL (65-115); Magnesium 1.9 mg/dL (1.7-2.3); Osmolality Calculated 291 mOsm/kg (285-295); Potassium 4.7 mmol/L (3.5-5.1); Sodium 138 mmol/L (136-145)
[2024-09-22] MEDS: levothyroxine 112 mcg Tablet PO (05:44)
[2024-09-22] MEDS: ipratropium-albuterol 3 mL Neb INHALATION ×3 (07:35→22:42)
[2024-09-22] MEDS: ibuprofen 200 mg Tablet 400 MG PO (09:01)
[2024-09-22] MEDS: FUROsemide 20 mg Tablet PO (09:01)
[2024-09-22] MEDS: aspirin 81 mg EC Tablet PO (09:02)
[2024-09-22] MEDS: amiodarone 200 mg Tablet PO (09:02)
[2024-09-22] MEDS: nitrofurantoin SR (BID) 100 mg Capsule PO ×2 (09:02→18:03)
--- NOTE | 2024-09-22 09:26 | MR_ITS ---
WS: [id number] MRI LUMBAR SPINE NONCONTRAST HISTORY: left leg numbness, weakness COMPARISON: None available. TECHNIQUE: Sagittal and axial multisequence imaging is submitted. Reversal of the normal cervical lordosis. Straightening of the thoracic curvature. Disc spaces are al l narrowed and desiccated throughout the cervical and thoracic spine. Curvature and scoliosis of the lumbar spine. Lumbar disc spaces are narrowed and desiccated. L2 and L3 retrolisthesis by 4 mm. No fractures or mar row edema. L1 concave Schmorl's node defect. Conus terminates normally at L1-2 disc level. L1-L2: Annular disc bulging with a shallow LEFT subarticular recess and foraminal disc protrusion con tacting the traversing LEFT L2 nerve root with mild stenosis. Mild LEFT foraminal stenosis. L2-L3: Osteophytic ridging with annular disc bulging. Disc bulging is asymmetric to the RIGHT. Disc c ontacts the ventral thecal sac. Mild stenosis centrally. Bilateral subarticular recess with moderate foraminal stenosis. Broad-based disc bulging RIGHT foramen. L3-L4: Diffuse annular disc bulging with osteophytic ridging. Ligamentum flavum and facet arthritis. Disc encroachment upon the subarticular recesses. Moderate to severe bilateral subarticular recess an d foraminal stenosis. L4-L5: Diffuse annular disc bulging. Mild bilateral subarticular recess and foraminal stenosis. L5-S1: Mild annular disc bulging with osteophytic ridging. Effacement of fat in the LEFT foramen. Mil d RIGHT with moderate to severe LEFT foraminal stenosis. There is a separate low signal mass in the L EFT foramen from the nerve root. Suspect there is probably a disc fragment in the LEFT foramen. MR/MR lumbar spine wo con* [id number] IMPRESSION: 1. Advanced degenerative changes throughout the lumbar spine. Degenerative sco liosis with facet and disc disease. 2. L5-S1: LEFT foraminal stenosis with effacement of fat. Low signal in the LE FT foramen separate from the nerve root is suspicious for a disc fragment. This would be contacting the LEFT exiting L5 nerve root. Mild RIGHT with moderate t o severe LEFT foraminal stenosis. 3. L3-4: Moderate to severe bilateral subarticular recess and foraminal stenos is. 4. L2-3: Broad-based disc bulging into the RIGHT foramen. Mild stenosis centra lly with bilateral subarticular recess and moderate foraminal stenosis. 5. L1-2: Shallow LEFT subarticular recess and foraminal disc protrusion contac ting the traversing L2 nerve roots. Mild LEFT foraminal and subarticular recess stenosis. 6. L4-5: Mild subarticular recess and foraminal stenosis. 7. No marrow edema or acute fracture.
--- NOTE | 2024-09-22 10:06 | PC.CHAP ---
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 helper visit [] Patient/Family/Request visit [] Outpatient visit [] Follow-up visit [] Physician referral [] Code/Alert [x] Routine visit [] Staff referral [] Actively dying [] Patient sleeping [] Family support [] [] Out of room [] Palliative care [] [] Receiving care in room [] Pre-surgical visit [] Trauma [] Long length of stay [] ICU visit [] Other: Relational/Emotional Strength [] Patient feels connected with others/family/visitors/staff [] Distress [] Loneliness/isolation [] Abandonment Spirituality of Patient [x] Person of Melinda [] Attends [facility] of their Melinda [x] Believes in Prayer [] Reads Bible or Adventist materials [] There are Spiritual issues to be addressed Entry Level Marketing Assistant Interventions [x] Prayer [x] Active listening [] Non-anxious presence [] Spiritual/emotional support [] Crisis/trauma care [] Spiritual counseling [] Bereavement support [] Provided bereavement packet [x] Provided Bible/devotional materials [] Provided toy/stuffed animal, coloring book to patient or family member [] Provided Communion [] Anointing/Haslet [] Salvation [x] Completed spiritual assessment [] Other: Impact on Illness or Injury [] Angry [] Fearful [] Anxious [] Often cries [] Exhaustion [] Unable to work [] Unable to attend jewish [] Unable to walk/stand [] Unable to read [] Unable to drive [] Unable to eat/drink [] Unable to sleep [] Unable to be with family [] Patient intubated [] Other: Summary Time spent with patient 5 min
[2024-09-22] MEDS: morphine 4 mg/mL SDV 1 mL IVP (10:19)
--- NOTE | 2024-09-22 11:30 | ECG_ITS ---
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 Measurements Intervals Dorothy Rate: 117 P: 0 AK: 0 QRS: 27 QRSD: 106 T: 50 QT: 323 QTc: 452 Interpretive Statements ATRIAL FLUTTER WITH RAPID VENTRICULAR RESPONSE MODERATE ST DEPRESSION [0.05+ mV ST DEPRESSION] Compared to ECG 09/20/2024 11:38:00 No significant changes Electronically Signed On 09-23-2024 21:42:45 PRODUCTION TEAM MEMBER by Joel Flores M.D. [email or web address]
--- NOTE | 2024-09-22 12:13 | XR_ITS ---
WS: [id number] XR chest 1V portable [id number] REASON FOR EXAM: f/u pulm edema FINDINGS: The chest is stable compared to 09/20/2024. Moderate tortuosity of the thoracic aorta. Heart size at the upper limits of normal. Areas of parenchymal scarring in the upper lung ely. There are reticular interstitial lung opacities in the mid and right lower lung field which are ident ifiable on the most recent examination of 09/20/2024 and are also noted on examinations and December and November 2023. Presumably chronic. XR/XR chest 1V portable [id number] IMPRESSION: Stable abnormal chest without acute abnormality.
--- NOTE | 2024-09-22 12:20 | PM.PN ---
Subjective Subjective: seen this am pt seen standing up with PT however having trouble as she states her leg is numb She recently sustained a fall and she developed acute left leg weakness and numbness and cannot bear weight on that side after that fall. Pelvic CT not show a gross fracture. Only walked 4 feet with physical therapy earlier. MRI lumbar spine ordered for this morning Vitals/I&O/Wt Last Vital Signs Temp 98.0 F 09/22/24 08:00 Pulse 127 H 09/22/24 08:00 Resp 21 H 09/22/24 10:19 BP 122/74 09/22/24 08:00 Pulse Ox 92 09/22/24 10:19 O2 Del Method Nasal Cannula 09/22/24 08:00 O2 Flow Rate 3 09/22/24 07:36 09/21/24 09/22/24 09/22/24 22:59 06:59 14:59 Output Total 350 / 1250 Balance -350 / -650 Weight last 48 hrs Weight 86.273 kg Weight 86.273 kg Weight 86.273 kg Physical Exam Narrative: She is alert awake oriented x 3, on supplemental oxygen via nasal cannula, not in acute distress, afib with RVR, tachycardic, irregularly irregular Chest clear to auscultation bilaterally Cardiovascular normal heart sounds, irregular and tachycardic Abdomen soft nontender nondistended normal bowel sounds Extremities minimal pedal edema noted bilateral lower extremity unable to bear weight on left side, complains of numbness Urinary Catheter Management: Ambrosio: Cath Placed During This Visit: yes Reason for Continuing Indwelling Catheter: Accurate Measurement of Urinary Output in Critically Ill Patients Urinary Catheter Date of Insertion: 09/21/24 Urinary Catheter Time of Insertion: 13:00 Data 09/21/24 04:25 09/22/24 02:17 Micro: Microbiology 09/20/24 10:26 Urine Culture - Final Urine,Clean Catch A&P Assessment and plan (1) Contusion of hip, left: (2) Fall: (3) Atrial flutter with rapid ventricular response: (4) Hypertension: Qualifiers: Hypertension type: primary hypertension Qualified Code(s): I10 - Essential (primary) hypertension (5) Dyslipidemia: (6) COPD (chronic obstructive pulmonary disease): Qualifiers: COPD type: unspecified COPD Qualified Code(s): J44.9 - Chronic obstructive pulmonary disease, unspecified (7) History of pulmonary embolism: (8) Sinus pause: (9) Hypoxic respiratory failure: Qualifiers: Chronicity: chronic Qualified Code(s): J96.11 - Chronic respiratory failure with hypoxia (10) Atrial flutter with rapid ventricular response: Jagjit Radha Silverman is a 83 year old female with past medical history of atrial fibrillation/atrial flutter, not on rate control medications calcium channel mynor or beta-mynor due to prolonged sinus pauses, COPD, acute hypoxic and hypercarbic respiratory failure on supplemental oxygen at home, history of PE treated with Eliquis for a year, currently not on Eliquis, presented s/p fall at home with complaint of left leg pain and numbness and unable to walk and bear weight. Was found to be in A-fib with RVR in 120s to 130s in ER. 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 Has A-fib with rate controlled has been off Cardizem drip since yesterday afternoon. Still unable to ambulate due to severe left lower extremity pain and numbness. Follow-up PT recommendations for safe discharge planning. UA consistent with questionable UTI, started on p.o. Macrobid 100 mg twice daily 09/22/2024 -Check MRI lumbar spine. I have suspicion of this disease which would explain patient's left leg symptoms. Low suspicion of stroke at this time. MRI lumbar spine has resulted. Possibility of disc fragment at left nerve root. Will discuss with Dr. Kearney. ? Patient continues to be in A-fib with RVR. Cardizem drip was turned off overnight. Stop oral amiodarone and give amiodarone bolus and placed on amiodarone drip at this time. Patient has history of sinus pauses with metoprolol and Cardizem in the past. She was given an event monitor at [facility] as she went there for a second opinion. Unsure of results of that at this time. Creatinine is 1.2. I will hold off on starting digoxin. Patient has used Eliquis in the past for PE however has not been on it recently. If remains difficult to control with amiodarone will consider cardiology consultation ? Continue DVT prophylaxis with subcutaneous heparin. ? Continue Pepcid 20 mg twice daily. ? PT consulted. ? Continue Macrobid for possible UTI. Attestations Medical Necessity Statement*: Currently on amiodarone drip. Also has a possible disc fragment at left nerve root. Requires continued hospitalization with IV amiodarone for A-fib RVR. Expect 48 to 72 hours stay Diagnoses Contusion of hip, left S70.02XA Fall W19.XXXA Atrial flutter with rapid ventricular response I48.92 Primary hypertension I10 Hypertension type: primary hypertension Dyslipidemia E78.5 Chronic obstructive pulmonary disease, unspecified COPD type J44.9 COPD type: unspecified COPD History of pulmonary embolism Z86.711 Sinus pause I45.5 Chronic respiratory failure with hypoxia J96.11 Chronicity: chronic
[2024-09-22] MEDS: heparin 5,000 unit/mL INJ 1 mL 5000 UNIT SUBCUT (12:34)
[2024-09-22] MEDS: ondansetron 2 mg/ML SDV 2 mL 4 MG IVP ×2 (12:34→23:42)
[2024-09-22] MEDS: famotidine 20 mg/2 mL INJ IVP ×2 (12:34→23:21)
[2024-09-22] MEDS: amiodarone 150 MG/100 ML PREMIX 400 MG IV (12:34)
[2024-09-22 12:59] LABS: NT Pro B Type Natriuretic Pept 893 pg/mL (0-450)
[2024-09-22] MEDS: enoxaparin 100 mg/mL Syringe 90 MG SUBCUT (13:06)
--- NOTE | 2024-09-22 14:26 | PM.CONSULT ---
Providers/Reason For Consult Consulting Physician/Specialty*: Hospitalist Reason for Consult*: Left leg pain and weakness Attending Physician: Kalpana Wooten MD History of Present Illness History of Present Illness Radha Silverman is a 83 year old female she went to the bathroom was coming back to her bed she turned, her left leg gave away and she fell on the left side. She started complaining of left hip and leg numbness and pain and was unable to walk and bear weight on 09/20/2024. Review of Systems General: Reports: 10 or more systems reviewed and unremarkable except in HPI and below Const: Denies: fever(s) or chills Eyes: Denies: change in vision ENMT: Denies: disequilibrium Card: Reports: irregular heart rhythm, lightheadedness and dyspnea on exertion; Denies: chest pain, palpitations, swelling of feet/ankles, syncope or pre-syncope Resp: Reports: dyspnea, productive cough and change in phlegm color; Denies: non-productive cough GI: Denies: hematochezia : Denies: hematuria Musc: Reports: neck pain, back pain and muscle cramps; Denies: muscle weakness Neuro: Reports: headache(s); Denies: numbness in extremities, weakness in extremities or dizziness Psych: Denies: anxiety or depression Endo: Reports: tired all the time Sam/Lymph: Reports: easy bruising and easy bleeding Medications/Allergies Home Medications Medication Instructions Recorded Confirmed Last Taken Type albuterol sulfate 90 mcg/actuation 1 inh inhalation Q6H PRN shortness 04/23/22 09/20/24 Unknown Rx aerosol inhaler of breath or wheezing #8.5 grams aspirin 81 mg tablet,delayed 81 mg PO DAILY 01/10/24 09/20/24 09/19/24 11:00 History release amiodarone 200 mg tablet 200 mg PO DAILY #90 tabs 01/18/24 09/20/24 09/19/24 11:00 Rx furosemide 20 mg tablet (Lasix) 20 mg PO DAILY 02/28/24 09/20/24 09/19/24 History levothyroxine 112 mcg tablet See Rx Instructions .Route .COMPLEX 09/20/24 09/20/24 09/19/24 History Allergies Allergy/AdvReac Type Severity Reaction Status Date / Time codeine Allergy Unknown Verified 02/28/24 12:57 Current Medications Generic Name Dose Route Start Last Admin Trade Name Darrylq PRN Reason Stop Dose Admin Acetaminophen 650 mg 09/20/24 11:06 09/21/24 03:55 Acetaminophen 325 Mg Tablet PO 650 mg Q4H PRN Administration MILD PAIN OR INCREASE TEMP Albuterol/Ipratropium 3 ml 09/20/24 14:00 09/22/24 07:35 Ipratropium-Albuterol 3 Ml Neb INHALATION 3 ml TID.RESP PAMELA Administration Aspirin 81 mg 09/21/24 09:00 09/22/24 09:02 Aspirin 81 Mg Ec Tablet PO 81 mg DAILY PAMELA Administration Enoxaparin Sodium 90 mg 09/22/24 12:45 09/22/24 13:06 Enoxaparin 100 Mg/Ml Syringe 1 mg/kg (90 mg) 90 mg SUBCUT Administration Q24H PAMELA Famotidine 20 mg 09/20/24 10:45 09/22/24 12:34 Famotidine 20 Mg/2 Ml Inj IVP 20 mg Q12H PAMELA Administration Fentanyl 1 patch 09/21/24 09:00 09/21/24 11:17 Fentanyl 25 Mcg Patch TRANSDERMA 1 patch Q72H PAMELA Administration Furosemide 20 mg 09/20/24 11:15 09/22/24 09:01 Furosemide 20 Mg Tablet PO 20 mg DAILY PAMELA Administration Amiodarone HCl/Dextrose 360 mg in 200 mls @ 0 mls/hr 09/22/24 12:16 09/22/24 13:05 Nexterone IV 1 mg/min .Q0M PAMELA 33.33 mls/hr Administration Protocol Per Protocol Ibuprofen 400 mg 09/21/24 08:55 09/22/24 09:01 Ibuprofen 200 Mg Tablet PO 400 mg TID PRN Administration MODERATE PAIN Levothyroxine Sodium 112 mcg 09/20/24 11:15 09/22/24 05:44 Levothyroxine 112 Mcg Tablet PO 112 mcg QAM PAMELA Administration Nitrofurantoin Macrocrystals 100 mg 09/21/24 09:00 09/22/24 09:02 Nitrofurantoin Sr (Bid) 100 Mg Capsule PO 100 mg BID PAMELA Administration Nystatin 1 applic 09/21/24 09:00 09/22/24 10:11 Nystatin Powder 15 Gm Btl TOPICAL Not Given BID [facility] Ondansetron HCl 4 mg 09/20/24 10:45 09/22/24 12:34 Ondansetron 2 Mg/Ml Sdv 2 Ml IVP 4 mg Q8H PRN Administration vomiting, or N/V if npo PFSH Acute PFSH: Medical History History of pulmonary embolism Acute and chronic respiratory failure with hypoxia Pulmonary embolism Pneumonia Chest pain Chronic respiratory failure with hypoxia COPD (chronic obstructive pulmonary disease) Acute left flank pain Atrial flutter with rapid ventricular response Hypertension Family History Other Cancer Social History Smoking and tobacco/nicotine status: current every day tobacco/nicotine user Alcohol intake: never Substance/Drug Use: never Vitals/I&O/Wt Last Vital Signs Temp 97.9 F 09/22/24 12:00 Pulse 118 H 09/22/24 12:00 Resp 19 H 09/22/24 12:00 BP 126/81 09/22/24 12:00 Pulse Ox 93 09/22/24 12:00 O2 Del Method Nasal Cannula 09/22/24 12:00 O2 Flow Rate 3 09/22/24 07:36 09/21/24 09/22/24 09/22/24 22:59 06:59 14:59 Intake Total 340 / 340 Output Total 350 / 1250 Balance -350 / -650 340 / 340 Weight last 48 hrs Weight 190 lb 3.2 oz Weight 190 lb 3.2 oz Weight 190 lb 3.2 oz Physical Exam Narrative: Patient is alert and orient x 3 She has pain to palpation all along her left leg. Particular knee as well as hip. She is unable to dorsiflex her left foot. As 4-5 strength plantarflexion. He is able to fire her hip flexors. Urinary Catheter Management: Ambrosio: Cath Placed During This Visit: yes Reason for Continuing Indwelling Catheter: Accurate Measurement of Urinary Output in Critically Ill Patients Urinary Catheter Date of Insertion: 09/21/24 Urinary Catheter Time of Insertion: 13:00 Data 09/21/24 04:25 09/22/24 02:17 Micro: Microbiology 09/20/24 10:26 Urine Culture - Final Urine,Clean Catch A&P Assessment and plan (1) Lumbar stenosis with neurogenic claudication: Patient had a fall on September 20. She has been having numbness prior to this after the fall she is has weakness in his legs and cannot walk. At this point her MRIs reviewed she does have lumbar stenosis throughout her spine. I do not have a specific location that would be causing her symptoms. She does have foot drop on her left foot on exam. At this point discussed with her options of starting steroids versus surgery she did not want to have any type of surgery. At this point recommend that she goes on a round of steroids and we will reevaluate. Coding Level of Care Code Acute Code for [facility] Fwd Diagnoses Lumbar stenosis with neurogenic claudication M48.062
[2024-09-22] MEDS: FUROsemide 10 mg/mL SDV 4mL 40 MG IVP (14:38)
--- NOTE | 2024-09-22 14:45 | PC.SOCIAL ---
IMM Updated Updated pt on IMM. No questions voiced. Provided pt a copy. Initialed, dated, & timed a copy & placed in chart.
[2024-09-22] MEDS: acetaminophen 325 mg Tablet 650 MG PO (21:19)
[2024-09-22] MEDS: nystatin powder 15 gm Btl 1 APPLIC TOPICAL (21:20)
[2024-09-23] VITALS (11 sets, daily range): BP systolic 104–126; BP diastolic 57–96; PULSE 91–116; RESP 16–31; TEMP 36.4–36.7; O2SAT 90–95
[2024-09-23 05:09] LABS: Basophils % 0.2 %; Eosinophils # 0.3 10^3/uL (0.0-0.8); Eosinophils % 5.8 %; Hematocrit 33.8 % (36-47); Lymphocytes # 1.3 10^3/uL (0.8-4.8); Mean Corpuscular HGB Conc 31.1 g/dL (30-55); Mean Corpuscular Volume 93.4 fl (85-98); Mean Platelet Volume 8.8 fL (7.4-10.4); Monocytes # 0.4 10^3/uL (0.2-0.9); Monocytes % 9.3 %; Neutrophils # 2.56 10^3/uL (1.8-7.7); Neutrophils % 55.5 %; Nucleated Red Blood Cells % 0 %; Platelet Count 194 10^3/cmm (157-399); Red Blood Count 3.62 10^6/uL (3.85-5.65); Red Cell Distribution Width 11.8 % (12.1-15.1); White Blood Count 4.62 10^3/uL (3.29-11.43)
[2024-09-23] MEDS: levothyroxine 112 mcg Tablet PO (05:30)
[2024-09-23 05:32] LABS: Anion Gap 11.7 (5-19); Blood Urea Nitrogen 21 mg/dL (8-23); Calcium 8.1 mg/dL (8.5-10.5); Carbon Dioxide 34 mmol/L (22-29); Chloride 88 mmol/L (98-107); Creatinine Clr Calc Pharmacy 40.6826; Glucose 106 mg/dL (65-115); Magnesium 2.1 mg/dL (1.7-2.3); Osmolality Calculated 271 mOsm/kg (285-295); Potassium 4.7 mmol/L (3.5-5.1); Sodium 129 mmol/L (136-145)
[2024-09-23] MEDS: ipratropium-albuterol 3 mL Neb INHALATION ×3 (08:59→21:08)
[2024-09-23] MEDS: nitrofurantoin SR (BID) 100 mg Capsule PO ×2 (09:58→17:50)
[2024-09-23] MEDS: FUROsemide 20 mg Tablet PO (09:58)
[2024-09-23] MEDS: dexamethasone 10 mg/mL INJ 6 MG IVP ×3 (09:59→19:40)
[2024-09-23] MEDS: aspirin 81 mg EC Tablet PO (09:59)
--- NOTE | 2024-09-23 11:30 | PC.NURSE ---
fentanyl patch was removed at time of MRI on 09/22/24. Nurse is gong t reapply the fentanyl patch now because patient did not wear it for 72 hours.
[2024-09-23] MEDS: fentaNYL 25 mcg Patch 1 PATCH TRANSDERMA (11:44)
[2024-09-23] MEDS: famotidine 20 mg/2 mL INJ IVP ×2 (11:45→22:11)
[2024-09-23] MEDS: sodium chloride 0.9% 250 ML IV (11:45)
[2024-09-23] MEDS: nystatin powder 15 gm Btl 1 APPLIC TOPICAL ×3 (11:45→17:53)
--- NOTE | 2024-09-23 12:11 | P.CONIM_ITS ---
Providers/Reason For Consult 2 Consulting Physician/Specialty*: SP Garcia MD/cardiology Reason for Consult*: Patient with atrial fibrillation and rapid ventricular rate. History of bradycardia/pauses Requesting Physician: Dr. Wooten Attending Physician: Kalpana Wooten MD History of Present Illness History of Present Illness Radha Silverman is a 83 year old female with past medical history of atrial fibrillation, not on rate control medications calcium channel mynor or beta- mynor due to prolonged sinus pauses, COPD on supplemental oxygen at home, history of PE treated with Eliquis for a year, currently not on Eliquis due to patient had previously refused, presented s/p fall at home. As per the patient she went to the bathroom was coming back to her bed she turned, her left leg gave away and she fell on the left side. She started complaining of left hip and leg numbness and pain and was unable to walk and bear weight. She went to the ER for the fall. She apparently never had any unusual dizziness or syncopal episodes. She had a more similar event few weeks ago as well when she became off balance and then fell to the floor. In ER she was found to be in A-fib with RVR in 120s and 130s. She was started on Cardizem drip and was given amiodarone. She developed sinus pauses with IV Cardizem. For that reason, it was discontinued. She has now been switched to amio drip and is currently on 0.5mg/min. She denied any complaint of chest pain, palpitations, dizziness, loss of consciousness. She does have shortness of breath. This is chronic for her. Previous EF was normal. She does have shortness of breath that is chronic. She does not appear to be in acute heart failure. She was previously referred to Dr. Long for Micra leadless pacemaker implant. She has a hx of bacteremia that cleared back in February of this year. She never went due to she did not want a pacemaker. Currently, her rates are better controlled 106-115. Blood pressure is stable. She had a Myocardial perfusion imaging in 2018 when she was admitted to the hospital with complaints of chest pain. The Perfusion scan revealed a small area of fixed defect in the inferior and apical lateral region with an elevated transient ischemic dilatation ratio. Since the patient's symptoms are very atypical with no recurrence of chest pain, it was opted to continue the medical treatment. She continues to smoke and is currently on home oxygen, 2 to 3 L/min, 24 hours a day Review of Systems 2 Narrative: CONSTITUTIONAL: No fever or chills. EYES: No blurring of vision or other visual disturbances lately. ENT: No hoarseness of voice, auditory disturbances or sore throat. CARDIOVASCULAR: As mentioned above. RESPIRATORY: No significant cough. Severe COPD with intermittent exacerbation. Ongoing smoking abuse. GASTROINTESTINAL: No hematemesis or melena. GENITOURINARY: No dysuria or hematuria. INTEGUMENTARY: No skin rashes or history of skin cancer. NEURO: No transient ischemic attacks or amaurosis. PSYCHIATRIC: No history of psychosis or major depression. HEMATOLOGIC: No bleeding disorders or significant anemia. ENDOCRINE: No history of polyuria or polydipsia. MUSCULOSKELETAL: No recent joint pain or swelling. ALLERGY/IMMUNOLOGY: As mentioned above. Medications/Allergies Home Medications Medication Instructions Recorded Confirmed Last Taken Type albuterol sulfate 90 mcg/actuation 1 inh inhalation Q6H PRN shortness 04/23/22 09/20/24 Unknown Rx aerosol inhaler of breath or wheezing #8.5 grams aspirin 81 mg tablet,delayed 81 mg PO DAILY 01/10/24 09/20/24 09/19/24 11:00 History release amiodarone 200 mg tablet 200 mg PO DAILY #90 tabs 01/18/24 09/20/24 09/19/24 11:00 Rx furosemide 20 mg tablet (Lasix) 20 mg PO DAILY 02/28/24 09/20/24 09/19/24 History levothyroxine 112 mcg tablet See Rx Instructions .Route .COMPLEX 09/20/24 09/20/24 09/19/24 History Allergies Allergy/AdvReac Type Severity Reaction Status Date / Time codeine Allergy Unknown Verified 02/28/24 12:57 Current Medications Generic Name Dose Route Start Last Admin Trade Name Freq PRN Reason Stop Dose Admin Acetaminophen 650 mg 09/20/24 11:06 09/22/24 21:19 Acetaminophen 325 Mg Tablet PO 650 mg Q4H PRN Administration MILD PAIN OR INCREASE TEMP Albuterol/Ipratropium 3 ml 09/20/24 14:00 09/23/24 08:59 Ipratropium-Albuterol 3 Ml Neb INHALATION 3 ml TID.RESP PAMELA Administration Aspirin 81 mg 09/21/24 09:00 09/23/24 09:59 Aspirin 81 Mg Ec Tablet PO 81 mg DAILY PAMELA Administration Dexamethasone 6 mg 09/23/24 08:30 09/23/24 09:59 Dexamethasone 10 Mg/Ml Inj IVP 6 mg Q6H PAMELA Administration Enoxaparin Sodium 90 mg 09/22/24 12:45 09/22/24 13:06 Enoxaparin 100 Mg/Ml Syringe 1 mg/kg (90 mg) 90 mg SUBCUT Administration Q24H PAMELA Famotidine 20 mg 09/20/24 10:45 09/23/24 11:45 Famotidine 20 Mg/2 Ml Inj IVP 20 mg Q12H PAMELA Administration Fentanyl 1 patch 09/21/24 09:00 09/23/24 11:44 Fentanyl 25 Mcg Patch TRANSDERMA 1 patch Q72H PAMELA Administration Furosemide 20 mg 09/20/24 11:15 09/23/24 09:58 Furosemide 20 Mg Tablet PO 20 mg DAILY PAMELA Administration Amiodarone HCl/Dextrose 360 mg in 200 mls @ 0 mls/hr 09/22/24 12:16 09/23/24 07:37 Nexterone IV 0.5 mg/min .Q0M PAMELA 16.67 mls/hr Administration Protocol Per Protocol Ibuprofen 400 mg 09/21/24 08:55 09/22/24 09:01 Ibuprofen 200 Mg Tablet PO 400 mg TID PRN Administration MODERATE PAIN Levothyroxine Sodium 112 mcg 09/20/24 11:15 09/23/24 05:30 Levothyroxine 112 Mcg Tablet PO 112 mcg QAM PAMELA Administration Nitrofurantoin Macrocrystals 100 mg 09/21/24 09:00 09/23/24 09:58 Nitrofurantoin Sr (Bid) 100 Mg Capsule PO 100 mg BID PAMELA Administration Nystatin 1 applic 09/21/24 09:00 09/23/24 11:45 Nystatin Powder 15 Gm Btl TOPICAL 1 applic BID PAMELA Administration Ondansetron HCl 4 mg 09/20/24 10:45 09/22/24 23:42 Ondansetron 2 Mg/Ml Sdv 2 Ml IVP 4 mg Q8H PRN Administration vomiting, or N/V if npo PFSH Acute 2 PFSH: Medical History History of pulmonary embolism Acute and chronic respiratory failure with hypoxia Pulmonary embolism Pneumonia Chest pain Chronic respiratory failure with hypoxia COPD (chronic obstructive pulmonary disease) Acute left flank pain Atrial flutter with rapid ventricular response Hypertension Family History Other Cancer Social History Smoking and tobacco/nicotine status: current every day tobacco/nicotine user Alcohol intake: never Substance/Drug Use: never Vitals/I&O/Wt Last Vital Signs Temp 97.7 F 09/23/24 12:00 Pulse 110 H 09/23/24 12:00 Resp 25 H 09/23/24 12:00 BP 106/65 09/23/24 12:00 Pulse Ox 95 09/23/24 12:00 O2 Del Method Nasal Cannula 09/23/24 08:00 O2 Flow Rate 3 09/23/24 08:00 09/22/24 09/23/24 09/23/24 22:59 06:59 14:59 Intake Total 440 / 780 180 / 960 560 / 560 Output Total 2049 / 2049 Balance 440 / 780 -1870 / -1090 560 / 560 Weight last 48 hrs Weight 205 lb 3.2 oz Weight 190 lb 3.2 oz Physical Exam 2 Narrative: GENERAL: The patient is alert and oriented times three. Not in any acute distress. HEENT: No significant pallor, icterus or lymphadenopathy.Oral cavity: There are no mucous membrane lesions. NECK: Trachea appears to be central. No masses noted. No JVD or thyromegaly appreciated. RESPIRATORY: Chest is symmetrical. No intercostals muscle retraction or any accessory muscle activation. There is no chest wall tenderness. Breath sounds are heard bilaterally. No rales or rhonchi heard. No evidence of any consolidation. BREASTS: Deferred. HEART: The heart sounds are normal. No S3 or S4. No significant murmurs. No pericardial rub ABDOMEN: No vessel pulsations or distention. No tenderness. No organomegaly appreciated. Bowel sounds are normally heard. : Deferred. RECTAL: Deferred. LYMPHATIC: No lymphadenopathy noted in the neck. EXTREMITIES: No edema or cyanosis. No clubbing. MUSCULOSKELETAL: No acute joint deformities or swelling SKIN: There are no significant rashes or ecchymosis NEUROPSYCHIATRIC: The patient is alert and oriented x3. Appears to be in a good mood. No tremors or rigidity noted. Urinary Catheter Management: Ambrosio: Cath Placed During This Visit: yes Reason for Continuing Indwelling Catheter: Acute Urinary Retention or Obstruction Urinary Catheter Date of Insertion: 09/21/24 Urinary Catheter Time of Insertion: 13:00 Data 09/23/24 04:45 09/23/24 04:45 Other Labs: Laboratory Last Values WBC 4.62 10^3/uL (3.29-11.43) 09/23/24 04:45 RBC 3.62 10^6/uL (3.85-5.65) L 09/23/24 04:45 Hgb 10.50 g/dL (11.27-16.99) L 09/23/24 04:45 Hct 33.8 % (36-47) L 09/23/24 04:45 MCV 93.4 fl (85-98) 09/23/24 04:45 MCH 29.0 pg (27-33) 09/23/24 04:45 MCHC 31.1 g/dL (30-55) 09/23/24 04:45 RDW 11.8 % (12.1-15.1) L 09/23/24 04:45 Plt Count 194 10^3/cmm (157-399) 09/23/24 04:45 MPV 8.8 fL (7.4-10.4) 09/23/24 04:45 Neut % (Auto) 55.5 % 09/23/24 04:45 Lymph % (Auto) 29.0 % 09/23/24 04:45 [place] % (Auto) 9.3 % 09/23/24 04:45 Eos % (Auto) 5.8 % 09/23/24 04:45 Baso % (Auto) 0.2 % 09/23/24 04:45 Neut # (Auto) 2.56 10^3/uL (1.8-7.7) 09/23/24 04:45 Lymph # (Auto) 1.3 10^3/uL (0.8-4.8) 09/23/24 04:45 [place] # (Auto) 0.4 10^3/uL (0.2-0.9) 09/23/24 04:45 Eos # (Auto) 0.3 10^3/uL (0.0-0.8) 09/23/24 04:45 Baso # (Auto) 0.0 10^3/uL (0.0-0.1) 09/23/24 04:45 Nucleated RBC % (auto) 0 % 09/23/24 04:45 Nucleated RBCs # 0.0 /100WBC 09/23/24 04:45 PT 13.20 SECONDS (12.1-14.9) 09/20/24 07:04 INR 0.97 (0.8-1.2) 09/20/24 07:04 APTT 25.7 SECONDS (23.9-36.7) 09/20/24 07:04 Sodium 129 mmol/L (136-145) L 09/23/24 04:45 Potassium 4.7 mmol/L (3.5-5.1) 09/23/24 04:45 Chloride 88 mmol/L (98-107) L 09/23/24 04:45 Carbon Dioxide 34 mmol/L (22-29) H 09/23/24 04:45 Anion Gap 11.7 (5-19) 09/23/24 04:45 BUN 21 mg/dL (8-23) 09/23/24 04:45 Creatinine 1.2 mg/dL (0.5-0.9) H 09/23/24 04:45 GFR Calculation Not Reportable 09/23/24 04:45 Glucose 106 mg/dL (65-115) 09/23/24 04:45 Calculated Osmolality 271 mOsm/kg (285-295) L 09/23/24 04:45 Lactic Acid 1.2 mmol/L (0.5-2.2) 09/20/24 07:04 Calcium 8.1 mg/dL (8.5-10.5) L 09/23/24 04:45 Magnesium 2.1 mg/dL (1.7-2.3) 09/23/24 04:45 Total Bilirubin 0.3 mg/dL (0.15-1.2) 09/20/24 07:04 AST 33 U/L (0-32) H 09/20/24 07:04 ALT 36 U/L (0-33) H 09/20/24 07:04 Alkaline Phosphatase 82 U/L (35-105) 09/20/24 07:04 Creatine Kinase 98 U/L (26-192) 09/20/24 07:04 Troponin T Baseline 12 ng/L (0-10) H 09/20/24 07:04 Troponin T 120 Minute 13.53 ng/L (0-10) H 09/20/24 09:10 Delta Troponin T 1.53 ABS# (0-10) 09/20/24 09:10 Troponin T Hi Sens 6Hr 14.54 ng/L (0-10) H 09/20/24 13:09 Troponin T Hi Sens 6Hr Delta 2.54 ng/L (0-12) 09/20/24 13:09 C-Reactive Protein 5.9 mg/L (0.0-4.9) H 09/20/24 07:04 NT-Pro-B Natriuret Pep 893 pg/mL (0-450) H 09/22/24 02:17 Total Protein 6.6 g/dL (6.6-8.7) 09/20/24 07:04 Albumin 3.7 g/dL (3.5-5.2) 09/20/24 07:04 Globulin 2.9 g/dL (1.3-4.6) 09/20/24 07:04 Urine Color Yellow (Yellow) 09/21/24 13:45 Urine Appearance Clear (CLEAR) 09/21/24 13:45 Urine pH 5.0 (5-7) 09/21/24 13:45 Ur Specific [place] 1.010 (1.005-1.030) 09/21/24 13:45 Urine Protein Negative (Negative) 09/21/24 13:45 Urine Glucose (UA) Negative (Normal) 09/21/24 13:45 Urine Ketones Negative (Negative) 09/21/24 13:45 Urine Blood Negative (Negative) 09/21/24 13:45 Urine Nitrate Negative (Negative) 09/21/24 13:45 Urine Bilirubin Negative (Negative) 09/21/24 13:45 Urine Urobilinogen 0.2 mg/dL (Negative) 09/21/24 13:45 Ur Leukocyte Esterase Negative (Negative) 09/21/24 13:45 Urine RBC 0-2 /hpf (0-2) 09/21/24 13:45 Urine WBC 0-5 /hpf (0-5) 09/21/24 13:45 Ur Squamous Epith Cells 10-15 /hpf (0-5) H 09/21/24 13:45 Amorphous Sediment Not Reportable 09/21/24 13:45 Urine Bacteria None seen /hpf (NONE) 09/21/24 13:45 Hyaline Casts 15-25 /lpf H 09/21/24 13:45 Micro: Microbiology 09/20/24 10:26 Urine Culture - Final Urine,Clean Catch A&P Assessment and plan (1) Atrial flutter with rapid ventricular response: Continue amiodarone drip. I may add metoprolol 12.5 mg p.o. twice daily, after the IV infusion is completed. Will monitor for any pauses. May also start back on the p.o. amiodarone 200 mg daily after completing the IV infusion (2) Acute diastolic heart failure: Most likely from the atrial fibrillation rapid ventricular rate. Patient may be carefully treated with IV diuretics. I may change the p.o. Lasix to IV Lasix 40 mg every 12 hours x 2 and potassium 20 mg p.o. daily (3) COPD exacerbation: Optimize bronchodilator treatment (4) Hypertension: Well controlled. Continue current care. Qualifiers: Hypertension type: primary hypertension Qualified Code(s): I10 - Essential (primary) hypertension (5) Sinus node dysfunction: Patient has a history of sinus node dysfunction causing prolonged pauses. For further management of her condition, she requires a permanent pacemaker. This was discussed with the patient in detail. Apparently she is undecided about this. According to her, she has difficulty lying on the right side. She also has a history of bacteremia. She would benefit from a leadless pacemaker. When she make up her mind about this, we may refer her for a leadless permanent pacemaker implantation. Plan Other problems are Stage II kidney disease Mild anemia The plan for this patient is to continue amio drip, possibly transition to oral amnio tomorrow. Will initiate a trial of low-dose beta-mynor 12.5 metoprolol twice daily. Will monitor for any EKG changes or episodes of bradycardia. At this time patient is undecided about wanting to get a pacemaker. Consult Attestations 2 Medical Necessity Statement: Deferred to primary. Coding Level of Care Code 68048 Diagnoses Atrial flutter with rapid ventricular response I48.92 Acute diastolic heart failure I50.31 COPD exacerbation J44.1 Primary hypertension I10 Hypertension type: primary hypertension Sinus node dysfunction I49.5
--- NOTE | 2024-09-23 13:11 | P.PN_ITS ---
Subjective 2 Subjective: seen today says she did not want a pacemaker secondary to not being able to lay on her left side. She is a poor historian. She cannot tell me what happened at the appointment with cardiology in [place]. Currently on an amiodarone drip, A-fib with RVR heart rate 120s. Vitals/I&O/Wt Last Vital Signs Temp 97.7 F 09/23/24 12:00 Pulse 110 H 09/23/24 12:00 Resp 25 H 09/23/24 12:00 BP 106/65 09/23/24 12:00 Pulse Ox 95 09/23/24 12:00 O2 Del Method Nasal Cannula 09/23/24 08:00 O2 Flow Rate 3 09/23/24 08:00 09/22/24 09/23/24 09/23/24 22:59 06:59 14:59 Intake Total 440 / 780 180 / 960 560 / 560 Output Total 0 / 2050 Balance 440 / 780 -1870 / -1090 560 / 560 Weight last 48 hrs Weight 93.077 kg Weight 86.273 kg Physical Exam 2 Narrative: She is alert awake oriented x 3, on supplemental oxygen via nasal cannula, not in acute distress, afib with RVR, tachycardic, irregularly irregular Chest clear to auscultation bilaterally however overall decreased bilateral air entry. Cardiovascular normal heart sounds, irregular and tachycardic Abdomen soft nontender nondistended normal bowel sounds Extremities minimal pedal edema noted bilateral lower extremity Reports leg feeling better. Urinary Catheter Management: Ambrosio: Cath Placed During This Visit: yes Reason for Continuing Indwelling Catheter: Acute Urinary Retention or Obstruction Urinary Catheter Date of Insertion: 09/21/24 Urinary Catheter Time of Insertion: 13:00 Data 09/23/24 04:45 09/23/24 04:45 Micro: Microbiology 09/20/24 10:26 Urine Culture - Final Urine,Clean Catch A&P Assessment and plan (1) Contusion of hip, left: (2) Fall: (3) Atrial flutter with rapid ventricular response: (4) Hypertension: Qualifiers: Hypertension type: primary hypertension Qualified Code(s): I10 - Essential (primary) hypertension (5) Dyslipidemia: (6) COPD (chronic obstructive pulmonary disease): Qualifiers: COPD type: unspecified COPD Qualified Code(s): J44.9 - Chronic obstructive pulmonary disease, unspecified (7) History of pulmonary embolism: (8) Sinus pause: (9) Hypoxic respiratory failure: Qualifiers: Chronicity: chronic Qualified Code(s): J96.11 - Chronic respiratory failure with hypoxia (10) Atrial flutter with rapid ventricular response: Plan Radha Silverman is a 83 year old female with past medical history of atrial fibrillation/atrial flutter, not on rate control medications calcium channel mynor or beta-mynor due to prolonged sinus pauses, COPD, acute hypoxic and hypercarbic respiratory failure on supplemental oxygen at home, history of PE treated with Eliquis for a year, currently not on Eliquis, presented s/p fall at home with complaint of left leg pain and numbness and unable to walk and bear weight. Was found to be in A-fib with RVR in 120s to 130s in ER. #Fall-likely mechanical X-ray left hip, knee and pelvis done which did not show any acute findings Will do pain control #A-fib/a flutter with RVR- Started on Cardizem drip in ER Continue cardiac monitoring Will continue [employer] amiodarone and aspirin Chest x-ray showed no acute findings Continue [employer] Lasix #COPD-stable Continue supplemental oxygen to keep saturation more than 90% #Hypothyroidism-continue [employer] levothyroxine DVT prophylaxis with subcutaneous heparin GI prophylaxis with IV Pepcid 20 mg twice daily CODE STATUS discussed with the patient, she is full code 09/21/24 She is doing well otherwise. Has A-fib with rate controlled has been off Cardizem drip since yesterday afternoon. Still unable to ambulate due to severe left lower extremity pain and numbness. Follow-up PT recommendations for safe discharge planning. UA consistent with questionable UTI, started on p.o. Macrobid 100 mg twice daily 09/22/2024 -Check MRI lumbar spine. I have suspicion of this disease which would explain patient's left leg symptoms. Low suspicion of stroke at this time. MRI lumbar spine has resulted. Possibility of disc fragment at left nerve root. Will discuss with Dr. Kearney. ? Patient continues to be in A-fib with RVR. Cardizem drip was turned off overnight. Stop oral amiodarone and give amiodarone bolus and placed on amiodarone drip at this time. Patient has history of sinus pauses with metoprolol and Cardizem in the past. She was given an event monitor at [facility] as she went there for a second opinion. Unsure of results of that at this time. Creatinine is 1.2. I will hold off on starting digoxin. Patient has used Eliquis in the past for PE however has not been on it recently. If remains difficult to control with amiodarone will consider cardiology consultation ? Continue DVT prophylaxis with subcutaneous heparin. ? Continue Pepcid 20 mg twice daily. ? PT consulted. ? Continue Macrobid for possible UTI. 09/23/2024 -Consult cardiology regarding patient's atrial fibrillation. Does have a history of sinus pauses. Have asked Lauren from cardiology to look into records if we ever received records from [place] regarding patient's cardiology visit for evaluation for pacemaker. Patient has been recommended to leadless pacemaker in the past. Discussed with Dr. Garcia at length. ? Continue amiodarone drip till seen by cardiology. ? Continue therapeutic Lovenox in the meantime. Will need Eliquis at discharge ? Continue , levothyroxine ? Continue dexamethasone 6 mg IV push every 6 hours ? Add DuoNeb every 6 hours scheduled. ? Add 5 days of azithromycin for anti-inflammatory effect. Patient does have a history of COPD. Has complained of some shortness of breath this morning. Add ceftriaxone to cover for UTI. Will stop Macrobid. ? Await urine culture ? Sodium 129. Will repeat. Attestations 2 Medical Necessity Statement*: Plan for discharge in next 48 hours. Diagnoses Contusion of hip, left S70.02XA Fall W19.XXXA Atrial flutter with rapid ventricular response I48.92 Primary hypertension I10 Hypertension type: primary hypertension Dyslipidemia E78.5 Chronic obstructive pulmonary disease, unspecified COPD type J44.9 COPD type: unspecified COPD History of pulmonary embolism Z86.711 Sinus pause I45.5 Chronic respiratory failure with hypoxia J96.11 Chronicity: chronic
[2024-09-23] MEDS: AZITHROMYCIN ADD-Vantage 500 MG in 0.9% NaCl ADD-Vantage 250 ML 250 MG IV (14:40)
[2024-09-23] MEDS: enoxaparin 100 mg/mL Syringe 90 MG SUBCUT (14:46)
[2024-09-23] MEDS: cefTRIAXone 1,000 mg SDV 1000 MG IVP (14:46)
[2024-09-23] MEDS: ibuprofen 200 mg Tablet 400 MG PO (18:25)
[2024-09-23] MEDS: FUROsemide 10 mg/mL SDV 4mL 40 MG IVP (19:39)
[2024-09-23] MEDS: metoprolol tartrate 25 mg Tablet 12.5 MG PO (22:11)
[2024-09-24] VITALS (7 sets, daily range): BP systolic 105–127; BP diastolic 66–78; PULSE 84–100; RESP 16–24; TEMP 36.5–37; O2SAT 87–99
[2024-09-24] MEDS: dexamethasone 10 mg/mL INJ 6 MG IVP ×2 (02:26→08:21)
[2024-09-24] MEDS: acetaminophen 325 mg Tablet 650 MG PO (02:49)
[2024-09-24 05:15] LABS: Basophils % 0.3 %; Hematocrit 36.9 % (36-47); Lymphocytes # 0.4 10^3/uL (0.8-4.8); Lymphocytes % 12.1 %; Mean Corpuscular HGB Conc 31.2 g/dL (30-55); Mean Corpuscular Hemoglobin 28.7 pg (27-33); Mean Platelet Volume 9.4 fL (7.4-10.4); Monocytes # 0.1 10^3/uL (0.2-0.9); Monocytes % 1.9 %; Neutrophils # 3.08 10^3/uL (1.8-7.7); Neutrophils % 84.9 %; Nucleated Red Blood Cells % 0 %; Platelet Count 302 10^3/cmm (157-399); Red Blood Count 4.01 10^6/uL (3.85-5.65); Red Cell Distribution Width 11.8 % (12.1-15.1); White Blood Count 3.63 10^3/uL (3.29-11.43)
[2024-09-24 05:35] LABS: Anion Gap 15.5 (5-19); Blood Urea Nitrogen 23 mg/dL (8-23); Calcium 8.4 mg/dL (8.5-10.5); Carbon Dioxide 33 mmol/L (22-29); Chloride 89 mmol/L (98-107); Creatinine Clr Calc Pharmacy 42.2623; Glucose 183 mg/dL (65-115); Magnesium 2.1 mg/dL (1.7-2.3); Osmolality Calculated 284 mOsm/kg (285-295); Potassium 4.5 mmol/L (3.5-5.1); Sodium 133 mmol/L (136-145)
[2024-09-24] MEDS: levothyroxine 112 mcg Tablet PO (06:00)
[2024-09-24] MEDS: FUROsemide 10 mg/mL SDV 4mL 40 MG IVP (06:00)
[2024-09-24] MEDS: ipratropium-albuterol 3 mL Neb INHALATION (08:01)
[2024-09-24] MEDS: aspirin 81 mg EC Tablet PO (08:20)
[2024-09-24] MEDS: nitrofurantoin SR (BID) 100 mg Capsule PO (08:20)
[2024-09-24] MEDS: potassium chloride ER 20 mEq Tablet PO (08:20)
[2024-09-24] MEDS: metoprolol tartrate 25 mg Tablet 12.5 MG PO (08:20)
--- NOTE | 2024-09-24 08:47 | PM.PN ---
Subjective Subjective: The patient's heart rate is getting under control. Currently she is on p.o. amiodarone. She also was started on metoprolol 12.5 mg p.o. twice daily. So far there is no pauses on the monitor. The heart rate stays in the 70s and 80s. Medications: Medication Review Details: Current Medications Acetaminophen (Acetaminophen 325 Mg Tablet) 650 mg PO Q4H PRN PRN Reason: MILD PAIN OR INCREASE TEMP Last Admin: 09/24/24 02:49 Dose: 650 mg Albuterol/Ipratropium (Ipratropium-Albuterol 3 Ml Neb) 3 ml INHALATION TID.RESP PAMELA Last Admin: 09/24/24 08:01 Dose: 3 ml Albuterol/Ipratropium (Ipratropium-Albuterol 3 Ml Neb) 3 ml INHALATION Q6H PRN PRN Reason: SHORTNESS OF BREATH Aspirin (Aspirin 81 Mg Ec Tablet) 81 mg PO DAILY PAMELA Last Admin: 09/24/24 08:20 Dose: 81 mg Ceftriaxone Sodium (Ceftriaxone 1,000 Mg Sdv) 1,000 mg IVP Q24H PAMELA; Protocol Last Admin: 09/23/24 14:46 Dose: 1,000 mg Dexamethasone (Dexamethasone 10 Mg/Ml Inj) 6 mg IVP Q6H PAMELA Last Admin: 09/24/24 08:21 Dose: 6 mg Enoxaparin Sodium (Enoxaparin 100 Mg/Ml Syringe) 90 mg 1 mg/kg (90 mg) SUBCUT Q24H PAMELA Last Admin: 09/23/24 14:46 Dose: 90 mg Famotidine (Famotidine 20 Mg/2 Ml Inj) 20 mg IVP Q12H PAMELA Last Admin: 09/23/24 22:11 Dose: 20 mg Fentanyl (Fentanyl 25 Mcg Patch) 1 patch TRANSDERMA Q72H PAMELA Last Admin: 09/23/24 11:44 Dose: 1 patch Furosemide (Furosemide 10 Mg/Ml Sdv 4ml) 40 mg IVP Q12H PAMELA Last Admin: 09/24/24 06:00 Dose: 40 mg Amiodarone HCl/Dextrose (Nexterone) 360 mg in 200 mls @ 0 mls/hr IV .Q0M PAMELA; Protocol Last Titration: 09/23/24 19:45 Dose: Infused Azithromycin 500 mg/ Sodium (Chloride) 250 mls @ 250 mls/hr IV Q24H [facility]; Protocol Last Infusion: 09/23/24 16:23 Dose: Infused Ibuprofen (Ibuprofen 200 Mg Tablet) 400 mg PO TID PRN PRN Reason: MODERATE PAIN Last Admin: 09/23/24 18:25 Dose: 400 mg Levothyroxine Sodium (Levothyroxine 112 Mcg Tablet) 112 mcg PO QAM [facility] Last Admin: 09/24/24 06:00 Dose: 112 mcg Metoprolol Tartrate (Metoprolol Tartrate 25 Mg Tablet) 12.5 mg PO BID@0900,2100 [facility] Last Admin: 09/24/24 08:20 Dose: 12.5 mg Nitrofurantoin Macrocrystals (Nitrofurantoin Sr (Bid) 100 Mg Capsule) 100 mg PO BID [facility] Last Admin: 09/24/24 08:20 Dose: 100 mg Nystatin (Nystatin Powder 15 Gm Btl) 1 applic TOPICAL BID [facility] Last Admin: 09/24/24 08:31 Dose: Not Given Ondansetron HCl (Ondansetron 2 Mg/Ml Sdv 2 Ml) 4 mg IVP Q8H PRN PRN Reason: vomiting, or N/V if npo Last Admin: 09/22/24 23:42 Dose: 4 mg Potassium Chloride (Potassium Chloride Er 20 Meq Tablet) 20 meq PO DAILY [facility] Last Admin: 09/24/24 08:20 Dose: 20 meq Vitals/I&O/Wt Last Vital Signs Temp 97.7 F 09/24/24 07:52 Pulse 97 09/24/24 08:08 Resp 22 H 09/24/24 08:00 BP 108/72 09/24/24 07:52 Pulse Ox 94 09/24/24 08:00 O2 Del Method Nasal Cannula 09/24/24 08:00 O2 Flow Rate 3 09/24/24 08:00 09/23/24 09/24/24 09/24/24 22:59 06:59 14:59 Intake Total 1199 / 2009 240 / 2250 Output Total 1300 / 3000 Balance 1200 / 310 -1060 / -750 Weight last 48 hrs Weight 205 lb 3.2 oz Weight 205 lb 3.2 oz Physical Exam Narrative: GENERAL: The patient is alert and oriented times three. Not in any acute distress. HEENT: No significant pallor, icterus or lymphadenopathy.Oral cavity: There are no mucous membrane lesions. NECK: Trachea appears to be central. No masses noted. No JVD or thyromegaly appreciated. RESPIRATORY: Chest is symmetrical. No intercostals muscle retraction or any accessory muscle activation. There is no chest wall tenderness. Breath sounds are heard bilaterally. No rales or rhonchi heard. No evidence of any consolidation. BREASTS: Deferred. HEART: The heart sounds are normal. No S3 or S4. No significant murmurs. No pericardial rub ABDOMEN: No vessel pulsations or distention. No tenderness. No organomegaly appreciated. Bowel sounds are normally heard. : Deferred. RECTAL: Deferred. LYMPHATIC: No lymphadenopathy noted in the neck. EXTREMITIES: No edema or cyanosis. No clubbing. MUSCULOSKELETAL: No acute joint deformities or swelling SKIN: There are no significant rashes or ecchymosis NEUROPSYCHIATRIC: The patient is alert and oriented x3. Appears to be in a good mood. No tremors or rigidity noted. Urinary Catheter Management: Ambrosio: Cath Placed During This Visit: yes Reason for Continuing Indwelling Catheter: Accurate Measurement of Urinary Output in Critically Ill Patients Urinary Catheter Date of Insertion: 09/21/24 Urinary Catheter Time of Insertion: 13:00 Data 09/24/24 02:46 09/24/24 02:46 Other Labs: Laboratory Last Values WBC 3.63 10^3/uL (3.29-11.43) 09/24/24 02:46 RBC 4.01 10^6/uL (3.85-5.65) 09/24/24 02:46 Hgb 11.50 g/dL (11.27-16.99) 09/24/24 02:46 Hct 36.9 % (36-47) 09/24/24 02:46 MCV 92.0 fl (85-98) 09/24/24 02:46 MCH 28.7 pg (27-33) 09/24/24 02:46 MCHC 31.2 g/dL (30-55) 09/24/24 02:46 RDW 11.8 % (12.1-15.1) L 09/24/24 02:46 Plt Count 302 10^3/cmm (157-399) D 09/24/24 02:46 MPV 9.4 fL (7.4-10.4) 09/24/24 02:46 Neut % (Auto) 84.9 % 09/24/24 02:46 Lymph % (Auto) 12.1 % 09/24/24 02:46 [place] % (Auto) 1.9 % 09/24/24 02:46 Eos % (Auto) 0.0 % 09/24/24 02:46 Baso % (Auto) 0.3 % 09/24/24 02:46 Neut # (Auto) 3.08 10^3/uL (1.8-7.7) 09/24/24 02:46 Lymph # (Auto) 0.4 10^3/uL (0.8-4.8) L 09/24/24 02:46 [place] # (Auto) 0.1 10^3/uL (0.2-0.9) L 09/24/24 02:46 Eos # (Auto) 0.0 10^3/uL (0.0-0.8) 09/24/24 02:46 Baso # (Auto) 0.0 10^3/uL (0.0-0.1) 09/24/24 02:46 Nucleated RBC % (auto) 0 % 09/24/24 02:46 Nucleated RBCs # 0.0 /100WBC 09/24/24 02:46 PT 13.20 SECONDS (12.1-14.9) 09/20/24 07:04 INR 0.97 (0.8-1.2) 09/20/24 07:04 APTT 25.7 SECONDS (23.9-36.7) 09/20/24 07:04 Sodium 133 mmol/L (136-145) L 09/24/24 02:46 Potassium 4.5 mmol/L (3.5-5.1) 09/24/24 02:46 Chloride 89 mmol/L (98-107) L 09/24/24 02:46 Carbon Dioxide 33 mmol/L (22-29) H 09/24/24 02:46 Anion Gap 15.5 (5-19) 09/24/24 02:46 BUN 23 mg/dL (8-23) 09/24/24 02:46 Creatinine 1.2 mg/dL (0.5-0.9) H 09/24/24 02:46 GFR Calculation Not Reportable 09/24/24 02:46 Glucose 183 mg/dL (65-115) H 09/24/24 02:46 Calculated Osmolality 284 mOsm/kg (285-295) L 09/24/24 02:46 Lactic Acid 1.2 mmol/L (0.5-2.2) 09/20/24 07:04 Calcium 8.4 mg/dL (8.5-10.5) L 09/24/24 02:46 Magnesium 2.1 mg/dL (1.7-2.3) 09/24/24 02:46 Total Bilirubin 0.3 mg/dL (0.15-1.2) 09/20/24 07:04 AST 33 U/L (0-32) H 09/20/24 07:04 ALT 36 U/L (0-33) H 09/20/24 07:04 Alkaline Phosphatase 82 U/L (35-105) 09/20/24 07:04 Creatine Kinase 98 U/L (26-192) 09/20/24 07:04 Troponin T Baseline 12 ng/L (0-10) H 09/20/24 07:04 Troponin T 120 Minute 13.53 ng/L (0-10) H 09/20/24 09:10 Delta Troponin T 1.53 ABS# (0-10) 09/20/24 09:10 Troponin T Hi Sens 6Hr 14.54 ng/L (0-10) H 09/20/24 13:09 Troponin T Hi Sens 6Hr Delta 2.54 ng/L (0-12) 09/20/24 13:09 C-Reactive Protein 5.9 mg/L (0.0-4.9) H 09/20/24 07:04 NT-Pro-B Natriuret Pep 893 pg/mL (0-450) H 09/22/24 02:17 Total Protein 6.6 g/dL (6.6-8.7) 09/20/24 07:04 Albumin 3.7 g/dL (3.5-5.2) 09/20/24 07:04 Globulin 2.9 g/dL (1.3-4.6) 09/20/24 07:04 Urine Color Yellow (Yellow) 09/21/24 13:45 Urine Appearance Clear (CLEAR) 09/21/24 13:45 Urine pH 5.0 (5-7) 09/21/24 13:45 Ur Specific [place] 1.010 (1.005-1.030) 09/21/24 13:45 Urine Protein Negative (Negative) 09/21/24 13:45 Urine Glucose (UA) Negative (Normal) 09/21/24 13:45 Urine Ketones Negative (Negative) 09/21/24 13:45 Urine Blood Negative (Negative) 09/21/24 13:45 Urine Nitrate Negative (Negative) 09/21/24 13:45 Urine Bilirubin Negative (Negative) 09/21/24 13:45 Urine Urobilinogen 0.2 mg/dL (Negative) 09/21/24 13:45 Ur Leukocyte Esterase Negative (Negative) 09/21/24 13:45 Urine RBC 0-2 /hpf (0-2) 09/21/24 13:45 Urine WBC 0-5 /hpf (0-5) 09/21/24 13:45 Ur Squamous Epith Cells 10-15 /hpf (0-5) H 09/21/24 13:45 Amorphous Sediment Not Reportable 09/21/24 13:45 Urine Bacteria None seen /hpf (NONE) 09/21/24 13:45 Hyaline Casts 15-25 /lpf H 09/21/24 13:45 A&P Assessment and plan (1) Atrial flutter with rapid ventricular response: The ventricular response rate is under control at this time. Patient may continue on the amiodarone 200 mg p.o. daily and metoprolol 12.5 mg p.o. twice daily. (2) Acute diastolic heart failure: Patient may be discharged home with the Lasix 20 mg p.o. daily and potassium 8 mg p.o. daily (3) COPD exacerbation: May be continued on the bronchodilator treatment. (4) Hypertension: Well controlled. The current medications may be continued. Qualifiers: Hypertension type: primary hypertension Qualified Code(s): I10 - Essential (primary) hypertension (5) Sinus node dysfunction: Patient is wanting to hold off on any pacemaker implantation at this point. She seems understand implications. It may be appropriate to put her on an event monitor to evaluate for any symptomatic bradycardia/pauses. Plan Other problems are Stage II kidney disease Mild anemia Medications as mentioned above. Possible discharge home today Appointment the [facility] to be seen by the nurse practitioner in a week Appoint with me in the office in 1 month Attestations Medical Necessity Statement*: Disposition as per the primary Coding Level of Care Code 15104 Diagnoses Atrial flutter with rapid ventricular response I48.92 Acute diastolic heart failure I50.31 COPD exacerbation J44.1 Primary hypertension I10 Hypertension type: primary hypertension Sinus node dysfunction I49.5
--- NOTE | 2024-09-24 11:14 | P.DS_ITS ---
Discharge Providers Date of Admission: 09/20/24 07:35 Date of Discharge: September 24, 2024 Attending Provider at Admission: Neal Bryan MD Attending Provider at Discharge: Kalpana Wooten MD Diagnoses at Discharge Discharge Diagnosis (1) Atrial flutter with rapid ventricular response: Status: Acute (2) Acute diastolic heart failure: Status: Resolved (3) COPD exacerbation: Status: Acute (4) Hypertension: Status: Acute Qualifiers: Hypertension type: primary hypertension Qualified Code(s): I10 - Essential (primary) hypertension (5) Sinus node dysfunction: Status: Acute Reason for Visit Reason for Visit: Fall Hospital Course Hospital Course Patient presented with a mechanical fall and was in A-fib with RVR. She was kept on an amiodarone drip and transition back to 200 mg daily eventually. She was seen by cardiology as well. Holter monitor set up. She does have a history of sinus pauses. Patient has declined to have a pacemaker placed. She is not interested in leadless pacemaker either. Holter monitor was done at discharge. Patient to follow-up with cardiology as an outpatient within a week of discharge. MRI lumbar spine was also done for patient's left leg symptoms. Initially she said she could not bear weight on the left side. She does have spinal stenosis. Steroids were started in the hospital. Patient reportedly felt better. She is to follow-up with orthopedic surgery as an outpatient, cardiology. Eliquis 2.5 twice daily was added. Physical Exam Narrative: She is alert awake oriented x 3, nasal cannula, no acute distress Chest clear to auscultation bilaterally however overall decreased bilateral air entry. Cardiovascular normal heart sounds, irregular and tachycardic Abdomen soft nontender nondistended normal bowel sounds Extremities minimal pedal edema noted bilateral lower extremity Reports leg feeling better. Urinary Catheter Management: Ambrosio: Cath Placed During This Visit: yes Reason for Continuing Indwelling Catheter: Accurate Measurement of Urinary Output in Critically Ill Patients Urinary Catheter Date of Insertion: 09/21/24 Urinary Catheter Time of Insertion: 13:00 Discharge Data Studies Completed and Pending Completed Studies During Hospitalization Category Date Time Status CT pelvis wo bone [CT bony pelvis [id number]] Stat Cat Scan 09/20/24 04:07 Completed XR chest 1V portable [id number] Routine Exams 09/22/24 12:13 Completed XR chest 1V portable [id number] Stat Exams 09/20/24 03:10 Completed XR hip LT 2-3V wo/w pel* [id number] Stat Exams 09/20/24 03:07 Completed XR knee LT 3V* [id number] Stat Exams 09/20/24 03:13 Completed MR lumbar spine wo con* [id number] Urgent MRI 09/22/24 09:26 Completed Radiology Impressions Hip/Pelvis X-Ray 09/20/24 03:07 IMPRESSION: No acute findings. Knee X-Ray 09/20/24 03:13 IMPRESSION: No acute fracture or dislocation. Pelvis CT 09/20/24 04:07 IMPRESSION: No acute findings. Lumbar Spine MRI 09/22/24 09:26 IMPRESSION: 1. Advanced degenerative changes throughout the lumbar spine. Degenerative scol iosis with facet and disc disease. 2. L5-S1: LEFT foraminal stenosis with effacement of fat. Low signal in the LEFT foramen separate from the nerve root is suspicious for a disc fragment. This would be contacting the LEFT exiting L5 nerve root. Mild RIGHT with moderate to severe LEFT foraminal stenosis. 3. L3-4: Moderate to severe bilateral subarticular recess and foraminal stenosis. 4. L2-3: Broad-based disc bulging into the RIGHT foramen. Mild stenosis centrally with bilateral subarticular recess and moderate foraminal stenosis. 5. L1-2: Shallow LEFT subarticular recess and foraminal disc protrusion contacting the traversing L2 nerve roots. Mild LEFT foraminal and subarticular recess stenosis. 6. L4-5: Mild subarticular recess and foraminal stenosis. 7. No marrow edema or acute fracture. Chest X-Ray 09/22/24 12:13 IMPRESSION: Stable abnormal chest without acute abnormality. Laboratory Results WBC 3.63 10^3/uL (3.29-11.43) 09/24/24 02:46 RBC 4.01 10^6/uL (3.85-5.65) 09/24/24 02:46 Hgb 11.50 g/dL (11.27-16.99) 09/24/24 02:46 Hct 36.9 % (36-47) 09/24/24 02:46 MCV 92.0 fl (85-98) 09/24/24 02:46 MCH 28.7 pg (27-33) 09/24/24 02:46 MCHC 31.2 g/dL (30-55) 09/24/24 02:46 RDW 11.8 % (12.1-15.1) L 09/24/24 02:46 Plt Count 302 10^3/cmm (157-399) D 09/24/24 02:46 MPV 9.4 fL (7.4-10.4) 09/24/24 02:46 Neut % (Auto) 84.9 % 09/24/24 02:46 Lymph % (Auto) 12.1 % 09/24/24 02:46 [place] % (Auto) 1.9 % 09/24/24 02:46 Eos % (Auto) 0.0 % 09/24/24 02:46 Baso % (Auto) 0.3 % 09/24/24 02:46 Neut # (Auto) 3.08 10^3/uL (1.8-7.7) 09/24/24 02:46 Lymph # (Auto) 0.4 10^3/uL (0.8-4.8) L 09/24/24 02:46 [place] # (Auto) 0.1 10^3/uL (0.2-0.9) L 09/24/24 02:46 Eos # (Auto) 0.0 10^3/uL (0.0-0.8) 09/24/24 02:46 Baso # (Auto) 0.0 10^3/uL (0.0-0.1) 09/24/24 02:46 Nucleated RBC % (auto) 0 % 09/24/24 02:46 Nucleated RBCs # 0.0 /100WBC 09/24/24 02:46 PT 13.20 SECONDS (12.1-14.9) 09/20/24 07:04 INR 0.97 (0.8-1.2) 09/20/24 07:04 APTT 25.7 SECONDS (23.9-36.7) 09/20/24 07:04 Sodium 133 mmol/L (136-145) L 09/24/24 02:46 Potassium 4.5 mmol/L (3.5-5.1) 09/24/24 02:46 Chloride 89 mmol/L (98-107) L 09/24/24 02:46 Carbon Dioxide 33 mmol/L (22-29) H 09/24/24 02:46 Anion Gap 15.5 (5-19) 09/24/24 02:46 BUN 23 mg/dL (8-23) 09/24/24 02:46 Creatinine 1.2 mg/dL (0.5-0.9) H 09/24/24 02:46 GFR Calculation Not Reportable 09/24/24 02:46 Glucose 183 mg/dL (65-115) H 09/24/24 02:46 Calculated Osmolality 284 mOsm/kg (285-295) L 09/24/24 02:46 Lactic Acid 1.2 mmol/L (0.5-2.2) 09/20/24 07:04 Calcium 8.4 mg/dL (8.5-10.5) L 09/24/24 02:46 Magnesium 2.1 mg/dL (1.7-2.3) 09/24/24 02:46 Total Bilirubin 0.3 mg/dL (0.15-1.2) 09/20/24 07:04 AST 33 U/L (0-32) H 09/20/24 07:04 ALT 36 U/L (0-33) H 09/20/24 07:04 Alkaline Phosphatase 82 U/L (35-105) 09/20/24 07:04 Creatine Kinase 98 U/L (26-192) 09/20/24 07:04 Troponin T Baseline 12 ng/L (0-10) H 09/20/24 07:04 Troponin T 120 Minute 13.53 ng/L (0-10) H 09/20/24 09:10 Delta Troponin T 1.53 ABS# (0-10) 09/20/24 09:10 Troponin T Hi Sens 6Hr 14.54 ng/L (0-10) H 09/20/24 13:09 Troponin T Hi Sens 6Hr Delta 2.54 ng/L (0-12) 09/20/24 13:09 C-Reactive Protein 5.9 mg/L (0.0-4.9) H 09/20/24 07:04 NT-Pro-B Natriuret Pep 893 pg/mL (0-450) H 09/22/24 02:17 Total Protein 6.6 g/dL (6.6-8.7) 09/20/24 07:04 Albumin 3.7 g/dL (3.5-5.2) 09/20/24 07:04 Globulin 2.9 g/dL (1.3-4.6) 09/20/24 07:04 Urine Color Yellow (Yellow) 09/21/24 13:45 Urine Appearance Clear (CLEAR) 09/21/24 13:45 Urine pH 5.0 (5-7) 09/21/24 13:45 Ur Specific [place] 1.010 (1.005-1.030) 09/21/24 13:45 Urine Protein Negative (Negative) 09/21/24 13:45 Urine Glucose (UA) Negative (Normal) 09/21/24 13:45 Urine Ketones Negative (Negative) 09/21/24 13:45 Urine Blood Negative (Negative) 09/21/24 13:45 Urine Nitrate Negative (Negative) 09/21/24 13:45 Urine Bilirubin Negative (Negative) 09/21/24 13:45 Urine Urobilinogen 0.2 mg/dL (Negative) 09/21/24 13:45 Ur Leukocyte Esterase Negative (Negative) 09/21/24 13:45 Urine RBC 0-2 /hpf (0-2) 09/21/24 13:45 Urine WBC 0-5 /hpf (0-5) 09/21/24 13:45 Ur Squamous Epith Cells 10-15 /hpf (0-5) H 09/21/24 13:45 Amorphous Sediment Not Reportable 09/21/24 13:45 Urine Bacteria None seen /hpf (NONE) 09/21/24 13:45 Hyaline Casts 15-25 /lpf H 09/21/24 13:45 Vitals Last Vital Signs Temp 97.7 F 09/24/24 07:52 Pulse 97 09/24/24 08:08 Resp 22 H 09/24/24 08:00 BP 108/72 09/24/24 07:52 Pulse Ox 94 09/24/24 08:00 O2 Del Method Nasal Cannula 09/24/24 08:00 O2 Flow Rate 3 09/24/24 08:00 Discharge Plan Discharge Patient Disposition: Home Health Service Condition: Fair Prescriptions: New metoprolol tartrate 25 mg Tablet 12.5 mg PO BID@0900,2100 Qty: 60 0RF Eliquis 2.5 mg tablet 2.5 mg PO BID Qty: 60 0RF prednisone 20 mg tablet 20 mg PO BID 6 Days Qty: 12 0RF potassium chloride 8 mEq capsule, extended release 8 meq PO DAILY Qty: 30 0RF tramadol 25 mg tablet 25 mg PO TID PRN (Reason: pain) Qty: 15 0RF Continued furosemide [Lasix] 20 mg tablet 20 mg PO DAILY albuterol sulfate 90 mcg/actuation HFA aerosol inhaler 1 inh inhalation Q6H PRN (Reason: shortness of breath or wheezing) Qty: 8.5 0RF aspirin 81 mg Tablet,Delayed Release (Dr/Ec) 81 mg PO DAILY amiodarone 200 mg tablet 200 mg PO DAILY Qty: 90 0RF levothyroxine 112 mcg tablet See Rx Instructions .ROUTE .COMPLEX Rx Instructions: TAKE ONE TABLET BY MOUTH EVERY DAY IN THE MORNING ON an empty stomach Discharge Orders: Discharge Order (Routine); Ordered 09/24/24 Ordered By: Kalpana Wooten Referrals: [facility] ([facility]) [Outside] Lauren Fairbanks NP [Nurse Practitioner] - 10/01/24 1:00 pm () Chris Kearney DO [Physician] - 2 weeks (We have notified your physician's clinic of the need for a follow-up appointment to be scheduled. If you have not heard from them within the next 2 business days, please call them directly. ) Alycia Garcia FNP [Referring] - 09/30/24 1:15 pm ( ) Discharge Diet: Cardiac Discharge Activity: Limit activity as instructed, Use walker/crutches as instructed and As per PT/OT instructions Patient Instructions: Metoprolol (By mouth) (Lopressor, Toprol XL), Prednisone (By mouth), Potassium Chloride (By mouth), Tramadol (By mouth), Apixaban (By mouth) (Eliquis), Heart Failure (DC), Atrial Flutter (DC), Hypertension (DC), COPD Stoplight, Opioid Safety Discharge Attestations Time Spent in Discharge Care*: greater than 30 min Quality Metrics Clinical Quality Measures [ No reported AMI, CVA or VTE this stay] Coding Level of Care Code Acute Code for Chg Fwd Diagnoses Atrial flutter with rapid ventricular response I48.92 Acute diastolic heart failure I50.31 COPD exacerbation J44.1 Primary hypertension I10 Hypertension type: primary hypertension Sinus node dysfunction I49.5
--- NOTE | 2024-09-24 11:38 | PC.SOCIAL ---
IMM Updated Updated pt on IMM. No questions voiced. Provided pt a copy. Initialed, dated, & timed copy in chart.
--- NOTE | 2024-09-24 13:24 | PC.NURSE ---
Discharge was delayed due to [employer] being down and heart care for holter monitor.
== END 2024-09-24 13:41 | disposition home health service (06) | DRG 308 ==
LOC: ER 07:34 → CSU 10:59
PROVIDERS: Internal Medicine; Admitting Provider Student in an Organized Health Care Education/Training Program; Emergency Provider Emergency Medicine; Visit Provider Internal Medicine
DX: I48.91 Unspecified atrial fibrillation (principal); I50.31 Acute diastolic (congestive) heart failure; J96.12 Chronic respiratory failure with hypercapnia; J96.11 Chronic respiratory failure with hypoxia; J44.1 Chronic obstructive pulmonary disease with (acute) exacerbation; N28.9 Disorder of kidney and ureter, unspecified; I11.0 Hypertensive heart disease with heart failure; I49.5 Sick sinus syndrome; M48.062 Spinal stenosis, lumbar region with neurogenic claudication; S70.02XA Contusion of left hip, initial encounter; E78.5 Hyperlipidemia, unspecified; F17.210 Nicotine dependence, cigarettes, uncomplicated; E03.9 Hypothyroidism, unspecified; Z99.81 Dependence on supplemental oxygen; Z86.711 Personal history of pulmonary embolism; Z79.82 Long term (current) use of aspirin; W18.30XA Fall on same level, unspecified, initial encounter; Y92.009 Unspecified place in unspecified non-institutional (private) residence as the place of occurrence of the external cause
CPT/HCPCS: 36415; 51702; 71045; 72148; 72192; 73502; 73562; 80048; 80053; 81001; 82550; 83605; 83735; 83880; 84484; 85025; 85610; 85730; 86140; 87086; 93005; 94640; 94664; 96372; 96374; 96376; 97110; 97116; 97162; 97530; 99285; A9270; J0283; J0456; J0612; J0696; J1100; J1644; J1650; J1885; J1940; J2270; J2405; J3490; J7050

== ENCOUNTER 2024-10-04 12:04 | Inpatient (IN) | payer MEDICARE, SELFPAY ==
[2024-10-04] VITALS (17 sets, daily range): BP systolic 92–131; BP diastolic 57–91; PULSE 72–114; RESP 12–26; TEMP 36.4–36.9; O2SAT 78–100; BMI 27.4
--- NOTE | 2024-10-04 12:09 | XRR_ITS ---
PROCEDURE INFORMATION: Exam: XR Chest Exam date and time: 10/04/2024 12:28 PM Age: 83 years old Clinical indication: Shortness of breath; Patient HX: PT here from home via EMS with C/O SOB x 3 days. EMS states wears 3.5 L nc at baseline. PT was given 125 MG of solumedrol and a duoneb en route. TECHNIQUE: Imaging protocol: Radiologic exam of the chest. Views: 1 view. Total images: 3 COMPARISON: CR XR chest 1V portable [id number] 09/22/2024 12:46 PM FINDINGS: Tubes, catheters and devices: Electronic device projecting over mediastinum. Lungs: Hyperinflation with prominent interstitial markings suggesting COPD changes. Pleural spaces: Unremarkable. No pleural effusion. No pneumothorax. Heart/Mediastinum: Heart size is stable when compared to the prior exam. Bones/joints: Osseous structures are unchanged from the prior exam. XR/XR chest 1V portable [id number] IMPRESSION: 1. Hyperinflation with prominent interstitial markings suggesting COPD changes. 2. No acute cardiopulmonary process.
--- NOTE | 2024-10-04 12:10 | ECG_ITS ---
[facility] 2024[facility]04 Pat Name: Radha Silverman Department: Room: Gender: Female Lathe Sander: : 1940 Requested By: Ansley Moreau Order Number: [id number] Julian MD: Luis Carlos Garcia M.D. Measurements Intervals [place] Rate: 97 P: 253 [place]: 144 QRS: -16 QRSD: 105 T: 73 QT: 346 QTc: 440 Interpretive Statements atrial flutter/fibrillation LOW QRS VOLTAGE IN PRECORDIAL LEADS [QRS DEFLECTION < 1.0 mV IN CHEST LEADS] PATTERN CONSISTENT WITH PULMONARY DISEASE MODERATE ST DEPRESSION [0.05+ mV ST DEPRESSION] INTERPRETATION BASED ON A DEFAULT AGE OF 40 YEARS Compared to ECG 09/22/2024 11:30:16 Ectopic atrial rhythm now present Low QRS voltage now present ST (T wave) deviation still present Electronically Signed On 10-05-2024 22:28:40 FOLDING MACHINE OPERATOR by Luis Carlos Garcia M.D. [email or web address]
--- NOTE | 2024-10-04 12:12 | ED_ITS ---
HPI - SOB/Dyspnea 2 General: Chief Complaint: Shortness of Breath/Dyspnea Stated Complaint: sob Time Seen by Provider: 10/04/24 12:06 History of Present Illness: HPI Narrative: 83-year-old female with a history of [employer] D, chronic hypoxemic respiratory failure on 3 L nasal cannula at all times, history of pulmonary embolism on Eliquis, chronic lower extremity swelling and possibly a history of CHF and atrial fibrillation who presents to the emergency room by ambulance with shortness of breath. She says she has been becoming more short of breath for a few days now. EMS reports that her sats were low upon first responders arrival and they had her placed on 8 L nonrebreather. She was given steroids and an updraft by EMS. She has not any chest pain. She does have significant lower extremity swelling. She says it might be a little worse than usual. No chest pain. No abdominal pain. No nausea or vomiting. No known fevers. No altered mental status. No focal motor deficits. Related Data Home Medications Medication Instructions Recorded Confirmed furosemide 20 mg tablet (Lasix) 20 mg PO DAILY 02/28/24 10/04/24 levothyroxine 112 mcg tablet 112 mcg PO QAM 09/20/24 10/04/24 tramadol 50 mg tablet 25 - 50 mg PO BID PRN Pain 10/04/24 10/04/24 Previous Rx's Medication Instructions Recorded albuterol sulfate 90 mcg/actuation 1 inh inhalation Q6H PRN shortness 04/23/22 aerosol inhaler of breath or wheezing #8.5 grams amiodarone 200 mg tablet 200 mg PO DAILY #90 tabs 01/18/24 apixaban 2.5 mg tablet (Eliquis) 2.5 mg PO BID #60 tabs 09/24/24 metoprolol tartrate 25 mg tablet 12.5 mg (1/2 x 25 mg) PO 09/24/24 BID@0900,2100 #60 tabs potassium chloride 8 mEq 8 meq PO DAILY #30 caps 09/24/24 capsule,extended release Allergies Allergy/AdvReac Type Severity Reaction Status Date / Time codeine Allergy Unknown Verified 02/28/24 12:57 Review of Systems 2 Narrative: Constitutional symptoms: Negative except as documented in HPI. Skin symptoms: Negative except as documented in HPI. Eye symptoms: Negative except as documented in HPI. ENMT symptoms: Negative except as documented in HPI. Respiratory symptoms: Negative except as documented in HPI. Cardiovascular symptoms: Negative except as documented in HPI. Gastrointestinal symptoms: Negative except as documented in HPI. Genitourinary symptoms: Negative except as documented in HPI. Musculoskeletal symptoms: Negative except as documented in HPI. Neurologic symptoms: Negative except as documented in HPI. Psychiatric symptoms: Negative except as documented in HPI. Endocrine symptoms: Negative except as documented in HPI. PFSH ED 2 PFSH: Medical History History of pulmonary embolism Acute and chronic respiratory failure with hypoxia Pulmonary embolism Pneumonia Chest pain Chronic respiratory failure with hypoxia COPD (chronic obstructive pulmonary disease) Acute left flank pain Atrial flutter with rapid ventricular response Hypertension Family History Other Cancer Social History Smoking and tobacco/nicotine status: current every day tobacco/nicotine user Alcohol intake: never Substance/Drug Use: never Physical Exam 2 Narrative: EXAM NARRATIVE: General: Alert, no acute distress. Skin: Warm, dry. Head: Normocephalic, atraumatic. Neck: Supple, trachea midline. Eye: Extraocular movements are intact. Ears, nose, mouth and throat: Oral mucosa moist. Cardiovascular: Regular rate and rhythm, Normal peripheral perfusion. 2-3+ pitting tibial edema. Respiratory: coarse, scattered wheeze, mild increased wob. tachypnea, breath sounds are equal, Symmetrical chest wall expansion. Gastrointestinal: Soft, Nontender, Non distended, Normal bowel sounds. Musculoskeletal: Normal ROM, no deformity. Neurological: Alert and oriented to person, place, time, and situation, No focal neurological deficit observed. Psychiatric: Cooperative, appropriate mood & affect. Course 2 Vital Signs: Vital signs: Vital Signs Temperature 98.1 F 10/04/24 12:06 Pulse Rate 90 10/04/24 13:30 Respiratory Rate 17 10/04/24 13:30 Blood Pressure 126/60 10/04/24 13:30 Pulse Oximetry 84 L 10/04/24 13:30 Oxygen Delivery Me thod Non-Rebreather 10/04/24 12:39 Oxygen Flow Rate 10 10/04/24 12:39 Fraction of Inspir ed Oxygen 35 10/04/24 12:55 MDM - SOB/Dyspnea Medical Decision Making Differential diagnosis for patient with shortness of breath includes but is not limited to and based on the above HPI, review of systems and physical exam: Pneumonia. Bronchitis. Asthma or COPD with acute exacerbation. Acute coronary syndrome / [place]. Pulmonary embolism. Anxiety. Congestive heart failure. Viral infections including influenza and Covid-19. Atrial fibrillation. Anxiety. Pleural effusion. Pneumothorax. Orders placed to evaluate differential diagnosis based on the above differential, HPI and physical exam EKG: Time 1210. Rate 97. Atrial fibrillation with controlled rate, No ST-T changes, no ectopy, This was reviewed and interpreted by myself the ER physician at 1212 Chest x-ray: Hyperinflation/flattened diaphragms/emphysematous changes. No acute process. No infiltrate. No pneumothorax. This was reviewed and interpreted by myself the emergency room physician. I also reviewed the radiology report. Lab Review: Laboratory results were reviewed and interpreted by myself the emergency room physician. No leukocytosis. No anemia. BUN and creatinine are slightly above baseline at 42 and 1.3. She does have some chronic kidney disease. I reviewed the patient's medical record. Reexamination: Patient appears comfortable and is currently sleeping on the BiPAP. Lungs sound quite a bit better. Oxygen requirements have come down. Consultation: I spoke with Dr. Wooten who is on-call for the hospitalist service. She agrees to admission to the cardiac stepdown unit. Assessment and plan: COPD with acute exacerbation Acute on chronic hypoxemic respiratory failure Hypercapnic respiratory failure ?IV Solu-Medrol, multiple updrafts, IV doxycycline ? BiPAP was required. She seems to be doing better on this. -I discussed the patient with the hospitalist on-call who is admitting the patient. - Discussed findings and plan with patient. Answered any questions. - All laboratory values were reviewed and interpreted personally by myself, the ER physician - All imaging was reviewed and interpreted personally by myself, the ER physician. - Evaluation and treatment of this problem were appropriate in the emergency setting Critical care -I spent a total of >35 minutes of critical care time managing the patient, independent of any other practitioner. -The time involved in the performance of separately reportable procedures was not counted towards critical care time. Lab Data 10/04/24 12:26 10/04/24 12:26 Labs/Radiology: Radiology Impressions Chest X-Ray 10/04/24 12:09 IMPRESSION: 1. Hyperinflation with prominent interstitial markings suggesting COPD changes. 2. No acute cardiopulmonary process. Laboratory Results WBC 10.13 10^3/uL (3.29-11.43) 10/04/24 12:26 RBC 4.74 10^6/uL (3.85-5.65) 10/04/24 12:26 Hgb 13.70 g/dL (11.27-16.99) 10/04/24 12:26 Hct 44.6 % (36-47) 10/04/24 12:26 MCV 94.1 fl (85-98) 10/04/24 12:26 MCH 28.9 pg (27-33) 10/04/24 12:26 MCHC 30.7 g/dL (30-55) 10/04/24 12: RDW 12.4 % (12.1-15.1) 10/04/24 12: Plt Count 380 10^3/cmm (157-399) 10/04/24 12: MPV 8.5 fL (7.4-10.4) 10/04/24 12: Neut % (Auto) 76.1 % 10/04/24 12: Lymph % (Auto) 9.8 % 10/04/24 12: Dodge % (Auto) 10.3 % 10/04/24 12: Eos % (Auto) 2.4 % 10/04/24 12: Baso % (Auto) 0.1 % 10/04/24 12:26 Neut # (Auto) 7.72 10^3/uL (1.8-7.7) H 10/04/24 12:26 Lymph # (Auto) 1.0 10^3/uL (0.8-4.8) 10/04/24 12:26 Dodge # (Auto) 1.0 10^3/uL (0.2-0.9) H 10/04/24 12:26 Eos # (Auto) 0.2 10^3/uL (0.0-0.8) 10/04/24 12:26 Baso # (Auto) 0.0 10^3/uL (0.0-0.1) 10/04/24 12:26 Nucleated RBC % (auto) 0 % 10/04/24 12: Nucleated RBCs # 0.0 /100WBC 10/04/24 12: Specimen Type Arterial 10/04/24 12: Sample Site Radial, right 10/04/24 12:33 ABG pH 7.31 (7.35-7.45) L 10/04/24 12:33 ABG pCO2 60.8 mmHg (35-45) H* 10/04/24 12:33 ABG pO2 264.0 mmHg (80.0-100.0) H 10/04/24 12:33 ABG HCO3 30.6 mmol/L (22-26) H 10/04/24 12:33 ABG O2 Saturation > 99.1 10/04/24 12:33 ABG Base Excess 2.7 mmol/L (-2.0-2.0) H 10/04/24 12:33 Efe Test Pos 10/04/24 12: A-a O2 Gradient Not Reportable 10/04/24 12:33 Hematocrit 40.9 % (37-47) 10/04/24 12:33 Hgb O2 Saturation 98.1 % (95-100) 10/04/24 12:33 Carboxyhemoglobin 1.6 %THgb (0.4-20.1) 10/04/24 12:33 Methemoglobin 0.4 % (0.4-1.5) 10/04/24 12:33 Total Hemoglobin 13.3 g/dL (12-16) 10/04/24 12:33 Sodium 137.0 mmol/L (131-143) 10/04/24 12:33 Potassium 4.6 mmol/L (3.5-5.0) 10/04/24 12:33 Glucose 117.0 mg/dL (70-115) H 10/04/24 12:33 Ionized Calcium 1.2 mmol/L (1.1-1.4) 10/04/24 12:33 O2 Delivery Device Nrb 10/04/24 12:33 O2 Liters/Min 10.0 % 10/04/24 12:33 Counter Clerk [employer] ID Amh 10/04/24 12:33 Sodium 135 mmol/L (136-145) L 10/04/24 12:26 Potassium 4.9 mmol/L (3.5-5.1) 10/04/24 12:26 Chloride 97 mmol/L (98-107) L 10/04/24 12:26 Carbon Dioxide 30 mmol/L (22-29) H 10/04/24 12:26 Anion Gap 12.9 (5-19) 10/04/24 12:26 BUN 42 mg/dL (8-23) H 10/04/24 12:26 Creatinine 1.3 mg/dL (0.5-0.9) H 10/04/24 12:26 GFR Calculation Not Reportable 10/04/24 12:26 Glucose 114 mg/dL (65-115) 10/04/24 12:26 Calculated Osmolality 291 mOsm/kg (285-295) 10/04/24 12:26 Lactic Acid 0.9 mmol/L (0.5-2.2) 10/04/24 12:26 Calcium 8.7 mg/dL (8.5-10.5) 10/04/24 12:26 Total Bilirubin 0.5 mg/dL (0.15-1.2) 10/04/24 12:26 AST 43 U/L (0-32) H 10/04/24 12:26 ALT 68 U/L (0-33) H 10/04/24 12:26 Alkaline Phosphatase 122 U/L (35-105) H 10/04/24 12:26 Troponin T Baseline 19 ng/L (0-10) H 10/04/24 12:26 NT-Pro-B Natriuret Pep 653 pg/mL (0-450) H 10/04/24 12:26 Total Protein 6.6 g/dL (6.6-8.7) 10/04/24 12:26 Albumin 4.2 g/dL (3.5-5.2) 10/04/24 12:26 Globulin 2.4 g/dL (1.3-4.6) 10/04/24 12:26 Coronavirus (PCR) Negative (Negative) 10/04/24 12:16 Influenza A (PCR) Negative (Negative) 10/04/24 12:16 Influenza Type B (PCR) Negative (Negative) 10/04/24 12:16 RSV (PCR) Negative (Negative) 10/04/24 12:16 All radiology interpretation(s) finalized by discharge Discharge Plan Discharge Patient Disposition: Admitted As Inpatient Clinical Impression: COPD with acute exacerbation, Hypercapnic respiratory failure, Acute on chronic hypoxic respiratory failure Coding Level of Care Code ED [employer] Philosophy Professor for Madelyn Martinez
[2024-10-04] MEDS: albuterol 2.5 mg/3 mL Neb INHALATION (12:28)
[2024-10-04 12:34] LABS: Basophils % 0.1 %; Eosinophils # 0.2 10^3/uL (0.0-0.8); Eosinophils % 2.4 %; Hematocrit 44.6 % (36-47); Lymphocytes % 9.8 %; Mean Corpuscular HGB Conc 30.7 g/dL (30-55); Mean Corpuscular Hemoglobin 28.9 pg (27-33); Mean Corpuscular Volume 94.1 fl (85-98); Mean Platelet Volume 8.5 fL (7.4-10.4); Monocytes % 10.3 %; Neutrophils # 7.72 10^3/uL (1.8-7.7); Neutrophils % 76.1 %; Nucleated Red Blood Cells % 0 %; Platelet Count 380 10^3/cmm (157-399); Red Blood Count 4.74 10^6/uL (3.85-5.65); Red Cell Distribution Width 12.4 % (12.1-15.1); White Blood Count 10.13 10^3/uL (3.29-11.43)
[2024-10-04 12:44] LABS: ABG PH Result 7.31 (7.35-7.45); Arterial Blood Gas Hematocrit 40.9 % (37-47); Base Excess ABG 2.7 mmol/L (-2.0-2.0); Blood Gas Allen Test Pos; Blood Gas Operator Identificat AMH; Blood Gas Sample Site Radial, right; Blood Gas Sample Type Arterial; Carboxyhemoglobin 1.6 %THgb (0.4-20.1); HCO3 ABG 30.6 mmol/L (22-26); HGB O2 Sat 98.1 % (95-100); Ionized Calcium Level - ABG 1.2 mmol/L (1.1-1.4); Methemoglobin 0.4 % (0.4-1.5); Oxygen Device NRB; Oxygen Saturation ABG > 99.1; Potassium Level - ABG 4.6 mmol/L (3.5-5.0); Total Hemoglobin 13.3 g/dL (12-16)
[2024-10-04 12:45] LABS: ABG PCO2 60.8 mmHg (35-45)
[2024-10-04 12:59] LABS: Lactic Sepsis W/Reflex 0.9 mmol/L (0.5-2.2)
[2024-10-04 13:01] LABS: Troponin(5th) Baseline 19 ng/L (0-10)
[2024-10-04 13:10] LABS: Alanine Aminotransferase 68 U/L (0-33); Albumin Level 4.2 g/dL (3.5-5.2); Alkaline Phosphatase 122 U/L (35-105); Anion Gap 12.9 (5-19); Aspartate Amino Transferase 43 U/L (0-32); Blood Urea Nitrogen 42 mg/dL (8-23); Calcium 8.7 mg/dL (8.5-10.5); Carbon Dioxide 30 mmol/L (22-29); Chloride 97 mmol/L (98-107); Creatinine Clr Calc Pharmacy 35.5896; Globulin 2.4 g/dL (1.3-4.6); Glucose 114 mg/dL (65-115); NT Pro B Type Natriuretic Pept 653 pg/mL (0-450); Osmolality Calculated 291 mOsm/kg (285-295); Potassium 4.9 mmol/L (3.5-5.1); Sodium 135 mmol/L (136-145); Total Bilirubin 0.5 mg/dL (0.15-1.2); Total Protein 6.6 g/dL (6.6-8.7)
[2024-10-04 13:11] LABS: Covid PCR NEGATIVE (Negative); Influenza A NEGATIVE (Negative); Influenza B NEGATIVE (Negative); Respiratory Syncytial Virus Ce NEGATIVE (Negative)
--- NOTE | 2024-10-04 13:13 | PC.PHAR ---
Pt is on bipap. Family member verified pt medications. Pt stopped aspirin 81mg when she was put on blood thinners.
--- NOTE | 2024-10-04 14:10 | ECG_ITS ---
[facility] Date: 2024-10-04 Pat Name: Radha Silverman Department: Room: 107 Gender: Female Field Agent: : [id number] Requested By: Ansley Moreau Order Number: [id number] Julian MD: Luis Carlos Garcia M.D. Measurements Intervals [place] Rate: 91 P: 0 DC: 0 QRS: -4 QRSD: 113 T: 90 QT: 229 QTc: 282 Interpretive Statements ATRIAL FLUTTER/TACHYCARDIA LOW QRS VOLTAGE IN PRECORDIAL LEADS [QRS DEFLECTION < 1.0 mV IN CHEST LEADS] PATTERN CONSISTENT WITH PULMONARY DISEASE MODERATE INTRAVENTRICULAR CONDUCTION DELAY [110+ ms QRS DURATION] MODERATE ST DEPRESSION [0.05+ mV ST DEPRESSION] Compared to ECG 10/04/2024 12:10:49 Intraventricular conduction delay now present Ectopic atrial rhythm no longer present ST (T wave) deviation still present Electronically Signed On 10-05-2024 22:37:35 [employer]ASTEW[employer] PROJECT ENGINEER by Luis Carlos Garcia M.D. [id number]
[2024-10-04 14:50] LABS: Troponin 5 2HR 16.84 ng/L (0-10); Troponin 5 2HR Delta -2.16 ABS# (0-10)
[2024-10-04] MEDS: doxycycline 100 MG in sodium chloride 0.9% (plus) 100 ML IV (15:14)
[2024-10-04 15:15] LABS: ABG PCO2 54.1 mmHg (35-45); ABG PH Result 7.35 (7.35-7.45); Arterial Blood Gas Hematocrit 40.2 % (37-47); Base Excess ABG 2.9 mmol/L (-2.0-2.0); Blood Gas Allen Test Pos; Blood Gas Operator Identificat MONRO; Blood Gas Sample Site Radial, right; Blood Gas Sample Type Arterial; Carboxyhemoglobin 1.6 %THgb (0.4-20.1); HCO3 ABG 29.7 mmol/L (22-26); HGB O2 Sat 95.1 % (95-100); Ionized Calcium Level - ABG 1.2 mmol/L (1.1-1.4); Methemoglobin 0.4 % (0.4-1.5); Oxygen Device BIPAP; Oxygen Saturation ABG 97.1; PO2 ABG 86.9 mmHg (80.0-100.0); PO2 FiO2 Ratio Arterial Blood 289; Potassium Level - ABG 5.1 mmol/L (3.5-5.0); Total Hemoglobin 13.1 g/dL (12-16)
--- NOTE | 2024-10-04 15:35 | P.HP_ITS ---
Providers/Chief Complaint 2 Admitting Physician: Kalpana Wooten MD Primary Care Provider: TRISTA Lawler Chief Complaint: sob History of Present Illness Radha Silverman is a 83 year old female with past medical history of atrial fibrillation, COPD on supplemental oxygen at home, history of PE treated with Eliquis for a year however later it was discontinued with a recent fall who was discharged from the hospital on September 24. At that visit she was treated for atrial fibrillation with amiodarone and sent home on 200 mg daily. Holter monitor was set up. 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 She also had MRI lumbar spine done for left leg weakness which did improve with steroids. She was asked to follow-up with orthopedic surgery outpatient and cardiology. She was started on Eliquis. Today she presents back to the hospital for shortness of breath. She states it has been worsening the last few days. She was on 8 L nonrebreather upon arrival. Denies any chest pain. Does have significant lower extremity swelling. He states this may be worse than usual. Denies any chest pain nausea vomiting diarrhea constipation, abdominal pain. Patient states that since she went home from previous hospitalization she has not really felt well. She has had worsening shortness of breath. She states if she puts up her oxygen concentrator past 3 L at. She says she has been taking Lasix however not peeing as much. Has not left the house in last few weeks. In the ER she was given IV Solu-Medrol IV doxycycline. She was placed on BiPAP. EKG did show atrial fibrillation rate controlled. Chest x-ray showed no infiltrate at this time. Creatinine 1.3. She does have a history of CKD. Medications/Allergies Home Medications Medication Instructions Recorded Confirmed Last Taken Type albuterol sulfate 90 mcg/actuation 1 inh inhalation Q6H PRN shortness 04/23/22 10/04/24 Unknown Rx aerosol inhaler of breath or wheezing #8.5 grams amiodarone 200 mg tablet 200 mg PO DAILY #90 tabs 01/18/24 10/04/24 10/04/24 Rx furosemide 20 mg tablet (Lasix) 20 mg PO DAILY 02/28/24 10/04/24 10/04/24 History levothyroxine 112 mcg tablet 112 mcg PO QAM 09/20/24 10/04/2424 History apixaban 2.5 mg tablet (Eliquis) 2.5 mg PO BID #60 tabs 09/24/24 10/04/24 10/04/24 Rx metoprolol tartrate 25 mg tablet 12.5 mg (1/2 x 25 mg) PO 09/24/24 10/04/24 10/04/24 Rx BID@0900,2100 #60 tabs potassium chloride 8 mEq 8 meq PO DAILY #30 caps 09/24/24 10/04/24 10/04/24 Rx capsule,extended release tramadol 50 mg tablet 25 - 50 mg PO BID PRN Pain 10/04/24 10/04/24 Unknown History Allergies Allergy/AdvReac Type Severity Reaction Status Date / Time codeine Allergy Unknown Verified 02/28/24 12:57 PFSH Acute 2 PFSH: Medical History History of pulmonary embolism Acute and chronic respiratory failure with hypoxia Pulmonary embolism Pneumonia Chest pain Chronic respiratory failure with hypoxia COPD (chronic obstructive pulmonary disease) Acute left flank pain Atrial flutter with rapid ventricular response Hypertension Family History Other Cancer Social History Smoking and tobacco/nicotine status: current every day tobacco/nicotine user Alcohol intake: never Substance/Drug Use: never Vitals/I&O/Wt Last Vital Signs Temp 98.1 F 10/04/24 12:06 Pulse 83 10/04/24 15:06 Resp 22 H 10/04/24 15:00 BP 110/62 10/04/24 15:00 Pulse Ox 100 10/04/24 15:06 O2 Del Method Non-Rebreather 10/04/24 12:39 O2 Flow Rate 10 10/04/24 12:39 FiO2 35 10/04/24 15:06 Weight last 48 hrs Weight 77.111 kg Physical Exam 2 Narrative: General: Alert oriented x3, patient seen laying in bed appearing comfortable in no acute respiratory distress. Currently on BiPAP. HEENT: Normocephalic, atraumatic, EOMI, Cardio: Irregularly irregular, rate controlled., normal S1-S2, Respiratory: Rhonchi diffusely at bases, rest of lungs clear to auscultation. GI: Abdomen soft, nontender, nondistended, bowel sounds + Behavior: Appropriate and cooperative Extremities: 2-3+ edema bilateral lower extremities up to knees. Data 10/04/24 12:26 10/04/24 12:26 Micro: Microbiology 10/04/24 12:28 Blood Culture - Preliminary Blood SPECIMEN COLLECTED 10/04/24 12: Blood Culture - Preliminary Blood SPECIMEN COLLECTED A&P Assessment and plan (1) Hypertension: Qualifiers: Hypertension type: primary hypertension Qualified Code(s): I10 - Essential (primary) hypertension (2) COPD (chronic obstructive pulmonary disease): Qualifiers: COPD type: unspecified COPD Qualified Code(s): J44.9 - Chronic obstructive pulmonary disease, unspecified (3) Heart failure: Plan #Shortness of breath secondary to COPD exacerbation #Hypercarbic respiratory failure #Atrial fibrillation, rate controlled #History of PE #Acute on chronic diastolic heart failure ? Last echo December 2023 shows EF 56% no regional wall motion abnormalities, mild pulmonic valve regurgitation. Patient does take Lasix 20 daily at home. ? Does have bilateral lower extremity edema which has worsened significantly compared to before. Also has bilateral crackles at bases of lower lungs. Will repeat an echo. ? Will place on Lasix 40 IV twice daily. ? Continue Eliquis, amiodarone for atrial fibrillation ? Continue levothyroxine ? Continue beta-mynor ? Placed on Solu-Medrol 40 IV twice daily, Levaquin 500 daily. Patient is bringing up greenish phlegm. ? Sputum Gram stain culture, ? Check BNP, procalcitonin ? Placed on DuoNeb every 6 hours as needed ? Initial ABG on admission did show elevated CO2. Continue BiPAP and recheck ABG. ? Continue cardiac diet Full code DVT prophylaxis: Patient on Eliquis that should suffice. Attestations 2 Medical Necessity Statement*: Patient will cross greater than 2 midnight stay for management of COPD exacerbation, hypercarbic respiratory failure with elevated CO2 requiring BiPAP at this time. She also has component of diastolic heart failure exacerbation for which she will need gentle IV diuresis. Diagnoses Primary hypertension I10 Hypertension type: primary hypertension Chronic obstructive pulmonary disease, unspecified COPD type J44.9 COPD type: unspecified COPD Heart failure I50.9
--- NOTE | 2024-10-04 15:38 | PC.NURSE ---
requesting espinosa catheter from Dr Wooten due to increased SOB with exertion. Patient on bipap.
[2024-10-04 16:00] LABS: D Dimer 1.07 ug/mLFEU (0-0.59)
[2024-10-04 16:16] LABS: Thyroid Stimulating Hormone 1.63 uIU/mL (0.27-4.20)
[2024-10-04] MEDS: methylPREDNISolone sod succ 40 mg/mL INJ IVP (16:39)
[2024-10-04] MEDS: levofloxacin-dextrose 5 % 500 MG/100 ML PREMIX 100 MG IV (16:39)
[2024-10-04] MEDS: FUROsemide 10 mg/mL SDV 4mL 40 MG IVP (16:39)
--- NOTE | 2024-10-04 18:10 | ECG_ITS ---
[facility] Date: 2024-10-04 Pat Name: Radha Silverman Department: Room: 107 Gender: Female Conical Mixer: : 1940 Requested By: Ansley Moreau Order Number: [id number] Julian MD: Luis Carlos Garcia M.D. Measurements Intervals [place] Rate: 110 P: 0 IN: 0 QRS: 14 QRSD: 106 T: 68 QT: 281 QTc: 381 Interpretive Statements ATRIAL FLUTTER/TACHYCARDIA WITH RAPID VENTRICULAR RESPONSE LOW QRS VOLTAGE IN PRECORDIAL LEADS [QRS DEFLECTION < 1.0 mV IN CHEST LEADS] POSSIBLE INFERIOR MYOCARDIAL INFARCTION , PROBABLY OLD [30 ms Q WAVE IN II/aVF] ABNORMAL RHYTHM ECG Compared to ECG 10/04/2024 16:13:10 Myocardial infarct finding now present Intraventricular conduction delay no longer present ST (T wave) deviation no longer present Electronically Signed On 10-05-2024 22:37:37 ALLIED HEALTH PROFESSIONAL by Luis Carlos Garcia M.D. [id number]
[2024-10-04 18:53] LABS: Troponin 5 6HR 16.33 ng/L (0-10)
[2024-10-04 18:54] LABS: Troponin 5 6HR Delta -2.67 ng/L (0-12)
[2024-10-04] MEDS: ipratropium-albuterol 3 mL Neb INHALATION ×2 (21:23→21:30)
[2024-10-05] VITALS (16 sets, daily range): BP systolic 104–142; BP diastolic 63–83; PULSE 75–108; RESP 12–26; TEMP 35.8–36.7; O2SAT 90–100
[2024-10-05] MEDS: methylPREDNISolone sod succ 40 mg/mL INJ IVP ×2 (04:31→16:14)
[2024-10-05] MEDS: FUROsemide 10 mg/mL SDV 4mL 40 MG IVP ×2 (04:31→16:14)
[2024-10-05 05:05] LABS: Hematocrit 38.4 % (36-47); Lymphocytes # 0.4 10^3/uL (0.8-4.8); Mean Corpuscular Hemoglobin 29.6 pg (27-33); Mean Corpuscular Volume 95.5 fl (85-98); Mean Platelet Volume 8.8 fL (7.4-10.4); Monocytes # 0.1 10^3/uL (0.2-0.9); Monocytes % 1.4 %; Neutrophils # 5.88 10^3/uL (1.8-7.7); Neutrophils % 91.2 %; Nucleated Red Blood Cells % 0 %; Platelet Count 326 10^3/cmm (157-399); Red Blood Count 4.02 10^6/uL (3.85-5.65); Red Cell Distribution Width 12.3 % (12.1-15.1); White Blood Count 6.45 10^3/uL (3.29-11.43)
[2024-10-05 05:26] LABS: Anion Gap 15.3 (5-19); Blood Urea Nitrogen 52 mg/dL (8-23); Calcium 8.7 mg/dL (8.5-10.5); Carbon Dioxide 30 mmol/L (22-29); Chloride 101 mmol/L (98-107); Creatinine Clr Calc Pharmacy 35.9721; Glucose 136 mg/dL (65-115); Magnesium 2.3 mg/dL (1.7-2.3); Osmolality Calculated 308 mOsm/kg (285-295); Potassium 5.3 mmol/L (3.5-5.1); Sodium 141 mmol/L (136-145)
--- NOTE | 2024-10-05 06:01 | P.PN_ITS ---
Subjective 2 Subjective: seen today on nc at this time 700 UO overnight Vitals/I&O/Wt Last Vital Signs Temp 98.0 F 10/05/24 04:00 Pulse 83 10/05/24 05:50 Resp 22 H 10/05/24 04:00 BP 127/80 10/05/24 04:00 Pulse Ox 96 10/05/24 04:00 O2 Del Method Nasal Cannula 10/05/24 04:00 O2 Flow Rate 10 10/04/24 12:39 FiO2 30 10/05/24 03:24 10/04/24 10/04/24 10/05/24 14:59 22:59 06:59 Intake Total 200 / 200 Output Total 700 / 700 Balance -500 / -500 Weight last 48 hrs Weight 91.807 kg Weight 91.807 kg Weight 77.111 kg Physical Exam 2 Narrative: General: Alert oriented x3, patient seen laying in bed appearing comfortable in no acute respiratory distress. Currently on BiPAP. HEENT: Normocephalic, atraumatic, EOMI, Cardio: Irregularly irregular, rate controlled., normal S1-S2, Respiratory: Rhonchi diffusely at bases, rest of lungs clear to auscultation. Not much improvement GI: Abdomen soft, nontender, nondistended, bowel sounds + Behavior: Appropriate and cooperative Extremities: 2-3+ edema bilateral lower extremities up to knees, not much improvement Urinary Catheter Management: Ambrosio: Cath Placed During This Visit: yes Reason for Continuing Indwelling Catheter: Acute Urinary Retention or Obstruction Urinary Catheter Date of Insertion: 10/04/24 Urinary Catheter Time of Insertion: 16:10 Data 10/05/24 04:37 10/05/24 04:37 Micro: Microbiology 10/04/24 12:28 Blood Culture - Preliminary Blood SPECIMEN COLLECTED 10/04/24 12:26 Blood Culture - Preliminary Blood SPECIMEN COLLECTED A&P Assessment and plan (1) Hypertension: Qualifiers: Hypertension type: primary hypertension Qualified Code(s): I10 - Essential (primary) hypertension (2) COPD (chronic obstructive pulmonary disease): Qualifiers: COPD type: unspecified COPD Qualified Code(s): J44.9 - Chronic obstructive pulmonary disease, unspecified (3) Heart failure: Plan #Shortness of breath secondary to COPD exacerbation #Hypercarbic respiratory failure #Atrial fibrillation, rate controlled #History of PE #Acute on chronic diastolic heart failure ? Last echo December 2023 shows EF 56% no regional wall motion abnormalities, mild pulmonic valve regurgitation. Patient does take Lasix 20 daily at home. ? Does have bilateral lower extremity edema which has worsened significantly compared to before. Also has bilateral crackles at bases of lower lungs. Will repeat an echo. ? Will place on Lasix 40 IV twice daily. ? Continue Eliquis, amiodarone for atrial fibrillation ? Continue levothyroxine ? Continue beta-mynor ? Placed on Solu-Medrol 40 IV twice daily, Levaquin 500 daily. Patient is bringing up greenish phlegm. ? Sputum Gram stain culture, ? Check BNP, procalcitonin ? Placed on DuoNeb every 6 hours as needed ? Initial ABG on admission did show elevated CO2. Continue BiPAP and recheck ABG. ? Continue cardiac diet Full code DVT prophylaxis: Patient on Eliquis that should suffice. 10/05/2024 - continue home eliquis - continue lasix 40 iv bid - continue solu-medrol, levaquin - sputum studies, blood cultures pending. - continue to tx as listed in HnP. Attestations 2 Medical Necessity Statement*: Patient will cross greater than 2 midnight stay for management of COPD exacerbation, hypercarbic respiratory failure with elevated CO2 requiring BiPAP on admission. Will need IV diuresis for CHF Diagnoses Primary hypertension I10 Hypertension type: primary hypertension Chronic obstructive pulmonary disease, unspecified COPD type J44.9 COPD type: unspecified COPD Heart failure I50.9
[2024-10-05 06:02] LABS: ABG PCO2 54.8 mmHg (35-45); ABG PH Result 7.39 (7.35-7.45); Arterial Blood Gas Hematocrit 38.1 % (37-47); Base Excess ABG 6.9 mmol/L (-2.0-2.0); Blood Gas Allen Test Pos; Blood Gas Operator Identificat JDB; Blood Gas Sample Site Radial, right; Blood Gas Sample Type Arterial; Carboxyhemoglobin 1.2 %THgb (0.4-20.1); HCO3 ABG 33.3 mmol/L (22-26); HGB O2 Sat 95.4 % (95-100); Ionized Calcium Level - ABG 1.1 mmol/L (1.1-1.4); Oxygen Device NC; Oxygen Saturation ABG 97.6; PO2 ABG 92.1 mmHg (80.0-100.0); Potassium Level - ABG 4.5 mmol/L (3.5-5.0); Total Hemoglobin 12.4 g/dL (12-16)
[2024-10-05] MEDS: ipratropium-albuterol 3 mL Neb INHALATION ×4 (07:44→21:38)
[2024-10-05] MEDS: metoprolol tartrate 25 mg Tablet 12.5 MG PO ×2 (09:14→20:41)
[2024-10-05] MEDS: apixaban 5 mg Tablet 2.5 MG PO ×2 (09:14→17:26)
[2024-10-05] MEDS: amiodarone 200 mg Tablet PO (09:14)
--- NOTE | 2024-10-05 15:53 | USCV_ITS ---
Radha Silverman Age: 83 Gender: F : 1940 Exam Date: 10/05/2024 15:58 Ordering Phys: Kalpana Wooten MD Technologist: Blu Mcgowan Exam Location: [facility] [place] Indication: CHF BP: 135 / 83 HR: 84 Rhythm: Sinus Technical Quality: Adequate MEASUREMENTS (Male / Female) Normal Values 2D ECHO LV Diastolic Diameter PLAX 4.3 cm 4.2 - 5.9 / 3.9 - 5.3 cm IVS Diastolic Thickness 1.3 cm 0.6 - 1.0 / 0.6 - 0.9 cm IVS Systolic Thickness 2.0 cm LVPW Diastolic Thickness 1.8 cm 0.6 - 1.0 / 0.6 - 0.9 cm LVPW Systolic Thickness 1.7 cm LVOT Diameter 2.0 cm LV Ejection Fraction 2D Teich 81.3 % LV Ejection Fraction MOD 4C 53.1 % LV Ejection Fraction MOD 2C 47.2 % LV Ejection Fraction 2C AL 47.5 % LA Diameter 3.5 cm RA Systolic Volume 4C AL 41.6 ml RA Systolic Volume 4C MOD 40.4 ml LA Sys Volume AL 59.8 cm cubed LA Sys Volume Index AL 26.3 cm cubed/m squared Aorta at Sinotubular Diameter 2.3 cm IVC Diameter 1.8 cm M-MODE LA Ao Ratio MM 1.2 AV Cusp Separation MM 1.9 cm DOPPLER AV Peak Velocity 138.3 cm/s LVOT Peak Velocity 89.0 cm/s AV Area Cont Eq vti 2.6 cm squared AV Area Cont Eq pk 2.1 cm squared MV Peak Velocity 87.0 cm/s MV Area PHT 6.8 cm squared Mitral E to A Ratio 1.7 TV Peak Velocity 262.0 cm/s TR Peak Velocity 297.0 cm/s TR Peak Gradient 35.3 mmHg TR Mean Velocity 233.0 cm/s TR Mean Gradient 23.5 mmHg TR Velocity Time Integral 69.9 cm PV Peak Velocity 79.0 cm/s RV Ejection Time 0.3 s FINDINGS Left Ventricle Normal LV size with slightly diminished ejection fraction of 50%. Diffuse hypokinesis of the inferior wall Right Ventricle The right ventricle is normal in size and function. Right Atrium Mildly increased right atrial size. Left Atrium Mildly increased left atrial size. Mitral Valve No gross abnormalities noted Aortic Valve Trace to mild aortic valve regurgitation. Tricuspid Valve No gross abnormalities noted.trace tricuspid valve regurgitation. Pulmonic Valve Pulmonic valve not well visualized. Pericardium Normal pericardium without effusion. Aorta Normal ascending aorta dimension. IVC Normal inferior vena cava. CONCLUSIONS Normal LV size with slightly diminished ejection fraction of 50%. Diffuse hypokinesis of the inferior wall. Mild Trace to mild aortic valve regurgitation. biatrial enlargement. Trace tricuspid valve regurgitation. There is no pericardial effusion. There are no intracardiac masses. There is no pericardial effusion. Compared to the study from 01/10/2024, the drop in the LV ejection fraction and the wall motion abnormality appeared to be new Dr Luis Carlos Garcia MD FACC (Electronically Signed) Final Date: 05 October 2024 17:45 S
[2024-10-05] MEDS: levofloxacin-dextrose 5 % 500 MG/100 ML PREMIX 100 MG IV (16:14)
[2024-10-06] VITALS (14 sets, daily range): BP systolic 106–120; BP diastolic 79–95; PULSE 88–118; RESP 18–28; TEMP 36.4–36.8; O2SAT 90–97
[2024-10-06] MEDS: zolpidem 5 mg Tablet PO (01:22)
[2024-10-06] MEDS: methylPREDNISolone sod succ 40 mg/mL INJ IVP ×2 (04:08→17:05)
[2024-10-06] MEDS: FUROsemide 10 mg/mL SDV 4mL 40 MG IVP ×2 (04:08→17:02)
[2024-10-06] MEDS: levothyroxine 112 mcg Tablet PO (05:56)
[2024-10-06] MEDS: ipratropium-albuterol 3 mL Neb INHALATION ×4 (07:42→20:45)
[2024-10-06] MEDS: apixaban 5 mg Tablet 2.5 MG PO ×2 (08:06→18:31)
[2024-10-06] MEDS: metoprolol tartrate 25 mg Tablet 12.5 MG PO (08:06)
[2024-10-06] MEDS: amiodarone 200 mg Tablet PO (08:06)
[2024-10-06 09:09] LABS: Basophils % 0.1 %; Eosinophils % 0.1 %; Lymphocytes # 0.3 10^3/uL (0.8-4.8); Lymphocytes % 2.3 %; Mean Corpuscular HGB Conc 30.5 g/dL (30-55); Mean Corpuscular Hemoglobin 28.4 pg (27-33); Mean Platelet Volume 8.8 fL (7.4-10.4); Monocytes # 0.2 10^3/uL (0.2-0.9); Monocytes % 1.4 %; Neutrophils # 12.23 10^3/uL (1.8-7.7); Neutrophils % 95.6 %; Nucleated Red Blood Cells % 0 %; Platelet Count 361 10^3/cmm (157-399); Red Cell Distribution Width 12.4 % (12.1-15.1); White Blood Count 12.79 10^3/uL (3.29-11.43)
[2024-10-06 09:23] LABS: Anion Gap 16.7 (5-19); Blood Urea Nitrogen 59 mg/dL (8-23); Calcium 8.8 mg/dL (8.5-10.5); Carbon Dioxide 28 mmol/L (22-29); Chloride 92 mmol/L (98-107); Glucose 238 mg/dL (65-115); Magnesium 2.1 mg/dL (1.7-2.3); Osmolality Calculated 298 mOsm/kg (285-295); Potassium 4.7 mmol/L (3.5-5.1); Sodium 132 mmol/L (136-145)
--- NOTE | 2024-10-06 14:12 | P.CONIM_ITS ---
<Statement entered by Joel Flores M.D - 10/07/24 07:56> Patient was evaluated and cared for in conjunction with an advanced practice practitioner.? I personally examined the patient and reviewed the chart and all pertinent data including imaging, telemetry, and laboratory results.? I discussed the patient in detail with the advanced practice practitioner.? Please see? their note for complete consult note, testing results and agreed upon plan of care for the patient. Briefly, patient with diastolic congestive heart failure history, atrial fibrillation history who had refused pacemaker in the past has presented with volume overload and shortness of breath. Currently getting diuresed. Heart rates are better controlled now. GENERAL: Patient is alert, awake and oriented x3. HEART:Irregularly irregular. LUNGS Mild crackles. CENTRAL NERVOUS SYSTEM: Grossly nonfocal. EXTREMITIES: Lower extremities with out edema bilaterally. Assessment and Plan (1) Heart failure (2) Sinus pause (3) Bradycardia (4) Hypertension (5) Atrial flutter with rapid ventricular response Patient's heart rate is controlled at this time. In the past she has refused pacemaker. She prefers not to have any invasive procedures done. Echocardiogram shows preserved LV systolic function with inferior wall hypokinesis. I recommended ischemic workup however she wants medical therapy for now. Continue on IV Lasix. Creatinine has trended up. Monitor I&O's and renal function. Thank you for involving us with care of this patient. We will continue to follow. Please call with questions. Providers/Reason For Consult 2 Consulting Physician/Specialty*: Dr. Flores Reason for Consult*: Afib, diastolic heart failure Requesting Physician: Dr. Wooten Attending Physician: James Stokes History of Present Illness History of Present Illness Radha Silverman is a 83 year old female with past medical history of atrial fibrillation, COPD on supplemental oxygen at home, history of PE treated with Eliquis for a year however later it was discontinued with a recent fall who was discharged from the hospital on September 24. Previously she was found to have frequent pauses, and pacemaker was recommended, but patient declined. Holter monitor was set up that has shown afib but no pauses on current treatment. She came back into the hospital for increased shortness of breath. Her shortness of breath is with activity and relieved with rest. She denies palpitations at this time. Currently in aflutter with rates up to 118. She is taking Metoprolol tartrate 12.5 mg BID. Denies chest pain at this time. Does have lower extremity edema. Mild fine basilar crackles present. She is currently on 3L NC. She has been diuresed with lasix 40 q12 and is -1654 over 24 hours. Creatinine currently 1.9. Baseline is around 1.2. Patient had an ech othat showed EF 50% with diffuse hypokinesis of the inferior wall. Review of Systems 2 Narrative: Consitutional: denies fever, chills, body aches, or changes in appetite, denies abnormal weight loss Eyes: Denies changes in vision Card: Denies chest pain, palpitations, irregular heart rhythm, edema, syncope, shortness of breath, orthopnea, leg pain with exertion Resp: Reports shortness of breath on exertion relieved with rest, denies hemoptysis, denies cough GI: denies abdominal pain, denies nausea or voimting, denies blood in stool : denies blood in urine, denies dysuria Musc: Denies extremity pain, denies limited range of motion or recent injury Skin: Denies rash, lesions, or wounds, denies changes to skin color Neuro: Denies nubmness in extremities, h/a, s/s of stroke Sam: Denies easy bruiding/bleeding Medications/Allergies Home Medications Medication Instructions Recorded Confirmed Last Taken Type albuterol sulfate 90 mcg/actuation 1 inh inhalation Q6H PRN shortness 04/23/22 10/04/24 Unknown Rx aerosol inhaler of breath or wheezing #8.5 grams amiodarone 200 mg tablet 200 mg PO DAILY #90 tabs 01/18/24 10/04/24 10/04/24 Rx furosemide 20 mg tablet (Lasix) 20 mg PO DAILY 02/28/24 10/04/24 10/04/24 History levothyroxine 112 mcg tablet 112 mcg PO QAM 09/20/24 10/04/24 10/04/24 History apixaban 2.5 mg tablet (Eliquis) 2.5 mg PO BID #60 tabs 09/24/24 10/04/24 10/04/24 Rx metoprolol tartrate 25 mg tablet 12.5 mg (1/2 x 25 mg) PO 09/24/24 10/04/24 10/04/24 Rx BID@0900,2100 #60 tabs potassium chloride 8 mEq 8 meq PO DAILY #30 caps 09/24/24 10/04/24 10/04/24 Rx capsule,extended release tramadol 50 mg tablet 25 - 50 mg PO BID PRN Pain 10/04/24 10/04/24 Unknown History Allergies Allergy/AdvReac Type Severity Reaction Status Date / Time codeine Allergy Unknown Verified 02/28/24 12:57 Current Medications Generic Name Dose Route Start Last Admin Trade Name Darrylq PRN Reason Stop Dose Admin Albuterol/Ipratropium 3 ml 10/05/24 08:00 10/06/24 11:14 Ipratropium-Albuterol 3 Ml Neb INHALATION 3 ml QID.RESPIRATORY PAMELA Administration Amiodarone HCl 200 mg 10/05/24 09:00 10/06/24 08:06 Amiodarone 200 Mg Tablet PO 200 mg DAILY PAMELA Administration Apixaban 2.5 mg 10/05/24 09:00 10/06/24 08:06 Apixaban 5 Mg Tablet PO 2.5 mg BID PAMELA Administration Furosemide 40 mg 10/04/24 16:00 10/06/24 04:08 Furosemide 10 Mg/Ml Sdv 4ml IVP 40 mg Q12H PAMELA Administration Levofloxacin/Dextrose 500 mg in 100 mls @ 100 mls/hr 10/04/24 15:45 10/05/24 17:18 Levaquin-D5w IV Infused Q24H PAMELA Infusion Protocol Levothyroxine Sodium 112 mcg 10/06/24 06:00 10/06/24 05:56 Levothyroxine 112 Mcg Tablet PO 112 mcg QAM PAMELA Administration Methylprednisolone Sodium Succinate 40 mg 10/04/24 15:45 10/06/24 04:08 Methylprednisolone Sod Succ 40 Mg/Ml Inj IVP 40 mg Q12H PAMELA Administration Metoprolol Tartrate 12.5 mg 10/05/24 09:00 10/06/24 08:06 Metoprolol Tartrate 25 Mg Tablet PO 12.5 mg BID@0900,2100 PAMELA Administration Zolpidem Tartrate 5 mg 10/06/24 01:15 10/06/24 01:22 Zolpidem 5 Mg Tablet PO 5 mg NOW PAMELA Administration PFSH Acute 2 PFSH: Medical History History of pulmonary embolism Acute and chronic respiratory failure with hypoxia Pulmonary embolism Pneumonia Chest pain Chronic respiratory failure with hypoxia COPD (chronic obstructive pulmonary disease) Acute left flank pain Atrial flutter with rapid ventricular response Hypertension Family History Other Cancer Social History Smoking and tobacco/nicotine status: current every day tobacco/nicotine user Alcohol intake: never Substance/Drug Use: never Vitals/I&O/Wt Last Vital Signs Temp 98.3 F 10/06/24 12:00 Pulse 118 H 10/06/24 12:00 Resp 28 H 10/06/24 12:00 BP 120/85 10/06/24 12:00 Pulse Ox 95 10/06/24 12:00 O2 Del Method Nasal Cannula 10/06/24 12:00 O2 Flow Rate 3 10/06/24 12:00 FiO2 32 10/06/24 07:45 10/05/24 10/06/24 10/06/24 22:59 06:59 14:59 Intake Total 160 / 640 556 / 556 Output Total 700 / 1500 750 / 2250 Balance -540 / -860 -750 / -1610 556 / 556 Weight last 48 hrs Weight 198 lb 14.4 oz Weight 202 lb 6.4 oz Weight 202 lb 6.4 oz Physical Exam 2 Narrative: General: No apparent distress, healthy appearing, well nourished HENMT: normoceophalic Eye: PERRL Neck: No carotid bruit bilaterally Muskuloskeletal: Full ROM Lymphatic: no lymphedema noted Respiratory: Normal respiratory effort, mild basilar crackles bilateral lower lobes, no use of accessory muscles Cardio: No JVD, regular rate, regular rhythm, S1 S2 normal, no murmurs, peripheral pulses 2+ throughout GI: Normal to inspection, nondistended Extremities: Full ROM, normal, normal capillary refill, no cyanosis, 1+ edema bilateral lower extremities Neuro: Alert and oriented x4, no focal motor deficits Psych: Affect normal, denies suicidal ideation, mental status grossly normal Skin: No rashes or lesions noted, no wounds Urinary Catheter Management: Ambrosio: Cath Placed During This Visit: yes Reason for Continuing Indwelling Catheter: Other Urinary Catheter Date of Insertion: 10/04/24 Urinary Catheter Time of Insertion: 16:10 Data 10/06/24 09:01 10/06/24 09:01 Micro: Microbiology 10/04/24 12:28 Blood Culture - Preliminary Blood NEGATIVE TO DATE 10/04/24 12:26 Blood Culture - Preliminary Blood NEGATIVE TO DATE Other data: Echo Complete CONCLUSIONS Normal LV size with slightly diminished ejection fraction of 50%. Diffuse hypokinesis of the inferior wall. Mild Trace to mild aortic valve regurgitation. biatrial enlargement. Trace tricuspid valve regurgitation. There is no pericardial effusion. There are no intracardiac masses. There is no pericardial effusion. Compared to the study from 01/10/2024, the drop in the LV ejection fraction and the wall motion abnormality appeared to be new A&P Assessment and plan (1) Heart failure: (2) Sinus pause: (3) Bradycardia: (4) Hypertension: Qualifiers: Hypertension type: primary hypertension Qualified Code(s): I10 - Essential (primary) hypertension (5) Atrial flutter with rapid ventricular response: Plan Patient has diastolic heart failure with preserved EF. New regional wall motion abnormalities were seen in the inferior wall as well as slightly diminished EF from previous echo. EKG showed aflutter. No acute ST elevation or T wave abnormalities. At this time, patient is not wanting any aggressive treatment such as angiogram or pacemaker in the future. She denies chest pain and palpitations. She has increased creatinine at 1.9. She has had good response from the lasix. We will see how the patient does today. If she has a good response to the lasix, will hold evening dose due to increased creatinine. Will increase Metoprol to 25 mg BID. We will have to pay close attention to blood pressure and monitor for pauses. Thank you for allowing us to care for this very pleasant 83 year old female. Consult Attestations 2 Medical Necessity Statement: Deferred to primary. Coding Level of Care Code Acute Code for [facility] Diagnoses Heart failure I50.9 Sinus pause I45.5 Bradycardia R00.1 Primary hypertension I10 Hypertension type: primary hypertension Atrial flutter with rapid ventricular response I48.92
[2024-10-06] MEDS: levofloxacin-dextrose 5 % 500 MG/100 ML PREMIX 100 MG IV (16:35)
--- NOTE | 2024-10-06 19:52 | P.PN_ITS ---
Subjective 2 Subjective: She is overall doing somewhat better. He is not short of breath at rest. Denies chest pain or pressure. Vitals/I&O/Wt Last Vital Signs Temp 97.5 F L 10/06/24 19:43 Pulse 107 H 10/06/24 19:43 Resp 22 H 10/06/24 19:43 BP 107/82 10/06/24 19:43 Pulse Ox 90 10/06/24 19:43 O2 Del Method Nasal Cannula 10/06/24 19:43 O2 Flow Rate 3 10/06/24 16:00 FiO2 32 10/06/24 07:45 10/06/24 10/06/24 10/06/24 06:59 14:59 22:59 Intake Total 556 / 556 340 / 896 Output Total 750 / 2250 1100 / 1100 Balance -750 / -1610 556 / 556 -760 / -204 Weight last 48 hrs Weight 90.22 kg Weight 91.807 kg Physical Exam 2 Narrative: Accompanied by her daughter on second visit. Const: COMMON NORMALS: patient oriented x3 and alert GENERAL APPEARANCE: c ooperative ORIENTATION/CONSCIOUSNESS: Yes awake HENMT: COMMON NORMALS: oropharynx normal Neck/C-Spine: COMMON NORMALS: no JVD Resp: COMMON NORMALS: normal respiratory effort and clear to auscultation bilaterally AUSCULTATION: clear to auscultation bilaterally Cardio: COMMON NORMALS: no JVD, regular rhythm, S1 normal heart sound present, S2 normal heart sound present and No murmurs present (Cardio) RHYTHM: regular rhythm HEART SOUNDS: S1 normal heart sound present and S2 normal heart sound present GI: COMMON NORMALS: Normal to inspection, nondistended, normoactive bowel sounds present, Soft to palpation and non-tender PALPATION: Yes Soft to palpation Extremity: COMMON NORMALS: no joint enlargement GENERAL: Yes edema (2+ BLLE) Neuro: COMMON NORMALS: patient oriented x3 and moves all extremities S ENSORIUM/ORIENTATION: Yes alert Skin: COMMON NORMALS: no rashes or lesions noted GENERAL SKIN EXAM: no rashes or lesions noted Urinary Catheter Management: Ambrosio: Cath Placed During This Visit: yes Reason for Continuing Indwelling Catheter: Other Urinary Catheter Date of Insertion: 10/04/24 Urinary Catheter Time of Insertion: 16:10 Data 10/06/24 09:01 10/06/24 09:01 A&P Assessment and plan (1) Hypertension: Qualifiers: Hypertension type: primary hypertension Qualified Code(s): I10 - Essential (primary) hypertension (2) COPD (chronic obstructive pulmonary disease): Qualifiers: COPD type: unspecified COPD Qualified Code(s): J44.9 - Chronic obstructive pulmonary disease, unspecified (3) Heart failure: Plan #Shortness of breath secondary to COPD exacerbation #Hypercarbic respiratory failure #Atrial fibrillation, rate controlled #History of PE #Acute on chronic diastolic heart failure Reviewed vitals, intake and output, BMP, magnesium. Noted in negative balance. However, with worsening renal function. Held evening dose of diuretic for now. Does still have congestive heart failure exacerbation, persistent lower extremity pitting edema, although appears possibly with worsening renal function. This may portend worse prognosis. Reassess chemistry, intake and output. Reviewed cardiology note. Reviewed echocardiogram. Discussed with nursing, test case developer. ? Continue Eliquis, amiodarone for atrial fibrillation ? Continue levothyroxine ? Continue beta-mynor For COPD exacerbation, continue on Solu-Medrol 40 IV twice daily, Levaquin 500 daily. Patient is bringing up greenish phlegm. ? Sputum Gram stain culture, DuoNeb every 6 hours as needed Continue BiPAP Obtain overnight pulse oximetry ? Continue cardiac diet Chronically on 3 L nasal cannula. MAKAYLA on CKD: Creatinine up to 1.9 on review. Reviewed BUN, anion gap, bicarb, potassium, magnesium. Reviewed intake and output. Has been producing urine so far. Held evening diuretic dose. Full code DVT prophylaxis: Patient on Eliquis that should suffice. Attestations 2 Medical Necessity Statement*: Continue admission for assessment management of decompensated congestive heart failure with worsening renal function with MAKAYLA on CKD, COPD exacerbation. and High MDM includes amount and/or complexity of data reviewed/ordered [ previous or external records, resulted lab(s)/test(s), ordered lab(s)/test(s) and other healthcare professional discussion] and described risk of complication, morbidity or mortality of management as documented Diagnoses Primary hypertension I10 Hypertension type: primary hypertension Chronic obstructive pulmonary disease, unspecified COPD type J44.9 COPD type: unspecified COPD Heart failure I50.9
[2024-10-06] MEDS: metoprolol tartrate 25 mg Tablet PO (22:22)
--- NOTE | 2024-10-06 22:33 | PC.RESP ---
overnight pulse ox started at 2230. Patient on baseline 3lpm nc
[2024-10-07] VITALS (16 sets, daily range): BP systolic 113–171; BP diastolic 62–82; PULSE 78–99; RESP 18–22; TEMP 36.4–36.9; O2SAT 90–99
[2024-10-07] MEDS: FUROsemide 10 mg/mL SDV 4mL 40 MG IVP ×2 (03:52→16:56)
[2024-10-07] MEDS: methylPREDNISolone sod succ 40 mg/mL INJ IVP ×2 (03:52→16:56)
[2024-10-07] MEDS: ipratropium-albuterol 3 mL Neb INHALATION ×5 (04:14→21:35)
[2024-10-07 04:40] LABS: Hematocrit 37.8 % (36-47); Lymphocytes # 0.3 10^3/uL (0.8-4.8); Lymphocytes % 3.7 %; Mean Corpuscular HGB Conc 31.2 g/dL (30-55); Mean Corpuscular Hemoglobin 28.5 pg (27-33); Mean Corpuscular Volume 91.3 fl (85-98); Mean Platelet Volume 8.8 fL (7.4-10.4); Monocytes # 0.3 10^3/uL (0.2-0.9); Monocytes % 3.2 %; Neutrophils # 8.58 10^3/uL (1.8-7.7); Neutrophils % 92.6 %; Nucleated Red Blood Cells % 0 %; Platelet Count 329 10^3/cmm (157-399); Red Blood Count 4.14 10^6/uL (3.85-5.65); Red Cell Distribution Width 12.2 % (12.1-15.1); White Blood Count 9.27 10^3/uL (3.29-11.43)
[2024-10-07 04:59] LABS: Anion Gap 11.5 (5-19); Blood Urea Nitrogen 55 mg/dL (8-23); Calcium 8.7 mg/dL (8.5-10.5); Carbon Dioxide 36 mmol/L (22-29); Chloride 95 mmol/L (98-107); Creatinine Clr Calc Pharmacy 31.1992; Glucose 129 mg/dL (65-115); Magnesium 2.1 mg/dL (1.7-2.3); Osmolality Calculated 303 mOsm/kg (285-295); Potassium 4.5 mmol/L (3.5-5.1); Sodium 138 mmol/L (136-145)
[2024-10-07] MEDS: levothyroxine 112 mcg Tablet PO (06:23)
[2024-10-07] MEDS: metoprolol tartrate 25 mg Tablet PO ×2 (08:35→23:07)
[2024-10-07] MEDS: amiodarone 200 mg Tablet PO (08:35)
[2024-10-07] MEDS: apixaban 5 mg Tablet 2.5 MG PO ×2 (08:35→16:57)
--- NOTE | 2024-10-07 09:50 | PM.PN ---
Subjective Subjective: The patient is feeling better. She still has significant shortness of breath with activities. The leg swelling is improving. Telemetry shows atrial flutter/fibrillation with rapid ventricular rate. Medications: Medication Review Details: Current Medications Acetaminophen (Acetaminophen 325 Mg Tablet) 650 mg PO Q6H PRN PRN Reason: Mild/Mod Pain Or Temp >/= 101 Albuterol/Ipratropium (Ipratropium-Albuterol 3 Ml Neb) 3 ml INHALATION Q6H PRN PRN Reason: SHORTNESS OF BREATH Last Admin: 10/07/24 04:14 Dose: 3 ml Albuterol/Ipratropium (Ipratropium-Albuterol 3 Ml Neb) 3 ml INHALATION QID.RESPIRATORY [facility] [place] Last Admin: 10/07/24 07:58 Dose: 3 ml Amiodarone HCl (Amiodarone 200 Mg Tablet) 200 mg PO DAILY [facility] [place] Last Admin: 10/07/24 08:35 Dose: 200 mg Apixaban (Apixaban 5 Mg Tablet) 2.5 mg PO BID [facility] [place] Last Admin: 10/07/24 08:35 Dose: 2.5 mg Furosemide (Furosemide 10 Mg/Ml Sdv 4ml) 40 mg IVP Q12H [facility] [place] Last Admin: 10/07/24 03:52 Dose: 40 mg Levofloxacin/Dextrose (Levaquin-D5w) 500 mg in 100 mls @ 100 mls/hr IV Q24H [facility] [place]; Protocol Last Infusion: 10/06/24 18:30 Dose: Infused Levothyroxine Sodium (Levothyroxine 112 Mcg Tablet) 112 mcg PO QAM [facility] [place] Last Admin: 10/07/24 06:23 Dose: 112 mcg Methylprednisolone Sodium Succinate (Methylprednisolone Sod Succ 40 Mg/Ml Inj) 40 mg IVP Q12H [facility] [place] Last Admin: 10/07/24 03:52 Dose: 40 mg Metoprolol Tartrate (Metoprolol Tartrate 25 Mg Tablet) 25 mg PO BID@0900,2100 [facility] [place] Last Admin: 10/07/24 08:35 Dose: 25 mg Ondansetron HCl (Ondansetron 2 Mg/Ml Sdv 2 Ml) 4 mg IVP Q8H PRN PRN Reason: vomiting, or N/V if npo Zolpidem Tartrate (Zolpidem 5 Mg Tablet) 5 mg PO NOW [facility] [place] Last Admin: 10/06/24 01:22 Dose: 5 mg Vitals/I&O/Wt Last Vital Signs Temp 97.6 F 10/07/24 07:52 Pulse 82 10/07/24 08:00 Resp 18 10/07/24 08:00 BP 123/81 10/07/24 07:52 Pulse Ox 98 10/07/24 08:00 O2 Del Method Nasal Cannula 10/07/24 08:00 O2 Flow Rate 3 10/07/24 08:00 FiO2 32 10/06/24 07:45 10/06/24 10/07/24 10/07/24 22:59 06:59 14:59 Intake Total 580 / 1136 240 / 1376 480 / 480 Output Total 2651 / 2651 1800 / 4451 Balance -2071 / -1515 -1560 / -3075 480 / 480 Weight last 48 hrs Weight 197 lb 1.6 oz Weight 198 lb 14.4 oz Physical Exam Narrative: GENERAL: The patient is alert and oriented times three. Not in any acute distress. HEENT: No significant pallor, icterus or lymphadenopathy.Oral cavity: There are no mucous membrane lesions. NECK: Trachea appears to be central. No masses noted. No JVD or thyromegaly appreciated. RESPIRATORY: Chest is symmetrical. No intercostals muscle retraction or any accessory muscle activation. There is no chest wall tenderness. Scattered expiratory wheezing and occasional coarse crackles. BREASTS: Deferred. HEART: The heart sounds are normal. No S3 or S4. No significant murmurs. No pericardial rub ABDOMEN: No vessel pulsations or distention. No tenderness. No organomegaly appreciated. Bowel sounds are normally heard. : Deferred. RECTAL: Deferred. LYMPHATIC: No lymphadenopathy noted in the neck. EXTREMITIES: 1-2+ edema both lower extremities. No cyanosis. MUSCULOSKELETAL: No acute joint deformities or swelling SKIN: There are no significant rashes or ecchymosis NEUROPSYCHIATRIC: The patient is alert and oriented x3. Appears to be in a good mood. No tremors or rigidity noted. Urinary Catheter Management: Ambrosio: Cath Placed During This Visit: yes Reason for Continuing Indwelling Catheter: Acute Urinary Retention or Obstruction Urinary Catheter Date of Insertion: 10/04/24 Urinary Catheter Time of Insertion: 16:10 Data 10/07/24 04:11 10/07/24 04:11 Other Labs: Laboratory Last Values WBC 9.27 10^3/uL (3.29-11.43) 10/07/24 04:11 RBC 4.14 10^6/uL (3.85-5.65) 10/07/24 04:11 Hgb 11.80 g/dL (11.27-16.99) 10/07/24 04:11 Hct 37.8 % (36-47) 10/07/24 04:11 MCV 91.3 fl (85-98) 10/07/24 04:11 MCH 28.5 pg (27-33) 10/07/24 04:11 MCHC 31.2 g/dL (30-55) 10/07/24 04:11 RDW 12.2 % (12.1-15.1) 10/07/24 04:11 Plt Count 329 10^3/cmm (157-399) 10/07/24 04:11 MPV 8.8 fL (7.4-10.4) 10/07/24 04:11 Neut % (Auto) 92.6 % 10/07/24 04:11 Lymph % (Auto) 3.7 % 10/07/24 04:11 [place] % (Auto) 3.2 % 10/07/24 04:11 Eos % (Auto) 0.0 % 10/07/24 04:11 Baso % (Auto) 0.0 % 10/07/24 04:11 Neut # (Auto) 8.58 10^3/uL (1.8-7.7) H 10/07/24 04:11 Lymph # (Auto) 0.3 10^3/uL (0.8-4.8) L 10/07/24 04:11 [place] # (Auto) 0.3 10^3/uL (0.2-0.9) 10/07/24 04:11 Eos # (Auto) 0.0 10^3/uL (0.0-0.8) 10/07/24 04:11 Baso # (Auto) 0.0 10^3/uL (0.0-0.1) 10/07/24 04:11 Nucleated RBC % (auto) 0 % 10/07/24 04:11 Nucleated RBCs # 0.0 /100WBC 10/07/24 04:11 D-Dimer 1.07 ug/mLFEU (0-0.59) H 10/04/24 12:26 Specimen Type Arterial 10/05/24 05:50 Sample Site Radial, right 10/05/24 05:50 ABG pH 7.39 (7.35-7.45) 10/05/24 05:50 ABG pCO2 54.8 mmHg (35-45) H 10/05/24 05:50 ABG pO2 92.1 mmHg (80.0-100.0) 10/05/24 05:50 ABG PO2/FiO2 Ratio 289 10/04/24 15:03 ABG HCO3 33.3 mmol/L (22-26) H 10/05/24 05:50 ABG O2 Saturation 97.6 10/05/24 05:50 ABG Base Excess 6.9 mmol/L (-2.0-2.0) H 10/05/24 05:50 Efe Test Pos 10/05/24 05:50 A-a O2 Gradient Not Reportable 10/05/24 05:50 Hematocrit 38.1 % (37-47) 10/05/24 05:50 Hgb O2 Saturation 95.4 % (95-100) 10/05/24 05:50 Carboxyhemoglobin 1.2 %THgb (0.4-20.1) 10/05/24 05:50 Methemoglobin 1.0 % (0.4-1.5) 10/05/24 05:50 Total Hemoglobin 12.4 g/dL (12-16) 10/05/24 05:50 Sodium 139.0 mmol/L (131-143) 10/05/24 05:50 Potassium 4.5 mmol/L (3.5-5.0) 10/05/24 05:50 Glucose 137.0 mg/dL (70-115) H 10/05/24 05:50 Ionized Calcium 1.1 mmol/L (1.1-1.4) 10/05/24 05:50 O2 Delivery Device Nc 10/05/24 05:50 O2 Liters/Min 3.0 % 10/05/24 05:50 FiO2 30.0 % 10/04/24 15:03 Prepress Operator ID [id number] 10/05/24 05:50 Sodium 138 mmol/L (136-145) 10/07/24 04:11 Potassium 4.5 mmol/L (3.5-5.1) 10/07/24 04:11 Chloride 95 mmol/L (98-107) L 10/07/24 04:11 Carbon Dioxide 36 mmol/L (22-29) H 10/07/24 04:11 Anion Gap 11.5 (5-19) 10/07/24 04:11 BUN 55 mg/dL (8-23) H 10/07/24 04:11 Creatinine 1.6 mg/dL (0.5-0.9) H 10/07/24 04:11 GFR Calculation Not Reportable 10/07/24 04:11 Glucose 129 mg/dL (65-115) H 10/07/24 04:11 Calculated Osmolality 303 mOsm/kg (285-295) H 10/07/24 04:11 Lactic Acid 0.9 mmol/L (0.5-2.2) 10/04/24 12:26 Calcium 8.7 mg/dL (8.5-10.5) 10/07/24 04:11 Magnesium 2.1 mg/dL (1.7-2.3) 10/07/24 04:11 Total Bilirubin 0.5 mg/dL (0.15-1.2) 10/04/24 12:26 AST 43 U/L (0-32) H 10/04/24 12:26 ALT 68 U/L (0-33) H 10/04/24 12:26 Alkaline Phosphatase 122 U/L (35-105) H 10/04/24 12:26 Troponin T Baseline 19 ng/L (0-10) H 10/04/24 12:26 Troponin T 120 Minute 16.84 ng/L (0-10) H 10/04/24 14:23 Delta Troponin T -2.16 ABS# (0-10) L 10/04/24 14:23 Troponin T Hi Sens 6Hr 16.33 ng/L (0-10) H 10/04/24 18:16 Troponin T Hi Sens 6Hr Delta -2.67 ng/L (0-12) L 10/04/24 18:16 NT-Pro-B Natriuret Pep 653 pg/mL (0-450) H 10/04/24 12:26 Total Protein 6.6 g/dL (6.6-8.7) 10/04/24 12:26 Albumin 4.2 g/dL (3.5-5.2) 10/04/24 12:26 Globulin 2.4 g/dL (1.3-4.6) 10/04/24 12:26 Procalcitonin 0.10 ng/mL (0-0.5) 10/04/24 14:23 TSH 1.63 uIU/mL (0.27-4.20) 10/04/24 14:23 Coronavirus (PCR) Negative (Negative) 10/04/24 12:16 Influenza A (PCR) Negative (Negative) 10/04/24 12:16 Influenza Type B (PCR) Negative (Negative) 10/04/24 12:16 RSV (PCR) Negative (Negative) 10/04/24 12:16 Other data: Echocardiogram on 10/04/2024 Normal LV size with slightly diminished ejection fraction of 50%. Diffuse hypokinesis of the inferior wall. Mild Trace to mild aortic valve regurgitation. biatrial enlargement. Trace tricuspid valve regurgitation. There is no pericardial effusion. There are no intracardiac masses. There is no pericardial effusion. Compared to the study from 01/10/2024, the drop in the LV ejection fraction and the wall motion abnormality appeared to be new A&P Assessment and plan (1) Atrial flutter with rapid ventricular response: Patient is in atrial fibrillation/flutter with intermittent rapid rate. Hemodynamically she seems to be stable. May continue on the amiodarone. Because of the sinus cassie dysfunction, I will be careful in increasing the dose of the medication. I will optimize her diuretic therapy (2) Acute on chronic diastolic (congestive) heart failure: Patient may be carefully treated with IV diuretics. Patient likely progress, further recommendations will be made. (3) Hypertension: Fairly under control at this time. May continue on the current medication. Qualifiers: Hypertension type: primary hypertension Qualified Code(s): I10 - Essential (primary) hypertension (4) Abnormal stress test: Patient had a stress test in 2019 which revealed elevated transient ischemic dilatation ratio. The current evidence of echocardiogram showing wall motion abnormality may suggest underlying coronary disease. Discussed about doing an angiogram. Patient is wanting to hold off on this. (5) Dyslipidemia: May continue the current management. (6) History of pulmonary embolism: Patient is on long-term oral anticoagulation. This may be continued. (7) Sinus node dysfunction: Patient has not had any significant bradycardia or pauses since hospital admission. She needs to be closely monitored. I will be careful in going up on the AV cassie blocking agents. Attestations Medical Necessity Statement*: Patient requires continued hospital stay for close monitoring and further management Coding Level of Care Code Acute Code for Chg Fwd Diagnoses Atrial flutter with rapid ventricular response I48.92 Acute on chronic diastolic (congestive) heart failure I50.33 Primary hypertension I10 Hypertension type: primary hypertension Abnormal stress test R94.39 Dyslipidemia E78.5 History of pulmonary embolism Z86.711 Sinus node dysfunction I49.5
--- NOTE | 2024-10-07 10:02 | PC.CHAP ---
Pastoral Care Encounter/Spiritual Assessment Type of Contact [] Declined retail cashier associate visit [] Patient/Family/Request visit [] Outpatient visit [] Follow-up visit [] Physician referral [] Code/Alert [x] Routine visit [] Staff referral [] Actively dying [] Patient sleeping [] Family support [] [] Out of room [] Palliative care [] [] Receiving care in room [] Pre-surgical visit [] Trauma [] Long length of stay [] ICU visit [] Other: Relational/Emotional Strength [x] Patient feels connected with others/family/visitors/staff [] Distress [] Loneliness/isolation [] Abandonment Spirituality of Patient [x] Person of Melinda [] Attends Judaism of their Melinda [x] Believes in Prayer [] Reads Bible or Christian materials [] There are Spiritual issues to be addressed Tube Coater Interventions [x] Prayer [x] Active listening [] Non-anxious presence [x] Spiritual/emotional support [] Crisis/trauma care [] Spiritual counseling [] Bereavement support [] Provided bereavement packet [] Provided Bible/devotional materials [] Provided toy/stuffed animal, coloring book to patient or family member [] Provided Communion [] Anointing/[place] [] Salvation [x] Completed spiritual assessment [] Other: Impact on Illness or Injury [] Angry [] Fearful [] Anxious [] Often cries [] Exhaustion [] Unable to work [] Unable to attend spiritism [] Unable to walk/stand [] Unable to read [] Unable to drive [] Unable to eat/drink [] Unable to sleep [] Unable to be with family [] Patient intubated [] Other: Summary Time spent with patient 5 min
[2024-10-07] MEDS: levofloxacin-dextrose 5 % 500 MG/100 ML PREMIX 100 MG IV (16:56)
--- NOTE | 2024-10-07 17:23 | P.PN_ITS ---
Subjective 2 Subjective: She is overall feeling little bit better. Denies pain or discomfort. Vitals/I&O/Wt Last Vital Signs Temp 97.6 F 10/07/24 16:00 Pulse 92 10/07/24 16:00 Resp 20 H 10/07/24 16:00 BP 118/75 10/07/24 16:00 Pulse Ox 99 10/07/24 16:00 O2 Del Method Nasal Cannula 10/07/24 16:00 O2 Flow Rate 3 10/07/24 15:22 FiO2 32 10/07/24 11:16 10/07/24 10/07/24 10/07/24 06:59 14:59 22:59 Intake Total 240 / 1376 840 / 840 Output Total 1800 / 4451 800 / 800 Balance -1560 / -3075 840 / 840 -800 / 40 Weight last 48 hrs Weight 89.403 kg Weight 90.22 kg Physical Exam 2 Const: COMMON NORMALS: patient oriented x3 and alert GENERAL APPEARANCE: c ooperative ORIENTATION/CONSCIOUSNESS: Yes awake HENMT: COMMON NORMALS: oropharynx normal Neck/C-Spine: COMMON NORMALS: no JVD Resp: COMMON NORMALS: normal respiratory effort and clear to auscultation bilaterally AUSCULTATION: clear to auscultation bilaterally Cardio: COMMON NORMALS: no JVD, regular rhythm, S1 normal heart sound present, S2 normal heart sound present and No murmurs present (Cardio) RHYTHM: regular rhythm HEART SOUNDS: S1 normal heart sound present and S2 normal heart sound present GI: COMMON NORMALS: Normal to inspection, nondistended, normoactive bowel sounds present, Soft to palpation and non-tender PALPATION: Yes Soft to palpation Extremity: COMMON NORMALS: no joint enlargement GENERAL: Yes edema (2+ BLLE) Neuro: COMMON NORMALS: patient oriented x3 and moves all extremities S ENSORIUM/ORIENTATION: Yes alert Skin: COMMON NORMALS: no rashes or lesions noted GENERAL SKIN EXAM: no rashes or lesions noted Urinary Catheter Management: Ambrosio: Cath Placed During This Visit: yes Reason for Continuing Indwelling Catheter: Acute Urinary Retention or Obstruction Urinary Catheter Date of Insertion: 10/04/24 Urinary Catheter Time of Insertion: 16:10 Data 10/07/24 04:11 10/07/24 04:11 A&P Assessment and plan (1) Hypertension: Qualifiers: Hypertension type: primary hypertension Qualified Code(s): I10 - Essential (primary) hypertension (2) COPD (chronic obstructive pulmonary disease): Qualifiers: COPD type: unspecified COPD Qualified Code(s): J44.9 - Chronic obstructive pulmonary disease, unspecified (3) Heart failure: Plan #Shortness of breath secondary to COPD exacerbation #Hypercarbic respiratory failure #Atrial fibrillation, rate controlled #History of PE #Acute on chronic diastolic heart failure She is in negative balance. Noted some improvement in kidney function. Reviewed vitals, CBC, BUN, creatinine, bicarb, anion gap, potassium. She still has significant lower extremity edema bilaterally. Discussed with cardiology provider. Reviewed cardiology note. Continue diuresis. Reassess volume status, renal function, electrolytes. Monitor electrolytes, renal function with IV diuresis with risk of electrolyte depletion, MAKAYLA. Continue cardiac monitoring on CSU. Discussed with nursing, behavioral health case manager. ? Continue Eliquis, amiodarone for atrial fibrillation ? Continue levothyroxine ? Continue beta-mynor For COPD exacerbation, decrease Solu-Medrol dose to 20 mg IV twice daily, Levaquin 500 daily. ? Reviewed blood culture, so far negative. Sputum culture reviewed, so far not obtained Reviewed overnight pulse symmetry study, discussed with behavioral health case manager, qualifies for BiPAP support at home, will be requested. DuoNeb every 6 hours as needed Continue BiPAP Obtain overnight pulse oximetry ? Continue cardiac diet Chronically on 3 L nasal cannula. MAKAYLA on CKD: Creatinine up to 1.9 on review. Reviewed BUN, anion gap, bicarb, potassium, magnesium. Reviewed intake and output. Has been producing urine so far. Held evening diuretic dose. Full code DVT prophylaxis: Patient on Eliquis that should suffice. Attestations 2 Medical Necessity Statement*: Continue admission for assessment management of decompensated congestive heart failure with worsening renal function with MAKAYLA on CKD, COPD exacerbation. and High MDM includes amount and/or complexity of data reviewed/ordered [ previous or external records, resulted lab(s)/test(s), ordered lab(s)/test(s) and other healthcare professional discussion] and described risk of complication, morbidity or mortality of management as documented Diagnoses Primary hypertension I10 Hypertension type: primary hypertension Chronic obstructive pulmonary disease, unspecified COPD type J44.9 COPD type: unspecified COPD Heart failure I50.9
[2024-10-08] VITALS (10 sets, daily range): BP systolic 111–134; BP diastolic 57–82; PULSE 81–98; RESP 16–20; TEMP 36.5–37.1; O2SAT 88–96
[2024-10-08 04:14] LABS: Hematocrit 37.8 % (36-47); Lymphocytes # 0.3 10^3/uL (0.8-4.8); Lymphocytes % 3.4 %; Mean Corpuscular HGB Conc 31.5 g/dL (30-55); Mean Corpuscular Hemoglobin 28.7 pg (27-33); Mean Corpuscular Volume 91.3 fl (85-98); Monocytes # 0.5 10^3/uL (0.2-0.9); Monocytes % 4.8 %; Neutrophils % 91.3 %; Nucleated Red Blood Cells % 0 %; Platelet Count 323 10^3/cmm (157-399); Red Blood Count 4.14 10^6/uL (3.85-5.65); Red Cell Distribution Width 12.2 % (12.1-15.1); White Blood Count 9.32 10^3/uL (3.29-11.43)
[2024-10-08 04:37] LABS: Anion Gap 14.5 (5-19); Blood Urea Nitrogen 62 mg/dL (8-23); Calcium 8.7 mg/dL (8.5-10.5); Carbon Dioxide 35 mmol/L (22-29); Chloride 92 mmol/L (98-107); Creatinine Clr Calc Pharmacy 38.2239; Glucose 139 mg/dL (65-115); Osmolality Calculated 304 mOsm/kg (285-295); Potassium 4.5 mmol/L (3.5-5.1); Sodium 137 mmol/L (136-145)
[2024-10-08] MEDS: FUROsemide 10 mg/mL SDV 4mL 40 MG IVP ×2 (04:44→16:16)
[2024-10-08] MEDS: levothyroxine 112 mcg Tablet PO (06:57)
[2024-10-08] MEDS: methylPREDNISolone sod succ 40 mg/mL INJ 20 MG IVP (06:57)
[2024-10-08] MEDS: ipratropium-albuterol 3 mL Neb INHALATION ×3 (07:37→15:58)
[2024-10-08] MEDS: amiodarone 200 mg Tablet PO (08:28)
[2024-10-08] MEDS: apixaban 5 mg Tablet 2.5 MG PO ×2 (08:28→17:37)
[2024-10-08] MEDS: metoprolol tartrate 25 mg Tablet PO ×2 (08:28→21:43)
--- NOTE | 2024-10-08 09:12 | XRR_ITS ---
PROCEDURE INFORMATION: Exam: XR Left Foot Exam date and time: 10/08/2024 9:21 AM Age: 83 years old Clinical indication: Injury or trauma; Fall; Blunt trauma; Foot; Left; Additional info: Pain, bruising, swelling after fall at home TECHNIQUE: Imaging protocol: Radiologic exam of the left foot. Views: 3 or more views. COMPARISON: No relevant prior studies available. FINDINGS: Bones/joints: No fracture or other acute abnormality. Joint spaces are normal. There is a somewhat prominent plantar arch. The bones are demineralized. Soft tissues: Normal. XR/XR foot LT min 3V* [id number] IMPRESSION: No acute findings.
[2024-10-08] MEDS: acetaminophen 325 mg Tablet 650 MG PO ×2 (14:21→21:43)
--- NOTE | 2024-10-08 14:25 | P.PN_ITS ---
Subjective 2 Subjective: Today she is feeling somewhat better. Feels she is now improving. Edema is improving. Medications: Medication Review Details: She is improving today subjectively. Feels she is getting better. Vitals/I&O/Wt Last Vital Signs Temp 97.8 F 10/08/24 11:42 Pulse 83 10/08/24 11:42 Resp 20 H 10/08/24 11:42 BP 134/82 10/08/24 11:42 Pulse Ox 96 10/08/24 11:42 O2 Del Method Nasal Cannula 10/08/24 11:42 O2 Flow Rate 3 10/08/24 11:42 FiO2 32 10/07/24 11:16 10/07/24 10/08/24 10/08/24 22:59 06:59 14:59 Intake Total 580 / 1420 400 / 1820 120 / 120 Output Total 2150 / 2150 900 / 3050 1250 / 1250 Balance -1570 / -730 -500 / -1230 -1130 / -1130 Weight last 48 hrs Weight 91.535 kg Weight 89.403 kg Physical Exam 2 Const: COMMON NORMALS: patient oriented x3 and alert GENERAL APPEARANCE: c ooperative ORIENTATION/CONSCIOUSNESS: Yes awake HENMT: COMMON NORMALS: oropharynx normal Neck/C-Spine: COMMON NORMALS: no JVD Resp: COMMON NORMALS: normal respiratory effort and clear to auscultation bilaterally AUSCULTATION: clear to auscultation bilaterally Cardio: COMMON NORMALS: no JVD, regular rhythm, S1 normal heart sound present, S2 normal heart sound present and No murmurs present (Cardio) RHYTHM: regular rhythm HEART SOUNDS: S1 normal heart sound present and S2 normal heart sound present GI: COMMON NORMALS: Normal to inspection, nondistended, normoactive bowel sounds present, Soft to palpation and non-tender PALPATION: Yes Soft to palpation Extremity: COMMON NORMALS: no joint enlargement GENERAL: Yes edema (1+ BLLE) OTHER: Significant edema of the lateral left foot and lower ankle. Bruising dorsal lateral left foot. Neuro: COMMON NORMALS: patient oriented x3 and moves all extremities S ENSORIUM/ORIENTATION: Yes alert Skin: COMMON NORMALS: no rashes or lesions noted GENERAL SKIN EXAM: no rashes or lesions noted Urinary Catheter Management: Ambrosio: Cath Placed During This Visit: yes Reason for Continuing Indwelling Catheter: Other Urinary Catheter Date of Insertion: 10/04/24 Urinary Catheter Time of Insertion: 16:10 Data 10/08/24 03:35 10/08/24 03:35 A&P Assessment and plan (1) Hypertension: Qualifiers: Hypertension type: primary hypertension Qualified Code(s): I10 - Essential (primary) hypertension (2) COPD (chronic obstructive pulmonary disease): Qualifiers: COPD type: unspecified COPD Qualified Code(s): J44.9 - Chronic obstructive pulmonary disease, unspecified (3) Heart failure: Plan #Shortness of breath secondary to COPD exacerbation #Hypercarbic respiratory failure #Atrial fibrillation, rate controlled #History of PE #Acute on chronic diastolic heart failure She is subjectively improving. In negative balance. Everything well. Edema is improving. Reviewed cardiology note. Pending reassessment. Continues with diuretic, continue to monitor intake and output. Reassess electrolytes at risk of deficiency. Reassess kidney function. MAKAYLA continues to improve, creatinine down to 1.3. ? Continue Eliquis, amiodarone for atrial fibrillation ? Continue levothyroxine ? Continue beta-mynor Discussed with social work case manager. Physical therapist. She declines rehabilitation. Would benefit from home health. For COPD exacerbation, decrease Solu-Medrol dose to 10 mg IV twice daily, Levaquin 500 daily. In case continues to improve, consider discontinuation of antibiotic after tomorrow's dose. ? Reviewed blood culture, so far negative. Sputum culture reviewed, so far not obtained Reviewed overnight pulse symmetry study, discussed with social work case manager, qualifies for BiPAP support at home, will be requested. DuoNeb every 6 hours as needed Continue BiPAP Obtain overnight pulse oximetry ? Continue cardiac diet Chronically on 3 L nasal cannula. MAKAYLA on CKD: Creatinine up to 1.9 on review. Reviewed BUN, anion gap, bicarb, potassium, magnesium. Reviewed intake and output. Has been producing urine so far. Held evening diuretic dose. Left foot, ankle pain and swelling: Pain swelling, bruising after fall. Has been having pain putting weight on the foot. Discussed with her obtaining an x- ray. Reviewed imaging, no fracture noted. Discussed with PT, compression provided for comfort. Would benefit from rehabilitation, but declines. Would benefit from home health care. Full code DVT prophylaxis: Patient on Eliquis that should suffice. Attestations 2 Medical Necessity Statement*: Continue admission for assessment management of decompensated congestive heart failure with worsening renal function with MAKAYLA on CKD, COPD exacerbation, wean corticosteroid. and High MDM includes amount and/or complexity of data reviewed/ordered [ previous or external records, resulted lab(s)/test(s), ordered lab(s)/test(s) and other healthcare professional discussion] and described risk of complication, morbidity or mortality of management as documented Diagnoses Primary hypertension I10 Hypertension type: primary hypertension Chronic obstructive pulmonary disease, unspecified COPD type J44.9 COPD type: unspecified COPD Heart failure I50.9
[2024-10-08] MEDS: levofloxacin-dextrose 5 % 500 MG/100 ML PREMIX 100 MG IV (16:16)
[2024-10-08] MEDS: methylPREDNISolone sod succ 40 mg/mL INJ 10 MG IVP (17:37)
--- NOTE | 2024-10-08 19:02 | P.PN_ITS ---
Subjective 2 Subjective: Patient is feeling better. She continues to have easy fatigability and some shortness of breath with activities. No chest pain. No palpitation or dizziness. Telemetry shows atrial fibrillation with a controlled ventricular response rate. Medications: Medication Review Details: Current Medications Acetaminophen (Acetaminophen 325 Mg Tablet) 650 mg PO Q6H PRN PRN Reason: Mild/Mod Pain Or Temp >/= 101 Last Admin: 10/08/24 14:21 Dose: 650 mg Albuterol/Ipratropium (Ipratropium-Albuterol 3 Ml Neb) 3 ml INHALATION Q6H PRN PRN Reason: SHORTNESS OF BREATH Last Admin: 10/07/24 04:14 Dose: 3 ml Albuterol/Ipratropium (Ipratropium-Albuterol 3 Ml Neb) 3 ml INHALATION QID.RESPIRATORY PAMELA Last Admin: 10/08/24 15:58 Dose: 3 ml Amiodarone HCl (Amiodarone 200 Mg Tablet) 200 mg PO DAILY PAMELA Last Admin: 10/08/24 08:28 Dose: 200 mg Apixaban (Apixaban 5 Mg Tablet) 2.5 mg PO BID PAMELA Last Admin: 10/08/24 17:37 Dose: 2.5 mg Furosemide (Furosemide 10 Mg/Ml Sdv 4ml) 40 mg IVP Q12H PAMELA Last Admin: 10/08/24 16:16 Dose: 40 mg Levofloxacin/Dextrose (Levaquin-D5w) 500 mg in 100 mls @ 100 mls/hr IV Q24H PAMELA; Protocol Last Admin: 10/08/24 16:16 Dose: 100 mls/hr Levothyroxine Sodium (Levothyroxine 112 Mcg Tablet) 112 mcg PO QAM PAMELA Last Admin: 10/08/24 06:57 Dose: 112 mcg Methylprednisolone Sodium Succinate (Methylprednisolone Sod Succ 40 Mg/Ml Inj) 10 mg IVP Q12H PAMELA Last Admin: 10/08/24 17:37 Dose: 10 mg Metoprolol Tartrate (Metoprolol Tartrate 25 Mg Tablet) 25 mg PO BID@0900,2100 [facility] Last Admin: 10/08/24 08:28 Dose: 25 mg Ondansetron HCl (Ondansetron 2 Mg/Ml Sdv 2 Ml) 4 mg IVP Q8H PRN PRN Reason: vomiting, or N/V if npo Zolpidem Tartrate (Zolpidem 5 Mg Tablet) 5 mg PO NOW PAMELA Last Admin: 10/06/24 01:22 Dose: 5 mg Vitals/I&O/Wt Last Vital Signs Temp 97.7 F 10/08/24 16:00 Pulse 98 10/08/24 16:00 Resp 20 H 10/08/24 16:00 BP 122/73 10/08/24 16:00 Pulse Ox 90 10/08/24 16:00 O2 Del Method Nasal Cannula 10/08/24 16:00 O2 Flow Rate 5 10/08/24 16:00 FiO2 32 10/07/24 11:16 10/08/24 10/08/24 10/08/24 06:59 14:59 22:59 Intake Total 400 / 1820 120 / 120 Output Total 900 / 3050 1250 / 1250 Balance -500 / -1230 -1130 / -1130 Weight last 48 hrs Weight 201 lb 12.8 oz Weight 197 lb 1.6 oz Physical Exam 2 Narrative: GENERAL: The patient is alert and oriented times three. Not in any acute distress. HEENT: No significant pallor, icterus or lymphadenopathy.Oral cavity: There are no mucous membrane lesions. NECK: Trachea appears to be central. No masses noted. No JVD or thyromegaly appreciated. RESPIRATORY: Chest is symmetrical. No intercostals muscle retraction or any accessory muscle activation. There is no chest wall tenderness. Scattered expiratory wheezing and occasional coarse crackles. BREASTS: Deferred. HEART: The heart sounds are normal. No S3 or S4. No significant murmurs. No pericardial rub ABDOMEN: No vessel pulsations or distention. No tenderness. No organomegaly appreciated. Bowel sounds are normally heard. : Deferred. RECTAL: Deferred. LYMPHATIC: No lymphadenopathy noted in the neck. EXTREMITIES: 1+ edema both lower extremities. No cyanosis. MUSCULOSKELETAL: No acute joint deformities or swelling SKIN: There are no significant rashes or ecchymosis NEUROPSYCHIATRIC: The patient is alert and oriented x3. Appears to be in a good mood. No tremors or rigidity noted. Urinary Catheter Management: Ambrosio: Cath Placed During This Visit: yes Reason for Continuing Indwelling Catheter: Other Urinary Catheter Date of Insertion: 10/04/24 Urinary Catheter Time of Insertion: 16:10 Data 10/08/24 03:35 10/08/24 03:35 Other Labs: Laboratory Last Values WBC 9.32 10^3/uL (3.29-11.43) 10/08/24 03:35 RBC 4.14 10^6/uL (3.85-5.65) 10/08/24 03:35 Hgb 11.90 g/dL (11.27-16.99) 10/08/24 03:35 Hct 37.8 % (36-47) 10/08/24 03:35 MCV 91.3 fl (85-98) 10/08/24 03:35 MCH 28.7 pg (27-33) 10/08/24 03:35 MCHC 31.5 g/dL (30-55) 10/08/24 03:35 RDW 12.2 % (12.1-15.1) 10/08/24 03:35 Plt Count 323 10^3/cmm (157-399) 10/08/24 03:35 MPV 9.0 fL (7.4-10.4) 10/08/24 03:35 Neut % (Auto) 91.3 % 10/08/24 03:35 Lymph % (Auto) 3.4 % 10/08/24 03:35 [place] % (Auto) 4.8 % 10/08/24 03:35 Eos % (Auto) 0.0 % 10/08/24 03:35 Baso % (Auto) 0.0 % 10/08/24 03:35 Neut # (Auto) 8.50 10^3/uL (1.8-7.7) H 10/08/24 03:35 Lymph # (Auto) 0.3 10^3/uL (0.8-4.8) L 10/08/24 03:35 [place] # (Auto) 0.5 10^3/uL (0.2-0.9) 10/08/24 03:35 Eos # (Auto) 0.0 10^3/uL (0.0-0.8) 10/08/24 03:35 Baso # (Auto) 0.0 10^3/uL (0.0-0.1) 10/08/24 03:35 Nucleated RBC % (auto) 0 % 10/08/24 03:35 Nucleated RBCs # 0.0 /100WBC 10/08/24 03:35 D-Dimer 1.07 ug/mLFEU (0-0.59) H 10/04/24 12:26 Specimen Type Arterial 10/05/24 05:50 Sample Site Radial, right 10/05/24 05:50 ABG pH 7.39 (7.35-7.45) 10/05/24 05:50 ABG pCO2 54.8 mmHg (35-45) H 10/05/24 05:50 ABG pO2 92.1 mmHg (80.0-100.0) 10/05/24 05:50 ABG PO2/FiO2 Ratio 289 10/04/24 15:03 ABG HCO3 33.3 mmol/L (22-26) H 10/05/24 05:50 ABG O2 Saturation 97.6 10/05/24 05:50 ABG Base Excess 6.9 mmol/L (-2.0-2.0) H 10/05/24 05:50 Efe Test Pos 10/05/24 05:50 A-a O2 Gradient Not Reportable 10/05/24 05:50 Hematocrit 38.1 % (37-47) 10/05/24 05:50 Hgb O2 Saturation 95.4 % (95-100) 10/05/24 05:50 Carboxyhemoglobin 1.2 %THgb (0.4-20.1) 10/05/24 05:50 Methemoglobin 1.0 % (0.4-1.5) 10/05/24 05:50 Total Hemoglobin 12.4 g/dL (12-16) 10/05/24 05:50 Sodium 139.0 mmol/L (131-143) 10/05/24 05:50 Potassium 4.5 mmol/L (3.5-5.0) 10/05/24 05:50 Glucose 137.0 mg/dL (70-115) H 10/05/24 05:50 Ionized Calcium 1.1 mmol/L (1.1-1.4) 10/05/24 05:50 O2 Delivery Device Nc 10/05/24 05:50 O2 Liters/Min 3.0 % 10/05/24 05:50 FiO2 30.0 % 10/04/24 15:03 Staff Interpreter ID Jdb 10/05/24 05:50 Sodium 137 mmol/L (136-145) 10/08/24 03:35 Potassium 4.5 mmol/L (3.5-5.1) 10/08/24 03:35 Chloride 92 mmol/L (98-107) L 10/08/24 03:35 Carbon Dioxide 35 mmol/L (22-29) H 10/08/24 03:35 Anion Gap 14.5 (5-19) 10/08/24 03:35 BUN 62 mg/dL (8-23) H 10/08/24 03:35 Creatinine 1.3 mg/dL (0.5-0.9) H 10/08/24 03:35 GFR Calculation Not Reportable 10/08/24 03:35 Glucose 139 mg/dL (65-115) H 10/08/24 03:35 Calculated Osmolality 304 mOsm/kg (285-295) H 10/08/24 03:35 Lactic Acid 0.9 mmol/L (0.5-2.2) 10/04/24 12:26 Calcium 8.7 mg/dL (8.5-10.5) 10/08/24 03:35 Magnesium 2.1 mg/dL (1.7-2.3) 10/07/24 04:11 Total Bilirubin 0.5 mg/dL (0.15-1.2) 10/04/24 12:26 AST 43 U/L (0-32) H 10/04/24 12:26 ALT 68 U/L (0-33) H 10/04/24 12:26 Alkaline Phosphatase 122 U/L (35-105) H 10/04/24 12:26 Troponin T Baseline 19 ng/L (0-10) H 10/04/24 12:26 Troponin T 120 Minute 16.84 ng/L (0-10) H 10/04/24 14:23 Delta Troponin T -2.16 ABS# (0-10) L 10/04/24 14:23 Troponin T Hi Sens 6Hr 16.33 ng/L (0-10) H 10/04/24 18:16 Troponin T Hi Sens 6Hr Delta -2.67 ng/L (0-12) L 10/04/24 18:16 NT-Pro-B Natriuret Pep 653 pg/mL (0-450) H 10/04/24 12:26 Total Protein 6.6 g/dL (6.6-8.7) 10/04/24 12:26 Albumin 4.2 g/dL (3.5-5.2) 10/04/24 12:26 Globulin 2.4 g/dL (1.3-4.6) 10/04/24 12:26 Procalcitonin 0.10 ng/mL (0-0.5) 10/04/24 14:23 TSH 1.63 uIU/mL (0.27-4.20) 10/04/24 14:23 Coronavirus (PCR) Negative (Negative) 10/04/24 12:16 Influenza A (PCR) Negative (Negative) 10/04/24 12:16 Influenza Type B (PCR) Negative (Negative) 10/04/24 12:16 RSV (PCR) Negative (Negative) 10/04/24 12:16 A&P Assessment and plan (1) Atrial flutter with rapid ventricular response: Patient is in atrial fibrillation/flutter with mostly controlled ventricular response rate.. Hemodynamically she seems to be stable. May continue on the amiodarone. Because of the sinus cassie dysfunction, I will be careful in increasing the dose of the medication. (2) Acute on chronic diastolic (congestive) heart failure: Patient may be carefully treated with IV diuretics. Patient likely progress, further recommendations will be made. (3) Hypertension: Fairly under control at this time. May continue on the current medication. Qualifiers: Hypertension type: primary hypertension Qualified Code(s): I10 - Essential (primary) hypertension (4) Abnormal stress test: Patient had a stress test in 2019 which revealed elevated transient ischemic dilatation ratio. The current evidence of echocardiogram showing wall motion abnormality may suggest underlying coronary disease. Discussed about doing an angiogram. Patient is wanting to hold off on this. (5) Dyslipidemia: May continue the current management. (6) History of pulmonary embolism: Patient is on long-term oral anticoagulation. This may be continued. (7) Sinus node dysfunction: Patient has not had any significant bradycardia or pauses since hospital admission. She needs to be closely monitored. I will be careful in going up on the AV cassie blocking agents. Plan Encourage ambulation and physical therapy. Continue on the current medications. If she remains stable, may be discharged home tomorrow Attestations 2 Medical Necessity Statement*: Disposition as per the primary Coding Level of Care Code 46745 Diagnoses Atrial flutter with rapid ventricular response I48.92 Acute on chronic diastolic (congestive) heart failure I50.33 Primary hypertension I10 Hypertension type: primary hypertension Abnormal stress test R94.39 Dyslipidemia E78.5 History of pulmonary embolism Z86.711 Sinus node dysfunction I49.5
[2024-10-09] VITALS (16 sets, daily range): BP systolic 100–151; BP diastolic 72–106; PULSE 72–105; RESP 16–24; TEMP 36.4–37.2; O2SAT 92–99
[2024-10-09] MEDS: ipratropium-albuterol 3 mL Neb INHALATION ×5 (03:09→22:20)
[2024-10-09] MEDS: FUROsemide 10 mg/mL SDV 4mL 40 MG IVP ×2 (04:07→17:30)
[2024-10-09] MEDS: acetaminophen 325 mg Tablet 650 MG PO ×2 (04:07→08:44)
[2024-10-09 05:36] LABS: Basophils % 0.1 %; Hematocrit 43.2 % (36-47); Lymphocytes # 0.6 10^3/uL (0.8-4.8); Lymphocytes % 3.6 %; Mean Corpuscular HGB Conc 31.9 g/dL (30-55); Mean Corpuscular Hemoglobin 29.4 pg (27-33); Mean Corpuscular Volume 92.1 fl (85-98); Mean Platelet Volume 10.6 fL (7.4-10.4); Monocytes # 1.9 10^3/uL (0.2-0.9); Monocytes % 12.2 %; Neutrophils # 13.15 10^3/uL (1.8-7.7); Neutrophils % 83.3 %; Nucleated Red Blood Cells % 0 %; Platelet Count 348 10^3/cmm (157-399); Red Blood Count 4.69 10^6/uL (3.85-5.65); Red Cell Distribution Width 12.2 % (12.1-15.1); White Blood Count 15.77 10^3/uL (3.29-11.43)
[2024-10-09] MEDS: methylPREDNISolone sod succ 40 mg/mL INJ 10 MG IVP ×2 (06:25→17:30)
[2024-10-09] MEDS: levothyroxine 112 mcg Tablet PO (06:25)
[2024-10-09 07:16] LABS: Anion Gap 12.6 (5-19); Blood Urea Nitrogen 55 mg/dL (8-23); Calcium 8.9 mg/dL (8.5-10.5); Carbon Dioxide 38 mmol/L (22-29); Chloride 91 mmol/L (98-107); Creatinine Clr Calc Pharmacy 34.3472; Glucose 118 mg/dL (65-115); Osmolality Calculated 300 mOsm/kg (285-295); Potassium 4.6 mmol/L (3.5-5.1); Sodium 137 mmol/L (136-145)
[2024-10-09] MEDS: amiodarone 200 mg Tablet PO (08:44)
[2024-10-09] MEDS: metoprolol tartrate 25 mg Tablet PO ×2 (08:44→21:19)
[2024-10-09] MEDS: apixaban 5 mg Tablet 2.5 MG PO ×2 (08:44→17:30)
--- NOTE | 2024-10-09 08:55 | XR_ITS ---
WS: [id number] Portable AP semiupright chest, 10/09/2024 Clinical Data: Hypoxia, leukocytosis Comparison: None. Findings: No nodules, masses or effusions are seen. The heart is slightly enlarged. The pulmonary vas cularity is not increased. No pneumonia or pneumothorax is seen. There is opacification at the left c ostophrenic angle which probably represents pleural scarring. The diaphragms are flattened. The aorti c arch shows calcification and tortuosity. There is a recording device overlying the left hilum. Ines tor leads are on the chest wall. XR/XR chest 1V portable [id number] Impression: 1. Probable scarring at left costophrenic angle. 2. Cardiomegaly and hyperinflation. 3. Atherosclerosis.
[2024-10-09 14:46] LABS: Bilirubin Urine Negative (Negative); Blood Urine 1+ (Negative); Glucose Urine UA Negative (Normal); Ketones Urine Negative (Negative); Leukocyte Esterase Urine 1+ (Negative); Nitrate Urine Negative (Negative); Protein Urine Negative (Negative); Specific Gravity, Urine 1.019 (1.005-1.030); Urine Appearance Turbid (CLEAR); Urine Color Yellow (Yellow); Urobilinogen Urine 0.2 mg/dL (Negative)
[2024-10-09 14:48] LABS: Add Urine Microscopic? YES; Bacteria Urine None Seen /hpf; Hyaline Casts Urine 47.56 /lpf; RBC Urine >100 /hpf (0-2); Squamous Epithelial Cell Urine 0-5 /hpf (0-5)
--- NOTE | 2024-10-09 15:13 | PM.PN ---
Subjective Subjective: She is feeling weaker today. Denies any specific new symptoms. He is having some cough, but is not worse than before. No nausea vomiting or diarrhea. Left foot swelling with improvement. Vitals/I&O/Wt Last Vital Signs Temp 97.5 F L 10/09/24 12:00 Pulse 91 10/09/24 14:00 Resp 16 10/09/24 14:00 BP 112/74 10/09/24 12:00 Pulse Ox 94 10/09/24 12:27 O2 Del Method Nasal Cannula 10/09/24 12:27 O2 Flow Rate 4 10/09/24 12:27 FiO2 32 10/07/24 11:16 10/09/24 10/09/24 10/09/24 06:59 14:59 22:59 Intake Total 360 / 1060 360 / 360 Output Total 400 / 1650 Balance -40 / -590 360 / 360 Weight last 48 hrs Weight 83.642 kg Weight 91.535 kg Physical Exam Const: COMMON NORMALS: patient oriented x3 and alert GENERAL APPEARANCE: cooperative ORIENTATION/CONSCIOUSNESS: Yes awake HENMT: COMMON NORMALS: oropharynx normal Neck/C-Spine: COMMON NORMALS: no JVD Resp: COMMON NORMALS: normal respiratory effort and clear to auscultation bilaterally AUSCULTATION: clear to auscultation bilaterally Cardio: COMMON NORMALS: no JVD, regular rhythm, S1 normal heart sound present, S2 normal heart sound present and No murmurs present (Cardio) RHYTHM: regular rhythm HEART SOUNDS: S1 normal heart sound present and S2 normal heart sound present GI: COMMON NORMALS: Normal to inspection, nondistended, normoactive bowel sounds present, Soft to palpation and non-tender PALPATION: Yes Soft to palpation Extremity: COMMON NORMALS: no joint enlargement GENERAL: Yes edema (1+ BLLE) OTHER: Improved edema of the lateral left foot and lower ankle. Bruising dorsal lateral left foot. Neuro: COMMON NORMALS: patient oriented x3 and moves all extremities SENSORIUM/ORIENTATION: Yes alert Skin: COMMON NORMALS: no rashes or lesions noted GENERAL SKIN EXAM: no rashes or lesions noted Urinary Catheter Management: Ambrosio: Cath Placed During This Visit: yes Reason for Continuing Indwelling Catheter: Other Urinary Catheter Date of Insertion: 10/04/24 Urinary Catheter Time of Insertion: 16:10 Data 10/09/24 04:44 10/09/24 06:38 Micro: Microbiology 10/04/24 12:28 Blood Culture - Final Blood NO GROWTH AFTER 5 DAYS 10/04/24 12:26 Blood Culture - Final Blood NO GROWTH AFTER 5 DAYS A&P Assessment and plan (1) Hypertension: Qualifiers: Hypertension type: primary hypertension Qualified Code(s): I10 - Essential (primary) hypertension (2) COPD (chronic obstructive pulmonary disease): Qualifiers: COPD type: unspecified COPD Qualified Code(s): J44.9 - Chronic obstructive pulmonary disease, unspecified (3) Heart failure: Plan #Shortness of breath secondary to COPD exacerbation #Hypercarbic respiratory failure #Atrial fibrillation, rate controlled #History of PE Generalized weakness, leukocytosis: That she is feeling weaker, reviewed vitals, reviewed WBC, RBC up to 15.77. She is up to 4 L nasal cannula oxygen. Discussed with her, does not appear to have additional new symptoms, although is having some cough. Requested viral panel. Chest x-ray. Requested UA. We have cut down her Solu-Medrol, will maintain current dose for now with worsening symptoms for possible adrenal insufficiency. Monitor for risk of adrenal crisis. Monitor for risk of hypertension, hyperglycemia, gastritis, encephalopathy with IV steroid. Repeat CBC, chemistry. Continue work with PT. Discussed with physical therapist, manager case management. She declined SNF for rehabilitation. Plans for discharge home once she is ready. #Acute on chronic diastolic heart failure Reviewed vitals, intake and output, volume status. Edema has improved. Reviewed cardiology note, overall becoming compensated, and getting close to discharge. Reassess electrolytes at risk of deficiency. Reassess kidney function. MAKAYLA continues to improve, creatinine down Discussed with nursing, manager case management. ? Continue Eliquis, amiodarone for atrial fibrillation ? Continue levothyroxine ? Continue beta-mynor Discussed with manager case management. Physical therapist. She declines rehabilitation. Would benefit from home health. For COPD exacerbation, decrease Solu-Medrol dose to 10 mg IV twice daily, Levaquin 500 daily. In case continues to improve, consider discontinuation of antibiotic after tomorrow's dose. ? Reviewed blood culture, so far negative. Sputum culture reviewed, so far not obtained Reviewed overnight pulse symmetry study, discussed with manager case management, qualifies for BiPAP support at home, will be requested. DuoNeb every 6 hours as needed Continue BiPAP Obtain overnight pulse oximetry ? Continue cardiac diet Chronically on 3 L nasal cannula. MAKAYLA on CKD: Creatinine Improving, down to 1.4. Reviewed BUN, anion gap, bicarb, potassium, magnesium. Reviewed intake and output. Has been producing urine so far. Held evening diuretic dose. Left foot, ankle pain and swelling: Pain swelling, bruising after fall. Has been having pain putting weight on the foot. Discussed with her obtaining an x-ray. Reviewed imaging, no fracture noted. Discussed with PT, compression provided for comfort. Would benefit from rehabilitation, but declines. Would benefit from home health care. Full code DVT prophylaxis: Patient on Eliquis that should suffice. Attestations Medical Necessity Statement*: Continue admission for assessment management of decompensated congestive heart failure with worsening renal function with MAKAYLA on CKD, COPD exacerbation, wean corticosteroid. and High MDM includes amount and/or complexity of data reviewed/ordered [ previous or external records, resulted lab(s)/test(s), ordered lab(s)/test(s) and other healthcare professional discussion] and described risk of complication, morbidity or mortality of management as documented Diagnoses Primary hypertension I10 Hypertension type: primary hypertension Chronic obstructive pulmonary disease, unspecified COPD type J44.9 COPD type: unspecified COPD Heart failure I50.9
[2024-10-09 15:28] LABS: UA Slide Review UA Slide Review Perf; Uric Acid Crystals Urine 15-25 /hpf
[2024-10-09 15:29] LABS: Add Urine Culture? Yes; Oval Fat Bodies Urine 1+ /hpf
--- NOTE | 2024-10-09 15:57 | P.PN_ITS ---
<Statement entered by Luis Carlos Garcia MD - 10/10/24 10:42> Reviewed the case. Concurred with the plan Subjective 2 Subjective: Saw patient today. She is still weak. Overall no complaints of chest pain or increase shortness of breath. Creat stable at 1.4 which is about patient's baseline. Still in afib, but rates are controlled. Medications: Reviewed: Yes Vitals/I&O/Wt Last Vital Signs Temp 97.5 F L 10/09/24 12:00 Pulse 91 10/09/24 14:00 Resp 16 10/09/24 14:00 BP 112/74 10/09/24 12:00 Pulse Ox 94 10/09/24 12:27 O2 Del Method Nasal Cannula 10/09/24 12:27 O2 Flow Rate 4 10/09/24 12:27 FiO2 32 10/07/24 11:16 10/09/24 10/09/24 10/09/24 06:59 14:59 22:59 Intake Total 360 / 1060 360 / 360 Output Total 400 / 1650 Balance -40 / -590 360 / 360 Weight last 48 hrs Weight 184 lb 6.4 oz Weight 201 lb 12.8 oz Physical Exam 2 Narrative: General: No apparent distress, healthy appearing, well nourished HENMT: normoceophalic Eye: PERRL Muskuloskeletal: Full ROM Respiratory: Normal respiratory effort, slightly diminished bilateral lower lobes, no use of accessory muscles Cardio: No JVD, irregularly irregular rate, regular rhythm, S1 S2 normal, no murmurs GI: Normal to inspection, nondistended Extremities: Full ROM, normal, normal capillary refill, no cyanosis, trace edema bilateral lower extremities Neuro: Alert and oriented x4, no focal motor deficits Psych: Affect normal, denies suicidal ideation, mental status grossly normal Skin: No rashes or lesions noted, no wounds Urinary Catheter Management: Ambrosio: Cath Placed During This Visit: yes Reason for Continuing Indwelling Catheter: Other Urinary Catheter Date of Insertion: 10/04/24 Urinary Catheter Time of Insertion: 16:10 Data 10/09/24 04:44 10/09/24 06:38 Micro: Microbiology 10/04/24 12:28 Blood Culture - Final Blood NO GROWTH AFTER 5 DAYS 10/04/24 12:26 Blood Culture - Final Blood NO GROWTH AFTER 5 DAYS A&P Assessment and plan (1) Atrial flutter with rapid ventricular response: Patient is in atrial fibrillation/flutter with mostly controlled ventricular response rate.. Hemodynamically she seems to be stable. May continue on the amiodarone. Because of the sinus cassie dysfunction, I will be careful in increasing the dose of the medication. (2) Acute on chronic diastolic (congestive) heart failure: Patient may be carefully treated with IV diuretics. May transition to oral tomorrow if patient progresses. (3) Hypertension: Controlled. Continue current medication. Qualifiers: Hypertension type: primary hypertension Qualified Code(s): I10 - Essential (primary) hypertension (4) Abnormal stress test: Patient had a stress test in 2019 which revealed elevated transient ischemic dilatation ratio. The current evidence of echocardiogram showing wall motion abnormality may suggest underlying coronary disease. Discussed about doing an angiogram. Patient is wanting to hold off on this. Continue medical therapy. (5) Dyslipidemia: May continue the current management. (6) History of pulmonary embolism: Patient is on long-term oral anticoagulation. This may be continued. (7) Sinus node dysfunction: Patient has not had any significant bradycardia or pauses since hospital admission. She needs to be closely monitored. I will be careful in going up on the AV cassie blocking agents. Plan Encourage ambulation and physical therapy. Continue on the current medications. Once she gets stronger, may be discharged. Attestations 2 Medical Necessity Statement*: Disposition as per the primary Coding Level of Care Code Acute Code for Chg Fwd Diagnoses Atrial flutter with rapid ventricular response I48.92 Acute on chronic diastolic (congestive) heart failure I50.33 Primary hypertension I10 Hypertension type: primary hypertension Abnormal stress test R94.39 Dyslipidemia E78.5 History of pulmonary embolism Z86.711 Sinus node dysfunction I49.5
[2024-10-09 16:33] LABS: Adenovirus Not Detected (NOT DETECT); Chlamydia Pneumoniae Not Detected (NOT DETECT); Coronavirus 229E,HKU1,NL63,OC4 Not Detected (NOT DETECT); Human Metapneumovirus Not Detected (NOT DETECT); Human Rhinovirus/Enterovirus Not Detected (NOT DETECT); Influenza A Not Detected (NOT DETECT); Influenza A H1 Not Detected (NOT DETECT); Influenza A H1-2009 Not Detected (NOT DETECT); Influenza A H3 Not Detected (NOT DETECT); Influenza B Not Detected (NOT DETECT); Mycoplasma Pneumoniae Not Detected (NOT DETECT); Parainfluenza Virus Type 1 Not Detected (NOT DETECT); Parainfluenza Virus Type 2 Not Detected (NOT DETECT); Parainfluenza Virus Type 3 Not Detected (NOT DETECT); Parainfluenza Virus Type 4 Not Detected (NOT DETECT); Respiratory Syncytial Virus A Not Detected (NOT DETECT); Respiratory Syncytial Virus B Not Detected (NOT DETECT); SARS-COV-2 Not Detected (NOT DETECT)
[2024-10-09] MEDS: levofloxacin-dextrose 5 % 500 MG/100 ML PREMIX 100 MG IV (17:37)
[2024-10-09] MEDS: cyclobenzaprine 10 mg Tablet 5 MG PO (21:19)
[2024-10-10] VITALS (10 sets, daily range): BP systolic 113–128; BP diastolic 67–105; PULSE 72–122; RESP 20–28; TEMP 36.5–37.2; O2SAT 84–97
[2024-10-10] MEDS: acetaminophen 325 mg Tablet 650 MG PO (01:58)
[2024-10-10] MEDS: methylPREDNISolone sod succ 40 mg/mL INJ 10 MG IVP (05:10)
[2024-10-10] MEDS: levothyroxine 112 mcg Tablet PO (05:10)
[2024-10-10] MEDS: FUROsemide 10 mg/mL SDV 4mL 40 MG IVP (05:10)
[2024-10-10 05:36] LABS: Basophils % 0.1 %; Hematocrit 41.1 % (36-47); Lymphocytes # 0.8 10^3/uL (0.8-4.8); Mean Corpuscular HGB Conc 31.6 g/dL (30-55); Mean Corpuscular Hemoglobin 29.3 pg (27-33); Mean Corpuscular Volume 92.8 fl (85-98); Mean Platelet Volume 9.2 fL (7.4-10.4); Monocytes # 0.9 10^3/uL (0.2-0.9); Monocytes % 9.4 %; Neutrophils # 7.81 10^3/uL (1.8-7.7); Neutrophils % 81.9 %; Nucleated Red Blood Cells % 0 %; Platelet Count 285 10^3/cmm (157-399); Red Blood Count 4.43 10^6/uL (3.85-5.65); Red Cell Distribution Width 11.9 % (12.1-15.1); White Blood Count 9.54 10^3/uL (3.29-11.43)
[2024-10-10 06:01] LABS: Magnesium 2.5 mg/dL (1.7-2.3)
[2024-10-10 06:18] LABS: Alanine Aminotransferase 35 U/L (0-33); Albumin Level 3.6 g/dL (3.5-5.2); Alkaline Phosphatase 88 U/L (35-105); Anion Gap 10.4 (5-19); Aspartate Amino Transferase 17 U/L (0-32); Blood Urea Nitrogen 57 mg/dL (8-23); Calcium 9.2 mg/dL (8.5-10.5); Chloride 88 mmol/L (98-107); Creatinine Clr Calc Pharmacy 33.0011; Globulin 2.3 g/dL (1.3-4.6); Glucose 119 mg/dL (65-115); Osmolality Calculated 297 mOsm/kg (285-295); Potassium 4.4 mmol/L (3.5-5.1); Sodium 135 mmol/L (136-145); Total Bilirubin 0.4 mg/dL (0.15-1.2); Total Protein 5.9 g/dL (6.6-8.7)
[2024-10-10 06:21] LABS: Carbon Dioxide 41 mmol/L (22-29)
[2024-10-10] MEDS: amiodarone 200 mg Tablet PO (07:20)
[2024-10-10] MEDS: metoprolol tartrate 25 mg Tablet PO (07:20)
[2024-10-10] MEDS: apixaban 5 mg Tablet 2.5 MG PO (07:20)
[2024-10-10] MEDS: ipratropium-albuterol 3 mL Neb INHALATION ×2 (08:14→11:11)
--- NOTE | 2024-10-10 08:56 | CT_ITS ---
WS: [id number] CT ABDOMEN PELVIS TECHNIQUE: Noncontrast CT of the abdomen and pelvis with coronal and sagittal reformatted images. CLINICAL INFORMATION: [facility] hemat, UA crystals COMPARISON: 2021 DLP: 897.[address] scans at [facility] use at least one of these dose optimization techniques: automated e xposure control; mA and/or kV adjustment per patient size (includes targeted exams where dose is matc hed to clinical indication); or iterative reconstruction. FINDINGS: Bilateral renal cortical atrophy. No hydronephrosis in either kidney. No obstructing renal or uretera l calculi. Ambrosio catheter Noncontrast liver appears normal. Splenic granulomas. Lung bases are well aerated. Calcified granulom a RIGHT lower lobe. Subpleural nodularity in the lower lobes. Subpleural nodule LEFT lower lobe measu ring 4 mm. Prior hysterectomy. Small esophageal canal hernia. Noncontrast pancreas appears nomal. Splenic artery calcifications. Adrenal glands are normal. Sigmoid diverticulosis. Constipation in the RIGHT colon and cecum and proximal transverse colon. Normal caliber abdominal aorta. Aortic calcification. Fat-containing umbilical hernia. Moderate spond ylitic changes lumbar spine. Anterior wedging L1. CT/CT kidney stone [id number] IMPRESSION: 1. No obstructing renal or ureteral calculi. No hydronephrosis in either kidne y. 2. Sigmoid diverticulosis. No evidence of acute diverticulitis. 3. Ambrosio catheter. 4. Prior hysterectomy 5. No other acute findings.
[2024-10-10 11:29] LABS: NT Pro B Type Natriuretic Pept 675 pg/mL (0-450)
--- NOTE | 2024-10-10 12:10 | P.PN_ITS ---
Subjective 2 Subjective: Patient is doing okay today. She denies any chest pain or significant shortness of breath. Currently her rates are controlled with amiodarone and metoprolol 25 twice daily. Her lungs are clear. She is still weak. From a heart standpoint, she looks ok. VSS. Medications: Reviewed: Yes Vitals/I&O/Wt Last Vital Signs Temp 98.1 F 10/10/24 08:00 Pulse 99 10/10/24 11:18 Resp 20 H 10/10/24 11:12 BP 123/105 10/10/24 08:00 Pulse Ox 97 10/10/24 11:12 O2 Del Method Nasal Cannula 10/10/24 11:12 O2 Flow Rate 3 10/10/24 11:12 FiO2 32 10/07/24 11:16 10/09/24 10/10/24 10/10/24 22:59 06:59 14:59 Intake Total 700 / 1060 200 / 1260 360 / 360 Output Total 1400 / 1400 400 / 1800 Balance -700 / -340 -200 / -540 360 / 360 Weight last 48 hrs Weight 195 lb 9.6 oz Weight 184 lb 6.4 oz Physical Exam 2 Narrative: General: No apparent distress, appears tired Muskuloskeletal: Bilateral lower extremities weak Respiratory: Normal respiratory effort, clear throughout all katy ely, no use of accessory muscles Cardio: No JVD, irregularly irregular rate, regular rhythm, S1 S2 normal, no murmurs GI: Normal to inspection, nondistended Extremities: Full ROM, no s/s of ischemia, trace edema bilateral lower extremities Neuro: Alert and oriented x4, no focal motor deficits Psych: Affect normal, denies suicidal ideation, mental status grossly normal Skin: No rashes or lesions noted, no wounds Urinary Catheter Management: Ambrosio: Cath Placed During This Visit: yes, but has since been removed by the nurse Reason for Continuing Indwelling Catheter: Accurate Measurement of Urinary Output in Critically Ill Patients Urinary Catheter Date of Insertion: 10/04/24 Urinary Catheter Time of Insertion: 16:10 Date Urinary Catheter Removed: 10/10/24 Time Urinary Catheter Discontinued: 10:34 Data 10/10/24 05:08 10/10/24 05:08 Micro: Microbiology 10/04/24 12:28 Blood Culture - Final Blood NO GROWTH AFTER 5 DAYS 10/04/24 12:26 Blood Culture - Final Blood NO GROWTH AFTER 5 DAYS A&P Assessment and plan (1) Acute on chronic diastolic (congestive) heart failure: Continue optimizing medical therapy. Continue Lasix p.o. 40 mg daily. Patient took 20 at home. Will need to watch daily weights. Low-sodium diet. Heart healthy diet. Continue with metoprolol 12.5 mg p.o. twice daily. (2) Atrial flutter with rapid ventricular response: Rates controlled. Continue metoprolol and amiodarone at current dose. Continue Eliquis for stroke prevention. (3) Hypertension: Well controlled. Continue current therapy. Qualifiers: Hypertension type: primary hypertension Qualified Code(s): I10 - Essential (primary) hypertension (4) Abnormal stress test: At this time, patient would like to continue current medical therapy. She is not having any active chest pain. (5) History of pulmonary embolism: May continue Eliquis. (6) Sinus node dysfunction: Will be careful in the future about increasing medications. At this time, she has had no acute events or pauses. Plan As stated above. From a cardiac standpoint, patient is stable for discharge. Attestations 2 Medical Necessity Statement*: Deferred to primary. Coding Level of Care Code Acute Code for Chg Fwd Diagnoses Acute on chronic diastolic (congestive) heart failure I50.33 Atrial flutter with rapid ventricular response I48.92 Primary hypertension I10 Hypertension type: primary hypertension Abnormal stress test R94.39 History of pulmonary embolism Z86.711 Sinus node dysfunction I49.5
--- NOTE | 2024-10-10 13:33 | PC.NURSE ---
Patient discharged to home. Instruction provided regarding follow up needs and new medication. Medication transmitted to [facility]. Patient verbalized complete understanding. Patient taken by wheelchair to private vehicle. Daughter to provide transportation.
--- NOTE | 2024-10-10 21:12 | P.DS_ITS ---
Discharge Providers Date of Admission: 10/04/24 14:30 Date of Discharge: October 10, 2024 Attending Provider at Admission: Kalpana Wooten MD Attending Provider at Discharge: James Stokes Primary Care Provider: TRISTA Lawler Diagnoses at Discharge Discharge Diagnosis (1) Acute on chronic diastolic (congestive) heart failure: Status: Acute (2) Atrial flutter with rapid ventricular response: Status: Acute (3) Hypertension: Status: Acute Qualifiers: Hypertension type: primary hypertension Qualified Code(s): I10 - Essential (primary) hypertension (4) Abnormal stress test: Status: Acute (5) History of pulmonary embolism: Status: Acute (6) Sinus node dysfunction: Status: Acute Reason for Visit Reason for Visit: sob Hospital Course Hospital Course Pleasant 83-year-old lady was admitted after presenting with shortness of breath, found to have new hypoxia, on admission with finding of hypoxic and hypercapnic respiratory failure, COPD exacerbation, acutely decompensated diastolic congestive heart failure with dyspnea, increased oxygen requirement hypoxia, lower extremity edema. Was treated with IV Lasix, Solu-Medrol, antibiotic, breathing treatments, oxygen support, including transiently requiring BiPAP. Echocardiogram was obtained and with finding of newly diminished ejection fraction down to 50%, diffuse hypokinesis of inferior wall. Mild aortic valve regurgitation, trace TVR. She was assessed by cardiology, options were discussed including coronary angiogram, but she declined preferring continued noninvasive treatment. With diuresis her volume status gradually improved, currently compensated per discussion with tobacco cloth reclaimer. Continued with treatment for COPD with resolving exacerbation, additionally urine found with leukocytosis and microscopic hematuria. Transient MAKAYLA on CKD showed improvement. CT scan obtained which did not show obstructive uropathy. Possibly some irritation from the Ambrosio catheter. Please follow-up for resolution of hematuria, otherwise please refer for additional assessment by urology. Due to physical deconditioning was assessed by physical therapy, discussed recommendation of additional rehabilitation at SNF, although upon consideration on several opportunities she declines, but he is agreeable to home health. Of note after a fall at home left dorsal foot/lateral lower ankle during hospitalization also noted with swelling, bruising. Ankle x-ray obtained which did not show fracture, Carlos wrap was applied with improved swelling. She has been able to work with physical therapy. Please reassess as well. Physical Exam Const: COMMON NORMALS: patient oriented x3 and alert GENERAL APPEARANCE: cooperative ORIENTATION/CONSCIOUSNESS: Yes awake HENMT: COMMON NORMALS: oropharynx normal Neck/C-Spine: COMMON NORMALS: no JVD Resp: COMMON NORMALS: normal respiratory effort and clear to auscultation bilaterally AUSCULTATION: clear to auscultation bilaterally Cardio: COMMON NORMALS: no JVD, regular rhythm, S1 normal heart sound present, S2 normal heart sound present and No murmurs present (Cardio) RHYTHM: regular rhythm HEART SOUNDS: S1 normal heart sound present and S2 normal heart sound present GI: COMMON NORMALS: Normal to inspection, nondistended, normoactive bowel sounds present, Soft to palpation and non-tender PALPATION: Yes Soft to palpation Extremity: COMMON NORMALS: no joint enlargement GENERAL: Yes edema (Trace) OTHER: Improved edema of the lateral left foot and lower ankle. Bruising dorsal lateral left foot. Neuro: COMMON NORMALS: patient oriented x3 and moves all extremities SENSORIUM/ORIENTATION: Yes alert Skin: COMMON NORMALS: no rashes or lesions noted GENERAL SKIN EXAM: no rashes or lesions noted Urinary Catheter Management: Ambrosio: Cath Placed During This Visit: yes, but has since been removed by the nurse Reason for Continuing Indwelling Catheter: Accurate Measurement of Urinary Output in Critically Ill Patients Urinary Catheter Date of Insertion: 10/04/24 Urinary Catheter Time of Insertion: 16:10 Date Urinary Catheter Removed: 10/10/24 Time Urinary Catheter Discontinued: 10:34 Discharge Data Studies Completed and Pending Completed Studies During Hospitalization Category Date Time Status CT kidney stone 83312 Routine Cat Scan 10/10/24 08:56 Completed CXRP [XR chest 1V portable [id number]] Routine Exams 10/09/24 08:55 Completed XR chest 1V portable [id number] Stat Exams 10/04/24 12:09 Completed XR foot LT min 3V* [id number] Routine Exams 10/08/24 09:12 Completed CV. echo complete* [id number] Routine Ultrasound 10/05/24 15:53 Completed Pending at discharge Category Date Time Status Urine Culture Routine Lab 10/09/24 13:25 Received Radiology Impressions Foot X-Ray 10/08/24 09:12 IMPRESSION: No acute findings. Chest X-Ray 10/09/24 08:55 Impression: 1. Probable scarring at left costophrenic angle. 2. Cardiomegaly and hyperinflation. 3. Atherosclerosis. Abdomen/Pelvis CT 10/10/24 08:56 IMPRESSION: 1. No obstructing renal or ureteral calculi. No hydronephrosis in either kidney. 2. Sigmoid diverticulosis. No evidence of acute diverticulitis. 3. Ambrosio catheter. 4. Prior hysterectomy 5. No other acute findings. Laboratory Results WBC 9.54 10^3/uL (3.29-11.43) 10/10/24 05:08 RBC 4.43 10^6/uL (3.85-5.65) 10/10/24 05:08 Hgb 13.00 g/dL (11.27-16.99) 10/10/24 05:08 Hct 41.1 % (36-47) 10/10/24 05:08 MCV 92.8 fl (85-98) 10/10/24 05:08 MCH 29.3 pg (27-33) 10/10/24 05:08 MCHC 31.6 g/dL (30-55) 10/10/24 05:08 RDW 11.9 % (12.1-15.1) L 10/10/24 05:08 Plt Count 285 10^3/cmm (157-399) 10/10/24 05:08 MPV 9.2 fL (7.4-10.4) 10/10/24 05:08 Neut % (Auto) 81.9 % 10/10/24 05:08 Lymph % (Auto) 8.0 % 10/10/24 05:08 [place] % (Auto) 9.4 % 10/10/24 05:08 Eos % (Auto) 0.0 % 10/10/24 05:08 Baso % (Auto) 0.1 % 10/10/24 05:08 Neut # (Auto) 7.81 10^3/uL (1.8-7.7) H 10/10/24 05:08 Lymph # (Auto) 0.8 10^3/uL (0.8-4.8) 10/10/24 05:08 [place] # (Auto) 0.9 10^3/uL (0.2-0.9) 10/10/24 05:08 Eos # (Auto) 0.0 10^3/uL (0.0-0.8) 10/10/24 05:08 Baso # (Auto) 0.0 10^3/uL (0.0-0.1) 10/10/24 05:08 Nucleated RBC % (auto) 0 % 10/10/24 05:08 Nucleated RBCs # 0.0 /100WBC 10/10/24 05:08 D-Dimer 1.07 ug/mLFEU (0-0.59) H 10/04/24 12:26 Specimen Type Arterial 10/05/24 05:50 Sample Site Radial, right 10/05/24 05:50 ABG pH 7.39 (7.35-7.45) 10/05/24 05:50 ABG pCO2 54.8 mmHg (35-45) H 10/05/24 05:50 ABG pO2 92.1 mmHg (80.0-100.0) 10/05/24 05:50 ABG PO2/FiO2 Ratio 289 10/04/24 15:03 ABG HCO3 33.3 mmol/L (22-26) H 10/05/24 05:50 ABG O2 Saturation 97.6 10/05/24 05:50 ABG Base Excess 6.9 mmol/L (-2.0-2.0) H 10/05/24 05:50 Efe Test Pos 10/05/24 05:50 A-a O2 Gradient Not Reportable 10/05/24 05:50 Hematocrit 38.1 % (37-47) 10/05/24 05:50 Hgb O2 Saturation 95.4 % (95-100) 10/05/24 05:50 Carboxyhemoglobin 1.2 %THgb (0.4-20.1) 10/05/24 05:50 Methemoglobin 1.0 % (0.4-1.5) 10/05/24 05:50 Total Hemoglobin 12.4 g/dL (12-16) 10/05/24 05:50 Sodium 139.0 mmol/L (131-143) 10/05/24 05:50 Potassium 4.5 mmol/L (3.5-5.0) 10/05/24 05:50 Glucose 137.0 mg/dL (70-115) H 10/05/24 05:50 Ionized Calcium 1.1 mmol/L (1.1-1.4) 10/05/24 05:50 O2 Delivery Device Nc 10/05/24 05:50 O2 Liters/Min 3.0 % 10/05/24 05:50 FiO2 30.0 % 10/04/24 15:03 Principal Network Architect ID [email or web address] 10/05/24 05:50 Sodium 135 mmol/L (136-145) L 10/10/24 05:08 Potassium 4.4 mmol/L (3.5-5.1) 10/10/24 05:08 Chloride 88 mmol/L (98-107) L 10/10/24 05:08 Carbon Dioxide 41 mmol/L (22-29) H 10/10/24 05:08 Anion Gap 10.4 (5-19) 10/10/24 05:08 BUN 57 mg/dL (8-23) H 10/10/24 05:08 Creatinine 1.5 mg/dL (0.5-0.9) H 10/10/24 05:08 GFR Calculation Not Reportable 10/10/24 05:08 Glucose 119 mg/dL (65-115) H 10/10/24 05:08 Calculated Osmolality 297 mOsm/kg (285-295) H 10/10/24 05:08 Lactic Acid 0.9 mmol/L (0.5-2.2) 10/04/24 12: Calcium 9.2 mg/dL (8.5-10.5) 10/10/24 05:08 Magnesium 2.5 mg/dL (1.7-2.3) H 10/10/24 05:08 Total Bilirubin 0.4 mg/dL (0.15-1.2) 10/10/24 05:08 AST 17 U/L (0-32) 10/10/24 05:08 ALT 35 U/L (0-33) H 10/10/24 05:08 Alkaline Phosphatase 88 U/L (35-105) 10/10/24 05:08 Troponin T Baseline 19 ng/L (0-10) H 10/04/24 12:26 Troponin T 120 Minute 16.84 ng/L (0-10) H 10/04/24 14:23 Delta Troponin T -2.16 ABS# (0-10) L 10/04/24 14:23 Troponin T Hi Sens 6Hr 16.33 ng/L (0-10) H 10/04/24 18:16 Troponin T Hi Sens 6Hr Delta -2.67 ng/L (0-12) L 10/04/24 18:16 NT-Pro-B Natriuret Pep 675 pg/mL (0-450) H 10/10/24 05:08 Total Protein 5.9 g/dL (6.6-8.7) L 10/10/24 05:08 Albumin 3.6 g/dL (3.5-5.2) 10/10/24 05:08 Globulin 2.3 g/dL (1.3-4.6) 10/10/24 05:08 Procalcitonin 0.10 ng/mL (0-0.5) 10/04/24 14:23 TSH 1.63 uIU/mL (0.27-4.20) 10/04/24 14:23 Urine Color Yellow (Yellow) 10/09/24 13:25 Urine Appearance Turbid (CLEAR) A 10/09/24 13:25 Urine pH 5.0 (5-7) 10/09/24 13:25 Ur Specific [place] 1.019 (1.005-1.030) 10/09/24 13:25 Urine Protein Negative (Negative) 10/09/24 13:25 Urine Glucose (UA) Negative (Normal) 10/09/24 13:25 Urine Ketones Negative (Negative) 10/09/24 13:25 Urine Blood 1+ (Negative) A 10/09/24 13:25 Urine Nitrate Negative (Negative) 10/09/24 13:25 Urine Bilirubin Negative (Negative) 10/09/24 13:25 Urine Urobilinogen 0.2 mg/dL (Negative) 10/09/24 13:25 Ur Leukocyte Esterase 1+ (Negative) A 10/09/24 13:25 Urine RBC >100 /hpf (0-2) H 10/09/24 13:25 Urine WBC 11-20 /hpf (0-5) H 10/09/24 13:25 Ur Squamous Epith Cells 0-5 /hpf (0-5) 10/09/24 13:25 Uric Acid Crystals 15-25 /hpf H 10/09/24 13:25 Amorphous Sediment Not Reportable 10/09/24 13:25 Urine Bacteria None seen /hpf (NONE) 10/09/24 13:25 Hyaline Casts 47.56 /lpf 10/09/24 13:25 Urine Yeast 2+ /hpf H 10/09/24 13:25 Ur Oval Fat Bodies 1+ /hpf 10/09/24 13:25 Adenovirus (PCR) Not detected (NOT DETECT) 10/09/24 13:25 C. pneumoniae DNA (PCR) Not detected (NOT DETECT) 10/09/24 13:25 Coronavirus (PCR) Negative (Negative) 10/04/24 12:16 Coronavirus 229E (PCR) Not detected (NOT DETECT) 10/09/24 13:25 Human Metapneumovir PCR Not detected (NOT DETECT) 10/09/24 13:25 Influenza A (H1) PCR Not detected (NOT DETECT) 10/09/24 13:25 Influenza A (PCR) Negative (Negative) 10/04/24 12:16 Influ A (H1/09) PCR Not detected (NOT DETECT) 10/09/24 13:25 Influenza A (H3) PCR Not detected (NOT DETECT) 10/09/24 13:25 Influenza Type A (PCR) Not detected (NOT DETECT) 10/09/24 13:25 Influenza Type B (PCR) Not detected (NOT DETECT) 10/09/24 13:25 M. pneumoniae (PCR) Not detected (NOT DETECT) 10/09/24 13:25 Parainfluenza 1 (PCR) Not detected (NOT DETECT) 10/09/24 13:25 Parainfluenza 2 (PCR) Not detected (NOT DETECT) 10/09/24 13:25 Parainfluenza 3 (PCR) Not detected (NOT DETECT) 10/09/24 13:25 Parainfluenza 4 (PCR) Not detected (NOT DETECT) 10/09/24 13:25 RSV (PCR) Negative (Negative) 10/04/24 12:16 RSV Type A (PCR) Not detected (NOT DETECT) 10/09/24 13:25 RSV Type B (PCR) Not detected (NOT DETECT) 10/09/24 13:25 Entero/Rhino (PCR) Not detected (NOT DETECT) 10/09/24 13:25 SARS-CoV-2 (PCR) Not detected (NOT DETECT) 10/09/24 13:25 Vitals Last Vital Signs Temp 97.8 F 10/10/24 12:00 Pulse 72 10/10/24 13:31 Resp 20 H 10/10/24 13:31 BP 128/85 10/10/24 13:31 Pulse Ox 93 10/10/24 13:31 O2 Del Method Nasal Cannula 10/10/24 12:00 O2 Flow Rate 3 10/10/24 12:28 FiO2 32 10/07/24 11:16 Discharge Plan Discharge Patient Disposition: Home Health Service Prescriptions: New polyethylene glycol 3350 17 gram Powder In Packet 17 g PO BID Qty: 60 0RF Continued furosemide [Lasix] 20 mg tablet 20 mg PO DAILY albuterol sulfate 90 mcg/actuation HFA aerosol inhaler 1 inh inhalation Q6H PRN (Reason: shortness of breath or wheezing) Qty: 8.5 0RF tramadol 50 mg tablet 25 - 50 mg PO BID PRN (Reason: Pain) amiodarone 200 mg tablet 200 mg PO DAILY Qty: 90 0RF levothyroxine 112 mcg tablet 112 mcg PO QAM metoprolol tartrate 25 mg Tablet 12.5 mg PO BID@0900,2100 Qty: 60 0RF Eliquis 2.5 mg tablet 2.5 mg PO BID Qty: 60 0RF potassium chloride 8 mEq capsule, extended release 8 meq PO DAILY Qty: 30 0RF Discharge Orders: Discharge Order (Routine); Ordered 10/10/24 Ordered By: James Stokes Other Ambulatory Orders: DME: BIPAP (Order) Location: None Selected Ordered By: James Stokes Referrals: [facility] [Outside] Lauren Fairbanks NP [Nurse Practitioner] - 10/27/24 2:30 pm Luis Carlos Garcia MD [Physician] - 12/17/24 11:00 am Alycia Garcia FNP [Primary Care Provider] - 4-7 days (Please contact PCP for a follow up appt) Discharge Activity: Increase activity as tolerated and As per PT/OT instructions Patient Instructions: Prednisone (By mouth), Levofloxacin (By mouth) (Levaquin, Levaquin Leva-ava), Atrial Flutter (GEN), COPD (Chronic Obstructive Pulmonary Disease) (GEN), Fall Prevention (GEN), Prevent Cardiovascular Disease (GEN), Opioid Safety Activity Restrictions/Additional Instructions: Please follow-up with your primary doctor as well as with cardiology for reassessment after congestive heart failure, as well as to reassess and confirm recovery from COPD exacerbation. As well as recovery of kidney function after acute kidney injury. Please have your primary to closely reassess your left foot after a fall and injury. No broken bone was seen on CT. Continue to increase activity as tolerating as per physical therapy instructions. Maintain fall precautions. Follow-up with your primary doctor for reassessment and management of constipation. Seek medical attention in case of any worsening or new concerning symptoms. Discharge Attestations Time Spent in Discharge Care*: greater than 30 min Quality Metrics Clinical Quality Measures [ No reported AMI, CVA or VTE this stay] Coding Level of Care Code 78828 Total time (in minutes) for Discharge: 40 Diagnoses Acute on chronic diastolic (congestive) heart failure I50.33 Atrial flutter with rapid ventricular response I48.92 Primary hypertension I10 Hypertension type: primary hypertension Abnormal stress test R94.39 History of pulmonary embolism Z86.711 Sinus node dysfunction I49.5
== END 2024-10-10 13:32 | disposition home health service (06) | DRG 291 ==
LOC: ER 14:40 → CSU 14:52
PROVIDERS: Nurse Practitioner Family; Admitting Provider Internal Medicine; Emergency Provider Emergency Medicine; PCP Nurse Practitioner; Visit Provider Internal Medicine
DX: I13.0 Hypertensive heart and chronic kidney disease with heart failure and stage 1 through stage 4 chronic kidney disease, or unspecified chronic kidney disease (principal); I50.33 Acute on chronic diastolic (congestive) heart failure; J96.21 Acute and chronic respiratory failure with hypoxia; J96.92 Respiratory failure, unspecified with hypercapnia; I48.92 Unspecified atrial flutter; J44.1 Chronic obstructive pulmonary disease with (acute) exacerbation; N17.9 Acute kidney failure, unspecified; N18.9 Chronic kidney disease, unspecified; I48.91 Unspecified atrial fibrillation; R94.39 Abnormal result of other cardiovascular function study; I49.5 Sick sinus syndrome; I35.1 Nonrheumatic aortic (valve) insufficiency; R31.9 Hematuria, unspecified; S90.32XA Contusion of left foot, initial encounter; F17.200 Nicotine dependence, unspecified, uncomplicated; E78.5 Hyperlipidemia, unspecified; W19.XXXA Unspecified fall, initial encounter; Y92.009 Unspecified place in unspecified non-institutional (private) residence as the place of occurrence of the external cause; Z79.01 Long term (current) use of anticoagulants; Z86.711 Personal history of pulmonary embolism; Z99.81 Dependence on supplemental oxygen
CPT/HCPCS: 0241U; 36415; 36600; 51702; 71045; 73630; 74176; 80048; 80051; 80053; 81001; 82330; 82805; 83605; 83735; 83880; 84145; 84443; 84484; 85025; 85378; 87040; 87086; 87486; 87581; 87633; 93005; 93306; 94640; 94660; 94760; 94762; 96365; 96376; 97110; 97116; 97161; 99291; A9270; J1940; J1956; J2919; J3490; J7613